=== PATIENT | female | born 1965 | race Caucasian/White ===

== ENCOUNTER → 2017-08-18 16:20 | Outpatient (CLI) | payer BC, SELFPAY ==
--- NOTE | 2017-08-18 16:25 | BI_ITS ---
MAMMOGRAPHY - BILATERAL SCREENING REASON FOR EXAM: Female, 51 years old. Routine annual screening examination. PERTINENT HISTORY: Non-contributory. TECHNIQUE: Digital bilateral breast jazz (3D mammographic acquisition) in the CC and MLO projections. 2-D mediolateral oblique (MLO) and craniocaudad (CC) views of both breasts were obtained. CAD: Full Field Digital Mammography with Computer Added Detection was performed. COMPARISON: Comparison is made with prior study dated genera 24/10/2013 and December 10, 2010. FINDINGS: Breast Composition: There are scattered areas of fibroglandular density. There are no dominant masses or suspicious calcifications. The previously seen nodular density in the upper outer aspect of the right breast is not seen at this time. No other significant abnormalities are identified. BI/SCREENING MAMM (CAD), BILAT IMPRESSION: Stable bilateral screening mammogram. Yearly follow-up mammogram recommended. (A) ASSESSMENT CATEGORY: BIRADS Category 2: Benign. A letter regarding these results will be sent to the patient by the facility within 30 days. Approximately 10% of breast cancers are not detected by mammography. A normal mammogram should not delay biopsy of a clinically suspicious abnormality. [id number] Electronically Signed: Derik Bello MD at 13:39 EDT Tel [phone], Service support ,
== END ==
PROVIDERS: Family Provider Preventive Medicine Occupational Medicine; PCP Preventive Medicine Occupational Medicine; Visit Provider Preventive Medicine Occupational Medicine
DX: Z12.31 Encounter for screening mammogram for malignant neoplasm of breast (principal)
CPT/HCPCS: 77063; 77067

== ENCOUNTER → 2018-08-24 | Outpatient (CLI) | payer BC, SELFPAY ==
[2018-08-24 10:14] LABS: Progesterone Level 0.09 ng/mL (See Comment)
[2018-08-24 10:15] LABS: Thyroid Stim Hormone (TSH) 1.23 uIU/mL (0.358-3.74)
[2018-08-28 11:12] LABS: Estrogen, Total, Serum 42 pg/mL (.)
== END | disposition home or self-care (01) ==
LOC: LABSPEC 09:38
PROVIDERS: Family Provider Preventive Medicine Occupational Medicine; PCP Preventive Medicine Occupational Medicine; Referring Provider Preventive Medicine Occupational Medicine; Visit Provider Preventive Medicine Occupational Medicine
DX: N95.1 Menopausal and female climacteric states (principal); R53.83 Other fatigue
CPT/HCPCS: 82672; 84144; 84443

== ENCOUNTER → 2018-12-13 | Outpatient (CLI) | payer BC, SELFPAY ==
--- NOTE | 2018-12-13 15:48 | BI_ITS ---
BILATERAL DIGITAL MAMMOGRAM WITH TOMOSYNTHESIS: Mediolateraloblique and craniocaudal views demonstrate no evidence of dominant parenchymal masses. No cluster of microcalcification or architectural distortion is seen. No evidence of skin thickening. No significant change since 08/18/2017. Breast Density: There are scattered areas of fibroglandular density. CAD was used to assist in final assessment. IMPRESSION: NORMAL MAMMOGRAM BILATERALLY. ASSESSMENT CATEGORY: BIRADS Category 1: Negative. A letter regarding these results will be sent to the patient by the facility within 30 days. FOLLOW UP RECOMMENDATION: Yearly follow up mammogram recommended. (A) Approximately 10% of breast cancers are not detected by mammography. A normal mammogram should not delay biopsy of a clinically suspicious abnormality. Electronically Signed: Declan Reynoso, at 16:56 EDT Tel , Service support , BI/SCREEN MAMM (CAD) W/DEMOND WISE
== END | disposition home or self-care (01) ==
LOC: OPBI 15:47
PROVIDERS: Family Provider Preventive Medicine Occupational Medicine; PCP Preventive Medicine Occupational Medicine; Referring Provider Preventive Medicine Occupational Medicine; Visit Provider Preventive Medicine Occupational Medicine
DX: Z12.31 Encounter for screening mammogram for malignant neoplasm of breast (principal)
CPT/HCPCS: 77063; 77067

== ENCOUNTER → 2020-02-13 15:48 | Outpatient (CLI) | payer BC, SELFPAY ==
--- NOTE | 2020-02-13 15:50 | BI_ITS ---
MAMMOGRAPHY - BILATERAL SCREENING REASON FOR EXAM: Female, 54 years old. Routine annual screening examination. PERTINENT HISTORY: Non-contributory. TECHNIQUE: Digital bilateral breast demond (3D mammographic acquisition) in the CC and MLO projections. 2-D mediolateral oblique (MLO) and craniocaudad (CC) views of both breasts were obtained. CAD: Full Field Digital Mammography with Computer Added Detection was performed. COMPARISON: Comparison is made with prior study dated 12/13/2018 and 08/18/2017. FINDINGS: Breast Composition: There are scattered areas of fibroglandular density. There are no dominant masses or suspicious calcifications. There is a 4.4 mm x 5.8 mm well-defined nodule in the slightly upper lateral portion of the right breast. This is unchanged. No other significant abnormalities are identified. There has been no significant change since the prior study. BI/SCREEN MAMM (CAD) W/DEMOND BILAT IMPRESSION: Stable bilateral screening mammogram. Yearly follow-up mammogram recommended. (A) ASSESSMENT CATEGORY: BIRADS Category 2: Benign. A letter regarding these results will be sent to the patient by the facility within 30 days. Approximately 10% of breast cancers are not detected by mammography. A normal mammogram should not delay biopsy of a clinically suspicious abnormality. [id number] Electronically Signed: Derik Bello, at 8:21 EST , Service support ,
== END ==
PROVIDERS: PCP Preventive Medicine Occupational Medicine; Referring Provider Preventive Medicine Occupational Medicine; Visit Provider Preventive Medicine Occupational Medicine
DX: Z12.31 Encounter for screening mammogram for malignant neoplasm of breast (principal)
CPT/HCPCS: 77063; 77067

== ENCOUNTER 2020-12-17 13:00 | Outpatient (RCR) | payer OTHER, SELFPAY ==
--- NOTE | 2020-10-06 13:25 | HP.PTEVAL_ITS ---
Patient's Visit Information EZRA PATEL is a 55 year old F referred to Physical Therapy by Dr. Nima Chong MD with a diagnosis of B knee pain. Date of Evaluation: 10/01/20 Physical Therapist: Damián Steele DPT - Visit Plan Frequency: 1x/Week Duration: 4 Weeks Plan: Start with B knee ROM and strengthening in aquatic setting progressing to tolerance with all functional mobility. Add in core stability to HEP as well. - Subjective Pt. is here today for her initial evaluation with diagnosis of B knee pain. Pt. reports having pain for years, but has been progressively getting worse. Pt. reports no N/T, but has been having B knee pain for a while. She reports having increased pain with walking, standing, sit to standing and all transitional movements. Decreased pain: sitting and resting. She saw her doctor who reports she is heading towards total knee replacements, but needs to increase her strength and ROM. Pt. reports stairs are painful, walking is pain and work related activities hurt. She is starting a wt. loss program in [facility] which had been suggested to her in the past. Pt. is hopeful to reduce symptoms, increase her strength and ROM in order to either prevent need for surgery or allow her to be stronger is case surgical intervention is needed. - Pain R knee Pain Intensity (Out of 10): 2 Pain Intensity Range: 0, 6 L knee Pain Intensity (Out of 10): 3 Pain Intensity Range: 1, 8 - Objective POSTURE: Pt. has normal wt. shifting in stance. Pt. does lack TKE on R side in stance. Normal iliac crest heights. PALPATION: Pt. has tenderness throughout B joint lines of knees. No quad pain, slight pain with palpation of medial popliteal fossa. NEURO: normal sensation in BLEs. Pt. has normal DTR of BLEs. ROM: R knee 0-5-108deg. L knee 0-6-110deg. Pt. has tight B HS as well. MMT: RLE: ankle 5/5 throughout; knee 4/5 both flex and ext; hip- flexion 4/5, abd 4/5, ext 4/5. LLE- ankle 5/5 throughout; knee 4/5 both flex and ext; hip- flexion 4/5, abd 4/5, ext 4/5. GAIT: pt. has wide WAQAS with gait with marked antalgic pattern during stance phase of BLEs. Pt. has marked valgus in B knees as well. STAIRS: difficult to complete with both ascending and descending requiring B HR to complete. - Goals Goal 1:: LTG: Pt. to be I with HEP. Goal Time Frame: 2-4 Weeks Goal 2:: STG: Pt. to walk short distances <300' with 0-2/10 pain in B Knees. Goal Time Frame: 2 Weeks Goal 3:: LTG: pt. to ambulate with normalized gait pattern with 0-2/10 pain for unlimited distances. Goal Time Frame: 2-4 Weeks Goal 4:: LTG: Pt. to have increased B knee ROM to 0-0-120deg actively allowing for increased tolerance with all functional mobility. Goal Time Frame: 4-6 Weeks Goal 5:: LTG: Pt. to have increased BLE and core strength increased to at least 5-/5 throughout. Goal Time Frame: 4-6 Weeks - Rehabilitation Potential Physical Therapy Diagnosis: Pt. has signs and symptoms consistent with B knee pain with subsequent hypomobility, weakness, and difficulty with walking. Pt. would benefit from PT to work on BLE strength, ROM to improve proper gait and functional mobility in order to reduce stress applied throughout BLEs. Rehabilitation Potential: Good - Anticipated Interventions Patient/Client Instruction: Educate patient on: Condition, Plan of Care, Risk Factors, Benefits of Fitness Program For the Purpose of:: To foster healthy habits, To improve decision making, To facilitate caregiver knowledge, To improve self management, To prevent re- injury, To improve ability to perform tasks related to life management Therapeutic Exercise to Include: Strength training, Power training, Body mechanics, Postural training, Flexibilty training, Gait and locomotor training, In an aquatic setting, Passive ROM, Active ROM For the Purpose of:: To decrease pain, To decrease swelling/inflammation, To increase ROM, To improve nutrient delivery to tissue, To improve gait and locomotor functions, To improve health of tissue, To decrease soft tissue restriction, To increase flexibility/ROM Thank you for the opportunity to evaluate your patient. For Medicare and Medicare HMO plans, please review the plan of care and approve it. It will need to be FAXED BACK to us at [phone] for Medicare purposes. For Medicare only, by signing this I certify the plan of care. Please let me know if there are questions or concerns regarding this plan of care. Physician Signature: Date:
--- NOTE | 2020-11-26 14:04 | HP.PTREVAL_ITS ---
Dr. Nima Chong MD, It has been my pleasure to treat EZRA PATEL over the last 8 visits for B knee pain. Please see the progress note below for an update on the physical therapy plan of care! Subjective: Pt. reports I do feel like I am getting better. Pt. reports still having some stiffness and is still having pain, but feels like she is progressin g. Objective/Function: Pt. was able to walk 330' with no change in R knee pain, stayed at 3/10 pain. Pt. still has limited knee extension Bilaterallt lacking 5 deg bilat. She does have improved knee flexion to 110deg bilat, but passively. Pt. has improved strength to 4+/5 throughout, except B hip flexion 4/5, abd 4/5 and hip ext 4/5. GAIT: pattern: Pt. continues to ambulate with lack of TKE during stance phases, but has appropriate swing phase. Increased lateral translation noted during stance phase. I would like her to work on continued ROM and hip/quad, HS/glute strengthening in aquatic setting. Plan Plan: Pt. is progressing and would like to continue with PT in aquatic setting. She is making gains in her ROM and strength. She is still limited in both and would benefit from continued PT in order to get her to a point where her tolerance to functional mobility is better or allow her to have surgical intervention. Balance/Gait/Functional tests - Balance/Special Test Scores Lower Extremity Functional Score: 42 Goals Goal 1:: LTG: Pt. to be I with HEP. Goal Time Frame: 2-4 Weeks Goal Progress: Progressing Goal 2:: STG: Pt. to walk short distances <300' with 0-2/10 pain in B Knees. Goal Time Frame: 2 Weeks Goal Progress: Progressing Goal 3:: LTG: pt. to ambulate with normalized gait pattern with 0-2/10 pain for unlimited distances. Goal Time Frame: 2-4 Weeks Goal Progress: Progressing Goal 4:: LTG: Pt. to have increased B knee ROM to 0-0-120deg actively allowing for increased tolerance with all functional mobility. Goal Time Frame: 4-6 Weeks Goal 5:: LTG: Pt. to have increased BLE and core strength increased to at least 5-/5 throughout. Goal Time Frame: 4-6 Weeks Anticipated Interventions Patient/Client Instruction: Educate patient on: Condition, Plan of Care, Risk Factors, Benefits of Fitness Program For the Purpose of:: To foster healthy habits, To improve decision making, To facilitate caregiver knowledge, To improve self management, To prevent re- injury, To improve ability to perform tasks related to life management Therapeutic Exercise to Include: Strength training, Power training, Body mechanics, Postural training, Flexibilty training, Gait and locomotor training, In an aquatic setting, Passive ROM, Active ROM For the Purpose of:: To decrease pain, To decrease swelling/inflammation, To increase ROM, To improve nutrient delivery to tissue, To improve gait and locomo tor functions, To improve health of tissue, To decrease soft tissue restriction, To increase flexibility/ROM Please do not hesitate to contact me at [phone] by phone or if you have questions or concerns regarding this new plan of care! Sincerely, LEO FordT
--- NOTE | 2020-12-17 17:58 | HP.PTDCSUM ---
It has been my pleasure to treat EZRA PATEL referred by Dr. Nima Chong MD, with the diagnosis of B knee pain for a total of 16 visit(s). Discharge Date: 12/17/20 Please see the following information for a summary of their discharge status. Subjective: Pt. is here today for her DC from PT. Pt. reports being 40% better overall. I really feel like my knee got straighter. She is to have a R TKA next week. She is still not back to work due to her knee pain. R knee Pain Intensity (Out of 10): 2 L knee Pain Intensity (Out of 10): 2 RLE Pain Intensity (Out of 10): 0 % Improvement: 40 Objective/Function: ROM: Extension: Pt. is missing 8deg of active ROM bilat, 5 deg of passive motion B. Pt. has normal flexion Bilat. Pt. was able to walk 1124feet without AD. She still has some increased lateral hip sway during stance phase, R worse than L. Pt. reports increased R knee pain during stance phase of pain. She is able to ascend and descend steps with 1 HR without LOB, but has pain with loading RLE during descending. Pt. has overall good strength. Goal 1:: LTG: Pt. to be I with HEP. Goal Progress: Goal Met Goal 2:: STG: Pt. to walk short distances <300' with 0-2/10 pain in B Knees. Goal Progress: Progressing Goal 3:: LTG: pt. to ambulate with normalized gait pattern with 0-2/10 pain for unlimited distances. Goal Progress: Progressing Goal 4:: LTG: Pt. to have increased B knee ROM to 0-0-120deg actively allowing for increased tolerance with all functional mobility. Goal Progress: Progressing Goal 5:: LTG: Pt. to have increased BLE and core strength increased to at least 5-/5 throughout. Goal Progress: Goal Met Plan: Pt. to be DC from PT at this point in time as she is to have TKR on R side next week. Discharge Comments: Pt. was seen in PT in aquatic setting for her B knee OA and pain. She progressed with ROM and strength, but was still having issues with functional mobility and pain. She is to have TKR on R side next week and will be DC from PT at this point in time. If there are questions or concerns regarding this patient's physical therapy, please feel free to call me at [phone]. Thank you for the referral of this patient. Sincerely, Damián Steele, LEOT Balance/Gait/Functional tests - Balance/Special Test Scores Lower Extremity Functional Score: 46
== END 2020-12-17 19:00 | disposition home or self-care (01) ==
LOC: PT 13:00
PROVIDERS: PCP Preventive Medicine Occupational Medicine; Referring Provider Specialist; Visit Provider Specialist
DX: M47.26 Other spondylosis with radiculopathy, lumbar region (principal); M51.36 Other intervertebral disc degeneration, lumbar region; M43.16 Spondylolisthesis, lumbar region
CPT/HCPCS: 97113; 97161; 97164

== ENCOUNTER → 2021-06-29 | Outpatient (CLI) | payer BC, SELFPAY ==
--- NOTE | 2021-06-29 08:43 | BI_ITS ---
MAMMOGRAPHY - BILATERAL SCREENING 3-D TOMOSYNTHESIS REASON FOR EXAM: Female, 55 years old. SCREENING PERTINENT HISTORY: No significant family history. TECHNIQUE: 2-D mammograms and 3-D Tomosynthesis of the breast (s) were performed. CAD was performed. COMPARISON: 02/13/2020 FINDINGS: The breast composition is composed of scattered fibroglandular density. Scattered benign calcifications are seen. No dense spiculated masses or suspicious microcalcifications are identified. No architectural distortion is identified. There is no skin thickening or retraction. There has been no significant change since the prior study. BI/SCRN MAMM (CAD)W/DEMOND BILAT IMPRESSION: No mammographic signs of malignancy. Routine yearly mammograms recommended. ASSESSMENT CATEGORY: BIRADS Category 1: Negative. A letter regarding these results will be sent to the patient by the facility within 30 days. FOLLOW UP RECOMMENDATION: Yearly follow up mammogram recommended. (A) Approximately 10% of breast cancers are not detected by mammography. A normal mammogram should not delay biopsy of a clinically suspicious abnormality. Electronically Signed: Robert Mcnamara MD at 10:24 EDT ,
== END | disposition home or self-care (01) ==
LOC: OPBI 08:41
PROVIDERS: PCP Preventive Medicine Occupational Medicine; Visit Provider Preventive Medicine Occupational Medicine
DX: Z12.31 Encounter for screening mammogram for malignant neoplasm of breast (principal)
CPT/HCPCS: 77063; 77067

== ENCOUNTER 2022-01-11 09:24 | Day surgery (SDC) | payer BC, SELFPAY ==
[2022-01-11 10:03] VITALS: BP 143/81; PULSE 79; RESP 16; TEMP 36.1; O2SAT 97; BMI 49.9
[2022-01-11] MEDS: Lactated Ringers 1,000 ML 15 ML IV (10:06)
--- NOTE | 2022-01-11 10:19 | RAD_ITS ---
PROCEDURE: Caudal block. DATE OF EXAMINATION: 01/11/2022. INDICATION: Female, 56 years old. Chronic low back pain. FLUOROSCOPY TIME (if supplied): (12 seconds) minutes/seconds. One image was submitted. RAD/Fluor Guidance for Spine Inj IMPRESSION: Intraoperative imaging provided for caudal block. Electronically Signed: Derik Bello MD at 14:49 EST ,
[2022-01-11] MEDS: 0.9% Normal Saline (Pres. free 10 ML Vial (10:24)
[2022-01-11] MEDS: MethylPREDNISolone Acetate 80 MG/ML Vial (10:24)
[2022-01-11] MEDS: Bupivacaine 0.25% 30 ML Vial (10:24)
[2022-01-11] MEDS: Lidocaine 1% (5 ml sdv) 5 ML Vial (10:24)
[2022-01-11 10:31] VITALS: BP 119/54; BP 143/81; PULSE 79; RESP 18; TEMP 36.7; O2SAT 98
[2022-01-11 10:35] VITALS: BP 118/68; BP 143/81; PULSE 74; RESP 18; O2SAT 96
[2022-01-11 10:40] VITALS: BP 127/79; BP 143/81; PULSE 72; RESP 18; O2SAT 96
[2022-01-11 10:52] VITALS: BP 136/78; BP 143/81; PULSE 87; RESP 18; TEMP 36.7; O2SAT 97
--- NOTE | 2022-01-11 10:53 | OP.PCM_ITS ---
Report of Operation Date of Procedure: 01/11/22 Pre-Operative Diagnosis: Lumbosacral radiculopathy, lumbosacral degenerative di sc disease, lumbosacral spinal stenosis Post-Operative Diagnosis: Lumbosacral radiculopathy, lumbosacral degenerative disc disease, lumbosacral spinal stenosis Surgery/Procedure Performed:: Caudal epidural steroid injection under fluoroscopic guidance Type of Anesthesia: MAC Estimated Blood Loss (mL): Minimal Description of Procedure: DESCRIPTION OF PROCEDURE: History and physical of today was reviewed. Risks and benefits of the procedure were explained. The patient understood and agreed to proceed. Informed consent was obtained. IV inserted per routine protocol. The patient was taken to the operating room and placed in the prone position with a pillow positioned underneath the abdomen. The lower back and tailbone area was prepped and draped in a sterile fashion using iodine x3. Under fluoroscopy guidance on a lateral view, the caudal space was identified. The skin and subcutaneous tissue was anesthetized with approximately 3 mL of 1% lidocaine using a 25-gauge regular needle. Under direct visualization with fluoroscopy, using a 22-gauge 3-1/2-inch spinal needle, the needle was advanced via the skin through the sacral hiatus. The tip of the needle was passed through the sacrococcygeal ligament and advanced to approximately S4 area. After negative aspiration of blood or CSF, a total of 3 mL of contrast was injected to confirm correct placement of the needle as well as cephalad spread. The spread was followed to approximately L5 area. After confirmation on AP as well as lateral view and repeated negative aspiration, a total of 15 mL of preservative-free 0.125% Marcaine with 80 mg of Depo-Medrol was injected easily. The needle was then removed intact. The patient experienced no sign or symptoms of intrathecal or intravascular injection. The patient experienced no paresthesia. The procedure was completed without any apparent difficulty or any complications. The patient appeared to tolerate it well. ASSESSMENT AND PLAN: This is a 56-year-old female with lumbosacral radiculopathy, lumbosacral degenerative disc disease, lumbosacral spinal stenosis status post caudal epidural steroid injection, patient will continue her current medications, patient will follow in approximately 2 weeks for reevaluation. Complications None
[2022-01-11 11:10] VITALS: BP 143/81
== END 2022-01-11 11:14 | disposition home or self-care (01) ==
LOC: SDC 09:25 → AC 09:27
PROVIDERS: PCP Preventive Medicine Occupational Medicine; Visit Provider Anesthesiology Pain Medicine
PROC: 3E0S3BZ Introduction of Anesthetic Agent into Epidural Space, Percutaneous Approach (ICD-10-PCS; CPT 62282; principal; 2022-01-11 11:25)
DX: M51.17 Intervertebral disc disorders with radiculopathy, lumbosacral region (principal); M48.07 Spinal stenosis, lumbosacral region; I10 Essential (primary) hypertension; K21.9 Gastro-esophageal reflux disease without esophagitis; Z79.1 Long term (current) use of non-steroidal anti-inflammatories (NSAID); Z79.899 Other long term (current) drug therapy
CPT/HCPCS: 62323; 01992; 64483; 77003; J7120; J3490

== ENCOUNTER 2022-05-24 09:52 | Day surgery (SDC) | payer BC, SELFPAY ==
[2022-05-24] VITALS (7 sets, daily range): BP systolic 125–145; BP diastolic 73–87; PULSE 65–84; RESP 16–20; TEMP 36.1–36.6; O2SAT 95–99; BMI 50.9
[2022-05-24] MEDS: Lactated Ringers 1,000 ML 15 ML IV (10:20)
--- NOTE | 2022-05-24 10:30 | RAD_ITS ---
PROCEDURE: Left L3-L5 transforaminal steroid injection. DATE OF EXAMINATION: May 24, 2022. INDICATION: Female, 56 years old. Chronic low back pain. FLUOROSCOPY TIME (if supplied): (18.3 seconds) minutes/seconds. 3 images were submitted. RADIATION DOSAGE (If Supplied By Facility): ( 11.1 ) mGycm RAD/Lumbar Spine 2 or 3 Views IMPRESSION: Intraoperative imaging provided for left L3-L5 transforaminal steroid injection. Electronically Signed: Derik Bello MD at 13:40 EDT ,
[2022-05-24] MEDS: MethylPREDNISolone Acetate 80 MG/ML Vial (11:08)
[2022-05-24] MEDS: Lidocaine 1% (5 ml sdv) 5 ML Vial (11:08)
[2022-05-24] MEDS: Bupivacaine 0.25% 30 ML Vial (11:08)
--- NOTE | 2022-05-24 11:13 | PCM.OPRPT ---
Report of Operation Date of Procedure: 05/24/22 Description of Surgical Findings:: PREOPERATIVE DIAGNOSES: 1. Lumbosacral radiculopathy. 2. Lumbosacral degenerative disk disease. 3. Lumbosacral spinal stenosis. POSTOPERATIVE DIAGNOSES: 1. Lumbosacral radiculopathy. 2. Lumbosacral degenerative disk disease. 3. Lumbosacral spinal stenosis. PROCEDURE PERFORMED: Left-sided lumbar transforaminal epidural steroid injection, L3-4 and L4-5. ANESTHESIA: MAC. BLOOD LOSS: Minimal. COMPLICATIONS: None. DESCRIPTION OF PROCEDURE: History and physical of today was reviewed. Risks and benefits of the procedure were explained. The patient understood and agreed to proceed. Informed consent was obtained. IV inserted per routine protocol. The patient was taken to the operating room and placed in the prone position with a pillow positioned underneath the abdomen. The left side of his lower back was prepped and draped in a sterile fashion using iodine x3. Under fluoroscopy guidance on oblique view, the L3 through L5 vertebral bodies were visualized. The skin and subcutaneous tissue was anesthetized with approximately 5 mL of 1% lidocaine using a 25-gauge regular needle. Under direct visualization with fluoroscopy at approximately 35-degree angle, starting on the left L3, ending on the left L5, using a 22-gauge 5-inch spinal needle, the needle was advanced via the skin. The tip of the needle was maneuvered and directed towards the inferior and medial gutter of the transverse process at the superiormost aspect of the neural foramen. Once the tip of the needle was at the vicinity of the foramen, after negative aspiration for blood or CSF, a total of 1 mL of contrast was injected in divided doses between both levels to confirm correct placement of the needle as well as medial spread. The confirmation was obtained on AP as well as lateral view. After repeated negative aspiration and confirmation on AP as well as lateral view, a total of 6 mL of preservative-free 0.25% Marcaine with 80 mg of Depo-Medrol was injected in divided doses between both levels. The needles were then removed intact. The patient experienced no sign or symptoms of intrathecal or intravascular injection. The patient experienced no paresthesia. The procedure was completed without any apparent difficulty or any complications. The patient appeared to tolerate it well. ASSESSMENT AND PLAN: This is a 56-year-old female with lumbosacral radiculopathy, lumbosacral degenerative disk disease, and lumbosacral spinal stenosis, status post left-sided lumbar transforaminal epidural steroid injection at L3-4 and L4-5. The patient will continue his current medications. The patient will follow up in approximately 2 weeks for possible repeat of procedure if indicated.
== END 2022-05-24 12:09 | disposition home or self-care (01) ==
LOC: SDC 09:52 → AC 09:54
PROVIDERS: PCP Preventive Medicine Occupational Medicine; Referring Provider Anesthesiology Pain Medicine; Visit Provider Anesthesiology Pain Medicine
PROC: 3E0S3BZ Introduction of Anesthetic Agent into Epidural Space, Percutaneous Approach (ICD-10-PCS; CPT 64483; principal; 2022-05-24 11:25)
DX: M51.17 Intervertebral disc disorders with radiculopathy, lumbosacral region (principal); M48.07 Spinal stenosis, lumbosacral region; F32.A Depression, unspecified; K21.9 Gastro-esophageal reflux disease without esophagitis; E78.00 Pure hypercholesterolemia, unspecified; I10 Essential (primary) hypertension; G47.30 Sleep apnea, unspecified; Z79.899 Other long term (current) drug therapy
CPT/HCPCS: 64483; 64484; 01992; 72100; J7120

== ENCOUNTER 2022-08-23 06:34 | Day surgery (SDC) | payer BC, SELFPAY ==
[2022-08-23] VITALS (7 sets, daily range): BP systolic 127–144; BP diastolic 70–83; PULSE 71–82; RESP 16; TEMP 36.4–37; O2SAT 95–100; BMI 51.3
[2022-08-23] MEDS: Lactated Ringers 1,000 ML 15 ML IV (07:12)
--- NOTE | 2022-08-23 08:40 | RAD_ITS ---
STUDY: INTRAOPERATIVE FLUOROSCOPY TECHNIQUE: The examination was performed with referring physician in attendance. Under fluoroscopic observation, fluoroscopic images were obtained. Radiologist was not present for the study. Radiologist did not perform the procedure. This dictation is for documentation of the radiation dosage only. There is no interpretation of the images. TOTAL NUMBER OF IMAGES: 1 COMPARISON: None RADIATION DOSE: 16.96 mGy FLUOROSCOPY TIME: 28.5 seconds REASON FOR EXAM: RIGHT LUMBAR RADIO FREQ ABLATION Female, 56 years old. FINDINGS: Images of the lumbar spine needle''s voiding at multiple lumbar levels. RAD/L/S Spine Min 4 Views IMPRESSION: Fluoroscopic assistance images were obtained. Dictation for documentation purposes only. Electronically Signed: Jarek Nava MD at 16:14 EDT ,
[2022-08-23] MEDS: Lidocaine 1% (30 ml sdv) 30 ML Vial (08:47)
[2022-08-23] MEDS: MethylPREDNISolone Acetate 40 MG/ML Vial IM (08:47)
--- NOTE | 2022-08-23 09:14 | PCM.OPRPT ---
Report of Operation Date of Procedure: 08/23/22 Pre-Operative Diagnosis: Lumbosacral spondylosis, lumbosacral degenerative disc disease, lumbar facet arthropathy Post-Operative Diagnosis: Lumbosacral spondylosis, lumbosacral degenerative disc disease, lumbar facet arthropathy Surgery/Procedure Performed:: Right-sided lumbar radiofrequency ablation of the medial branch L4, L5, S1 Type of Anesthesia: MAC Estimated Blood Loss (mL): Minimal Description of Procedure: History and physical today was reviewed. Risks and benefits of procedure explained. The patient understood, agreed to the procedure and informed consent was obtained. IV inserted per routine protocol. The patient was taken to the operating room, placed in the prone position with a pillow positioned underneath the abdomen. The right side of the lower back was prepped and draped in a sterile fashion using iodine x 3. Under fluoroscopy guidance, on an oblique view, the L3 through S1 vertebral bodies were visualized. The skin and subcutaneous tissue was anesthetized with approximately 10 mL of 1% lidocaine using a 25-gauge regular needle. Under direct visualization with fluoroscopy at approximately 25-degree angle, starting on the right L3, ending on the right S1 passing through the L4-L5 using a 20-gauge 15 cm with a 10 mm curved active tip radiofrequency ablation needle the needle passed through the skin. The tip of the needle was maneuvered and directed towards the superior and medial gutter of the transverse process at the vicinity of the medial branch. Once the tip of the needle was in contact with the bone, the needle pulled approximately 2 mm up the bone. The stylet of each needle was then removed. After negative aspiration of blood with CSF and confirmation of AP as well as oblique view, radiofrequency ablation probe was then inserted at each level. Impedance was then recorded at L3 to be 316, at L4 216, at L5 238, at S1 389 ohm. Motor-evoked potential was then initiated to 1.5 volt without any motor response at each corresponding level. The probe was then removed intact and a total of 6 mL preservative-free 1% lidocaine was injected in divided doses between those 4 levels after negative aspiration of blood with CSF. The radiofrequency ablation probe was then reinserted after confirmation of AP, oblique as well as lateral view. Radiofrequency ablation was then initiated to 80 degrees Celsius for 90 seconds at each level. Once concluded, the probe was then removed intact and a total of 6 mL of preservative-free 0.25% Marcaine with 40 mg Depo-Medrol was injected in divided doses between those 4 levels. The needles were then removed intact. The patient experienced no signs or symptoms of intrathecal, intravascular injection. The patient experienced no paraesthesia. The procedure was completed without any apparent difficulty, any complication. The patient appeared to tolerate well. Sensory as well as motor exam was unchanged from prior to procedure. ASSESSMENT AND PLAN: This is a 56-year-old female with lumbosacral spondylosis, lumbosacral degenerative disc disease, lumbar facet arthropathy, status post right-sided radiofrequency ablation of the medial branch L4 through S1. The patient will continue her current medications. The patient will follow up in approximately 2 weeks for reevaluation. Complications None
== END 2022-08-23 09:49 | disposition home or self-care (01) ==
LOC: SDC 06:35 → AC 06:36
PROVIDERS: PCP Preventive Medicine Occupational Medicine; Referring Provider Anesthesiology Pain Medicine; Visit Provider Anesthesiology Pain Medicine
PROC: (CPT 64635; principal; 2022-08-23 08:15)
DX: M47.816 Spondylosis without myelopathy or radiculopathy, lumbar region (principal); M51.37 Other intervertebral disc degeneration, lumbosacral region; M47.817 Spondylosis without myelopathy or radiculopathy, lumbosacral region; F32.A Depression, unspecified; K21.9 Gastro-esophageal reflux disease without esophagitis; E78.00 Pure hypercholesterolemia, unspecified; I10 Essential (primary) hypertension; G47.30 Sleep apnea, unspecified; Z79.899 Other long term (current) drug therapy
CPT/HCPCS: 64635; 64636; 01992; 72110; 76000; J7120

== ENCOUNTER 2022-11-22 10:24 | Day surgery (SDC) | payer BC, SELFPAY ==
[2022-11-22] VITALS (7 sets, daily range): BP systolic 121–150; BP diastolic 70–82; PULSE 59–68; RESP 12–16; TEMP 36.1–36.6; O2SAT 96–98; BMI 52.6
[2022-11-22] MEDS: Lactated Ringers 1,000 ML 15 ML IV (10:59)
--- NOTE | 2022-11-22 11:28 | RAD_ITS ---
PROCEDURE: Caudal block. DATE OF EXAMINATION: November 22, 2022. INDICATION: Female, 57 years old. Low back pain. FLUOROSCOPY TIME (if supplied): (10 seconds) minutes/seconds. 11.03 mGy. One image was obtained. RAD/Fluor Guidance for Spine Inj IMPRESSION: Intraoperative imaging provided for caudal block. Electronically Signed: Derik Bello MD at 9:11 EDT ,
[2022-11-22] MEDS: 0.9% Normal Saline (Pres. free 10 ML Vial (11:31)
[2022-11-22] MEDS: MethylPREDNISolone Acetate 80 MG/ML Vial (11:36)
[2022-11-22] MEDS: Lidocaine 1% (5 ml sdv) 5 ML Vial (11:36)
--- NOTE | 2022-11-22 12:24 | OP.PCM_ITS ---
Report of Operation Date of Procedure: 11/22/22 Pre-Operative Diagnosis: Lumbosacral radiculopathy, lumbosacral degenerative di sc disease, lumbosacral spinal stenosis Post-Operative Diagnosis: Lumbosacral radiculopathy, lumbosacral degenerative disc disease, lumbosacral spinal stenosis Surgery/Procedure Performed:: Diagnostic/therapeutic caudal epidural steroid injection under fluoroscopic guidance Type of Anesthesia: MAC Estimated Blood Loss (mL): Minimal Description of Procedure: DESCRIPTION OF PROCEDURE: History and physical of today was reviewed. Risks and benefits of the procedure were explained. The patient understood and agreed to proceed. Informed consent was obtained. IV inserted per routine protocol. The patient was taken to the operating room and placed in the prone position with a pillow positioned underneath the abdomen. The lower back and tailbone area was prepped and draped in a sterile fashion using iodine x3. Under fluoroscopy guidance on a lateral view, the caudal space was identified. The skin and subcutaneous tissue was anesthetized with approximately 3 mL of 1% lidocaine using a 25-gauge regular needle. Under direct visualization with fluoroscopy, using a 22-gauge 3-1/2-inch spinal needle, the needle was advanced via the skin through the sacral hiatus. The tip of the needle was passed through the sacrococcygeal ligament and advanced to approximately S4 area. After negative aspiration of blood or CSF, a total of 3 mL of contrast was injected to confirm correct placement of the needle as well as cephalad spread. The spread was followed to approximately L5 area. After confirmation on AP as well as lateral view and repeated negative aspiration, a total of 15 mL of preservative-free 0.125% Marcaine with 80 mg of Depo-Medrol was injected easily. The needle was then removed intact. The patient experienced no sign or symptoms of intrathecal or intravascular injection. The patient experienced no paresthesia. The procedure was completed without any apparent difficulty or any complications. The patient appeared to tolerate it well. ASSESSMENT AND PLAN: This is a 57-year-old female with lumbosacral radiculopathy, lumbosacral degenerative disc disease, lumbosacral spinal stenosis status post diagnostic/therapeutic caudal epidural steroid injection, patient will continue her current medications, patient will follow in approximately 2 weeks for reevaluation. Complications None
== END 2022-11-22 12:15 | disposition home or self-care (01) ==
LOC: SDC 10:24 → AC 10:25
PROVIDERS: PCP Preventive Medicine Occupational Medicine; Referring Provider Anesthesiology Pain Medicine; Visit Provider Anesthesiology Pain Medicine
PROC: 3E0S3BZ Introduction of Anesthetic Agent into Epidural Space, Percutaneous Approach (ICD-10-PCS; CPT 62282; principal; 2022-11-22 11:55)
DX: M51.17 Intervertebral disc disorders with radiculopathy, lumbosacral region (principal); M48.07 Spinal stenosis, lumbosacral region; F32.A Depression, unspecified; K21.9 Gastro-esophageal reflux disease without esophagitis; E78.00 Pure hypercholesterolemia, unspecified; I10 Essential (primary) hypertension; Z79.899 Other long term (current) drug therapy
CPT/HCPCS: 62323; 01992; 64483; 77003; J7120; J3490

== ENCOUNTER 2023-05-09 07:46 | Day surgery (SDC) | payer BC, SELFPAY ==
--- OUTSIDE RECORDS SUMMARY | 2023-05-09 08:02 | XMS RPT_ITS | CCD ---
Author Name Unknown Address [address] [place] [address] Organization [facility] Care Team Providers Care Log Stacker Operator Name Role Phone Sunil Brown PA-C Unavailable [phone] RIZWANA GONZALEZ Attending Unavailable RIZWANA GONZALEZ Primary Care Unavailable RIZWANA GONZALEZ Admitting Unavailable KRISTEN MAY DO Primary Care Physician [phone] KRISTEN MAY DO Primary Care Physician [phone] KRISTEN MAY DO Attending Unavailable KRISTEN MAY DO Primary Care Unavailable KRISTEN MAY DO Primary Care Unavailable ALONSO BROWNING MD Attending Unavailable KRISTEN MAY DO Primary Care Unavailable KRISTEN MAY DO Attending Unavailable HAYLEE UX CONSULTANT-ADMINISTRATIVE FELLOW, EMILEE Wallis Attending Un available KRISTEN MAY DO Primary Care Unavailable MICHAEL UX CONSULTANT-ADMINISTRATIVE FELLOWJOHANNE Admitting Kelsi RODRIGUEZ APRN-THONG, JOHANNE Villafana Attending RIZWANA Armendariz DO Referring Unavailable KRISTEN MAY DO Primary Care Unavailable KRISTEN MAY DO Primary Care Unavailable SARBJIT JASON DO Attending Unavailable KRISTEN MAY DO Attending Unavailable KRISTEN MAY DO Primary Care Unavailable KRISTEN MAY DO Primary Care Unavailable PROVIDER, UNKNOWN Attending Unavailable Allergies Allergy Classification Reported Allergen(s) Allergy Type Date of Onset Reaction(s) Facility (17 sources) penicillin; Translations: [penicillin] Drug Allergy 3 Rash [facility] Work Phone: (1 source) Seasonal allergy; Translations: [SEASONAL] allergy to substance 4 [facility] Work Phone: (9 sources) sulfacetamide; Translations: [sulfa drugs] Drug Allergy 3 Rash [facility] Work Phone: (16 sources) Fenofibrate; Translations: [fenofibrate] Drug Allergy Sore gums (finding) [facility] (16 sources) moxifloxacin; Translations: [moxifloxacin] Drug Allergy Rash [facility] (8 sources) Sulfonamides (Antibiotic); Translations: [sulfa drugs] Drug allergy Rash [facility] Medications Current Medications Medication Drug Class(es) Dates Sig (Normalized) Sig (Original) acetaminophen 500 mg oral tablet (1 source) Start: 02-12-2021 End: 02-26-2021 take 1 tablet by mouth once daily acetaminophen 500 mg oral tablet Dose : 1,000 mg = 2 tab(s), Oral, TID, PRN as needed for fever, not to exceed 3000 mg/day, # 100 tab(s), 0 Refill(s), 02/26/21 7:18:00 EST, Pharmacy: [facility]/pharmacy #[id number], 160, cm, 02/11/21 19:41:00 EST, Height, kg, 02/11/21 19:41:00 EST, Dosing Weight Start Date: 02/12/21 Stop Date: 02/26/21 Status: Ordered acetaminophen 325 mg / oxyCODONE hydrochloride 5 mg oral tablet (2 sources) Opioid Agonist Start: 02-10-2023 End: 02-15-2023 take 1 tablet by mouth every six hours as needed for pain Percocet 5 mg-325 mg oral tablet Dose = 1 tab(s), Oral, q6h, PRN for pain, X 5 day(s), # 12 tab(s), 0 Refill(s), Open fracture of phalanx of finger of left hand, 136.4 Start Date: 02/10/23 Stop Date: 02/15/23 Status: Ordered Aspirin (3 sources) Platelet Aggregation Inhibitor, Nonsteroidal Anti-inflammatory Drug Start: 02-12-2021 take 1 tablet by mouth twice daily aspirin 81 mg oral delayed release tablet Dose : 81 mg = 1 tab(s), Oral, BID, Take 81 mg aspirin twice daily with food for 4 weeks postoperatively for DVT prophylaxis, # 60 tab(s), 0 Refill(s), Pharmacy: [facility]/pharmacy #[id number], 160, cm, 02/11/21 19:41:00 EST, Height, kg, 02/11/21 19:41:00 EST, Do... Start Date: 02/12/21 Status: Ordered cephalexin 500 mg oral capsule (2 sources) Cephalosporin Antibacterial Start: 02-10-2023 End: 02-15-2023 cephalexin 500 mg oral capsule Dose : 500 mg = 1 cap(s), Oral, q12h, X 5 day(s), # 10 cap(s), 0 Refill(s), 02/15/23 10:06:00 PM EST, 136.4 Start Date: 02/10/23 Stop Date: 02/15/23 Status: Ordered doxycycline hyclate 100 mg oral capsule (3 sources) Tetracycline-class Drug Start: 07-14-2022 End: 07-29-2022 doxycycline hyclate 100 mg oral capsule Dose : 100 mg = 1 cap(s), Oral, BID, X 10 day(s), # 20 cap(s), 0 Refill(s), 07/29/22 10:44:00 EDT, Pharmacy: [id number], 160, cm, 07/16/22 18:33:00 EDT, Height, 129.5 Start Date: 07/19/22 Stop Date: 07/29/22 Status: Ordered Completed/Discontinued Medications Medication Drug Class(es) Dates Sig (Normalized) Sig (Original) MULTIPLE VITAMIN (1 source) Start: 05-24-2016 MULTIPLE VITAMINS TABS MULTIPLE VITAMIN [id number] Gabe Price PAC [id number] ETHYL ESTERS CAPS (1 source) Start: 01-02-2013 LOVAZA CAPS takes 4 capsules a day [id number] ETHYL ESTERS CAPS [id number] Norah Hay LPN oxyCODONE hydrochloride 5 mg oral tablet (4 sources) Opioid Agonist Start: 03-12-2021 oxyCODONE 5 mg oral tablet ( IMMEDIATE release ) Dose : 5 mg = 1 tab(s), Oral, q6h, PRN as needed for pain, 0 Refill(s), 114.5 Start Date: 03/12/21 Status: Ordered Problems Active Problems Problem Classification Problem Date Documented Date Episodic/Chronic Anxiety disorders (17 sources) Anxiety; Translations: [Anxiety disorder] Onset: 02-11-2021 11-29-2018 Chronic Deficiency and other anemia (16 sources) Iron deficiency anemia 07-30-2020 Episodic Diseases of white blood cells (1 source) Leukocytosis; Translations: [Elevated white blood cell count, unspecified] Onset: 02-12-2021 Chronic Disorders of lipid metabolism (17 sources) Mixed hyperlipidemia; Translations: [Mixed hyperlipidemia] Onset: 02-11-2021 11-29-2018 Chronic Esophageal disorders (17 sources) Gastroesophageal reflux disease; Translations: [Gastroesophageal reflux disease without esophagitis] Onset: 02-11-2021 11-29-2018 Chronic Essential hypertension (18 sources) Essential hypertension; Translations: [Essential (primary) hypertension] Onset: 02-11-2021 08-22-2019 Chronic Fracture of upper limb (1 source) Open fracture of phalanx of finger; Translations: [Fracture of unspecified phalanx of unspecified finger, initial encounter for open fracture] Onset: 02-10-2023 Episodic Menopausal disorders (16 sources) Menopausal syndrome 11-29-2018 Chronic Nutritional deficiencies (16 sources) Vitamin D deficiency 02-16-2019 Chronic Nutritional deficiencies (16 sources) Cobalamin deficiency 11-29-2018 Episodic Osteoarthritis (14 sources) Osteoarthritis of knee; Translations: [Osteoarthritis of right knee joint] Onset: 03-20-2015 03-20-2015 Chronic Other connective tissue disease (1 source) Artificial knee joint present; Translations: [Presence of right artificial knee joint] Onset: 02-11-2021 Chronic Other connective tissue disease (16 sources) Muscle pain 11-29-2018 Episodic Other female genital disorders (10 sources) Vaginal bleeding 06-17-2021 Chronic Other nutritional; endocrine; and metabolic disorders (2 sources) Body mass index 40+ - severely obese 02-09-2023 Chronic Residual codes; unclassified (16 sources) Obstructive sleep apnea syndrome 11-29-2018 Chronic Spondylosis; intervertebral disc disorders; other back problems (17 sources) Lumbar disc prolapse with radiculopathy; Translations: [Degeneration of lumbar intervertebral disc] Onset: 12-09-2014 12-09-2014 Chronic Unclassified (2 sources) Invalid ICD10 Description; Translations: [Invalid ICD10 Description] Onset: 03-27-2020 Unclassified (1 source) COVID-19; Translations: [COVID-19] Onset: 03-27-2020 Unclassified (20 sources) Patient encounter status 11-29-2018 Past or Other Problems Problem Classification Problem Date Documented Da te Episodic/Chronic Skin and subcutaneous tissue infections (5 sources) Cellulitis of lower limb; Translations: [Cellulitis] Onset: 07-14-2022 07-07-2022 Episodic Spondylosis; intervertebral disc disorders; other back problems (2 sources) Spinal stenosis; Translations: [Spinal stenosis of lumbar region] Onset: 12-09-2014 12-09-2014 Episodic Unclassified (1 source) Problem Results Test Name Value Interpretation Reference Range Facil ity Vital Signs Date Time Vital Sign Value Performing Clinician Facility 02-10-2023 19:35-0500 Blood Pressure Cuff Size 8Trip DO [facility] 02-10-2023 19:35-0500 Blood Pressure Location 8Trip DO [facility] 02-10-2023 19:35-0500 Blood Pressure Method 8Trip DO [facility] 02-10-2023 19:35-0500 Diastolic Blood Pressure Non-Invasive 88 mm[Hg] 8Trip DO [facility] 02-10-2023 19:35-0500 Systolic Blood Pressure Non-Invasive 157 mm[Hg] 8Trip DO [facility] 02-10-2023 18:32-0500 Body height 160 cm Speak With Me [facility] 02-10-2023 18:32-0500 Body temperature 98.96 [degF] SARBJIT REICHFIELD DO [facility] 02-10-2023 18:32-0500 Body weight 136.4 kg SARBJIT REICHFIELD DO [facility] 02-10-2023 18:32-0500 Diastolic Blood Pressure Non-Invasive 113 mm[Hg] SARBJIT REICHFIELD DO [facility] 02-10-2023 18:32-0500 Heart rate 79 /[facility] 02-10-2023 18:32-0500 Respiratory rate 20 /min [facility] 02-10-2023 18:32-0500 Systolic Blood Pressure Non-Invasive 207 mm[Hg] [facility] 07-19-2022 11:00-0400 Body temperature 97.7 [degF] JOHANNE RODRIGUEZ UX CONSULTANT-ADMINISTRATIVE FELLOW [facility] 07-19-2022 11:00-0400 Diastolic Blood Pressure Non-Invasive 66 1 JOHANNE RODRIGUEZ UX CONSULTANT-ADMINISTRATIVE FELLOW [facility] 07-19-2022 11:00-0400 Heart rate 70 /min JOHANNE RODRIGUEZ UX CONSULTANT-ADMINISTRATIVE FELLOW [facility] 07-19-2022 11:00-0400 Systolic Blood Pressure Non-Invasive 130 1 JOHANNE RODRIGUEZ UX CONSULTANT-ADMINISTRATIVE FELLOW [facility] 07-19-2022 07:48-0400 Body temperature 97.52 [degF] JOHANNE RODRIGUEZ UX CONSULTANT-ADMINISTRATIVE FELLOW [facility] 07-19-2022 07:48-0400 Diastolic Blood Pressure Non-Invasive 81 1 JOHANNE RODRIGUEZ UX CONSULTANT-ADMINISTRATIVE FELLOW [facility] 07-19-2022 07:48-0400 Heart rate 64 /min JOHANNE RODRIGUEZ UX CONSULTANT-ADMINISTRATIVE FELLOW [facility] 07-19-2022 07:48-0400 Reason For Taking VItal Signs JOHANNE RODRIGUEZ UX CONSULTANT-ADMINISTRATIVE FELLOW [facility] 07-19-2022 07:48-0400 Respiratory rate 20 /min JOHANNE RODRIGUEZ UX CONSULTANT-ADMINISTRATIVE FELLOW [facility] 07-19-2022 07:48-0400 Systolic Blood Pressure Non-Invasive 143 1 JOHANNE RODRIGUEZ UX CONSULTANT-ADMINISTRATIVE FELLOW [facility] 07-19-2022 03:13-0400 Body temperature 96.98 [degF] JOHANNE RODRIGUEZ UX CONSULTANT-ADMINISTRATIVE FELLOW [facility] 07-19-2022 03:13-0400 Diastolic Blood Pressure Non-Invasive 79 1 JOHANNE RODRIGUEZ UX CONSULTANT-ADMINISTRATIVE FELLOW [facility] 07-19-2022 03:13-0400 Heart rate 69 /min JOHANNE RODRIGUEZ UX CONSULTANT-ADMINISTRATIVE FELLOW [facility] 07-19-2022 03:13-0400 Systolic Blood Pressure Non-Invasive 136 1 JOHANNE RODRIGUEZ UX CONSULTANT-ADMINISTRATIVE FELLOW [facility] 07-18-2022 23:05-0400 Body temperature 97.16 [degF] JOHANNE RODRIGUEZ UX CONSULTANT-ADMINISTRATIVE FELLOW [facility] 07-18-2022 23:05-0400 Heart rate 65 /min JOHANNE RODRIGUEZ UX CONSULTANT-ADMINISTRATIVE FELLOW [facility] 07-18-2022 19:19-0400 Body temperature 97.52 [degF] JOHANNE GARCIAN UX CONSULTANT-ADMINISTRATIVE FELLOW [facility] 07-18-2022 16:26-0400 Heart rate 70 /min JOHANNEBREANNA GARCIAN UX CONSULTANT-ADMINISTRATIVE FELLOW [facility] 07-18-2022 11:28-0400 Heart rate 70 /min JOHANNEBREANNA GARCIAN UX CONSULTANT-ADMINISTRATIVE FELLOW [facility] 07-18-2022 05:28-0400 Heart rate 60 /min JOHANNEBREANNA GARCIAN UX CONSULTANT-ADMINISTRATIVE FELLOW [facility] 07-17-2022 23:50-0400 Heart rate 80 /min JOHANNEBREANNA RICENEN UX CONSULTANT-ADMINISTRATIVE FELLOW [facility] 07-17-2022 19:30-0400 Heart rate 69 /min JOHANNEBREANNA GARCIAN UX CONSULTANT-ADMINISTRATIVE FELLOW [facility] 07-16-2022 18:33-0400 Body height 160 cm JOHANNE GARCIAN UX CONSULTANT-ADMINISTRATIVE FELLOW [facility] 07-16-2022 18:33-0400 Body weight 129.5 kg JOHANNEBREANNA GARCIAN UX CONSULTANT-ADMINISTRATIVE FELLOW [facility] 07-16-2022 18:33-0400 Body weight 50.59 kg/m2 JOHANNEBREANNA GARCIAN UX CONSULTANT-ADMINISTRATIVE FELLOW [facility] 07-16-2022 18:27-0400 Blood Pressure Cuff Size JOHANNEBREANNA RICENEN UX CONSULTANT-ADMINISTRATIVE FELLOW [facility] 07-16-2022 18:27-0400 Blood Pressure Location JOHANNEBREANNA GARCIAN UX CONSULTANT-ADMINISTRATIVE FELLOW [facility] 07-16-2022 18:27-0400 Blood Pressure Method JOHANNE GARCIAMaya UX CONSULTANT-ADMINISTRATIVE FELLOW [facility] 07-16-2022 15:05-0400 Body height 160 cm JOHANNE RODRIGUEZ UX CONSULTANT-ADMINISTRATIVE FELLOW [facility] 07-16-2022 15:05-0400 Body weight 129.5 kg JOHANNE RODRIGUEZ UX CONSULTANT-ADMINISTRATIVE FELLOW [facility] 03-24-2021 13:00-0500 Diastolic Blood Pressure NBP [address] NIMA POTTER MD [facility] 03-24-2021 13:00-0500 Heart rate 95 /min DR NIMA POTTER MD [facility] 03-24-2021 13:00-0500 Systolic Blood Pressure NBP [address] NIMA POTTER MD [facility] 03-24-2021 11:36-0500 Diastolic Blood Pressure NBP [address] NIMA POTTER MD [facility] 03-24-2021 11:36-0500 Heart rate 87 /min DR NIMA POTTER MD [facility] 03-24-2021 11:36-0500 Respiratory rate 16 /min DR NIMA POTTER MD [facility] 03-24-2021 11:36-0500 Systolic Blood Pressure NBP [address] NIMA POTTER MD [facility] 03-24-2021 10:31-0500 Diastolic Blood Pressure NBP [address] NIMA POTTER MD [facility] 03-24-2021 10:31-0500 Heart rate 93 /min DR NIMA POTTER MD [facility] 03-24-2021 10:31-0500 Systolic Blood Pressure NBP [address] NIMA POTTER MD [facility] 03-24-2021 09:59-0500 Body temperature 96.62 [degF] DR NIMA POTTER MD [facility] 03-24-2021 07:00-0500 Body height [address] NIMA POTTER MD [facility] 03-24-2021 07:00-0500 Body temperature 98.24 [degF] DR NIMA POTTER MD [facility] 03-24-2021 07:00-0500 Body weight 114.[address] NIMA POTTER MD [facility] 03-24-2021 07:00-0500 Heart rate 99 /min DR NIMA POTTER MD [facility] 03-12-2021 08:12-0500 Body height [address] NIMA POTTER MD [facility] 03-12-2021 08:12-0500 Body weight 114.[address] NIMA POTTER MD [facility] 03-12-2021 08:12-0500 Body weight 44.77 kg/m2 DR NIMA POTTER MD [facility] 03-12-2021 08:12-0500 diastolic 84 mm[Hg] DR NIMA POTTER MD [facility] 03-12-2021 08:12-0500 Heart rate 74 /min DR NIMA POTTER MD [facility] 03-12-2021 08:12-0500 Respiratory rate 20 /min DR NIMA POTTER MD [facility] 03-12-2021 08:12-0500 systolic 128 mm[Hg] DR NIMA POTTER MD [facility] 02-12-2021 11:17-0500 Body temperature 97.34 [degF] DR NIMA POTTER MD [facility] 02-12-2021 11:17-0500 Diastolic blood pressure 64 mm[Hg] DR NIMA POTTER MD [facility] 02-12-2021 11:17-0500 Heart rate 79 /min DR NIMA POTTER MD [facility] 02-12-2021 11:17-0500 Mean blood pressure 84 mm[Hg] DR NIMA POTTER MD [facility] 02-12-2021 11:17-0500 Reason For Taking VItal Signs DR NIMA POTTER MD [facility] 02-12-2021 11:17-0500 Respiratory rate 18 /min DR NIMA POTTER MD [facility] 02-12-2021 11:17-0500 Systolic blood pressure 123 mm[Hg] DR NIMA POTTER MD [facility] 02-12-2021 06:57-0500 Body temperature 97.34 [degF] DR NIMA POTTER MD [facility] 02-12-2021 06:57-0500 Diastolic blood pressure 75 mm[Hg] DR NIMA POTTER MD [facility] 02-12-2021 06:57-0500 Heart rate 74 /min DR NIMA POTTER MD [facility] 02-12-2021 06:57-0500 Reason For Taking VItal Signs DR NIMA POTTER MD [facility] 02-12-2021 06:57-0500 Respiratory rate 20 /min DR NIMA POTTER MD [facility] 02-12-2021 06:57-0500 Systolic blood pressure 120 mm[Hg] DR NIMA POTTER MD [facility] 02-12-2021 03:56-0500 Body temperature 98.06 [degF] DR NIMA POTTER MD [facility] 02-12-2021 03:56-0500 Diastolic Blood Pressure NBP [address] NIMA POTTER MD [facility] 02-12-2021 03:56-0500 Heart rate 62 /min DR NIMA POTTER MD [facility] 02-12-2021 03:56-0500 Reason For Taking VItal Signs DR NIMA POTTER MD [facility] 02-12-2021 03:56-0500 Respiratory rate 20 /min DR NIMA POTTER MD [facility] 02-12-2021 03:56-0500 Systolic Blood Pressure NBP [address] NIMA POTTER MD [facility] 02-11-2021 19:41-0500 Body height [address] NIMA POTTER MD [facility] 02-11-2021 19:41-0500 Body temperature 98.42 [degF] DR NIMA POTTER MD [facility] 02-11-2021 19:41-0500 Body weight 114.[address] NIMA POTTER MD [facility] 02-11-2021 19:41-0500 Body weight 44.73 kg/m2 DR NIMA POTTER MD [facility] 02-11-2021 19:41-0500 Diastolic Blood Pressure NBP [address] NIMA POTTER MD [facility] 02-11-2021 19:41-0500 Heart rate 84 /min DR NIMA POTTER MD [facility] 02-11-2021 19:41-0500 Systolic Blood Pressure NBP [address] NIMA POTTER MD [facility] 02-11-2021 19:12-0500 Diastolic Blood Pressure NBP [address] NIMA POTTER MD [facility] 02-11-2021 19:12-0500 Systolic Blood Pressure NBP [address] NIMA POTTER MD [facility] 02-11-2021 18:15-0500 Body temperature 97.16 [degF] DR NIMA POTTER MD [facility] 02-11-2021 12:15-0500 Body height [address] NIMA POTTER MD [facility] 02-11-2021 12:15-0500 Body temperature 98.24 [degF] DR NIMA POTTER MD [facility] 02-11-2021 12:15-0500 Body weight 114.[address] NIMA POTTER MD [facility] 02-11-2021 12:15-0500 diastolic 70 mm[Hg] DR NIMA POTTER MD [facility] 02-11-2021 12:15-0500 Heart rate 111 /min DR NIMA POTTER MD [facility] 02-11-2021 12:15-0500 systolic 132 mm[Hg] DR NIMA POTTER MD [facility] 12-23-2020 16:00-0400 Diastolic Blood Pressure NBP [address] NIMA POTTER MD [facility] 12-23-2020 16:00-0400 Heart rate 82 /min DR NIMA POTTER MD [facility] 12-23-2020 16:00-0400 Systolic Blood Pressure NBP [address] NIMA POTTER MD [facility] 12-23-2020 15:30-0400 Diastolic Blood Pressure NBP [address] NIMA POTTER MD [facility] 12-23-2020 15:30-0400 Heart rate 79 /min DR NIMA POTTER MD [facility] 12-23-2020 15:30-0400 Systolic Blood Pressure NBP [address] NIMA POTTER MD [facility] 12-23-2020 15:02-0400 Diastolic Blood Pressure NBP [address] NIMA POTTER MD [facility] 12-23-2020 15:02-0400 Heart rate 81 /min DR NIMA POTTER MD [facility] 12-23-2020 15:02-0400 Systolic Blood Pressure NBP [address] INMA POTTER MD [facility] 12-23-2020 14:34-0400 Body temperature 97.16 [degF] DR NIMA POTTER MD [facility] 12-23-2020 14:34-0400 Respiratory rate 14 /min DR NIMA POTTER MD [facility] 12-23-2020 13:00-0400 Respiratory rate 16 /min DR NIMA POTTER MD [facility] 12-23-2020 12:15-0400 Respiratory rate 11 /min DR NIMA POTTER MD [facility] 12-23-2020 11:31-0400 Body temperature 96.08 [degF] DR NIMA POTTER MD [facility] 12-23-2020 09:40-0400 Diastolic blood pressure 82 mm[Hg] DR NIMA POTTER MD [facility] 12-23-2020 09:40-0400 Heart rate 80 /min DR NIMA POTTER MD [facility] 12-23-2020 09:40-0400 Systolic blood pressure 132 mm[Hg] DR NIMA POTTER MD [facility] 12-23-2020 09:09-0400 Body height [address] NIMA POTTER MD [facility] 12-23-2020 09:09-0400 Body temperature 96.98 [degF] DR NIMA POTTER MD [facility] 12-23-2020 09:09-0400 Body weight [address] NIMA POTTER MD [facility] 12-23-2020 09:09-0400 Diastolic blood pressure 98 mm[Hg] DR NIMA POTTER MD [facility] 12-23-2020 09:09-0400 Heart rate 96 /min DR NIMA POTTER MD [facility] 12-23-2020 09:09-0400 Systolic blood pressure 146 mm[Hg] DR NIMA POTTER MD [facility] NEGATED: Highlighted [id number] 15:17-0400 BMI (Body Mass Index) 46.51 kg/m2 Nima Stout LPN [facility] Work Phone: NEGATED: Highlighted [id number] 15:17-0400 BP Diastolic 84 mm[Hg] Nima Stout V BLOCK SAW OPERATOR [facility] Work Phone: NEGATED: Highlighted [id number] 15:17-0400 BP Diastolic 86 mm[Hg] Nima Stout LPN [facility] Work Phone: NEGATED: Highlighted [id number] 15:17-0400 BP Systolic 144 mm[Hg] Nima Stout LPN [facility] Work Phone: NEGATED: Highlighted [id number] 15:17-0400 Height 163 cm Nima Stout LPN [facility] Work Phone: NEGATED: Highlighted [id number] 15:17-0400 Height 162.56 cm Nima Stout LPN [facility] Work Phone: NEGATED: Highlighted [id number] 15:17-0400 Pulse (Heart Rate) 85 /min Nima Stout LPN [facility] Work Phone: NEGATED: Highlighted [id number] 15:17-0400 Weight 123 kg Nima Stout LPN [facility] Work Phone: NEGATED: Highlighted [id number] 15:17-0400 Weight 122.47 kg Nima Stout LPN [facility] Work Phone: Encounters Encounter Date Encounter Type Care Provider Facility Start: 02-14-2023 End: 02-15-2023 ambulatory KRISTEN MAY DO Facility:[facility] Start: 02-12-2023 End: 02-13-2023 ambulatory KRISTEN MAY DO Facility:[facility] Start: 02-12-2023 End: 02-12-2023 Patient encounter procedure KRISTEN MAY DO [facility] Start: 02-10-2023 End: 02-11-2023 Emergency department patient visit KRISTEN MAY DO Facility:[facility] Start: 02-10-2023 End: 02-10-2023 Emergency department patient visit SARBJIT JASON DO [facility] Start: 11-09-2022 End: 11-10-2022 ambulatory KRISTEN MAY DO Facility:[facility] Start: 11-09-2022 End: 11-09-2022 Patient encounter procedure VICTORIA RANDALL UX CONSULTANT-CNM [facility] Start: 08-21-2022 End: 08-22-2022 ambulatory KRISTEN MAY DO Facility:[facility] Start: 08-21-2022 End: 08-21-2022 Patient encounter procedure KRISTEN MAY DO [facility] Start: 07-16-2022 End: 07-19-2022 ambulatory JOHANNE RODRIGUEZ UX CONSULTANT-ADMINISTRATIVE FELLOW Facility:[facility] Start: 07-16-2022 End: 07-19-2022 Observation JOHANNE RODRIGUEZ UX CONSULTANT-ADMINISTRATIVE FELLOW [facility] Start: 07-14-2022 End: 07-19-2022 ambulatory EMILEE LEACH UX CONSULTANT-ADMINISTRATIVE FELLOW Facility:[facility] Start: 07-14-2022 End: 07-18-2022 Outreach Lab EMILEE LEACH UX CONSULTANT-ADMINISTRATIVE FELLOW [facility] Start: 03-20-2022 End: 03-21-2022 ambulatory KRISTEN MAY DO Facility:B Start: 03-20-2022 End: 03-20-2022 Patient encounter procedure KRISTEN MAY DO [facility] Start: 02-06-2022 End: 02-06-2022 Patient encounter procedure KRISTEN MAY DO [facility] Start: 07-17-2021 End: 07-17-2021 Patient encounter procedure KEVIN Ledy TRAVIS [employer] CONSULTANT-CNM [facility] Start: 06-22-2021 End: 06-22-2021 Patient encounter procedure KRISTEN MAY DO [facility] Start: 03-24-2021 End: 03-24-[address] NIMA POTTER MD [facility] Start: 03-20-2021 End: 03-20-[address] NIMA POTTER MD [facility] Start: 03-12-2021 End: 03-12-[address] NIMA POTTER MD [facility] Start: 02-11-2021 End: 02-12-[address] NIMA POTTER MD [facility] Start: 01-28-2021 End: 01-28-2021 Patient encounter procedure NAYELI BLACKMON PA-C [facility] Start: 12-23-2020 End: 12-23-[address] NIMA POTTER MD [facility] Start: 03-27-2020 End: 03-27-2020 Patient encounter procedure RIZWANA Ricardo CARLOS [facility] Start: 08-25-2017 End: 08-25-2017 Patient encounter procedure Sunil Brown PA-C Work Phone: [facility] Work Phone: Procedures Date Procedure Procedure Detail Performing Clinician Start: 03-24-[address] NIMA POTTER MD Plan of Treatment Date Care Activity Detail Author Start: 08-25-2017 End: 08-25-2017 Appointment Appointment [facility] Work Phone: Patient Education \[email or web address] PtEducation [email or web address] [facility] Work Phone: Immunizations Immunization Date Immunization Notes Care Provider Shirley avera [facility] 02-10-2023 tetanus toxoid, reduced diphtheria toxoid, and acellular pertussis vaccine, adsorbed SARBJIT JASON DO [facility] 11-01-2018 influenza virus vaccine, unspecified formulation DR NIMA POTTER MD [facility] 03-07-2014 influenza virus vaccine, unspecified formulation DR NIMA POTTER MD [facility] 11-05-2013 influenza virus vaccine, unspecified formulation DR NIMA POTTER MD [facility] No information available. Nima Stout LPN [facility] Work Phone: Payers Date Payer Category Payer Unknown [id number] 2021 Unknown [id number] 1965 Unknown [id number] 2.16.8 [id number] 1965 Unknown [id number] 2.16.8 [id number] 1963 Unknown [id number] 2.16.8 [id number] 1963 Unknown [id number] 2.16.8 [id number] 1963 Unknown [id number] 2.16.8 [id number] 1963 Unknown [id number] 2.16.8 [id number] 1963 Unknown [id number] 2.16.8 [id number] 1963 Unknown [id number] 2.16.8 [id number] 1965 Unknown [id number] 2.16.84 [id number] Unknown [id number] Social History Date Type Detail Facility Start: 08-25-2017 End: 08-25-2017 Assertion Unknown if ever smoked [facility] Work Phone: Start: 11-29-2018 Never smoked tobacco (finding) [facility] Sex Assigned At Female [facility] NEGATED: Highlighted rowStart: 08-25-2017 End: 08-25-2017 Alcohol use ETOH USE No [facility] Work Phone: Functional Status Date Assessment Result Facility 02-10-[address] 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 07-19-[address] [facility] 07-18-[address] [facility] 07-18-2022 Functional Status Bed Bath Setup [facility] 07-18-2022 Functional Status Demonstrates C orrect Call Light Use Yes [facility] 07-17-[address] [facility] 07-16-[address] [facility] 07-16-2022 Functional Status Sensory Deficits None A [facility] 07-16-2022 Functional Status Environmental Safety Implemented Adequate room lighting, Bed in low position, Call device within reach [facility] Mental Status Date Assessment Result Facility 02-10-2023 Mental Status Orientation Oriented x 4 [facility] 02-10-2023 Mental Status [facility] 07-19-2022 Mental Status Oriented x 4 [facility] 07-19-2022 Mental Status [facility] 07-18-2022 Mental Status [facility] Clinical Notes 12-23-2020 to 02-11-2023 Note Date & Type Note Facility 02-11-2023 Hospital Discharg e instructions Patient Education 02/10/2023 22:10:40 Fracture, Finger, Open Finger Fracture, Open You have a broken finger (fracture) with a nearby cut, puncture, or deep scrape. This causes local pain, swelling, and bruising. Because of the open injury, you are at risk for infection in the skin and bone. You will take antibiotics to lower the risk for infection. This injury usually takes about 4 weeks to heal. Finger injuries are often treated with a splint or cast, or by taping the injured finger to the next one (mari taping). This protects the injured finger and holds the bone in position while it heals. More serious fractures may need surgery. If the fingernail has been severely injured, it will probably fall off in 1 to 2 weeks. A new fingernail will usually start to grow back within a month. Home care Follow these guidelines when caring for yourself at home: Keep your hand elevated to reduce pain and swelling. When sitting or lying down keep your arm above the level of your heart. You can do this by placing your arm on a pillow that rests on your chest or on a pillow at your side. This is most important during the first 2 days (48 hours) after the injury. Put an ice pack on the injured area. Do this for 20 minutes every 1 to 2 hours the first day for pain relief. You can make an ice pack by wrapping a plastic bag of ice cubes in a thin towel. As the ice melts, be careful that the cast or splint doesn t get wet. Continue using the ice pack 3 to 4 times a day until the pain and swelling go away. Keep the cast or splint completely dry at all times. Bathe with your cast or splint out of the water. Protect it with a large plastic bag, rubber-banded at the top end. If a fiberglass cast or splint gets wet, you can dry it with a hair boiler operator. You may use acetaminophen or ibuprofen to control pain, unless another pain medicine was prescribed. If you have chronic liver or kidney disease, talk with your healthcare provider before using these medicines. Also talk with your provider if you ve had a stomach ulcer or gastrointestinal bleeding. If mari tape was applied and it becomes wet or dirty, change it. You may replace it with paper, plastic, or cloth tape. Cloth tape and paper tapes must be kept dry. Keep the mari tape in place for at least 4 weeks. Take all antibiotics until you have finished them. Don t put creams or objects under the cast if you have itching. Follow-up care Follow up with your healthcare provider, or as advised. This is to make sure the bone is healing the way it should. X-rays may be taken. You will be told of any new findings that may affect your care. When to seek medical advice Call your healthcare provider right away if any of these occur: The cast or splint cracks The plaster cast or splint becomes wet or soft The fiberglass cast or splint stays wet for more than 24 hours Pain or swelling gets worse Tightness or pressure under the cast or splint gets worse Finger becomes cold, blue, numb, or tingly You can t move your finger Redness, warmth, swelling, drainage from the wound, or foul odor from a cast or splint Fever of 100.4 F (38 C) or higher, or as directed by your healthcare provider 2011-0700 [employer]. [address] [place] [address]. All rights reserved. This information is not intended as a substitute for professional medical care. Always follow your healthcare professional's instructions. Follow Up Care 02/10/2023 18:12:10 With:LORY HENLEY Address: [address] [place] [phone] When:2-4 days With:PHILIP RAMSEY DO, Orthopedic Address: [address] [place] [address], [address] [place] [address]- [phone] When:1-2 days [facility] 02-10-2023 Note Discharge Instructions Thank you for allowing [place] to assist you with your healthcare needs. The following is important discharge information regarding your hospital visit. Diagnosis from Today's Visit Finger laceration Open fracture of phalanx of finger of left hand What to Do Next Instructions from Your Care Team Take Percocet as needed for pain. Not take Percocet before I had a machinery. May otherwise take Tylenol and or Motrin. Be careful taking Tylenol as Percocet does contain some Tylenol do not exceed recommended dose. . Take Keflex as prescribed. Call orthopedic surgery in the morning for follow-up appointment. Return emergency department immediately if you develop worsening pain, decreased blood flow to your fingers, numbness, or any other care concern. No qualifying data available. Post Acute Orders No qualifying data available. You Need to Schedule the Following Appointments Follow Up with LORY HENLEY When Within 2-4 days Where: [address] [place] [address]- Follow Up with PHILIP RAMSEY DO, Orthopedic When Within 1-2 days Where: [address] [facility], [address] [place] [phone] Allergies Avelox (Rash) fenofibrate (Gum pain) penicillin (Rash) sulfa (Rash) Immunizations This Visit Given Vaccine Datetetanus/diphth/pertuss (Tdap) adult/adol 02/10/2023 Medications Please ask your primary doctor or pharmacist before taking any other medication not listed, including over the counter drugs, herbal medications, vitamins and or supplements as they may interact with your home medications. What How Much When Why Instructions Last Dose New acetaminophen-oxyCODONE (Percocet 5 mg-325 mg oral tablet) 1 tab(s) by mouth Every 6 hours as needed for for pain Open fracture of phalanx of finger of left hand Duration: 5 Days Printed Prescription New cephalexin (cephalexin 500 mg oral capsule) 1 cap by mouth Every 12 hours Duration: 5 Days Printed Prescription Unchanged cholecalciferol (Vitamin D3 125 mcg (5000 intl units) oral tablet) 1 tab(s) by mouth Once a day Vitamin D deficiency Replaces previous prescription for the ergocalciferol 50,000 unit capsule. Unchanged cyanocobalamin (Vitamin B12 1000 mcg oral tablet) 1 tab(s) by mouth Every other day Unchanged escitalopram (escitalopram 20 mg oral tablet) See instructions TAKE 1 TABLET BY MOUTH EVERY DAY Unchanged gabapentin (gabapentin 100 mg oral capsule) 1 cap by mouth Three (3) times a day pain management Unchanged hydrochlorothiazide-lisinopril (hydrochlorothiazide-lisinopril 12.5 mg-10 mg oral tablet) 1 tab(s) by mouth Every day Essential hypertension Duration: 100 Days Unchanged meloxicam (meloxicam 15 mg oral tablet) 1 tab(s) by mouth Once a day as needed for Pain Take with food/ milk Unchanged omega-3 polyunsaturated fatty acids (Fish Oil 1000 mg oral capsule) 1 cap by mouth Once a day Unchanged omeprazole (omeprazole 40 mg oral delayed release capsule) See instructions TAKE 1 CAPSULE BY MOUTH EVERY DAY Unchanged progesterone (progesterone 200 mg oral capsule) 400 Milligram by mouth Daily at bedtime Unchanged rosuvastatin (rosuvastatin 5 mg oral tablet) See instructions TAKE 1 TABLET BY MOUTH EVERY DAY Unchanged topiramate (topiramate 25 mg oral capsule) 4 cap by mouth Once a day Morbid obesity with BMI of 50.0-59.9, adult Start with 1 p.o. daily and increase dose as tolerated. Please take this list to your next doctor s visit. Bring all medications you take, including over the counter medications, herbals and other supplements with you to your doctor s visit. Patients and families are reminded to discard old lists and to update any records with all medication providers or retail pharmacies. Medication Leaflets acetaminophen and oxycodone (a SEET a MIN oh fen and OX i KOE done) Endocet 10/325, Endocet 2.5/325, Endocet 5/325, Endocet 7.5/325, Nalocet, Percocet, Prolate What is the most important information I should know about acetaminophen and oxycodone? MISUSE OF OPIOID MEDICINE CAN CAUSE ADDICTION, OVERDOSE, OR . Keep the medication in a place where others cannot get to it. Taking opioid medicine during may cause life-threatening withdrawal symptoms in the . Fatal side effects can occur if you use opioid medicine with alcohol, or with other drugs that cause drowsiness or slow your breathing. Stop taking this medicine and call your doctor right away if you have skin redness or a rash that spreads and causes blistering and peeling. What is acetaminophen and oxycodone? Acetaminophen and oxycodone is a combination medicine used to relieve moderate to severe pain. Acetaminophen and oxycodone contains an opioide medicine and may be habit-forming. Acetaminophen and oxycodone may also be used for purposes not listed in this medication guide. What should I discuss with my healthcare provider before taking acetaminophen and oxycodone? You should not use this medicine if you are allergic to acetaminophen or oxycodone, or if you have: severe asthma or breathing problems; or a blockage in your stomach or intestines. Tell your doctor if you have ever had: breathing problems, sleep apnea; liver disease; a drug or alcohol addiction; kidney disease; a head injury or seizures; urination problems; or problems with your thyroid, pancreas, or gallbladder. If you use opioid medicine while you are , your baby could become dependent on the drug. This can cause life-threatening withdrawal symptoms in the baby after it is born. Babies born dependent on opioids may need medical treatment for several weeks. Ask a doctor before using opioid medicine if you are . Tell your doctor if you notice severe drowsiness or slow breathing in the nursing baby. How should I take acetaminophen and oxycodone? Follow all directions on your prescription label. Never take this medicine in larger amounts, or for longer than prescribed. An overdose can damage your liver or cause . Tell your doctor if you feel an increased urge to use more of this medicine. Never share opioid medicine with another person, especially someone with a history of drug abuse or addiction. MISUSE CAN CAUSE ADDICTION, OVERDOSE, OR . Keep the medicine in a place where others cannot get to it. Selling or giving away opioid medicine is against the law. Measure liquid medicine carefully. Use the dosing syringe provided, or use a medicine dose-measuring device (not a kitchen spoon). If you need surgery or medical tests, tell the doctor ahead of time that you are using this medicine. You should not stop using this medicine suddenly. Follow your doctor's instructions about tapering your dose. Store at room temperature away from moisture and heat. Keep track of your medicine. You should be aware if anyone is using it improperly or without a prescription. Do not keep leftover opioid medication. Just one dose can cause in someone using this medicine accidentally or improperly. Ask your pharmacist where to locate a drug take-back disposal program. If there is no take-back program, flush the unused medicine down the toilet. What happens if I miss a dose? Since this medicine is used for pain, you are not likely to miss a dose. Skip any missed dose if it is almost time for your next dose. Do not use two doses at one time. What happens if I overdose? Seek emergency medical attention or call the Poison Help line at . An overdose of this medicine can be fatal, especially in a child or other person using the medicine without a prescription. Overdose symptoms may include nausea, vomiting, sweating, severe drowsiness, pinpoint pupils, slow breathing, or no breathing. Your doctor may recommend you get naloxone (a medicine to reverse an opioid overdose) and keep it with you at all times. A person caring for you can give the naloxone if you stop breathing or don't wake up. Your caregiver must still get emergency medical help and may need to perform CPR (cardiopulmonary resuscitation) on you while waiting for help to arrive. Anyone can buy naloxone from a pharmacy or local health department. Make sure any person caring for you knows where you keep naloxone and how to use it. What should I avoid while taking acetaminophen and oxycodone? Avoid driving or operating machinery until you know how this medicine will affect you. Dizziness or drowsiness can cause falls, accidents, or severe injuries. Do not drink alcohol. Dangerous side effects or could occur. Ask a doctor or pharmacist before using any other medicine that may contain acetaminophen (sometimes abbreviated as APAP). Taking certain medications together can lead to a fatal overdose. What are the possible side effects of acetaminophen and oxycodone? Get emergency medical help if you have signs of an allergic reaction: hives; difficulty breathing; swelling of your face, lips, tongue, or throat. Opioid medicine can slow or stop your breathing, and may occur. A person caring for you should give naloxone and/or seek emergency medical attention if you have slow breathing with long pauses, blue colored lips, or if you are hard to wake up. In rare cases, acetaminophen may cause a severe skin reaction that can be fatal. This could occur even if you have taken acetaminophen in the past and had no reaction. Stop taking this medicine and call your doctor right away if you have skin redness or a rash that spreads and causes blistering and peeling. Call your doctor at once if you have: noisy breathing, sighing, shallow breathing, breathing that stops; a light-headed feeling, like you might pass out; weakness, tiredness, fever, unusual bruising or bleeding; confusion, unusual thoughts or behavior; problems with urination; liver problems--nausea, upper stomach pain, tiredness, loss of appetite, dark urine, sommer-colored stools, jaundice (yellowing of the skin or eyes); low cortisol levels-- nausea, vomiting, loss of appetite, dizziness, worsening tiredness or weakness; or high levels of serotonin in the body--agitation, hallucinations, fever, sweating, shivering, fast heart rate, muscle stiffness, twitching, loss of coordination, nausea, vomiting, diarrhea. Serious breathing problems may be more likely in older adults and in those who are debilitated or have wasting syndrome or chronic breathing disorders. Common side effects include: dizziness, drowsiness, feeling tired; feelings of extreme happiness or sadness; nausea, vomiting, stomach pain; constipation; or headache. This is not a complete list of side effects and others may occur. Call your doctor for medical advice about side effects. You may report side effects to FDA at 0-079-LDK-7003. What other drugs will affect acetaminophen and oxycodone? You may have breathing problems or withdrawal symptoms if you start or stop taking certain other medicines. Tell your doctor if you also use an antibiotic, antifungal medication, heart or blood pressure medication, seizure medication, or medicine to treat HIV or hepatitis C. Opioid medication can interact with many other drugs and cause dangerous side effects or . Be sure your doctor knows if you also use: cold or allergy medicines, bronchodilator asthma/COPD medication, or a diuretic ('water pill'); medicines for motion sickness, irritable bowel syndrome, or overactive bladder; other opioids--opioid pain medicine or prescription cough medicine; a sedative like Valium--diazepam, alprazolam, lorazepam, Xanax, Klonopin, Versed, and others; drugs that make you sleepy or slow your breathing--a sleeping pill, muscle relaxer, medicine to treat mood disorders or mental illness; drugs that affect serotonin levels in your body--a stimulant, or medicine for depression, Parkinson's disease, migraine headaches, serious infections, or nausea and vomiting. This list is not complete. Other drugs may affect acetaminophen and oxycodone, including prescription and [id number]-cna-phvtwwi medicines, vitamins, and herbal products. Not all possible interactions are listed here. Where can I get more information? Your doctor or pharmacist can provide more information about acetaminophen and oxycodone. Remember, keep this and all other medicines out of the reach of children, never share your medicines with others, and use this medication only for the indication prescribed. Every effort has been made to ensure that the information provided by [employer]') is accurate, up-to-date, and complete, but no guarantee is made to that effect. Drug information contained herein may be time sensitive. [employer] information has been compiled for use by healthcare practitioners and consumers in the [place] and therefore [employer] does not warrant that uses outside of the [place] are appropriate, unless specifically indicated otherwise. [employer] drug information does not endorse drugs, diagnose patients or recommend therapy. [employer] drug information is an informational resource designed to assist licensed healthcare practitioners in caring for their patients and/or to serve consumers viewing this service as a supplement to, and not a substitute for, the expertise, skill, knowledge and judgment of healthcare practitioners. The absence of a warning for a given drug or drug combination in no way should be construed to indicate that the drug or drug combination is safe, effective or appropriate for any given patient. [employer] does not assume any responsibility for any aspect of healthcare administered with the aid of information [employer] provides. The information contained herein is not intended to cover all possible uses, directions, precautions, warnings, drug interactions, allergic reactions, or adverse effects. If you have questions about the drugs you are taking, check with your doctor, nurse or pharmacist. Copyright 3711-6309 [facility] [employer]. Version: 22.. Revision Date: 10/07/2022. cephalexin (sef a KIMBERLEY in) What is the most important information I should know about cephalexin? You should not use this medicine if you are allergic to cephalexin or to similar antibiotics, such as Ceftin, Cefzil, Omnicef, and others. Tell your doctor if you are allergic to any drugs, especially penicillins or other antibiotics. What is cephalexin? Cephalexin is a cephalosporin (SEF a low spor in) antibiotic that is used to treat bacterial infections of the lungs, ear, skin, bones, bladder, and kidneys. Cephalexin is used to treat infections in adults and children who are at least 1 year old. Cephalexin may also be used for purposes not listed in this medication guide. What should I discuss with my healthcare provider before taking cephalexin? You should not use this medicine if you are allergic to cephalexin or any other cephalosporin antibiotic (cefdinir, cefadroxil, cefoxitin, cefprozil, ceftriaxone, cefuroxime, Omnicef, and others). Tell your doctor if you have ever had: an allergy to any drug (especially penicillin); liver or kidney disease; or intestinal problems, such as colitis. The liquid form of cephalexin may contain sugar. This may affect you if you have diabetes. Tell your doctor if you are or breast-feeding. How should I take cephalexin? Follow all directions on your prescription label and read all medication guides or instruction sheets. Use the medicine exactly as directed. Do not use cephalexin to treat any condition that has not been checked by your doctor. Measure liquid medicine carefully. Use the dosing syringe provided, or use a medicine dose-measuring device (not a kitchen spoon). Use this medicine for the full prescribed length of time, even if your symptoms quickly improve. Skipping doses can increase your risk of infection that is resistant to medication. Cephalexin will not treat a viral infection such as the flu or a common cold. Do not share cephalexin with another person, even if they have the same symptoms you have. This medicine can affect the results of certain medical tests. Tell any doctor who treats you that you are using cephalexin. Store the tablets and capsules at room temperature away from moisture, heat, and light. Store the liquid medicine in the refrigerator. Throw away any unused liquid after 14 days. What happens if I miss a dose? Take the medicine as soon as you can, but skip the missed dose if it is almost time for your next dose. Do not take two doses at one time. What happens if I overdose? Seek emergency medical attention or call the Poison Help line at . Overdose symptoms may include nausea, vomiting, stomach pain, diarrhea, and blood in your urine. What should I avoid while taking cephalexin? Antibiotic medicines can cause diarrhea, which may be a sign of a new infection. If you have diarrhea that is watery or bloody, call your doctor before using anti-diarrhea medicine. What are the possible side effects of cephalexin? Get emergency medical help if you have signs of an allergic reaction (hives, difficult breathing, swelling in your face or throat) or a severe skin reaction (fever, sore throat, burning eyes, skin pain, red or purple skin rash with blistering and peeling). Call your doctor at once if you have: severe stomach pain, diarrhea that is watery or bloody (even if it occurs months after your last dose); unusual tiredness, feeling light-headed or short of breath; easy bruising, unusual bleeding, purple or red spots under your skin; a seizure; pale skin, cold hands and feet; yellowed skin, dark colored urine; fever, weakness; or pain in your side or lower back, painful urination. Common side effects may include: diarrhea; nausea, vomiting; indigestion, stomach pain; or vaginal itching or discharge. This is not a complete list of side effects and others may occur. Call your doctor for medical advice about side effects. You may report side effects to FDA at 6-192-OSH-3283. What other drugs will affect cephalexin? Tell your doctor about all your other medicines, especially: metformin; or probenecid. This list is not complete. Other drugs may affect cephalexin, including prescription and soph-sdy-rgffyts medicines, vitamins, and herbal products. Not all possible drug interactions are listed here. Where can I get more information? Your pharmacist can provide more information about cephalexin. Remember, keep this and all other medicines out of the reach of children, never share your medicines with others, and use this medication only for the indication prescribed. Every effort has been made to ensure that the information provided by [employer]. ('[employer]') is accurate, up-to-date, and complete, but no guarantee is made to that effect. Drug information contained herein may be time sensitive. [employer] information has been compiled for use by healthcare practitioners and consumers in the [place] and therefore [employer] does not warrant that uses outside of the [place] are appropriate, unless specifically indicated otherwise. [employer] drug information does not endorse drugs, diagnose patients or recommend therapy. [employer] drug information is an informational resource designed to assist licensed healthcare practitioners in caring for their patients and/or to serve consumers viewing this service as a supplement to, and not a substitute for, the expertise, skill, knowledge and judgment of healthcare practitioners. The absence of a warning for a given drug or drug combination in no way should be construed to indicate that the drug or drug combination is safe, effective or appropriate for any given patient. [employer] does not assume any responsibility for any aspect of healthcare administered with the aid of information [employer] provides. The information contained herein is not intended to cover all possible uses, directions, precautions, warnings, drug interactions, allergic reactions, or adverse effects. If you have questions about the drugs you are taking, check with your doctor, nurse or pharmacist. Copyright 8843-7195 [employer]. Version: 12.. Revision Date: 10/06/2022. Education Materials Finger Fracture, Open You have a broken finger (fracture) with a nearby cut, puncture, or deep scrape. This causes local pain, swelling, and bruising. Because of the open injury, you are at risk for infection in the skin and bone. You will take antibiotics to lower the risk for infection. This injury usually takes about 4 weeks to heal. Finger injuries are often treated with a splint or cast, or by taping the injured finger to the next one (mari taping). This protects the injured finger and holds the bone in position while it heals. More serious fractures may need surgery. If the fingernail has been severely injured, it will probably fall off in 1 to 2 weeks. A new fingernail will usually start to grow back within a month. Home care Follow these guidelines when caring for yourself at home: Keep your hand elevated to reduce pain and swelling. When sitting or lying down keep your arm above the level of your heart. You can do this by placing your arm on a pillow that rests on your chest or on a pillow at your side. This is most important during the first 2 days (48 hours) after the injury. Put an ice pack on the injured area. Do this for 20 minutes every 1 to 2 hours the first day for pain relief. You can make an ice pack by wrapping a plastic bag of ice cubes in a thin towel. As the ice melts, be careful that the cast or splint doesn t get wet. Continue using the ice pack 3 to 4 times a day until the pain and swelling go away. Keep the cast or splint completely dry at all times. Bathe with your cast or splint out of the water. Protect it with a large plastic bag, rubber-banded at the top end. If a fiberglass cast or splint gets wet, you can dry it with a hair boiler operator. You may use acetaminophen or ibuprofen to control pain, unless another pain medicine was prescribed. If you have chronic liver or kidney disease, talk with your healthcare provider before using these medicines. Also talk with your provider if you ve had a stomach ulcer or gastrointestinal bleeding. If mari tape was applied and it becomes wet or dirty, change it. You may replace it with paper, plastic, or cloth tape. Cloth tape and paper tapes must be kept dry. Keep the mari tape in place for at least 4 weeks. Take all antibiotics until you have finished them. Don t put creams or objects under the cast if you have itching. Follow-up care Follow up with your healthcare provider, or as advised. This is to make sure the bone is healing the way it should. X-rays may be taken. You will be told of any new findings that may affect your care. When to seek medical advice Call your healthcare provider right away if any of these occur: The cast or splint cracks The plaster cast or splint becomes wet or soft The fiberglass cast or splint stays wet for more than 24 hours Pain or swelling gets worse Tightness or pressure under the cast or splint gets worse Finger becomes cold, blue, numb, or tingly You can t move your finger Redness, warmth, swelling, drainage from the wound, or foul odor from a cast or splint Fever of 100.4 F (38 C) or higher, or as directed by your healthcare provider [id number] The [employer]. [address] [place] [address]. All rights reserved. This information is not intended as a substitute for professional medical care. Always follow your healthcare professional's instructions. Additional Information VACCINATE! IT SAVES LIVES! Members of the community who have not yet received the COVID-19 vaccine and would like to receive it can visit one of [facility] vaccine clinics. There are many vaccine clinic locations within the [facility]. For locations and available times, please visit [email or web address] [email or web address] It is important to note that some COVID mobile vaccine clinics are held outdoors and may be canceled in rainy or stormy conditions. To learn more about pediatric vaccinations (ages 5-11), we invite you to visit the [facility] webpage. https://www.[facility].org/p ages/6200-Ajtmp-Viulxxoobme-Freq igyomm-Ahcyd-Bpjnflpfh.html To learn more about the COVID-19 vaccine, we invite you to visit the CDC website for a list of frequently asked questions. https://www.cdc.gov/coronavirus/ 2019-ncov/vaccines/faq.html [facility] Patient Portal Access Instructions: Stay connected with your healthcare team and access your personal medical information anytime with the [employer] Patient Portal. If you would like a full copy of your medical records please contact the [facility] Medical Records Department Tuesday through Tuesday between 8a.m. and 4:30p.m. Please follow the directions below to access the portal: 1.Access the email account you provided upon registration to the [facility].2.Look for an invitation email from [facility].3.Open the email and access the invitation link: Accept Invitation to [place] [facility].Fill in the required mcneal to create your account. Sign into [email or web address] with your username and password that you created in the above steps to stay up to date. You can then view a summary of results, a summary of your visits, and the ability to download your summaries to your computer or send the information securely to a physician. Remember that your healthcare information is confidential, so carefully consider who you will allow to register on the [employer] Patient Portal for access to your information. You can also access the [employer] Patient Portal on the [employer]. Simply click on Health Records under Health Data and then click on the [facility] logo. HOW TO SAFELY DISPOSE OF PRESCRIPTION MEDICATIONS Please use one of the following methods to safely dispose of your unused medications. 1.Use a drug disposal kit: the drug disposal pouch allows you to safely discard your old and unused drugs. Ask your nurse to give you one when you are discharged.2.Visit a local take-back location: Many local pharmacies and police departments have programs that collect old and unwanted prescription drugs. Call your local pharmacy or go to http://Sure Chill.Vopium/8M8Hd2z to find one close to you.3.Make use of household items: Use cat litter or old coffee grounds to dispose medications if other options are not available. Mix your drugs with these household products, seal them in an airtight container and throw it into the garbage. Call [facility]: [phone] to be sure your drugs can be disposed of in this way. Some medicines may require a different approach.4.Never flush your medications down the toilet. IF YOU HAVE BEEN PRESCRIBED AN OPIOIDS FOR PAIN If you have been prescribed an opioid (such as hydrocodone, oxycodone or morphine), it is critical to understand the possible side effects and risks of opioid pain medications. Even when taken as directed, opioids can have several side effects including: Tolerance, meaning you might need to take more of a medication for the same pain relief. Nausea, vomiting and/or constipation. Sleepiness, dizziness, dry mouth, confusion, depression or itching. Physical dependence, meaning you have withdrawal symptoms when a medication is stopped ? this can develop within a few days. KNOW YOUR RESPONSIBILITIES It is important to know exactly how much and how often to take the opioid pain medications you are prescribed. Never take opioids in higher amounts or more often than prescribed. Do not combine opioids with alcohol or other drugs that cause drowsiness, such as benzodiazepines, also known as benzos, including diazepam and alprazolam, muscle relaxants or sleep aids. Never sell or share prescription opioids. This is illegal. Store opioids in a secure place and out of reach of others (including children, family, friends and visitors). The last page(s) of this document has been signed and retained as a CHART COPY Signatures Patient Education Materials Fracture, Finger, Open Medication Leaflets acetaminophen and oxycodone, cephalexin My discharge plan and instructions have been reviewed and explained to me and IJORGE DORINDA L understand my current condition and have read and understand these discharge instructions. I have received a written copy of the plan/instructions. If I have questions, I am aware that I should contact my doctor. Patient/Automation Tender Signature: Date/Time: Relationship to Patient: Witness Name/Signature: Date/Time: [facility] 02-10-2023 Note ORIGINAL EXAMINATION: 3 XRAY VIEWS OF THE LEFT FINGER 02/10/2023 10:35 pm COMPARISON: Radiograph of the fingers performed the same day HISTORY: ORDERING SYSTEM PROVIDED HISTORY: Reason for Exam: Post reduction FINDINGS: Placement of splinting material. Otherwise no significant change from prior exam. IMPRESSION: Placement of splinting material. Otherwise no significant change from prior exam. Interpreted by: Fran Ramírez Preliminary Report By: Fran Ramírez Electronically signed By Fran Ramírez Dictated Date: 02/10/2023 10:40:30 PM Prelim Date: 02/10/2023 10:41:28 PM Sign Date: 02/10/2023 10:41:28 PM Ordering Provider: [facility] 02-10-2023 Note ORIGINAL EXAMINATION: 3 XRAY VIEWS OF THE LEFT FINGER 02/10/2023 7:11 pm COMPARISON: None. HISTORY: ORDERING SYSTEM PROVIDED HISTORY: Reason for Exam: pain, crushed in machine FINDINGS: Acute traumatic mildly displaced, dorsally angulated fracture of the little finger proximal phalanx mid shaft. Adjacent soft tissue swelling. No dislocation. Degenerative plantar joints. IMPRESSION: Acute traumatic fracture of the pinky finger proximal phalanx. Interpreted by: Fran Ramírez Preliminary Report By: Fran Ramírez Electronically signed By Fran Ramírez Dictated Date: 02/10/2023 7:18:38 PM Prelim Date: 02/10/2023 7:19:19 PM Sign Date: 02/10/2023 7:19:19 PM [facility]ing [facility] 11-09-2022 Note ORIGINAL EXAMINATION: TRANSVAGINAL PELVIC ULTRASOUND11/09/2022 2:13 pm TRANSVAGINAL PELVIC ULTRASOUND TECHNIQUE: Transvaginal pelvic ultrasound was performed. COMPARISON: Pelvic ultrasound 07/17/2021. HISTORY: ORDERING SYSTEM PROVIDED HISTORY: Reason for Exam: POST MENOPAUSAL BLEEDING FINDINGS: The uterus measures 5.8 x 4.0 x 2.8 centimetres. There is a 0.9 cm nabothian cysts. There are no uterine fibroids. There is uniform, mild to moderate increased echotexture within the endometrial cavity displacing the endometrial stripe which measures approximately 2-3 mm. This is seen best on image 43 of 65. On color Doppler flow there is no appreciable color flow within the endometrial cavity to suggest a mass or polyp. There is no gross free pelvic fluid. Neither the right nor left ovaries are visualized likely due to patient's gross obesity. IMPRESSION: 1. Limited exam due to gross obesity as neither ovary is visualized. 2. Hyperechoic material seen within the endometrial cavity likely representing hemorrhage. The summed thickness of the displaced anterior and posterior endometrial measures 2-3 mm. I do not appreciate findings of an endometrial mass. In addition, there are no uterine fibroids noted. Interpreted by: Dejuan Forbes Preliminary Report By: Dejuan Forbes Electronically signed By Dejuan Forbes Dictated Date: 11/09/2022 4:46:09 PM Prelim Date: 11/09/2022 4:50:37 PM Sign Date: 11/09/2022 4:50:37 PM Ordering Provider: VICTOR[facility] 07-19-2022 [facility] instructions Patient Education 07/19/2022 10:56:48 Cellulitis, Adult, Rnug-kg-Usia Cellulitis, Adult Cellulitis is a skin infection. The infected area is often warm, red, swollen, and sore. It occurs most often in the arms and lower legs. It is very important to get treated for this condition. What are the causes? This condition is caused by bacteria. The bacteria enter through a break in the skin, such as a cut, burn, insect bite, open sore, or crack. What increases the risk? This condition is more likely to occur in people who: Have a weak body defense system (immune system). Have open cuts, patterson, bites, or scrapes on the skin. Are older than 60 years of age. Have a blood sugar problem (diabetes). Have a long-lasting (chronic) liver disease (cirrhosis) or kidney disease. Are very overweight (obese). Have a skin problem, such as: ?Itchy rash (eczema). ?Slow movement of blood in the veins (venous stasis). ?Fluid buildup below the skin (edema). Have been treated with high-energy rays (radiation). Use IV drugs. What are the signs or symptoms? Symptoms of this condition include: Skin that is: ?Red. ?Streaking. ?Spotting. ?Swollen. ?Sore or painful when you touch it. ?Warm. A fever. Chills. Blisters. How is this diagnosed? This condition is diagnosed based on: Medical history. Physical exam. Blood tests. Imaging tests. How is this treated? Treatment for this condition may include: Medicines to treat infections or allergies. Home care, such as: ?Rest. ?Placing cold or warm cloths (compresses) on the skin. Hospital care, if the condition is very bad. Follow these instructions at home: Medicines Take meja-awa-diumnnx and prescription medicines only as told by your doctor. If you were prescribed an antibiotic medicine, take it as told by your doctor. Do not stop taking it even if you start to feel better. General instructions Drink enough fluid to keep your pee (urine) pale yellow. Do not touch or rub the infected area. Raise (elevate) the infected area above the level of your heart while you are sitting or lying down. Place cold or warm cloths on the area as told by your doctor. Keep all follow-up visits as told by your doctor. This is important. Contact a doctor if: You have a fever. You do not start to get better after 1 2 days of treatment. Your bone or joint under the infected area starts to hurt after the skin has healed. Your infection comes back. This can happen in the same area or another area. You have a swollen bump in the area. You have new symptoms. You feel ill and have muscle aches and pains. Get help right away if: Your symptoms get worse. You feel very sleepy. You throw up (vomit) or have watery poop (diarrhea) for a long time. You see red streaks coming from the area. Your red area gets larger. Your red area turns dark in color. These symptoms may represent a serious problem that is an emergency. Do not wait to see if the symptoms will go away. Get medical help right away. Call your local emergency services (911 in the [place] Do not drive yourself to the hospital. Summary Cellulitis is a skin infection. The area is often warm, red, swollen, and sore. This condition is treated with medicines, rest, and cold and warm cloths. Take all medicines only as told by your doctor. Tell your doctor if symptoms do not start to get better after 1 2 days of treatment. This information is not intended to replace advice given to you by your health care provider. Make sure you discuss any questions you have with your health care provider. Document Released: 08/09/2008 Document Revised: 07/13/2018 Document Reviewed: 07/13/2018 Elsevier Patient Education 2020 [employer] Follow Up Care 07/16/2022 14:50:22 With:EMILEE LEACH Address: [address] [place] [address]- [phone] When:07/21/2022 07:30:00 Comments:This appointment can serve as your post-hospital follow-up appointment. Follow-up as scheduled. [facility] 07-19-2022 Note Discharge Instructions Thank you for allowing [place] to assist you with your healthcare needs. The following is important discharge information regarding your hospital visit. Your Care Team [facility] Your Diagnosis Cellulitis HTN (hypertension) Cellulitis What to do next Instructions From Your Doctor You are admitted for cellulitis to your right lower leg and right foot. You received IV antibiotics with improvement in cellulitis. You will be discharged home with a prescription for doxycycline 100mg twice daily x10 days. Please keep both area's clean and dry. Apply a nonstick dressing once daily. No antibiotic ointment. Please be sure to keep your appointment with Emilee Leach on 10/21/22. If you develop any fevers, chills, or worsening of cellulitis, please return to the ER. Scheduled Follow-Up Appointments Appointment Type When With Where [facility] 07/21/2022 07:30 AM EDT EMILEE LEACH [address] [phone] [facility] 08/11/2022 03:30 PM EDT KRISTEN MAY DO [facility] Follow Up Appointments Follow Up with EMILEE LEACH When 07/21/2022 07:30 AM EDT Why: This appointment can serve as your post-hospital follow-up appointment. Follow-up as scheduled. Where: [address] [place] [address] [phone] The Following Activity and Diet Have Been Ordered for You Discharge Activity - Ordered -- Resume your pre-hospitalization activity, 07/19/22 10:38:00 EDT Discharge Diet - Ordered -- No changes were made to your diet during your hospital stay. Please resume your pre hospitalization diet on discharge., 07/19/22 10:38:00 EDT Allergies Avelox (Rash) fenofibrate (Gum pain) penicillin (Rash) sulfa (Rash) Medications Please ask your primary doctor or pharmacist before taking any other medication not listed, including over the counter drugs, herbal medications, vitamins and or supplements as they may interact with your home medications. What How Much When Why Instructions Last Dose Changed doxycycline (doxycycline hyclate 100 mg oral capsule) 1 cap by mouth Two (2) times a day Duration: 10 Days Pickup at [id number] 07/19/22 @804AM-IV DOSE Unchanged cyanocobalamin (Vitamin B12 1000 mcg oral tablet) 1 tab(s) by mouth Every other day NOT GIVEN Unchanged ergocalciferol (Vitamin D2 1.25 mg (50,000 intl units) oral capsule) 1 cap by mouth Every week Vitamin D deficiency NOT GIVEN Unchanged escitalopram (escitalopram 20 mg oral tablet) See instructions TAKE 1 TABLET BY MOUTH EVERY DAY 07/19/22 @804AM Unchanged gabapentin (gabapentin 100 mg oral capsule) 1 cap by mouth Three (3) times a day pain management 07/19/22 @804AM Unchanged hydrochlorothiazide-lisinopril (hydrochlorothiazide-lisinopril 12.5 mg-10 mg oral tablet) 1 tab(s) by mouth Every day Essential hypertension 07/19/22 @804AM Unchanged meloxicam (meloxicam 15 mg oral tablet) 1 tab(s) by mouth Once a day Take with food/ milk 07/19/22 @804AM Unchanged omega-3 polyunsaturated fatty acids (Fish Oil 1000 mg oral capsule) 1 cap by mouth Once a day 07/19/22 @804AM Unchanged omeprazole (omeprazole 40 mg oral delayed release capsule) See instructions TAKE 1 CAPSULE BY MOUTH EVERY DAY 07/19/22 @520AM Unchanged rosuvastatin (rosuvastatin 5 mg oral tablet) See instructions TAKE 1 TABLET BY MOUTH EVERY DAY 07/18/22 @927PM Pharmacy Information [facility]: [address] [place], [place] [id number] [phone] Please take this list to your next doctor s visit. Bring all medications you take, including over the counter medications, herbals and other supplements with you to your doctor s visit. Patients and families are reminded to discard old lists and to update any records with all medication providers or retail pharmacies. Education Materials Cellulitis, Adult Cellulitis is a skin infection. The infected area is often warm, red, swollen, and sore. It occurs most often in the arms and lower legs. It is very important to get treated for this condition. What are the causes? This condition is caused by bacteria. The bacteria enter through a break in the skin, such as a cut, burn, insect bite, open sore, or crack. What increases the risk? This condition is more likely to occur in people who: Have a weak body defense system (immune system). Have open cuts, patterson, bites, or scrapes on the skin. Are older than 60 years of age. Have a blood sugar problem (diabetes). Have a long-lasting (chronic) liver disease (cirrhosis) or kidney disease. Are very overweight (obese). Have a skin problem, such as: ? Itchy rash (eczema). ? Slow movement of blood in the veins (venous stasis). ? Fluid buildup below the skin (edema). Have been treated with high-energy rays (radiation). Use IV drugs. What are the signs or symptoms? Symptoms of this condition include: Skin that is: ? Red. ? Streaking. ? Spotting. ? Swollen. ? Sore or painful when you touch it. ? Warm. A fever. Chills. Blisters. How is this diagnosed? This condition is diagnosed based on: Medical history. Physical exam. Blood tests. Imaging tests. How is this treated? Treatment for this condition may include: Medicines to treat infections or allergies. Home care, such as: ? Rest. ? Placing cold or warm cloths (compresses) on the skin. Hospital care, if the condition is very bad. Follow these instructions at home: Medicines Take ycew-uek-fhcoxpt and prescription medicines only as told by your doctor. If you were prescribed an antibiotic medicine, take it as told by your doctor. Do not stop taking it even if you start to feel better. General instructions Drink enough fluid to keep your pee (urine) pale yellow. Do not touch or rub the infected area. Raise (elevate) the infected area above the level of your heart while you are sitting or lying down. Place cold or warm cloths on the area as told by your doctor. Keep all follow-up visits as told by your doctor. This is important. Contact a doctor if: You have a fever. You do not start to get better after 1 2 days of treatment. Your bone or joint under the infected area starts to hurt after the skin has healed. Your infection comes back. This can happen in the same area or another area. You have a swollen bump in the area. You have new symptoms. You feel ill and have muscle aches and pains. Get help right away if: Your symptoms get worse. You feel very sleepy. You throw up (vomit) or have watery poop (diarrhea) for a long time. You see red streaks coming from the area. Your red area gets larger. Your red area turns dark in color. These symptoms may represent a serious problem that is an emergency. Do not wait to see if the symptoms will go away. Get medical help right away. Call your local emergency services (911 in the [place] Do not drive yourself to the hospital. Summary Cellulitis is a skin infection. The area is often warm, red, swollen, and sore. This condition is treated with medicines, rest, and cold and warm cloths. Take all medicines only as told by your doctor. Tell your doctor if symptoms do not start to get better after 1 2 days of treatment. This information is not intended to replace advice given to you by your health care provider. Make sure you discuss any questions you have with your health care provider. Document Released: 08/09/2008 Document Revised: 07/13/2018 Document Reviewed: 07/13/2018 [employer] Patient Education 2020 [employer] Additional Information VACCINATE! IT SAVES LIVES! Members of the community who have not yet received the COVID-19 vaccine and would like to receive it can visit one of [facility] vaccine clinics. There are many vaccine clinic locations within the [facility]. For locations and available times, please visit https://gettheshot.coronavirus.o hio.gov/. It is important to note that some COVID mobile vaccine clinics are held outdoors and may be canceled in rainy or stormy conditions. To learn more about pediatric vaccinations (ages 5-11), we invite you to visit the [facility] webpage. [email or web address] To learn more about the COVID-19 vaccine, we invite you to visit the CDC website for a list of frequently asked questions.https://www.cdc.gov/co ronavirus/2019-ncov/vaccines/faq .html [employer] Patient Portal Access Instructions: Stay connected with your healthcare team and access your personal medical information anytime with the [employer] Patient Portal. Please follow the directions below to create your [employer] account: 1.Access the email account you provided upon registration to the hospital/physician office.2.Look for an invitation email from [facility].3.Open the email and access the invitation link: Accept Invitation to [employer].4.Fill in the required mcneal to create your account. To access your account, visit [email or web address]. Click the blue button labeled Access Patient Portal and then log in with the username and password that you created in the steps above. You will be able to view your test results, lab results, a summary of your visits, upcoming appointments and more. There is also a convenient messaging option where you can send secure messages to your provider. In addition, you will have the ability to download any documents or summaries to your computer and/or send the information securely to a physician. Remember that your healthcare information is confidential, so carefully consider who you will allow to register on the [employer] Patient Portal for access to your information. You can also access the [employer] Patient Portal on the [employer] Anywhere noble. Simply click on Patient Portal and then log into your account. If you would like to receive a full copy of your medical records, please contact the [facility] Medical Records Department by calling [phone], Tuesday through Tuesday between 8 a.m. and 4:30 p.m. HOW TO SAFELY DISPOSE OF PRESCRIPTION MEDICATIONS Please use one of the following methods to safely dispose of your unused medications. 1.Use a drug disposal kit: the drug disposal pouch allows you to safely discard your old and unused drugs. Ask your nurse to give you one when you are discharged.2.Visit a local take-back location: Many local pharmacies and police departments have programs that collect old and unwanted prescription drugs. Call your local pharmacy or go to http://Sure Chill.Vopium/2S2Iq1s to find one close to you.3.Make use of household items: Use cat litter or old coffee grounds to dispose medications if other options are not available. Mix your drugs with these household products, seal them in an airtight container and throw it into the garbage. Call [facility]: [phone] to be sure your drugs can be disposed of in this way. Some medicines may require a different approach.4.Never flush your medications down the toilet. IF YOU HAVE BEEN PRESCRIBED AN OPIOID FOR PAIN If you have been prescribed an opioid (such as hydrocodone, oxycodone or morphine), it is critical to understand the possible side effects and risks of opioid pain medications. Even when taken as directed, opioids can have several side effects including: Tolerance, meaning you might need to take more of a medication for the same pain relief. Nausea, vomiting and/or constipation. Sleepiness, dizziness, dry mouth, confusion, depression or itching. Physical dependence, meaning you have withdrawal symptoms when a medication is stopped, can develop within a few days. KNOW YOUR RESPONSIBILITIES It is important to know exactly how much and how often to take the opioid pain medications you are prescribed. Never take opioids in higher amounts or more often than prescribed. Do not combine opioids with alcohol or other drugs that cause drowsiness, such as benzodiazepines, also known as benzos, including diazepam and alprazolam, muscle relaxants or sleep aids. Never sell or share prescription opioids. This is illegal. Store opioids in a secure place and out of reach of others (including children, family, friends and visitors). The last page of this document has been signed and retained as a CHART COPY. Signatures Patient Education Materials Cellulitis, Adult, Sbzx-eg-Vcyy Medication Leaflets My discharge plan and instructions have been reviewed and explained to me and IJORGE DORINDA L understand my current condition and have read and understand these discharge instructions. I have received a written copy of the plan/instructions. If I have questions, I am aware that I should contact my doctor. Patient/Automation Tender Signature: Date/Time: Relationship to Patient: Witness Name/Signature: Date/Time: [facility] 07-18-2022 Note Date of Service 07/18/2022 Chief Complaint Cellulitis Subjective Overnight patient remained afebrile and hemodynamically stable with adequate oxygen saturations on room air. Labs reviewed, H&H stable. Renal function stable. On exam today, pt denies any fever or chills. No headache or dizziness. Denies chest pain, palpitations. No cough, dyspnea, sputum production. Denies N/V/D/C. No melena/hematochezia. No dysuria or hematuria. No new paresthesias. Right foot pruritus. Right anterior leg still causing some pain/discomfort. States this is manageable. Objective Vitals and Measurements T: 36.4 C (Oral) TMIN: 36.4 C (Oral) TMAX: 36.9 C (Oral) HR: 64(Monitored) RR: 18 BP: 139/81 SpO2: 98% WT: 131.7 kg Intake and Output 7AM Yesterday to 7AM Today Intake and Output (Last 24 hours) Intake Output Total Summary Total Intake 0.00 Total Output 0.00 Fluid Balance 0.00 Physical Exam GEN: Appears chronically ill CHEST: Normal S1 and S2. Rhythm is regular. Clear to auscultation, without rales, rhonchi, wheezing. ABD: Positive bowel sounds x 4 quads. Soft, obese, nondistended, nontender. EXT: No significant deformity or joint abnormality. RLE edema 1+. Peripheral pulses intact. NEURO: Sensation grossly intact SKIN: Right foot, dorsal aspect decreased erythema. No edema. No further drainage. Right anterior leg is still erythematous, warm, tender to touch with scant drainage. PSYCH: The mental examination revealed the patient was alert and oriented x 4 Weight Current Weight Dosing Weight: 129.5 kg (07/16/22) Current Weight: 131.7 kg (07/18/22) Dosing Weight: 129.5 kg (07/16/22) Current Weight: 129.2 kg (07/17/22) Medications Medications (16) Active Scheduled: (8) atorvastatin 10 mg tablet 10 mg 1 tab(s), Oral, qHS cefTRIAXone 2 gram(s), IV Piggyback, qDay escitalopram 10 mg tablet 20 mg 2 tab(s), Oral, qDay gabapentin 100 mg Capsule 100 mg 1 cap(s), Oral, TID lisinopril 5 mg tablet 10 mg 2 tab(s), Oral, qDay meloxicam 7.5 mg tablet 15 mg 2 tab(s), Oral, qDay zyvip-8-alki ethyl esters 1000 mg capsule 1,000 mg 1 cap(s), Oral, qDay pantoprazole 20 mg EC tablet 20 mg 1 tab(s), Oral, qDayAC Continuous: (0) PRN: (8) acetaminophen 325 mg Tablet 650 mg 2 tab(s), Oral, q4h acetaminophen 325 mg Tablet 650 mg 2 tab(s), Oral, q4h benzonatate 100 mg Capsule 100 mg 1 cap(s), Oral, TID calcium carbonate 500 mg Chewable 500 mg 1 tab(s), Chewed, TID dextrose 50% Solution Disp syringe 50 mL 25 gram(s) 50 mL, IV Push, AsDirected guaifenesin 100 mg/5 mL 120 mL liquid 200 mg 10 mL, Oral, q4h melatonin 3 mg tablet 6 mg 2 tab(s), Oral, qHS ondansetron 2 mg/ 1 mL 2 mL INJ 4 mg 2 mL, IV Push, q4h Lab Results 07/18 05:14 WBC: 7.0 Hgb: 11.3 L Hct: 34.0 L Platelet: 338 Neutrophil %: 56.4 Glucose Level: 98 Sodium Level: 143 Potassium Level: 4.5 BUN: 17 Creatinine Lvl (s): 0.74 07/17 06:23 WBC: 7.7 Hgb: 10.9 L Hct: 32.3 L Platelet: 319 Neutrophil %: 63.4 Glucose Level: 110 H Sodium Level: 145 Potassium Level: 4.0 BUN: 18 Creatinine Lvl (s): 0.77 Assessment/Plan 1. Cellulitis 2. HTN (hypertension) Cellulitis right lower extremity sensitivity reviewed. Growing MSSA. Vancomycin discontinued. Rocephin 2 g daily. Both areas of cellulitis on foot and lower leg are improved today. Foot wound is dry with no drainage and minimal erythema. Dorsal aspect of right lower leg is still warm and erythematous with scant drainage. Reevaluate tomorrow with possible discharge if continued improvement. HTN- SBP goal 140 or less. Continue home antihypertensives. DVT prophylaxis: SCDs Labs, diagnostics, and progress notes reviewed as noted in HPI Code Status: Full code Plan of care discussed with patient. All questions answered. Patient verbalizes understanding is agreeable to plan of care. This dictation was performed using voice recognition software and may include grammatical and/or spelling errors. Digitally Signed by JOHANNE RODRIGUEZ on 07/18/2022 11:20 AM [facility] 1. Cellulitis 2. HTN (hypertension) Cellulitis right lower extremity vancomycin and ceftriaxone. Pharmacy to dose vancomycin. Patient failed Keflex and doxycycline. Noted to have worsening cellulitis. She is afebrile and hemodynamically stable. No evidence of osteomyelitis. DVT prophylaxis: SCDs Labs, diagnostics, and progress notes reviewed as noted in HPI Code Status: Full code Plan of care discussed with patient. All questions answered. Patient verbalizes understanding is agreeable to plan of care. This dictation was performed using voice recognition software and may include grammatical and/or spelling errors. Future Appointments Appointment Date:07/21/2022 07:30:00 AM Scheduled Provider:EMILEE LEACH Location:[facility] Appointment Type:[facility] Follow-Up Appointment Date:08/11/2022 03:30:00 PM Scheduled Provider:KRISTEN MAY DO Location:[facility] Appointment Type:[facility] 05-13-2023 Note Date of Service 07/17/2022 Chief Complaint Patient has been seen by family physician and on antibiotics for cellulitis. Patient continues to have pain and swelling and came to ER (advice from her family doctor) History of Present Illness 56-year-old female with past medical history significant for HTN, TOMMIE, HLD, ANTWAN, depression with anxiety, GERD. Patient presented to [facility] emergency department with worsening cellulitis that has failed outpatient treatment. She originally was seen by her PCP on 07/07/2022 for RLE cellulitis. She was initiated on Keflex for 10 days. She followed up on 07/14/2022 and was noted to have purulent blister formation. Doxycycline was added to regimen and wound was cultured. Wound is growing Staph aureus. In the emergency department patient was afebrile and hemodynamically stable with adequate oxygen saturations on room air. No leukocytosis. BMP unremarkable. X-ray ankle shows diffuse soft tissue swelling and x-ray foot shows soft tissue swelling of the medial and dorsal aspect of the foot without subcutaneous emphysema or underlying osseous abnormality to suggest osteomyelitis. In the emergency department patient was given a 500 mL bolus of normal saline and vancomycin 2 g IV. She was subsequently admitted for further evaluation. Overnight patient remained afebrile and hemodynamically stable with adequate oxygen saturations on room air. No leukocytosis. Renal function stable. Noted to be hypomagnesemic at 1.7. On exam today, pt denies any fever or chills. No headache or dizziness. Denies chest pain, palpitations. No cough, dyspnea, sputum production. Denies N/V/D/C. No melena/hematochezia. No dysuria or hematuria. No new paresthesias. RLE discomfort. Review of Systems See HPI for specific ROS. All other systems reviewed and negative. Physical Exam Vitals and Measurements T: 36.9 C (Oral) TMIN: 36.5 C (Oral) TMAX: 37.0 C (Oral) HR: 68(Monitored) RR: 16 BP: 143/86 SpO2: 97% HT: 160 cm WT: 129.2 kg BMI: 50.59 Weight Current Weight Dosing Weight: 129.5 kg (07/16/22) Current Weight: 129.2 kg (07/17/22) Dosing Weight: 129.5 kg (07/16/22) GEN: Appears chronically ill EYES: No conjunctival erythema, drainage. EOMI EARS: Hearing grossly intact. NOSE: No nasal discharge. THROAT: Oral cavity and pharynx pink and moist. CHEST: Normal S1 and S2. Rhythm is regular. Clear to auscultation, without rales, rhonchi, wheezing. ABD: Positive bowel sounds x 4 quads. Soft, obese, nondistended, nontender. EXT: No significant deformity or joint abnormality. RLE edema 1+. Peripheral pulses intact. NEURO: Sensation grossly intact SKIN: Right foot, dorsal aspect with erythema, edema, and purulent drainage. Dorsal aspect of rightlower leg also with erythema, edema and purulent drainage. Improved compared to pictures that she took yesterday. PSYCH: The mental examination revealed the patient was alert and oriented x 4 Lab Results 07/17 06:23 WBC: 7.7 Hgb: 10.9 L Hct: 32.3 L Platelet: 319 Neutrophil %: 63.4 Glucose Level: 110 H Sodium Level: 145 Potassium Level: 4.0 BUN: 18 Creatinine Lvl (s): 0.77 07/16 16:24 WBC: 9.4 Hgb: 12.3 Hct: 37.4 Platelet: 360 Neutrophil %: 68.3 Glucose Level: 87 Sodium Level: 145 Potassium Level: 3.6 BUN: 18 Creatinine Lvl (s): 0.75 Imaging Results and Diagnostics XR Foot Minimum 3 Views Right Result Date: July 16, 2022 Verified By: FRAN RAMÍREZ MD CLINICAL STATEMENT: IMPRESSION: No acute fracture or dislocation. Soft tissue swelling of the medial and dorsal aspect of the foot withoutsubcutaneous emphysema or underlying osseous abnormality to suggestosteomyelitis.I have personally reviewed the images of this examination and agree with theresident's findings and interpretation. XR Ankle Minimum 3 Views Right Result Date: July 16, 2022 Verified By: KRISTEN SOARES MD CLINICAL STATEMENT: IMPRESSION: No acute fracture or dislocation. Diffuse soft tissue swelling. Degenerative changes. Assessment/Plan 1. Cellulitis 2. HTN (hypertension) Cellulitis right lower extremity vancomycin and ceftriaxone. Pharmacy to dose vancomycin. Patient failed Keflex and doxycycline. Noted to have worsening cellulitis. She is afebrile and hemodynamically stable. No evidence of osteomyelitis. DVT prophylaxis: SCDs Labs, diagnostics, and progress notes reviewed as noted in HPI Code Status: Full code Plan of care discussed with patient. All questions answered. Patient verbalizes understanding is agreeable to plan of care. This dictation was performed using voice recognition software and may include grammatical and/or spelling errors. Problem List/Past Medical History Ongoing Breast cancer screening Cellulitis of leg Chronic GERD DDD (degenerative disc disease), lumbar Depression with anxiety Essential hypertension Iron deficiency anemia Menopausal state Mixed hyperlipidemia Myalgia Obstructive sleep apnea Vaginal spotting Vitamin B12 deficiency Vitamin D deficiency Historical No qualifying data Procedure/Surgical History Knee arthroplasty: 03/24/21 Arthroplasty of the knee: 02/11/21 Colonoscopy Arthroscopy of knee Tubal ligation Medications Home Medications (11) Active cephalexin 500 mg oral capsule 500 mg = 1 cap(s), Oral, QID doxycycline hyclate 100 mg oral capsule 100 mg = 1 cap(s), Oral, BID escitalopram 20 mg oral tablet See Instructions Fish Oil 1000 mg oral capsule 1,000 mg = 1 cap(s), Oral, qDay gabapentin 100 mg oral capsule 100 mg = 1 cap(s), Oral, TID hydrochlorothiazide-lisinopril 12.5 mg-10 mg oral tablet 1 tab(s), Oral, Daily meloxicam 15 mg oral tablet 15 mg = 1 tab(s), Oral, qDay omeprazole 40 mg oral delayed release capsule See Instructions rosuvastatin 5 mg oral tablet See Instructions Vitamin B12 1000 mcg oral tablet 1,000 mcg = 1 tab(s), Oral, Every other day Vitamin D2 1.25 mg (50,000 intl units) oral capsule 50,000 International_Unit = 1 cap(s), Oral, qWeek Allergies Avelox (Rash) fenofibrate (Gum pain) penicillin (Rash) sulfa (Rash) Social History Alcohol Frequency: 1-2 times per year., 11/29/2018 Employment/School Status: Employed., 11/29/2018 Exercise Home/Environment Domestic Concerns: None. Living situation: Home/Independent. Primary Dishwasher: Self. Lives In: Single level home. Current Home Treatments CPAP. Professional Skilled Services or Special Community Resources None. Spouse Name: Bulmaro. Marital Status: ., 12/10/2020 Nutrition/Health Type of diet: Regular. Appetite Good. Eating Difficulties None. Skin Breakdown No. Caffeine intake amount: occasional., 12/10/2020 Substance Abuse Use: Never., 11/29/2018 Tobacco Tobacco Use: Never (less than 100 in lifetime)., 11/29/2018 Family History Depression: Mother. Diabetes: Father. Heart disease: Father. High blood pressure: Father. Immunizations No qualifying data available. Code Status Code Status - Ordered -- 07/16/22 16:23:00 EDT, Full Code, Constant Order Digitally Signed by JOHANNE RODRIGUEZ on 07/17/2022 12:16 PM [facility]05-13-2023 Note. MICRO - Microbiology PROCEDURE: Culture Wound Aerobic with Gram Stain [O1 *1] SOURCE: Drainage BODY SITE: Foot COLLECTED DATE/TIME: 07/14/2022 16:34 EDT RECEIVED DATE/TIME: 07/14/2022 19:12 EDT START DATE/TIME: 07/14/2022 19:12 EDT FREE TEXT SOURCE: FINAL REPORTS Final Report [] Verified Date/Time/Personnel: 07/17/2022 08:24 EDT 3 colonies Staphylococcus aureus PRELIMINARY REPORTS Preliminary Report [] Verified Date/Time/Personnel: 07/16/2022 08:38 EDT 3 colonies Staphylococcus aureus GERTRUDE to follow Preliminary Report [] Verified Date/Time/Personnel: 07/15/2022 09:20 EDT Culture results pending. STAINS GS [] Verified Date/Time/Personnel: 07/14/2022 19:23 EDT Rare Red Blood Cells Rare White Blood Cells No organisms seen. SUSCEPTIBILITY RESULTS Staphylococcus aureus Antibiotic GERTRUDE Dilut GERTRUDE Inter Ampicillin <=2 Beta Lactamase Positive Ampicillin/ <=8/4 Susceptible Sulbactam Azithromycin <=2 Susceptible Cefepime <=4 Susceptible Cefotaxime <=8 Susceptible Ceftaroline <=0.5 Susceptible Ceftriaxone <=4 Susceptible Ciprofloxacin <=1 Susceptible Clindamycin <=0.25 Susceptible Erythromycin <=0.25 Susceptible Imipenem <=4 Susceptible Levofloxacin <=1 Susceptible Meropenem <=2 Susceptible Oxacillin <=0.25 Susceptible Penicillin 1 Beta Lactamase Positive Piperacillin/ <=8 Susceptible Tazobactam Tetracycline <=4 Susceptible Trimethoprim/ <=0.5/9.5 Susceptible Sulfa Vancomycin 1 Susceptible Order Comments O1: Culture Wound Aerobic with Gram Stain culture and sensitivity. Performing Locations *1: This test was performed at: [facility], [address] [place] [address], [id number] , [facility] ([place])07-16-2022 Note ORIGINAL EXAMINATION: THREE XRAY VIEWS OF THE RIGHT FOOT 07/16/2022 3:54 pm COMPARISON: Same day ankle radiograph. HISTORY: ORDERING SYSTEM PROVIDED HISTORY: Reason for Exam: pain FINDINGS: No acute fracture or dislocation. No periosteal reaction. Joint spaces are maintained. Minimal degenerative changes of the midfoot. Calcaneal enthesopathy. Soft tissue swelling about the medial and dorsal aspect of the foot. No subcutaneous emphysema. Small sliver of calcium density projects along the soft tissues near the 4th digit metatarsophalangeal joint and proximal interphalangeal joint. IMPRESSION: No acute fracture or dislocation. Soft tissue swelling of the medial and dorsal aspect of the foot without subcutaneous emphysema or underlying osseous abnormality to suggest osteomyelitis. I have personally reviewed the images of this examination and agree with the resident's findings and interpretation. Interpreted by: Fran Ramírez Preliminary Report By: Jayme Vogt Electronically signed By Fran Ramírez Dictated Date: 07/16/2022 3:57:55 PM Prelim Date: 07/16/2022 4:01:33 PM Sign Date: 07/16/2022 4:30:40 PM Ordering Provider: [facility] [id number] Note ORIGINAL EXAMINATION: THREE XRAY VIEWS OF THE RIGHT ANKLE TECHNIQUE: Three views of the right ankle. COMPARISON: None available. HISTORY: ORDERING SYSTEM PROVIDED HISTORY: Reason for Exam: pain FINDINGS: No acute fracture or dislocation. The ankle mortise is intact. No evidence of talar dome flattening. Moderate degenerative enthesopathy changes of the plantar and posterior calcaneus. Degenerative enthesopathy changes of the dorsal tarsal bones. Diffuse anterior and lateral soft tissue swelling without radiopaque foreign body or soft tissue gas is present. A small calcification at the level of the anterior distal tibia is noted. IMPRESSION: No acute fracture or dislocation. Diffuse soft tissue swelling. Degenerative changes. Interpreted by: Kristen Soares MD Preliminary Report By: Kristen Soares MD Electronically signed By Kristen Soares MD Dictated Date: 07/16/2022 3:54:42 PM Prelim Date: 07/16/2022 3:58:24 PM Sign Date: 07/16/2022 3:58:24 PM Ordering Provider[facility] ORIGINAL EXAMINATION: THREE XRAY VIEWS OF THE RIGHT FOOT 07/16/2022 3:54 pm COMPARISON: Same day ankle radiograph. HISTORY: ORDERING SYSTEM PROVIDED HISTORY: Reason for Exam: pain FINDINGS: No acute fracture or dislocation. No periosteal reaction. Joint spaces are maintained. Minimal degenerative changes of the midfoot. Calcaneal enthesopathy. Soft tissue swelling about the medial and dorsal aspect of the foot. No subcutaneous emphysema. Small sliver of calcium density projects along the soft tissues near the 4th digit metatarsophalangeal joint and proximal interphalangeal joint. IMPRESSION: No acute fracture or dislocation. Soft tissue swelling of the medial and dorsal aspect of the foot without subcutaneous emphysema or underlying osseous abnormality to suggest osteomyelitis. I have personally reviewed the images of this examination and agree with the resident's findings and interpretation. Interpreted by: Fran Ramírez Preliminary Report By: Jayme Vogt Electronically signed By Fran Ramírez Dictated Date: 07/16/2022 3:57:55 PM Prelim Date: 07/16/2022 4:01:33 PM Sign Date: 07/16/2022 4:30:40 PM Ordering Provider: [facility]05-12-2023 Note ORIGINAL EXAMINATION: THREE XRAY VIEWS OF THE RIGHT ANKLE TECHNIQUE: Three views of the right ankle. COMPARISON: None available. HISTORY: ORDERING SYSTEM PROVIDED HISTORY: Reason for Exam: pain FINDINGS: No acute fracture or dislocation. The ankle mortise is intact. No evidence of talar dome flattening. Moderate degenerative enthesopathy changes of the plantar and posterior calcaneus. Degenerative enthesopathy changes of the dorsal tarsal bones. Diffuse anterior and lateral soft tissue swelling without radiopaque foreign body or soft tissue gas is present. A small calcification at the level of the anterior distal tibia is noted. IMPRESSION: No acute fracture or dislocation. Diffuse soft tissue swelling. Degenerative changes. Interpreted by: Kristen Soares MD Preliminary Report By: Kristen Soares MD Electronically signed By Kristen Soares MD Dictated Date: 07/16/2022 3:54:42 PM Prelim Date: 07/16/2022 3:58:24 PM Sign Date: 07/16/2022 3:58:24 PM Ordering Provider: [facility]01-18-2022 Hospital Discharge instructions Patient Education 03/24/2021 10:27:15 Nausea and Vomiting, Adult, Jygd-vl-Lzqu Nausea and Vomiting, Adult Nausea is feeling sick to your stomach or feeling that you are about to throw up (vomit). Vomiting is when food in your stomach is thrown up and out of the mouth. Throwing up can make you feel weak. It can also make you lose too much water in your body (get dehydrated). If you lose too much water in your body, you may: Feel tired. Feel thirsty. Have a dry mouth. Have cracked lips. Go pee (urinate) less often. Older adults and people with other diseases or a weak body defense system (immune system) are at higher risk for losing too much water in the body. If you feel sick to your stomach and you throw up, it is important to follow instructions from your doctor about how to take care of yourself. Follow these instructions at home: Watch your symptoms for any changes. Tell your doctor about them. Follow these instructions to carefor yourself at home. Eating and drinking Take an ORS (oral rehydration solution). This is a drink that is sold at pharmacies and stores. Drink clear fluids in small amounts as you are able, such as: ?Water. ?Ice chips. ?Fruit juice that has water added (diluted fruit juice). ?Low-calorie sports drinks. Eat bland, ulcl-ei-umogrb foods in small amounts as you are able, such as: ?Bananas. ?Applesauce. ?Rice. ?Low-fat (lean) meats. ?[place]. ?Crackers. Avoid drinking fluids that have a lot of sugar or caffeine in them. This includes energy drinks, sports drinks, and soda. Avoid alcohol. Avoid spicy or fatty foods. General instructions Take mdom-ywk-bsuafpz and prescription medicines only as told by your doctor. Drink enough fluid to keep your pee (urine) pale yellow. Wash your hands often with soap and water. If you cannot use soap and water, use hand livestock producer. Make sure that all people in your home wash their hands well and often. Rest at home while you get better. Watch your condition for any changes. Take slow and deep breaths when you feel sick to your stomach. Keep all follow-up visits as told by your doctor. This is important. Contact a doctor if: Your symptoms get worse. You have new symptoms. You have a fever. You cannot drink fluids without throwing up. You feel sick to your stomach for more than 2 days. You feel light-headed or dizzy. You have a headache. You have muscle cramps. You have a rash. You have pain while peeing. Get help right away if: You have pain in your chest, neck, arm, or jaw. You feel very weak or you pass out (faint). You throw up again and again. You have throw up that is bright red or looks like black coffee grounds. You have bloody or black poop (stools) or poop that looks like tar. You have a very bad headache, a stiff neck, or both. You have very bad pain, cramping, or bloating in your belly (abdomen). You have trouble breathing. You are breathing very quickly. Your heart is beating very quickly. Your skin feels cold and clammy. You feel confused. You have signs of losing too much water in your body, such as: ?Dark pee, very little pee, or no pee. ?Cracked lips. ?Dry mouth. ?Sunken eyes. ?Sleepiness. ?Weakness. These symptoms may be an emergency. Do not wait to see if the symptoms will go away. Get medical help right away. Call your local emergency services (911 in the [place] Do not drive yourself to the hospital. Summary Nausea is feeling sick to your stomach or feeling that you are about to throw up (vomit). Vomiting is when food in your stomach is thrown up and out of the mouth. Follow instructions from your doctor about eating and drinking to keep from losing too much water in your body. Take jwhz-wgr-hfjixms and prescription medicines only as told by your doctor. Contact your doctor if your symptoms get worse or you have new symptoms. Keep all follow-up visits as told by your doctor. This is important. This information is not intended to replace advice given to you by your health care provider. Make sure you discuss any questions you have with your health care provider. Document Released: 08/09/2008 Document Revised: 06/15/2019 Document Reviewed: 08/01/2018 Elsevier Patient Education 2020 [employer]. 03/24/2021 10:27:07 Monitored Anesthesia Care, Care After Monitored Anesthesia Care, Care After These instructions provide you with information about caring for yourself after your procedure. Your health care provider may also give you more specific instructions. Your treatment has been plannedaccording to current medical practices, but problems sometimes occur. Call your health care provider if you have any problems or questions after your procedure. What can I expect after the procedure? After your procedure, you may: Feel sleepy for several hours. Feel clumsy and have poor balance for several hours. Feel forgetful about what happened after the procedure. Have poor judgment for several hours. Feel nauseous or vomit. Have a sore throat if you had a breathing tube during the procedure. Follow these instructions at home: For at least 24 hours after the procedure: Have a responsible adult stay with you. It is important to have someone help care for you until youare awake and alert. Rest as needed. Do not: ?Participate in activities in which you could fall or become injured. ?Drive. ?Use heavy machinery. ?Drink alcohol. ?Take sleeping pills or medicines that cause drowsiness. ?Make important decisions or sign legal documents. ?Take care of children on your own. Eating and drinking Follow the diet that is recommended by your health care provider. If you vomit, drink water, juice, or soup when you can drink without vomiting. Make sure you have little or no nausea before eating solid foods. General instructions Take qhjr-smq-gofwzww and prescription medicines only as told by your health care provider. If you have sleep apnea, surgery and certain medicines can increase your risk for breathing problems. Follow instructions from your health care provider about wearing your sleep device: ?Anytime you are sleeping, including during daytime naps. ?While taking prescription pain medicines, sleeping medicines, or medicines that make you drowsy. If you smoke, do not smoke without supervision. Keep all follow-up visits as told by your health care provider. This is important. Contact a health care provider if: You keep feeling nauseous or you keep vomiting. You feel light-headed. You develop a rash. You have a fever. Get help right away if: You have trouble breathing. Summary For several hours after your procedure, you may feel sleepy and have poor judgment. Have a responsible adult stay with you for at least 24 hours or until you are awake and alert. This information is not intended to replace advice given to you by your health care provider. Make sure you discuss any questions you have with your health care provider. Document Released: 06/13/2016 Document Revised: 05/22/2018 Document Reviewed: 06/13/2016 [employer] Patient Education 2020 [employer]. 03/24/2021 10:26:58 Total Knee Replacement, Care After, Oqde-tf-Vong Total Knee Replacement, Care After This sheet gives you information about how to care for yourself after your procedure. Your doctor may also give you more specific instructions. If you have problems or questions, contact your doctor. What can I expect after the procedure? After the procedure, it is common to have: Pain. Swelling. A small amount of blood coming from your cut from surgery (incision). Clear fluid coming from your cut from surgery. Limited movement of your knee. Follow these instructions at home: Medicines Take emff-sck-ktpprpf and prescription medicines only as told by your doctor. If you were prescribed a blood thinner (anticoagulant), take it as told by your doctor. Ask your doctor if the medicine prescribed to you: ?Requires you to avoid driving or using heavy machinery. ?Can cause trouble pooping (constipation). You may need to take steps to prevent or treat trouble pooping: ?Drink enough fluid to keep your pee (urine) pale yellow. ?Take raaw-mur-miuijtc or prescription medicines. ?Eat foods that are high in fiber. These include beans, whole grains, and fresh fruits and vegetables. ?Limit foods that are high in fat and sugar. These include fried or sweet foods. Bathing Do not take baths, swim, or use a hot tub until your doctor approves. Ask your doctor if you may take showers. You may only be allowed to take sponge baths. Keep your bandage (dressing) dry until your doctor says it can be taken off. Incision care and drain care Follow instructions from your doctor about how to take care of your cut from surgery. Make sure you: ?Wash your hands with soap and water before and after you change your bandage. If you cannot use soap and water, use hand livestock producer. ?Change your bandage as told by your doctor. ?Leave stitches (sutures), skin glue, or skin tape (adhesive) strips in place. They may need to stay in place for 2 weeks or longer. If tape strips get loose and curl up, you may trim the loose edges. Do not remove tape strips completely unless your doctor says it is okay. Check your cut from surgery and your drain site every day for signs of infection. Check for: ?More redness, swelling, or pain. ?More fluid or blood. ?[place]. ?Pus or a bad smell. If you have a drain, follow instructions from your doctor about caring for it. Managing pain, stiffness, and swelling If told, put ice on your knee. ?Put ice in a plastic bag or use the icing device (cold flow pad or cryocuff) that you were given. Follow your doctor's directions about how to use the icing device. ?Place a towel between your skin and the bag or between your skin and the icing device. ?Leave the ice on for 20 minutes, 2 3 times per day. If told, put heat on your knee before you exercise. Use the heat source that your doctor recommends, such as a moist heat pack or a heating pad. ?Place a towel between your skin and the heat source. ?Leave the heat on for 20 30 minutes. ?Remove the heat if your skin turns bright red. This is very important if you are unable to feel pain, heat, or cold. You may have a greater risk of getting burned. Move your toes often. Raise (elevate) your knee above the level of your heart while you are sitting or lying down. ?Use several pillows to keep your leg straight. ?Do not put a pillow just under the knee. If the knee is bent for a long time, this may make the knee stiff. Wear elastic knee support as told by your doctor. Activity Rest as told by your doctor. Do not sit for a long time without moving. Get up to take short walks every 1 2 hours. This is important. Ask for help if you feel weak or unsteady. Ask your doctor what activities are safe for you. Avoid activities that put stress on your knees. These include running, jumping rope, and jumping jacks. Do not play contact sports until your doctor says it is okay. Do exercises as told by your physical therapist. If you have been sent home with a knee joint motion machine (continuous passive motion machine), use it as told by your doctor. Safety Do not use your leg to support your body weight until your doctor says that you can. Use crutches or a walker as told by your doctor. Do not drive until your doctor says it is okay. Ask your doctor when it is safe to drive. General instructions Do not use any products that contain nicotine or tobacco, such as cigarettes, e- cigarettes, and chewing tobacco. These can delay healing. If you need help quitting, ask your doctor. Wear special socks (compression stockings) as told by your doctor. Tell your doctor if you plan to have dental work. Also: ?Tell your dentist about your joint replacement. ?Ask your doctor if there are instructions you need to follow before dental care and routine cleanings. Keep all follow-up visits as told by your doctor. This is important. Contact a doctor if: You have more redness, swelling, or pain around your cut from surgery or your drain. You have more fluid or blood coming from your cut from surgery or your drain. You have pus or a bad smell coming from your cut from surgery or your drain. Your cut from surgery or your drain area feels warm to the touch. You have a fever. Your cut breaks open. You have knee pain that does not go away. The movement of your knee is getting worse. Your new joint feels loose. Get help right away if you have: Pain in your calf or thigh. Swelling in your calf or thigh. Shortness of breath. Trouble breathing. Chest pain. Summary After the procedure, it is common to have pain and swelling, blood or fluid coming from your cut from surgery, and trouble moving your knee. Follow instructions from your doctor about how to take care of your cut from surgery. Use crutches or a walker as told by your doctor. If you were prescribed a blood thinner, take it as told by your doctor. Keep all follow-up visits as told by your doctor. This is important. This information is not intended to replace advice given to you by your health care provider. Make sure you discuss any questions you have with your health care provider. Document Released: 05/15/2012 Document Revised: 07/02/2019 Document Reviewed: 10/05/2018 [employer] Patient Education 2020 [employer]. Follow Up Care 02/25/2021 12:55:01 With:NIMA POTTER MD Address: [phone] When: Unknown Comments:Follow-up as scheduled [facility] 12-09-2021 Hospital Discharge instructions Patient Education 02/12/2021 07:17:32 5 - [facility] Post-op Instruction 10/2016 (74061) [facility] Post-operative Instructions PLEASE FOLLOW [facility] POST-OP INSTRUCTIONS GIVEN WATCH FOR SIGNS OF INFECTION: call the office ([phone]) if experencing any of the following: (Usually appears 36-48 hours after surgery) Increased temperature (101 degrees Fahrenheit or higher) Redness or swelling Increased uncontrolled pain Foul odor or drainage Calf discomfort Significant swelling Or if having any chest pain, shortness of breath, or difficulty breathing or swallowing call the office or go the nearest Emergency Room. If you have any questions, please call your doctor at the number listed on your follow up instructions. Form: 338A ([id number]) R: 07/11 Follow Up Care 01/16/2021 11:56:52 With:[facility] Address: [address] [place] [phone] When:02/13/2021 10:30:00 Comments:This is your first physical therapy appointment. Follow-up as scheduled. With:NAYELI BLACKMON, Orthopedic Address: [facility] [address] [place] [phone] When:02/23/2021 13:45:00 Comments:This is your post-op appointment. Follow-up as scheduled. [facility] 10-19-2021 Hospital Discharge instructions Patient Education 12/23/2020 13:32:21 Spinal Anesthesia and Epidural Anesthesia, Care After, Azkl-rd-Sseq Spinal Anesthesia and Epidural Anesthesia, Care After This sheet gives you information about how to care for yourself after your procedure. Your doctor may also give you more specific instructions. If you have problems or questions, call your doctor. Follow these instructions at home: For at least 24 hours after the procedure: Have a responsible adult stay with you. It is important to have someone help care for you until youare awake and alert. Rest as needed. Do not do activities where you could fall or get hurt (injured). Do not drive. Do not use heavy machinery. Do not drink alcohol. Do not take sleeping pills or medicines that make you sleepy (drowsy). Do not make important decisions. Do not sign legal documents. Do not take care of children on your own. Eating and drinking If you throw up (vomit), drink water, juice, or soup when nausea and vomiting stop. Drink enough fluid to keep your pee (urine) pale yellow. Make sure you do not feel like throwing up (nauseous) before you eat solid foods. Follow the diet that your doctor recommends. General instructions Return to your normal activities as told by your doctor. Ask your doctor what activities are safe for you. Take tqzg-qve-mktgnyc and prescription medicines only as told by your doctor. If you have sleep apnea, surgery and certain medicines can raise your risk for breathing problems. Follow instructions from your doctor about when to wear your sleep device. Your doctor may tell you to wear your sleep device: ?Anytime you are sleeping, including during daytime naps. ?While taking prescription pain medicines, sleeping pills, or medicines that make you sleepy. Do not use any products that contain nicotine or tobacco. This includes cigarettes and e-cigarettes. ?If you need help quitting, ask your doctor. ?If you smoke, do not smoke by yourself. Make sure someone is nearby in case you need help. Keep all follow-up visits as told by your doctor. This is important. Contact a doctor if: It has been more than one day since your procedure and you feel like throwing up. It has been more than one day since your procedure and you throw up. You have a rash. Get help right away if: You have a fever. You have a headache that lasts a long time. You have a very bad headache. Your vision is blurry. You see two of a single object (double vision). You are dizzy or light-headed. You faint. Your arms or legs tingle, feel weak, or get numb. You have trouble breathing. You cannot pee (urinate). Summary After the procedure, have a responsible adult stay with you at home until you are fully awake and alert. Do not do activities that might get you injured. Do not drive, use heavy machinery, drink alcohol, or make important decisions for 24 hours after the procedure. Take medicines as told by your doctor. Do not use products that contain nicotine or tobacco. Get help right away if you have a fever, blurry vision, difficulty breathing or passing urine, or weakness or numbness in arms or legs. This information is not intended to replace advice given to you by your health care provider. Make sure you discuss any questions you have with your health care provider. Document Released: 06/14/2016 Document Revised: 02/03/2018 Document Reviewed: 06/14/2016 [employer] Patient Education 2020 [employer]. 12/23/2020 13:32:21 Regional Anesthesia Regional Anesthesia Regional anesthesia is a method used to temporarily block feeling in one area of the body. You may have regional anesthesia before a medical procedure or surgery. A health care provider who specializes in giving anesthesia (anesthesiologist) injects a type of medicine near a nerve or a group of nerves. This medicine makes that area of the body numb. Regional anesthesia allows you to be awake during the procedure or surgery but keeps you from feeling pain in the affected area. There are three types of regional anesthesia: Spinal anesthesia. This is a one-time injection of medicine into the fluid that surrounds your spinal cord. This numbs the area below and slightly above the injection site. Epidural anesthesia. This is another medicine that may be placed into your back, but just outside of the protective tissue that covers your spinal cord. Instead of a one-time injection, the medicine is often given gradually over time through a small tube (catheter)that remains in your back for as long as pain control is needed. Peripheral nerve block. This is an injection that is given in an area of the body other than the spine to block all feeling below the injection site. Peripheral nerve blocks may be given as a single injection before your procedure or may be given through a catheter for as long as you need pain control. Regional anesthesia can be used alone or in combination with other types of anesthesia. Compared tousing medicine that makes you fall asleep (general anesthetic), regional anesthesia has many benefits, such as: Improved pain control after your surgery. Less nausea, vomiting, or drowsiness after surgery. A faster recovery. Tell a health care provider about: Any allergies you have. All medicines you are taking, including vitamins, herbs, eye drops, creams, and cozi-ypz-cjgbuph medicines. Any use of drugs, alcohol, or tobacco. Any problems you or family members have had with anesthetic medicines. Any blood disorders you have. Any surgeries you have had. Any medical conditions you have or have had, especially heart failure, chronic obstructive pulmonary disease (COPD), or sleep apnea. Whether you are or may be . What are the risks? Generally, this is a safe procedure. However, problems may occur, including: Pain. Nausea. Vomiting. Itching. Low blood pressure. Headache. Nerve damage. Infection. Bleeding around the injection site. Trouble urinating. Allergic reactions to medicine. What happens before the procedure? Staying hydrated Follow instructions from your health care provider about hydration, which may include: Up to 2 hours before the procedure you may continue to drink clear liquids, such as water, clear fruit juice, black coffee, and plain tea. Eating and drinking restrictions Follow instructions from your health care provider about eating and drinking, which may include: 8 hours before the procedure stop eating heavy meals or foods, such as meat, fried foods, or fatty foods. 6 hours before the procedure stop eating light meals or foods, such as toast or cereal. 6 hours before the procedure stop drinking milk or drinks that contain milk. 2 hours before the procedure stop drinking clear liquids. Medicines Ask your health care provider about: Changing or stopping your regular medicines. This is especially important if you are taking diabetes medicines or blood thinners. Taking medicines such as aspirin and ibuprofen. These medicines can thin your blood. Do not take these medicines unless your health care provider tells you to take them. Taking zzom-guf-uwwxwdk medicines, vitamins, herbs, and supplements. General instructions Plan to have someone take you home from the hospital or clinic. If you will be going home right after the procedure, plan to have someone with you for 24 hours. You may need to have blood or imaging tests. Ask your health care provider what steps will be taken to help prevent infection. These may includewashing skin with a germ-killing soap. If you use a sleep apnea device, ask your health care provider whether you should bring it with youon the day of your surgery. What happens during the procedure? Depending on the medical procedure you are having done, an IV may be inserted into one of your veins. The anesthesiologist will do a physical exam to find the best location to give the regional anesthesia. To locate the nerve, he or she may also use: ?A device that activates the nerve and causes your muscles to twitch (nerve stimulator). ?An imaging tool that uses sound waves to create images of the area (ultrasound). You may be given a medicine to help you relax (sedative). A medicine called a local anesthetic may be injected to numb the area where the regional anestheticwill be injected. You will get regional anesthesia by injection or through a catheter. The anesthesiologist will check to make sure the medicine is working before the rest of your medical procedure begins. Depending on the type of regional anesthesia you received, you may have a small bandage (dressing) placed over the injection site. The procedure may vary among health care providers and hospitals. What can I expect after the procedure? After your procedure, it is common to have: Sleepiness. Nausea. Itching. Numbness. Shivering or feeling cold. Your blood pressure, heart rate, breathing rate, and blood oxygen level will be monitored until youleave the hospital or clinic. Follow these instructions at home: Do not drive for 24 hours if you were given a sedative during your procedure. Take gvwl-qla-sknulcj and prescription medicines only as told by your health care provider. Do not drive, exercise, or do any other activities that require coordination for 24 hours or as told by your health care provider. Ask your health care provider when you can return to your usual activities. Drink enough fluid to keep your urine pale yellow. If you had a dressing placed over the injection site, only remove it when told to do so by your health care provider. Keep all follow-up visits as told by your health care provider. This is important. Contact a health care provider if you: Continue to have nausea and vomiting for more than 1 day. Develop a rash. Have trouble urinating. Get help right away if you: Have bleeding from the injection site or bleeding under the skin at the injection site. Have redness, swelling, or pain around your injection site. Have a fever. Develop a headache. Develop new numbness or weakness. Summary Regional anesthesia is a method used to temporarily block feeling in one area of the body. It may be done to block pain during a medical procedure or surgery. Follow instructions from your health care provider about taking medicines and about eating and drinking before the procedure. Ask your health care provider when you can return to your usual activities after the procedure. This information is not intended to replace advice given to you by your health care provider. Make sure you discuss any questions you have with your health care provider. Document Released: 06/14/2016 Document Revised: 04/09/2019 Document Reviewed: 04/09/2019 [employer] Patient Education 2020 [employer]. 12/23/2020 13:32:21 Incision and Drainage, Care After Incision and Drainage, Care After This sheet gives you information about how to care for yourself after your procedure. Your health care provider may also give you more specific instructions. If you have problems or questions, contact your health care provider. What can I expect after the procedure? After the procedure, it is common to have: Pain or discomfort around the incision site. Blood, fluid, or pus (drainage) from the incision. Redness and firm skin around the incision site. Follow these instructions at home: Medicines Take qadw-msp-batfvil and prescription medicines only as told by your health care provider. If you were prescribed an antibiotic medicine, use or take it as told by your health care provider.Do not stop using the antibiotic even if you start to feel better. Wound care Follow instructions from your health care provider about how to take care of your wound. Make sure you: Wash your hands with soap and water before and after you change your bandage (dressing). If soap and water are not available, use hand livestock producer. Change your dressing and packing as told by your health care provider. ?If your dressing is dry or stuck when you try to remove it, moisten or wet the dressing with saline or water so that it can be removed without harming your skin or tissues. ?If your wound is packed, leave it in place until your health care provider tells you to remove it.To remove the packing, moisten or wet the packing with saline or water so that it can be removed without harming your skin or tissues. Leave stitches (sutures), skin glue, or adhesive strips in place. These skin closures may need to stay in place for 2 weeks or longer. If adhesive strip edges start to loosen and curl up, you may trim the loose edges. Do not remove adhesive strips completely unless your health care provider tells you to do that. Check your wound every day for signs of infection. Check for: More redness, swelling, or pain. More fluid or blood. Warmth. Pus or a bad smell. If you were sent home with a drain tube in place, follow instructions from your health care provider about: How to empty it. How to care for it at home. General instructions Rest the affected area. Do not take baths, swim, or use a hot tub until your health care provider approves. Ask your healthcare provider if you may take showers. You may only be allowed to take sponge baths. Return to your normal activities as told by your health care provider. Ask your health care provider what activities are safe for you. Your health care provider may put you on activity or lifting restrictions. The incision will continue to drain. It is normal to have some clear or slightly bloody drainage. The amount of drainage should lessen each day. Do not apply any creams, ointments, or liquids unless you have been told to by your health care provider. Keep all follow-up visits as told by your health care provider. This is important. Contact a health care provider if: Your cyst or abscess returns. You have a fever or chills. You have more redness, swelling, or pain around your incision. You have more fluid or blood coming from your incision. Your incision feels warm to the touch. You have pus or a bad smell coming from your incision. You have red streaks above or below the incision site. Get help right away if: You have severe pain or bleeding. You cannot eat or drink without vomiting. You have decreased urine output. You become short of breath. You have chest pain. You cough up blood. The affected area becomes numb or starts to tingle. These symptoms may represent a serious problem that is an emergency. Do not wait to see if the symptoms will go away. Get medical help right away. Call your local emergency services (911 in the [place] Do not drive yourself to the hospital. Summary After this procedure, it is common to have fluid, blood, or pus coming from the surgery site. Follow all home care instructions. You will be told how to take care of your incision, how to checkfor infection, and how to take medicines. If you were prescribed an antibiotic medicine, take it as told by your health care provider. Do notstop taking the antibiotic even if you start to feel better. Contact a health care provider if you have increased redness, swelling, or pain around your incision. Get help right away if you have chest pain, you vomit, you cough up blood, or you have shortness of breath. Keep all follow-up visits as told by your health care provider. This is important. This information is not intended to replace advice given to you by your health care provider. Make sure you discuss any questions you have with your health care provider. Document Released: 05/15/2012 Document Revised: 01/22/2019 Document Reviewed: 01/22/2019 [employer] Patient Education 2020 [employer] Follow Up Care 12/03/2020 07:32:26 With:NIMA POTTER MD Address: [phone] When: Unknown Comments:FOLLOW UP WITH rAY ON 01/05/21 AT 8:45 IN [facility] [employer] + Plan note Future Appointments Appointment Date:06/17/2021 03:45:00 PM Scheduled Provider:KRISTEN MAY DO Location:[facility] Appointment Type:PC OV Diagnostic Tests Pending * Crystal Examination Body Fluid 12/23/20 * .CRYBF Path Review 12/23/20 [facility] [employer] + Plan note Future Appointments Appointment Date:06/17/2021 03:45:00 PM Scheduled Provider:KRISTEN MAY DO Location:[facility] Appointment Type:PC OV [facility] [employer] + Plan note Future Appointments Appointment Date:06/17/2021 03:45:00 PM Scheduled Provider:KRISTEN MAY DO Location:[facility] Appointment Type:PC OV Future Scheduled Tests Radiology* CT Knee w/o Contrast Left 03/12/21 [facility] [employer] + Plan note Future Appointments Appointment Date:12/30/2021 04:15:00 PM Scheduled Provider:KRISTEN MAY DO Location:[facility] Appointment Type:PC OV Follow Up Future Scheduled Tests Radiology* MA Mammo Screening Bilateral w/ Elan 06/17/21 [facility] [employer] + Plan note Future Appointments Appointment Date:12/30/2021 04:15:00 PM Scheduled Provider:KRISTEN MAY DO Location:[facility] Appointment Type:PC OV Follow Up [facility] Evaluation + Plan note Future Appointments Appointment Date:08/11/2022 03:00:00 PM Scheduled Provider:KRISTEN MAY DO Location:[facility] Appointment Type:PC OV [facility] Evaluation + Plan note Future Appointments Appointment Date:07/21/2022 07:30:00 AM Scheduled Provider:EMILEE LEACH Location:[email or web address] Appointment Type:PC OV Appointment Date:08/11/2022 03:30:00 PM Scheduled Provider:KRISTEN MAY DO Location:[facility] Appointment Type:PC OV [facility] Evaluation + Plan note Future Appointments Appointment Date:02/09/2023 04:00:00 PM Scheduled Provider:KRISTEN MAY DO Location:[facility] Appointment Type:PC OV [facility] Evaluation + Plan note Future Appointments Appointment Date:03/16/2023 11:30:00 AM Scheduled Provider:KRISTEN MAY DO Location:[email or web address] Appointment Type:PC OV Future Scheduled Tests Laboratory* Ferritin 02/09/23 * Iron Level 02/09/23 * Thyroid Stimulating Hormone 02/09/23 * Vitamin B12 Level 02/09/23 * Complete Blood Count 02/09/23 * Lipid Profile 02/09/23 * Vitamin D Level 02/09/23 * Complete Metabolic Panel 02/09/23 [facility] Evaluation + Plan note Future Appointments Appointment Date:03/16/2023 11:30:00 AM Scheduled Provider:KRISTEN MAY DO Location:[facility] Appointment Type:PC OV [facility] Hospital course Narrative No data available for this section [facility] Hospital Discharge instructions No data available for this section [facility] Progress note No data available for this section [facility] Instructions Instruction Description Start Date Please follow-up with Primar y Care Physician or Carbon Furnace Operator Helper for treatment or adjustment of medication regarding elevated blood pressure.Patient advised to follow-up with Primary Care Physician for BMI management. Advance Directives There may be information available, but it has not been provided by the sender. No Advanced Directives Records FoundNo Advanced Directives Records Found Assessments There may be information available, but it has not been provided by the sender. Review of System There may be information available, but it has not been provided by the sender. Family History There may be information available, but it has not been provided by the sender.No Family History Records Found No data available for this section No data available for this section No data available for this section No Family History Records Found Summary Purpose Additional Source Comments INFORMATION SOURCE (unrecogn ized section and content) DATE CREATED AUTHOR AUTHOR'S ORGANIZ ATION 02/22/2023 [facility] Care Team (unrecognized sect ion and content) Personnel Name: KRISTEN MAY DO Address: [address] [place] [address] Personnel Name: KRISTEN MAY DO Address: [address] [place] [address] Care Team Personnel Name: KRISTEN MAY DO Position: P4 Physician - Primary Care Member Role: Primary Care Physician Address: Address: [address] [place] [address] Care Team Related Persons Name: BULMARO PATEL Care Team Personnel Name: KRISTEN MAY DO Position: P4 Physician - Primary Care Member Role: Primary Care Physician Address: Address: [address] [place] [address] Name: Lola Rodríguez Coder Position: HIM: Coders Member Role: HIM: Coders Name: JUAN CARLOS TRINH MD Position: ED Physician Address: Address: [facility] [address] [place] [address]- Name: Cassandra Leach RN Position: AO RN Member Role: ED RN Care Team Related Persons Name: BULMARO PATEL Care Team Personnel Name: KRISTEN MAY DO Position: P4 Physician - Primary Care Member Role: Primary Care Physician Address: Address: [address] [place] [address] Care Team Related Persons Name: BULMARO PATEL Care Team Personnel Name: KRISTEN MAY DO Position: P4 Physician - Primary Care Member Role: Primary Care Physician Address: Address: [address] [place] [address] Care Team Related Persons Name: BULMARO PATEL Care Team Personnel Name: KRISTEN MAY DO Position: P4 Physician - Primary Care Member Role: Primary Care Physician Address: Address: [address] [place] [address] Name: NIMA HERNANDEZ DO Position: Resident Member Role: Resident Address: Address: [address] [facility] [place] [address]- Name: Charity Seo RN Position: AO RN Member Role: ED RN Name: MARISA Campo Position: AO RN Member Role: ED RN Name: SARBJIT JASON DO Position: ED Physician Member Role: Attending Physician Address: Address: [address] [facility] [place] [address]- Care Team Related Persons Name: BULMARO PATEL Care Team Personnel Name: KRISTEN MAY DO Position: P4 Physician - Primary Care Member Role: Primary Care Physician Address: Address: [address] [place] [address] Care Team Related Persons Name: BULMARO PATEL Care Team (unrecognized sect ion and content) Care Team Personnel Name: KRISTEN MAY DO Position: P4 Physician - Primary Care Member Role: Primary Care Physician Address: Address: [address] [place] [address] Care Team Related Persons Name: BULMARO PATEL Care Team Personnel Name: KRISTEN MAY Position: P4 Physician - Primary Care Member Role: Primary Care Physician Address: Address: [address] [place] [address] Care Team Related Persons Name: BULMARO PATEL FOR RECORDS PERTAINING TO PATIENTS WHO ARE OR HAVE BEEN ENROLLED IN A CHEMICAL DEPENDENCY/SUBSTANCEABUSE PROGRAM, SOME INFORMATION MAY BE OMITTED. This clinical summary was aggregated from multiple sources. Caution should be exercised in using it in the provision of clinical care. This summary normalizes information from multiple sources, and as a consequence, information in this document may materially change the coding, format and clinical context of patient data. In addition, data may be omitted in some cases. CLINICAL DECISIONS SHOULD BE BASED ON THE PRIMARY CLINICAL RECORDS. [facility] [employer] provides no warranty or guarantee of the accuracy or completeness of information in this document.
--- NOTE | 2023-05-09 08:10 | RAD_ITS ---
INDICATION: TRANSFORAMINAL EPIDURAL INJECTION L3,L4,L5, RIGHT EXAMINATION/TECHNIQUE: X-RAY - XR Spine Lumbar 2 or 3 Views COMPARISON: No relevant prior comparison study available FINDINGS: 2 views of the lumbar spine were obtained for epidural injection. Images were obtained for documentation and not for diagnostic purposes. The fluoroscopy time was 20 seconds. Radiation dose was 13.16 mGy. RAD/Lumbar Spine 2 or 3 Views IMPRESSION: Intraprocedural exam as described above. Electronically Signed: Noble Cline MD at 15:12 EST ,
[2023-05-09] MEDS: Lactated Ringers 1,000 ML 15 ML IV (08:11)
[2023-05-09 08:15] VITALS: BP 119/74; PULSE 66; RESP 18; TEMP 36.3; O2SAT 96; BMI 56.6
[2023-05-09] MEDS: MethylPREDNISolone Acetate 80 MG/ML Vial (09:02)
[2023-05-09] MEDS: Lidocaine 1% (5 ml sdv) 5 ML Vial (09:02)
--- NOTE | 2023-05-09 09:06 | PCM.OPRPT ---
Report of Operation Date of Procedure: 05/09/23 Description of Surgical Findings:: PREOPERATIVE DIAGNOSES: 1. Lumbosacral radiculopathy. 2. Lumbosacral degenerative disk disease. 3. Lumbosacral spinal stenosis. POSTOPERATIVE DIAGNOSES: 1. Lumbosacral radiculopathy. 2. Lumbosacral degenerative disk disease. 3. Lumbosacral spinal stenosis. PROCEDURE PERFORMED: Right-sided lumbar transforaminal epidural steroid injection, L3-4 and L4-5. ANESTHESIA: MAC. BLOOD LOSS: Minimal. COMPLICATIONS: None. DESCRIPTION OF PROCEDURE: History and physical of today was reviewed. Risks and benefits of the procedure were explained. The patient understood and agreed to proceed. Informed consent was obtained. IV inserted per routine protocol. The patient was taken to the operating room and placed in the prone position with a pillow positioned underneath the abdomen. The right side of the lower back was prepped and draped in a sterile fashion using iodine x3. Under fluoroscopy guidance on oblique view, the L3 through L5 vertebral bodies were visualized. The skin and subcutaneous tissue was anesthetized with approximately 5 mL of 1% lidocaine using a 25-gauge regular needle. Under direct visualization with fluoroscopy at approximately 35-degree angle, starting on the right L3, ending on the right L4, using a 22-gauge 5-inch spinal needle, the needle was advanced via the skin. The tip of the needle was maneuvered and directed towards the inferior and medial gutter of the transverse process at the superiormost aspect of the neural foramen. Once the tip of the needle was at the vicinity of the foramen, after negative aspiration for blood or CSF, a total of 1 mL of contrast was injected in divided doses between both levels to confirm correct placement of the needle as well as medial spread. The confirmation was obtained on AP as well as lateral view. After repeated negative aspiration and confirmation on AP as well as lateral view, a total of 6 mL of preservative-free 0.25% Marcaine with 80 mg of Depo-Medrol was injected in divided doses between both levels. The needles were then removed intact. The patient experienced no sign or symptoms of intrathecal or intravascular injection. The patient experienced no paresthesia. The procedure was completed without any apparent difficulty or any complications. The patient appeared to tolerate it well. ASSESSMENT AND PLAN: This is a 57-year-old female with lumbosacral radiculopathy, lumbosacral degenerative disk disease, and lumbosacral spinal stenosis, status post right-sided lumbar transforaminal epidural steroid injection at L3-4 and L4-5. The patient will continue her current medications. The patient will follow up in approximately 2 weeks for reevaluation.
[2023-05-09 09:10] VITALS: BP 114/55; BP 119/74; PULSE 72; RESP 16; TEMP 36.4; O2SAT 97
[2023-05-09 09:15] VITALS: BP 119/74; BP 130/63; PULSE 68; RESP 16; O2SAT 96
[2023-05-09 09:20] VITALS: BP 119/74; BP 124/67; PULSE 69; RESP 16; O2SAT 98
[2023-05-09 09:25] VITALS: BP 119/74; BP 135/68; PULSE 69; RESP 16; TEMP 36.1; O2SAT 97
[2023-05-09 09:33] VITALS: BP 119/74
== END 2023-05-09 09:46 | disposition home or self-care (01) ==
LOC: SDC 07:50 → AC 07:51
PROVIDERS: PCP Preventive Medicine Occupational Medicine; Referring Provider Anesthesiology Pain Medicine; Visit Provider Anesthesiology Pain Medicine
PROC: 3E0S3BZ Introduction of Anesthetic Agent into Epidural Space, Percutaneous Approach (ICD-10-PCS; CPT 64484; principal; 2023-05-09 09:05)
DX: M51.17 Intervertebral disc disorders with radiculopathy, lumbosacral region (principal); M48.07 Spinal stenosis, lumbosacral region; M51.26 Other intervertebral disc displacement, lumbar region; M47.817 Spondylosis without myelopathy or radiculopathy, lumbosacral region; M43.16 Spondylolisthesis, lumbar region; F32.A Depression, unspecified; K21.9 Gastro-esophageal reflux disease without esophagitis; E78.00 Pure hypercholesterolemia, unspecified; I10 Essential (primary) hypertension; Z79.899 Other long term (current) drug therapy
CPT/HCPCS: 64484; 01992; 64483; 72100; J7120

== ENCOUNTER 2023-07-11 06:53 | Day surgery (SDC) | payer BC, SELFPAY ==
[2023-07-11 07:05] VITALS: BP 160/81; PULSE 88; RESP 16; TEMP 36.1; O2SAT 98; BMI 56.0
[2023-07-11] MEDS: Lactated Ringers 1,000 ML 15 ML IV (07:16)
--- NOTE | 2023-07-11 08:32 | RAD_ITS ---
STUDY: X-RAY - LUMBAR SPINE REASON FOR EXAM: Female, 57 years old. RT RADIO FREQ ABLATION L4-S1 TECHNIQUE: 8 intraoperative view(s) of the lumbar spine were obtained. COMPARISON: None FINDINGS: 8 Limited intraoperative C-arm films were obtained as the patient has undergone L4-S1 radiofrequency ablation. No intraoperative complications RAD/Lumbar Spine 2 or 3 Views IMPRESSION: No intraoperative complications noted during radiofrequency ablation Electronically Signed: Abhijit Gonzalez MD at 12:44 EDT ,
[2023-07-11] MEDS: Lidocaine 1% (30 ml sdv) 30 ML Vial (08:39)
[2023-07-11] MEDS: MethylPREDNISolone Acetate 40 MG/ML Vial (08:41)
--- NOTE | 2023-07-11 08:56 | PCM.OPRPT ---
Report of Operation Date of Procedure: 07/11/23 Pre-Operative Diagnosis: Lumbosacral spondylosis, lumbosacral degenerative disc disease, lumbar facet arthropathy Post-Operative Diagnosis: Lumbosacral spondylosis, lumbosacral degenerative disc disease, lumbar facet arthropathy Surgery/Procedure Performed:: Right-sided lumbar radiofrequency ablation of the medial branch L4, L5, S1 Type of Anesthesia: MAC Estimated Blood Loss (mL): Minimal Description of Procedure: History and physical today was reviewed. Risks and benefits of procedure explained. The patient understood, agreed to the procedure and informed consent was obtained. IV inserted per routine protocol. The patient was taken to the operating room, placed in the prone position with a pillow positioned underneath the abdomen. The right side of the lower back was prepped and draped in a sterile fashion using iodine x 3. Under fluoroscopy guidance, on an oblique view, the L3 through S1 vertebral bodies were visualized. The skin and subcutaneous tissue was anesthetized with approximately 10 mL of 1% lidocaine using a 25-gauge regular needle. Under direct visualization with fluoroscopy at approximately 25-degree angle, starting on the right L3, ending on the right S1 passing through the L4-L5 using a 20-gauge 15 cm with a 10 mm curved active tip radiofrequency ablation needle the needle passed through the skin. The tip of the needle was maneuvered and directed towards the superior and medial gutter of the transverse process at the vicinity of the medial branch. Once the tip of the needle was in contact with the bone, the needle pulled approximately 2 mm up the bone. The stylet of each needle was then removed. After negative aspiration of blood with CSF and confirmation of AP as well as oblique view, radiofrequency ablation probe was then inserted at each level. Impedance was then recorded at L3 to be 326, at L4 236, at L5 226, at S1 427 ohm. Motor-evoked potential was then initiated to 1.5 volt without any motor response at each corresponding level. The probe was then removed intact and a total of 6 mL preservative-free 1% lidocaine was injected in divided doses between those 4 levels after negative aspiration of blood with CSF. The radiofrequency ablation probe was then reinserted after confirmation of AP, oblique as well as lateral view. Radiofrequency ablation was then initiated to 80 degrees Celsius for 90 seconds at each level. Once concluded, the probe was then removed intact and a total of 6 mL of preservative-free 0.25% Marcaine with 40 mg Depo-Medrol was injected in divided doses between those 4 levels. The needles were then removed intact. The patient experienced no signs or symptoms of intrathecal, intravascular injection. The patient experienced no paraesthesia. The procedure was completed without any apparent difficulty, any complication. The patient appeared to tolerate well. Sensory as well as motor exam was unchanged from prior to procedure. ASSESSMENT AND PLAN: This is a 57-year-old female with lumbosacral spondylosis, lumbosacral degenerative disc disease, lumbar facet arthropathy, status post right-sided radiofrequency ablation of the medial branch L4 through S1. The patient will continue her current medications. The patient will follow up in approximately 2 weeks for reevaluation. Complications None
[2023-07-11 08:57] VITALS: BP 141/85; BP 160/81; PULSE 79; RESP 16; TEMP 36.2; O2SAT 100
[2023-07-11 09:00] VITALS: BP 160/81; BP 164/93; PULSE 78; RESP 16; O2SAT 100
[2023-07-11 09:05] VITALS: BP 152/90; BP 160/81; PULSE 76; RESP 18; O2SAT 100
[2023-07-11 09:11] VITALS: BP 160/81; BP 166/85; PULSE 75; RESP 16; TEMP 36.1; O2SAT 100
[2023-07-11 09:18] VITALS: BP 160/81
== END 2023-07-11 09:35 | disposition home or self-care (01) ==
LOC: SDC 06:54 → AC 06:56
PROVIDERS: PCP Preventive Medicine Occupational Medicine; Referring Provider Anesthesiology Pain Medicine; Visit Provider Anesthesiology Pain Medicine
PROC: (CPT 64635; principal; 2023-07-11 08:25)
DX: M47.817 Spondylosis without myelopathy or radiculopathy, lumbosacral region (principal); M51.37 Other intervertebral disc degeneration, lumbosacral region; M46.97 Unspecified inflammatory spondylopathy, lumbosacral region; F32.A Depression, unspecified; E78.00 Pure hypercholesterolemia, unspecified; I10 Essential (primary) hypertension; Z79.899 Other long term (current) drug therapy
CPT/HCPCS: 64635; 64636; 01992; 72100; 76000; J7120

== ENCOUNTER → 2023-07-13 | Outpatient (CLI) | payer BC, SELFPAY ==
--- NOTE | 2023-07-13 09:13 | NM_ITS ---
INDICATION: S92.325A PAIN LEFT FOOT SINCE MID JUNE -- NO KNOWN INJURY EXAMINATION: NUCLEAR MEDICINE TRIPLE PHASE BONE SCAN - NM Bone Three Phase Study TECHNIQUE: 27.4 mCi tc99m MDP were intravenously administered. Bone images were obtained. Triple phase protocol was utilized. COMPARISON/CORRELATED STUDIES: No relevant prior comparison study available FINDINGS: Flow images demonstrate normal blood flow to both lower extremities. Blood pool images demonstrate minimal increased with differential uptake in the mid tarsal bones. Delayed images demonstrate increased radiopharmaceutical activity in the region of the tarsal navicular bone. A fracture should be ruled out. Correlation with radiographs of the foot recommended. NM/Bone Scan Three Phase IMPRESSION: Increased uptake is seen in the tarsonavicular bone. Correlation with radiographs of the foot recommended to rule out fracture. Electronically Signed: Derik Bello MD at 8:52 EDT ,
== END | disposition home or self-care (01) ==
LOC: NM 09:12
PROVIDERS: PCP Preventive Medicine Occupational Medicine; Referring Provider Podiatrist; Visit Provider Podiatrist
DX: S92.325A Nondisplaced fracture of second metatarsal bone, left foot, initial encounter for closed fracture (principal); X58.XXXA Exposure to other specified factors, initial encounter
CPT/HCPCS: 78315; A9503

== ENCOUNTER → 2023-08-29 | Outpatient (CLI) | payer BC, SELFPAY ==
--- NOTE | 2023-08-29 13:15 | MRI_ITS ---
STUDY: MRI LEFT ANKLE WITHOUT CONTRAST REASON FOR EXAM: Female, 58 years old. STRESS FRACTURE TECHNIQUE: Standardized fat and water weighted pulse sequences were obtained in all 3 orthogonal planes. COMPARISON: None. FINDINGS: Normal posterior tibialis tendon. Normal flexor digitorum longus tendon. Normal flexor hallucis longus tendon. Normal peroneus longus and brevis tendons. Normal tibialis anterior tendon. Normal extensor hallucis longus tendon. Normal extensor digitorum longus tendons. Normal Achilles tendon and teno-osseous insertion. Normal plantar fascia. There are small plantar and posterior calcaneal spurs. Normal intrinsic muscles of the rearfoot. Normal distal tibiofibular syndesmotic ligamentous complex. Normal lateral ligamentous complex. Normal subtalar ligaments and sinus tarsi. Normal deltoid ligamentous complex. Normal plantar calcaneonavicular (spring) ligament. There is a sagittally oriented stress fracture through the mid navicular (axial T2 series 5 images 19-21). There is mild degenerative arthrosis at the talonavicular joint as well as navicular-cuneiform joints. Normal tibiotalar articulation. Normal talar dome. Normal subtalar articulations. Normal calcaneocuboid articulation. There is subcutaneous soft tissue edema around the ankle and extending along the dorsum of the foot. MRI/Lower Ext Joint Only (Routine) IMPRESSION: Sagittally oriented stress fracture through the mid navicular. 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 Subcutaneous soft tissue edema around the ankle and extending along the dorsum of the foot. Small plantar and posterior calcaneal spurs. Electronically Signed: Reynold Dasilva MD at 15:31 EDT ,
== END | disposition home or self-care (01) ==
LOC: MRI 12:45
PROVIDERS: PCP Preventive Medicine Occupational Medicine; Referring Provider Podiatrist; Visit Provider Podiatrist
DX: M84.375A Stress fracture, left foot, initial encounter for fracture (principal)
CPT/HCPCS: 73721

== ENCOUNTER 2023-12-15 10:00 | Outpatient (RCR) | payer BC, SELFPAY ==
--- NOTE | 2023-09-29 16:05 | HP.PTEVAL_ITS ---
Patient's Visit Information Visit Information Visit Information: EZRA PATEL is a 58 year old F referred to Physical Therapy by Dr. Matty Vee DPM with a diagnosis of L foot stress Fx. Date of Evaluation: 09/29/23 Physical Therapist: Jarek Alcaraz, PT, ATC Visit Plan Frequency: 2-3x /Week Duration: 4-6 Weeks Plan: L ankle DF ROM stretching, strengthening, balance and proprio, bike, and H EP. CP for pain Subjective Subjective: DOI: June of 2023. Pt reports she gradually began to notice pain in her L foot. Pt reports after receiving a bone scan, it revealed she had a stress fracture in her L foot. Pt reports she was in a cam boot for approximately 10 weeks, and has weaned out of it since. Pt reports she is walking a lot better at this time, but notes she is still limited mostly from weakness, although she does still have some pain. Pt denies any tingling or numbness in L LE. Pt denies sleep difficulty at this time secondary to pain. Pt denies PMHx of L foot pain prior to this episode. Pt only has a few steps to enter her house, and none inside. She has to negotiate them one step at a time. 1/10 pain while sitting here at rest, 6/10 pain at worst (when she has been standing or walking on her feet for a longer period of time). Pt reports she is off work right now. 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 Pain L foot: Pain Intensity (Out of 10): 1 Pain Intensity Range: 6 Objective Objective: Neuro: B LE sensation is WNL to light touch throughout. B patellar reflex= 2/3 Palpation: Pain mostly on the middle cuniform. No obvious deformity at this time. Minor swelling noted ROM: L foot DF= 0, PF= 35; R foot DF= 4, PF= 55 degrees MMT: L foot DF= 12, PF= 24 #F; R foot DF= 25, PF= 41 #F Tu.62 Balance/Special Test Scores Lower Extremity Functional Score: 26 Goals Goal 1:: Decrease L foot pain x 50% to aid with ambulation Goal Time Frame: 4-6 Weeks Goal 2:: Pt will perform the TUG test in under 8 seconds to aid with functional mobility Goal Time Frame: 4-6 Weeks Goal 3:: Increase L ankle strength x 5-10 #F to aid with return to work without limitation Goal Time Frame: 4-6 Weeks Goal 4:: Increase L ankle DF ROM x 5 degrees to aid with restoring a more normalized gait pattern Goal Time Frame: 4-6 Weeks Rehabilitation Potential Physical Therapy Diagnosis: L foot pain, weakness, and limited ROM secondary to a L foot stress Fx Rehabilitation Potential: Good Anticipated Interventions Patient/Client Instruction: Educate patient on: Condition and Plan of Care For the Purpose of:: To improve self management Therapeutic Exercise to Include: Strength training, Endurance training, Balance training, Flexibilty training and Active ROM For the Purpose of:: To decrease pain, To increase ROM and To improve muscle performance and motor function Text: Thank you for the opportunity to evaluate your patient. For Medicare and Medicare HMO plans, please review the plan of care and approve it. It will need to be FAXED BACK to us at [phone] for Medicare purposes. For Medicare only, by signing this I certify the plan of care. Please let me know if there are questions or concerns regarding this plan of care. Physician Signature: Date:___
--- NOTE | 2023-10-27 16:01 | HP.PTREVAL ---
Re-Evaluation Intro: Dr. Matty Vee, DPM, It has been my pleasure to treat EZRA PATEL over the last 9 visits for Left foot stress Fx. Please see the progress note below for an update on the physical therapy plan of care! Subjective Subjective: I know I am better now than I was, but I still am very limited Objective Objective/Function: L foot pain is 3/10, Increases to 7/10 L ankle MMT: DF= 32, PF= 26 #F L ankle DF ROM: 0 degrees TU sec Pt is showing excellent progress with strength and function at this time Plan Plan Plan: 10/27/23- Cont with L ankle DF ROM stretching, strengthening, balance and proprio, bike, and HEP. CP for pain Balance/Gait/Functional tests Balance/Special Test Scores Lower Extremity Functional Score: 35 Goals Goals Goal 1:: Decrease L foot pain x 50% to aid with ambulation Goal Time Frame: 4-6 Weeks Goal Progress: Progressing Goal 2:: Pt will perform the TUG test in under 8 seconds to aid with functional mobility Goal Time Frame: 4-6 Weeks Goal 3:: Increase L ankle strength x 5-10 #F to aid with return to work without limitation Goal Time Frame: 4-6 Weeks Goal 4:: Increase L ankle DF ROM x 5 degrees to aid with restoring a more normalized gait pattern Goal Time Frame: 4-6 Weeks Anticipated Interventions Anticipated Interventions Patient/Client Instruction: Educate patient on: Condition and Plan of Care For the Purpose of:: To improve self management Therapeutic Exercise to Include: Strength training, Endurance training, Balance training, Flexibilty training and Active ROM For the Purpose of:: To decrease pain, To increase ROM and To improve muscle performance and motor function Re-Evaluation Ending Re-evaluation ending: Please do not hesitate to contact me at [phone] by phone or if you have questions or concerns regarding this new plan of care! Sincerely, Jarek Alcaraz, PT, ATC
--- NOTE | 2023-11-24 11:31 | HP.PTREVAL ---
Re-Evaluation Intro: Dr. Matty Vee, DPM, It has been my pleasure to treat EZRA PATEL over the last 16 visits for Left foot stress Fx. Please see the progress note below for an update on the physical therapy plan of care! Subjective Subjective: I am feeling much improvement at this time. I still have a ways to go Objective Objective/Function: L foot pain ranges from 1-7/10 MMT: L ankle DF= 37, PF= 47 #F ROM: L ankle DF= 3 degrees TUG 12 sec Pt is showing excellent progress at this time Plan Plan Plan: 11/24/23- Cont with L ankle DF ROM stretching, strengthening, balance and proprio, bike, and HEP. CP for pain Balance/Gait/Functional tests Balance/Special Test Scores Lower Extremity Functional Score: 33 Goals Goals Goal 1:: Decrease L foot pain x 50% to aid with ambulation Goal Time Frame: 4-6 Weeks Goal Progress: Progressing Goal 2:: Pt will perform the TUG test in under 8 seconds to aid with functional mobility Goal Time Frame: 4-6 Weeks Goal Progress: Progressing Goal 3:: Increase L ankle strength x 5-10 #F to aid with return to work without limitation Goal Time Frame: 4-6 Weeks Goal Progress: Goal Met Goal 4:: Increase L ankle DF ROM x 5 degrees to aid with restoring a more normalized gait pattern Goal Time Frame: 4-6 Weeks Goal Progress: Progressing Anticipated Interventions Anticipated Interventions Patient/Client Instruction: Educate patient on: Condition and Plan of Care For the Purpose of:: To improve self management Therapeutic Exercise to Include: Strength training, Endurance training, Balance training, Flexibilty training and Active ROM For the Purpose of:: To decrease pain, To increase ROM and To improve muscle performance and motor function Re-Evaluation Ending Re-evaluation ending: Please do not hesitate to contact me at [phone] by phone or if you have questions or concerns regarding this new plan of care! Sincerely, Jarek Alcaraz, PT, ATC
--- NOTE | 2023-12-15 10:30 | HP.PTDCSUM_ITS ---
Discharge Summary D/C summary: It has been my pleasure to treat EZRA PATEL referred by Dr. Matty Vee DPM, with the diagnosis of Left foot stress Fx for a total of 22 visit(s). Discharge Date: Please see the following information for a summary of their discharge status. Subjective Subjective: Pt reports she is ready to be done. She has returned to work and its hard to make it in here. Pain L foot: Pain Intensity (Out of 10): 2 Overall Improvement % Improvement: 90 Objective Objective/Function: L ankle DF ROM= 12 degrees MMT: L ankle DF= 50, PF= 44 #F TU sec Pt is I with [facility] Goals Goal 1:: Decrease L foot pain x 50% to aid with ambulation Goal Progress: Goal Met Goal 2:: Pt will perform the TUG test in under 8 seconds to aid with functional mobility Goal Progress: Goal Met Goal 3:: Increase L ankle strength x 5-10 #F to aid with return to work without limitation Goal Progress: Goal Met Goal 4:: Increase L ankle DF ROM x 5 degrees to aid with restoring a more normalized gait pattern Goal Progress: Goal Met Plan Plan: Discharge to [facility] D/C Information d/c sentence: If there are questions or concerns regarding this patient's physical therapy, please feel free to call me at [phone]. Thank you for the referral of this patient. Sincerely, Jarek Alcaraz, PT, ATC Balance/Gait/Functional tests Balance/Special Test Scores Lower Extremity Functional Score: 48 Improvement % Improvement: 90
== END 2023-12-15 19:00 | disposition home or self-care (01) ==
LOC: PT 10:00
PROVIDERS: PCP Preventive Medicine Occupational Medicine; Referring Provider Podiatrist; Visit Provider Podiatrist
DX: M84.37 Stress fracture, ankle, foot and toes (principal)
CPT/HCPCS: 97110; 97161; 97530

== ENCOUNTER 2024-01-23 07:15 | Day surgery (SDC) | payer BC, SELFPAY ==
[2024-01-23] VITALS (8 sets, daily range): BP systolic 140–180; BP diastolic 68–88; PULSE 66–73; RESP 16–18; TEMP 36.6–36.8; O2SAT 96–98; BMI 52.7
--- NOTE | 2024-01-23 07:49 | PRE.ANES_ITS ---
ASA Classification* ASA Classification ASA Classification: 3 Assessment & Plan Anesthesia* Anesthesia Assessment Anesthesia Assessment: Discussed sedation and/or anesthesia options, risks, benefits, and alternatives with patient/parents/legal guardian/POA. Questions invited. The patient/parents/legal guardian/POA seems to understand and agrees to proceed with anesthesia plan. Reviewed the physical assessment, medical history, allergy history and patient home medications list prior to surgery/procedure/anesthetic and documented any changes. Performed airway and anesthesia risk assessments. Anesthesia Type Anesthesia Type: MAC Anesthesia Focused Assessment* Temperature: 97.9 F Pulse Rate: 73 Blood Pressure: 180/80 Respiratory Rate: 16 Pulse Ox: 96 Airway Assessment Mouth opens: >3 cm Mallampati Score: II Focused Labs Anesthesia Preop lab: CBC WBC 5.3 K/mm3 (4.4-11.0) 06/10/16 07:05 RBC 4.34 M/mm3 (4.2-5.4) 06/10/16 07:05 Hgb 13.2 g/dl (12.0-15.0) 06/10/16 07:05 Hct 41.1 % (37-47) 06/10/16 07:05 Plt Count 183 K/mm3 (150-450) 06/10/16 07:05 CHEMISTRY Potassium 3.9 mmol/L (3.5-5.1) 05/08/12 09:15 Sodium 144 mmol/L (136-145) 05/08/12 09:15 BUN 17 mg/dL (7-18) 05/08/12 09:15 Creatinine 0.8 mg/dL (0.6-1.0) 05/08/12 09:15 Glucose 87 mg/dL (70-110) 05/08/12 09:15 TSH 1.23 uIU/mL (0.358-3.74) 08/24/18 07:05 COAG Pre-Assessment Diagnosis/Proposed Procedure Planned Operative Procedure(s): right transforaminal block Anesthesia History 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 When Was Last Pacemaker Check QUESTION #4 FULL TEXT: You/Your Family Experience fever (hyperthermia) with Anesthesia Last Oral Intake Last Oral intake: Last Oral Intake NPO since 23:00 01/23/24 07:33 Meds taken in AM with sips of No 01/23/24 07:33 water? Meds patient instructed to take am of surgery PONV PONV - wheel press clerk: PONV - wheel press clerk Female HX of Motion Sickness HX of N/V After Surgery Non-Smoker Duration of Surgery greater than 60 minutes Number of Risk Factors PONV Score Height & Weight Height & Weight: Anesthesia: Height & Weight Height 5 ft 3 in 01/23/24 07:33 Weight: 135 kg 01/23/24 07:33 Body Mass Index (BMI) 52.7 01/23/24 07:33 Respiratory Assessment Respiratory Assessment - wheel press clerk: Respiratory Tract Infection Hx - wheel press clerk Hx Respiratory Tract Infection No 07/04/23 09:30 STOP Sleep Apnea STOP Sleep Apnea - wheel press clerk: STOP Sleep Apnea - wheel press clerk Hx Hypertension Yes: CONTROLLED ON MEDS 09/29/23 15:11 Hx Sleep Apnea Yes 07/11/23 09:11 CPAP Yes 07/04/23 09:30 BIPAP No 07/04/23 09:30 Do you snore loudly (louder than talking or can be heard Do you often feel tired/ fatigued/ sleepy during daytime? Has anyone observed you stop breathing during sleep? STOP Results QUESTION #5 FULL TEXT : Do you snore loudly (louder than talking or can be heard through closed doors)? 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 Specify any problems Hx of Preganancy in last 3 Months Nurse Filling Out Transfusion & Questions: Date: Time: Patient unable to answer at this time (ie. confused, unrespo /Reproduction History /Reproductive History - wheel press clerk: /Reproductive Hx- wheel press clerk Hx Now Gestational Age (in weeks): EDC: Hx Hx Para Hx Section SAB No 01/08/22 12:32 PFSH Medical History Wears glasses Depression Arthritis Anemia High cholesterol Back pain Gastric reflux Non-smoker CPAP (continuous positive airway pressure) dependence Shortness of breath on exertion History of edema Hypertension Home Medications ?Medication ?Instructions ?Recorded ?Last Taken ?Type cyanocobalamin-liver extract tablet 1 tab PO DAILY 01/08/22 07/10/23 History escitalopram oxalate 20 mg tablet 20 mg PO QHS 01/08/22 07/10/23 History (Lexapro) gabapentin 100 mg tablet 100 mg PO TID 01/08/22 07/10/23 History lisinopril 10 1 tab PO DAILY 01/08/22 07/10/23 History mg-hydrochlorothiazide 12.5 mg tablet meloxicam 15 mg tablet 15 mg PO DAILY 01/08/22 07/10/23 History omega-3 fatty acids-vitamin E 1,000 cap PO DAILY 01/08/22 07/10/23 History 1,000 mg capsule omeprazole 40 mg capsule,delayed 40 mg PO QHS 01/08/22 07/10/23 History release rosuvastatin 5 mg tablet (Crestor) 5 mg PO QHS 01/08/22 07/10/23 History Allergy/AdvReac Type Severity Reaction Status Date / Time Penicillins Allergy Rash Verified 01/23/24 07:33 Sulfa (Sulfonamide Allergy Swelling Verified 01/23/24 07:33 Antibiotics) Surgical History History of lumbar laminectomy Hx of arthroscopic knee surgery Hx of tubal ligation Hx of total knee arthroplasty Social History Smoking Status: Never smoker Review of Systems (Anesthesia) ROS Narrative System reviewed and no additional complaints, except as documented.
--- NOTE | 2024-01-23 08:46 | RAD_ITS ---
EXAM: FL FLUOROSCOPY < 1 HOUR CLINICAL INDICATION: BLOCK, TRANSFORAMINAL RIGHT TECHNIQUE: Fluoroscopic images performed in multiple projections. Fluoroscopic guidance was provided the operating physician. COMPARISON: No relevant prior studies available. FINDINGS: 2 fluoroscopic spot views of the lumbosacral junction obtained for placement of needle for transforaminal block. See operative note for additional information. 9 seconds of fluoroscopy time utilized. Total radiation dose of 8.6 mGy. RAD/Lumbar Spine 2 or 3 Views IMPRESSION: As above. Electronically Signed: Jerrell Jones MD at 13:32 EST ,
[2024-01-23] MEDS: MethylPREDNISolone Acetate 80 MG/ML Vial (08:55)
[2024-01-23] MEDS: Bupivacaine 0.25% 30 ML Vial (08:56)
[2024-01-23] MEDS: Lidocaine 1% (5 ml sdv) 5 ML Vial (08:56)
--- NOTE | 2024-01-23 09:01 | PCM.OPRPT ---
Operative Report (Standard) Operative Information Surgery/Procedure Performed: Right lumbar transforaminal epidural steroid injection L3-4, L4-5 Surgeon: Freddy Hardy Date of Procedure: 01/23/24 Procedure Start Time: : Procedure Stop Time: :02 Pre-Operative Diagnosis: Lumbosacral radiculopathy, lumbosacral degenerative disc disease, lumbosacral spinal stenosis Post-Operative Diagnosis: Lumbosacral radiculopathy, lumbosacral degenerative disc disease, lumbosacral spinal stenosis Select all DRAINS/GRAFTS/IMPLANTS that apply: None Type of Anesthesia: Local MAC and MAC Estimated Blood Loss: <1 Specimen collected: No Description of surgery: PREOPERATIVE DIAGNOSES: 1. Lumbosacral radiculopathy. 2. Lumbosacral degenerative disk disease. 3. Lumbosacral spinal stenosis. POSTOPERATIVE DIAGNOSES: 1. Lumbosacral radiculopathy. 2. Lumbosacral degenerative disk disease. 3. Lumbosacral spinal stenosis. PROCEDURE PERFORMED: Right-sided lumbar transforaminal epidural steroid injection, L3-4 and L4-5. ANESTHESIA: MAC. BLOOD LOSS: Minimal. COMPLICATIONS: None. DESCRIPTION OF PROCEDURE: History and physical of today was reviewed. Risks and benefits of the procedure were explained. The patient understood and agreed to proceed. Informed consent was obtained. IV inserted per routine protocol. The patient was taken to the operating room and placed in the prone position with a pillow positioned underneath the abdomen. The right side of his lower back was prepped and draped in a sterile fashion using iodine x3. Under fluoroscopy guidance on oblique view, the L3 through L5 vertebral bodies were visualized. The skin and subcutaneous tissue was anesthetized with approximately 5 mL of 1% lidocaine using a 25-gauge regular needle. Under direct visualization with fluoroscopy at approximately 35-degree angle, starting on the right L3, ending on the right L5, using a 22-gauge 5-inch spinal needle, the needle was advanced via the skin. The tip of the needle was maneuvered and directed towards the inferior and medial gutter of the transverse process at the superiormost aspect of the neural foramen. Once the tip of the needle was at the vicinity of the foramen, after negative aspiration for blood or CSF, a total of 1 mL of contrast was injected in divided doses between both levels to confirm correct placement of the needle as well as medial spread. The confirmation was obtained on AP as well as lateral view. After repeated negative aspiration and confirmation on AP as well as lateral view, a total of 6 mL of preservative-free 0.25% Marcaine with 80 mg of Depo-Medrol was injected in divided doses between both levels. The needles were then removed intact. The patient experienced no sign or symptoms of intrathecal or intravascular injection. The patient experienced no paresthesia. The procedure was completed without any apparent difficulty or any complications. The patient appeared to tolerate it well. ASSESSMENT AND PLAN: This is a 58-year-old female with lumbosacral radiculopathy, lumbosacral degenerative disk disease, and lumbosacral spinal stenosis, status post right-sided lumbar transforaminal epidural steroid injection at L3-4 and L4-5. The patient will continue her current medications. The patient will follow up in approximately 2 weeks for possible repeat of procedure if indicated. 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
--- NOTE | 2024-01-23 09:04 | PCM.POST.ANE ---
Anesthesia: Postop Eval I Current Vital Signs Temperature: 98.3 F Pulse Rate: 68 Blood Pressure: 158/68 Respiratory Rate: 18 Pulse Ox: 98 Assessment Airway patent: Yes Spontaneous unlabored respirations: Yes nausea: No Vomiting: No Anesthesia Complication: No Fluid Hydration Crystalloid volume administer (ml): 0 Total IV fluid infused: 0 Progress Note Anesthesia document: Postop Eval 1 completed: Yes
--- NOTE | 2024-01-23 10:12 | POSTOPAN2_ITS ---
Anesthesia Postop Eval I Sum Postop Eval Completion status Anesthesia document: Postop Eval 1 completed: Yes Anesthesia Postop Eval I Summary Anesthesia Postop Eval I Summary: Anesthesia Postop Eval I: Assessment Summary Airway patent Yes 01/23/24 09:04 [email or web address] Spontaneous unlabored Yes 01/23/24 09:04 REMNANTS [email or web address].CSIR respirations Mental status nausea No 01/23/24 09:04 REMNANTS [email or web address].CSIR Vomiting No 01/23/24 09:04 REMNANTS [email or web address].CSIR Anesthesia Postop Eval I: Fluid Summary Crystalloid volume administer 0 01/23/24 09:04 REMNANTS CUTTER.CSIR (ml) Colloids volume administered ( ml) Blood Product volume administered (ml) Total IV fluid infused 0 01/23/24 09:04 REMNANTS CUTTER.CSIR Anesthesia Postop Eval I: Summary Notes Anesthesia Complication No 01/23/24 09:04 REMNANTS CUTTER.CSIR Anesthesia Complication Comment: Post-operative progress note Anesthesia: Postop Eval II Evaluation Mental status: Awake Pain Level: 1 nausea: No Vomiting: No
--- NOTE | 2024-01-23 10:12 | PCM.POSTANE2 ---
Anesthesia Postop Eval I Sum Postop Eval Completion status Anesthesia document: Postop Eval 1 completed: Yes Anesthesia Postop Eval I Summary Anesthesia Postop Eval I Summary: Anesthesia Postop Eval I: Assessment Summary Airway patent Yes 01/23/24 09:04 PATHOLOGY MANAGER.CSIR Spontaneous unlabored Yes 01/23/24 09:04 PATHOLOGY MANAGER.CSIR respirations Mental status nausea No 01/23/24 09:04 PATHOLOGY MANAGER.CSIR Vomiting No 01/23/24 09:04 PATHOLOGY MANAGER.CSIR Anesthesia Postop Eval I: Fluid Summary Crystalloid volume administer 0 01/23/24 09:04 PATHOLOGY MANAGER.CSIR (ml) Colloids volume administered ( ml) Blood Product volume administered (ml) Total IV fluid infused 0 01/23/24 09:04 PATHOLOGY MANAGER.CSIR Anesthesia Postop Eval I: Summary Notes Anesthesia Complication No 01/23/24 09:04 PATHOLOGY MANAGER.CSIR Anesthesia Complication Comment: Post-operative progress note Anesthesia: Postop Eval II Evaluation Mental status: Awake Pain Level: 1 nausea: No Vomiting: No
== END 2024-01-23 09:51 | disposition home or self-care (01) ==
LOC: SDC 07:16 → AC 07:19
PROVIDERS: PCP Preventive Medicine Occupational Medicine; Referring Provider Anesthesiology Pain Medicine; Visit Provider Anesthesiology Pain Medicine
PROC: 3E0S3BZ Introduction of Anesthetic Agent into Epidural Space, Percutaneous Approach (ICD-10-PCS; CPT 64484; principal; 2024-01-23 08:45)
DX: M51.17 Intervertebral disc disorders with radiculopathy, lumbosacral region (principal); M48.07 Spinal stenosis, lumbosacral region; I10 Essential (primary) hypertension; K21.9 Gastro-esophageal reflux disease without esophagitis; F32.A Depression, unspecified; E78.00 Pure hypercholesterolemia, unspecified; M19.90 Unspecified osteoarthritis, unspecified site; G47.30 Sleep apnea, unspecified; Z88.2 Allergy status to sulfonamides; Z88.0 Allergy status to penicillin; Z79.899 Other long term (current) drug therapy
CPT/HCPCS: 64484; 64483; 72100; A4216; J2405

== ENCOUNTER 2024-07-23 09:51 | Day surgery (SDC) | payer BC, SELFPAY ==
[2024-07-23] VITALS (7 sets, daily range): BP systolic 126–149; BP diastolic 67–81; PULSE 66–73; RESP 16–18; TEMP 36.3–36.4; O2SAT 97–99; BMI 50.8
--- NOTE | 2024-07-23 10:06 | PCM.PRE.AN2 ---
ASA Classification* ASA Classification ASA Classification: 3 Assessment & Plan Anesthesia* Anesthesia Assessment Anesthesia Assessment: Discussed sedation and/or anesthesia options, risks, benefits, and alternatives with patient/parents/legal guardian/POA. Questions invited. The patient/parents/legal guardian/POA seems to understand and agrees to proceed with anesthesia plan. Reviewed the physical assessment, medical history, allergy history and patient home medications list prior to surgery/procedure/anesthetic and documented any changes. Performed airway and anesthesia risk assessments. Anesthesia Type Anesthesia Type: MAC Anesthesia Focused Assessment* Airway Assessment Mouth opens: >3 cm Mallampati Score: II Focused Labs Anesthesia Preop lab: CBC WBC 5.3 K/mm3 (4.4-11.0) 06/10/16 07:05 06/10/16 RBC 4.34 M/mm3 (4.2-5.4) 06/10/16 07:05 06/10/16 Hgb 13.2 g/dl (12.0-15.0) 06/10/16 07:05 06/10/16 Hct 41.1 % (37-47) 06/10/16 07:05 06/10/16 Plt Count 183 K/mm3 (150-450) 06/10/16 07:05 06/10/16 CHEMISTRY Potassium 3.9 mmol/L (3.5-5.1) 05/08/12 09:15 05/08/12 Sodium 144 mmol/L (136-145) 05/08/12 09:15 05/08/12 BUN 17 mg/dL (7-18) 05/08/12 09:15 05/08/12 Creatinine 0.8 mg/dL (0.6-1.0) 05/08/12 09:15 05/08/12 Glucose 87 mg/dL (70-110) 05/08/12 09:15 05/08/12 TSH 1.23 uIU/mL (0.358-3.74) 08/24/18 07:05 08/24/18 COAG Pre-Assessment Diagnosis/Proposed Procedure Planned Operative Procedure(s): CAUDAL EPIDURAL STEROID INJECTION UNDER FLUOROSCOPY Anesthesia History 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 When Was Last Pacemaker Check QUESTION #4 FULL TEXT: You/Your Family Experience fever (hyperthermia) with Anesthesia Last Oral Intake Last Oral intake: Last Oral Intake NPO since Meds taken in AM with sips of water? Meds patient instructed to take am of surgery PONV PONV - trailer sections assembler: PONV - trailer sections assembler Female Yes 07/20/24 12:42 HX of Motion Sickness No 07/20/24 12:42 HX of N/V After Surgery No 07/20/24 12:42 Non-Smoker Yes 07/20/24 12:42 Duration of Surgery greater No 07/20/24 12:42 than 60 minutes Number of Risk Factors 2 07/20/24 12:42 PONV Score Moderate Risk 07/20/24 12:42 Height & Weight Height & Weight: Anesthesia: Height & Weight Height 5 ft 3 in 01/23/24 07:33 Respiratory Assessment Respiratory Assessment - trailer sections assembler: Respiratory Tract Infection Hx - trailer sections assembler Hx Respiratory Tract Infection No 07/20/24 12:42 STOP Sleep Apnea STOP Sleep Apnea - trailer sections assembler: STOP Sleep Apnea - trailer sections assembler Hx Hypertension Yes: CONTROLLED WITH MED 07/20/24 12:42 Hx Sleep Apnea Yes 07/20/24 12:42 CPAP Yes 07/20/24 12:42 BIPAP No 07/20/24 12:42 Do you snore loudly (louder than talking or can be heard Do you often feel tired/ fatigued/ sleepy during daytime? Has anyone observed you stop breathing during sleep? STOP Results Positive 07/20/24 12:42 QUESTION #5 FULL TEXT : Do you snore loudly (louder than talking or can be heard through closed doors)? 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 Specify any problems Hx of Preganancy in last 3 No 07/20/24 12:42 Months Nurse Filling Out Transfusion DSCHRIBER 07/20/24 12:42 & Questions: Date: 07/20/24 07/20/24 12:42 Time: 12:43 07/20/24 12:42 Patient unable to answer at this time (ie. confused, unrespo /Reproduction History /Reproductive History - trailer sections assembler: /Reproductive Hx- trailer sections assembler Hx Now No 07/20/24 12:42 Gestational Age (in weeks): EDC: Hx Hx Para Hx Section SAB No 07/20/24 12:42 Active Medications Active Medications: Current Medications Generic Name Dose Route Start Last Admin Trade Name Freq PRN Reason Stop Dose Admin Lactated Ringer's 1,000 mls @ 15 mls/hr 07/23/24 10:00 IV .Q48H TRINIDAD PFSH Medical History Pain Wears glasses Depression Arthritis Anemia High cholesterol Back pain Gastric reflux Non-smoker CPAP (continuous positive airway pressure) dependence Shortness of breath on exertion History of edema Hypertension Home Medications ?Medication ?Instructions ?Recorded ?Last Taken ?Type cyanocobalamin-liver extract tablet 1 tab PO DAILY 01/08/22 07/10/23 History escitalopram oxalate 20 mg tablet 20 mg PO QHS 01/08/22 07/10/23 History (Lexapro) gabapentin 100 mg tablet 100 mg PO TID 01/08/22 07/10/23 History meloxicam 15 mg tablet 15 mg PO DAILY 01/08/22 07/10/23 History omega-3 fatty acids-vitamin E 1,000 cap PO DAILY 01/08/22 07/10/23 History 1,000 mg capsule omeprazole 40 mg capsule,delayed 40 mg PO QHS 01/08/22 07/10/23 History release rosuvastatin 5 mg tablet (Crestor) 5 mg PO QHS 01/08/22 07/10/23 History lisinopril 10 mg tablet 10 mg PO DAILY 07/20/24 Unknown History Allergy/AdvReac Type Severity Reaction Status Date / Time Penicillins Allergy Rash Verified 07/20/24 12:40 Sulfa (Sulfonamide Allergy Swelling Verified 07/20/24 12:40 Antibiotics) Surgical History History of lumbar laminectomy Hx of arthroscopic knee surgery Hx of tubal ligation Hx of total knee arthroplasty Social History Smoking Status: Never smoker Review of Systems (Anesthesia) ROS Narrative System reviewed and no additional complaints, except as documented.
--- NOTE | 2024-07-23 10:15 | RAD_ITS ---
PROCEDURE: FLUOR GUIDANCE FOR SPINE INJ 07/23/2024 REASON FOR EXAM: BLOCK, CAUDAL TECHNIQUE: Intraoperative imaging provided for caudal block. 12.9 seconds of fluoroscopy. 4.35 mGy. 2 images were submitted. COMPARISON: Prior study dated November 22, 2022. FINDINGS: Intraoperative imaging provided for caudal block RAD/Fluor Guidance for Spine Inj IMPRESSION: Intraoperative imaging provided for caudal block. Reading Location: [facility]
[2024-07-23] MEDS: Lactated Ringers 1,000 ML 15 ML IV (10:25)
[2024-07-23] MEDS: Lidocaine 1% (5 ml sdv) 5 ML Vial (10:50)
[2024-07-23] MEDS: Bupivacaine 0.25% 30 ML Vial (10:50)
[2024-07-23] MEDS: MethylPREDNISolone Acetate 80 MG/ML Vial (10:51)
[2024-07-23] MEDS: 0.9% Normal Saline (Pres. free 10 ML Vial (10:58)
--- NOTE | 2024-07-23 10:58 | PCM.POST.ANE ---
Anesthesia: Postop Eval I Current Vital Signs Temperature: 97.4 F Pulse Rate: 70 Blood Pressure: 126/73 Respiratory Rate: 18 Pulse Ox: 97 Assessment Airway patent: Yes Spontaneous unlabored respirations: No nausea: No Vomiting: No Anesthesia Complication: No Fluid Hydration Crystalloid volume administer (ml): 100 Total IV fluid infused: 100 Progress Note Anesthesia document: Postop Eval 1 completed: Yes
--- NOTE | 2024-07-23 11:02 | PCM.OPRPT ---
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 Risks and benefits of the procedure were explained. The patient understood and agreed to proceed. Informed consent was obtained. IV inserted per routine protocol. The patient was taken to the operating room and placed in the prone position with a pillow positioned underneath the abdomen. The lower back and tailbone area was prepped and draped in a sterile fashion using iodine x3. Under fluoroscopy guidance on a lateral view, the caudal space was identified. The skin and subcutaneous tissue was anesthetized with approximately 3 mL of 1% lidocaine using a 25-gauge regular needle. Under direct visualization with fluoroscopy, using a 22-gauge 3-1/2-inch spinal needle, the needle was advanced via the skin through the sacral hiatus. The tip of the needle was passed through the sacrococcygeal ligament and advanced to approximately S4 area. After negative aspiration of blood or CSF, a total of 3 mL of contrast was injected to confirm correct placement of the needle as well as cephalad spread. The spread was followed to approximately L5 area. After confirmation on AP as well as lateral view and repeated negative aspiration, a total of 15 mL of preservative-free 0.125% Marcaine with 80 mg of Depo-Medrol was injected easily. The needle was then removed intact. The patient experienced no sign or symptoms of intrathecal or intravascular injection. The patient experienced no paresthesia. The procedure was completed without any apparent difficulty or any complications. The patient appeared to tolerate it well. ASSESSMENT AND PLAN: This is a 58-year-old female with lumbosacral radiculopathy, lumbosacral degenerative disc disease, lumbosacral spinal stenosis status post diagnostic/therapeutic caudal epidural steroid injection, patient will continue her current medications, patient will follow up in approximately 2 weeks for reevaluation. Surgical Findings: 0 Complications Complications: No Admit VTE Documentation VTE Present on Admission: No VTE Mechan Device Prophylaxis: None VTE Pharm Prophylaxis ordered?: No
--- NOTE | 2024-07-23 11:49 | POSTOPAN2_ITS ---
Anesthesia Postop Eval I Sum Postop Eval Completion status Anesthesia document: Postop Eval 1 completed: Yes Anesthesia Postop Eval I Summary Anesthesia Postop Eval I Summary: Anesthesia Postop Eval I: Assessment Summary Airway patent Yes 07/23/24 11:03 [email or web address] Spontaneous unlabored No 07/23/24 11:03 STRINGS TEACHER.CSIR respirations Mental status nausea No 07/23/24 11:03 STRINGS [email or web address].CSIR Vomiting No 07/23/24 11:03 STRINGS [email or web address].[email or web address] Anesthesia Postop Eval I: Fluid Summary Crystalloid volume administer 100 07/23/24 11:03 STRINGS [email or web address].CSIR (ml) Colloids volume administered ( ml) Blood Product volume administered (ml) Total IV fluid infused 100 07/23/24 11:03 STRINGS [email or web address].[email or web address] Anesthesia Postop Eval I: Summary Notes Anesthesia Complication No 07/23/24 11:03 STRINGS [email or web address].CSIR Anesthesia Complication Comment: Post-operative progress note Anesthesia: Postop Eval II Evaluation Mental status: Awake Pain Level: 2 nausea: No Vomiting: No
--- NOTE | 2024-07-23 11:49 | PCM.POSTANE2 ---
Anesthesia Postop Eval I Sum Postop Eval Completion status Anesthesia document: Postop Eval 1 completed: Yes Anesthesia Postop Eval I Summary Anesthesia Postop Eval I Summary: Anesthesia Postop Eval I: Assessment Summary Airway patent Yes 07/23/24 11:03 LEAD MASSAGE [email or web address] Spontaneous unlabored No 07/23/24 11:03 LEAD MASSAGE [email or web address].CSIR respirations Mental status nausea No 07/23/24 11:03 LEAD MASSAGE [email or web address].CSIR Vomiting No 07/23/24 11:03 LEAD MASSAGE [email or web address].[email or web address] Anesthesia Postop Eval I: Fluid Summary Crystalloid volume administer 100 07/23/24 11:03 LEAD MASSAGE THERAPIST.CSIR (ml) Colloids volume administered ( ml) Blood Product volume administered (ml) Total IV fluid infused 100 07/23/24 11:03 LEAD MASSAGE THERAPIST.CSIR Anesthesia Postop Eval I: Summary Notes Anesthesia Complication No 07/23/24 11:03 LEAD MASSAGE [email or web address].CSIR Anesthesia Complication Comment: Post-operative progress note Anesthesia: Postop Eval II Evaluation Mental status: Awake Pain Level: 2 nausea: No Vomiting: No
== END 2024-07-23 11:31 | disposition home or self-care (01) ==
LOC: SDC 09:52 → AC 09:55
PROVIDERS: PCP Preventive Medicine Occupational Medicine; Referring Provider Anesthesiology Pain Medicine; Visit Provider Anesthesiology Pain Medicine
PROC: 3E0S3BZ Introduction of Anesthetic Agent into Epidural Space, Percutaneous Approach (ICD-10-PCS; CPT 62282; principal; 2024-07-23 11:10)
DX: M51.17 Intervertebral disc disorders with radiculopathy, lumbosacral region (principal); M48.07 Spinal stenosis, lumbosacral region; I10 Essential (primary) hypertension; F32.A Depression, unspecified; E78.00 Pure hypercholesterolemia, unspecified; K21.9 Gastro-esophageal reflux disease without esophagitis; M19.90 Unspecified osteoarthritis, unspecified site; Z79.899 Other long term (current) drug therapy
CPT/HCPCS: 62323; 01992; 64490; 77003

== ENCOUNTER 2024-10-08 07:43 | Day surgery (SDC) | payer BC, SELFPAY ==
[2024-10-08] VITALS (7 sets, daily range): BP systolic 133–151; BP diastolic 75–96; PULSE 65–70; RESP 16–18; TEMP 36.1–36.4; O2SAT 95–97; BMI 52.3
--- OUTSIDE RECORDS SUMMARY | 2024-10-08 07:47 | XMS RPT_ITS | CCD ---
Author Organization [facility] Care Team Providers Care White Spooler Name Role Phone Sunil Brown PA-C Unavailable [phone] RIZWANA GONZALEZ Attending Unavailable RIZWANA GONAZLEZ Primary Care Unavailable RIZWANA GONZALEZ Admitting Unavailable KRISTEN MAY DO Primary Care Physician KRISTEN MAY DO Primary Care Physician KRISTEN MAY DO Primary Care Unavailable RHIANNA CALL CENTER SUPPORT CONSULTANT-THONG, June Admitting Unavail able SUMAN EVANS MD Consulting Unavailable SUMAN EVANS MD Attending Unavailable SUMAN EVANS MD Referring Unavailable KRISTEN MAY DO Primary Care Unavailable SARBJIT JASON DO Attending Unavailable KRISTEN MAY DO Attending Unavailable KRISTEN MAY DO Primary Care Unavailable TONIA GUDINO-ZAKI, VICTORIA Villafana Attending Katie celiable KRISTEN MAY DO Primary Care Unavailable KRISTEN MAY DO Attending Unavailable KRISTEN MAY DO Primary Care Unavailable ALONSO BROWNING MD Attending Unavailable KRISTEN MAY DO Primary Care Unavailable JOHANNE RIZO Attending KRISTEN Hdz DO Primary Care Unavailable NAVNEET PAYAN Attending Unavailable KRISTEN MAY DO Primary Care Unavailable SARBJIT RAE Attending KRISTEN Hdz DO Primary Care Unavailable KRISTEN MAY DO Attending Unavailable KRISTEN MAY DO Primary Care Unavailable Dr. Kristen May DO Primary Care Provider [phone] Dr. Freddy Hardy MD Attending Provider Dr. Freddy Hardy MD Referring Provider [phone] KRISTEN MAY DO Primary Care Unavailable STELLA GUDINO-KILN LOADER, SARBJIT Attending KRISTEN Hdz DO Primary Care Unavailable KRISTEN MAY DO Attending Unavailable Kristen May Primary Care Unavailable Freddy Hardy Referring Unavailable Freddy Hardy Attending Unavailable Kristen May Primary Care Unavailable Matty Vee Referring Unavailable Matty Vee Attending Unavailable Kristen May Primary Care Unavailable Freddy Hardy Attending Unavailable Kristen May Primary Care Unavailable Freddy Hardy Referring Unavailable Freddy Hardy Attending Unavailable Allergies Allergy Classification Reported Allergen(s) Allergy Type Date of Onset Reaction(s) Facility Fenofibrate (1 source) Fenofibrate; Translations: [fenofibrate] Drug Allergy Sore gums (finding) [facility] [place] Penicillins (antibiotic) (1 source) Penicillin; Translations: [penicillin] Drug Allergy Rash [facility] [place] Quinolones (antibiotic) (1 source) moxifloxacin; Translations: [moxifloxacin] Drug Allergy Rash [facility] [place] Sulfonamides (antibiotic) (1 source) Sulfonamide; Translations: [sulfa drugs] Drug Allergy Rash [facility] [place] (20 sources) penicillin; Translations: [penicillin] Drug Allergy 3 Rash [facility] Work Phone: (1 source) Seasonal allergy; Translations: [SEASONAL] allergy to substance 4 [facility] Work Phone: (9 sources) sulfacetamide; Translations: [sulfa drugs] Drug Allergy 3 Rash [facility] Work Phone: (20 sources) Fenofibrate; Translations: [fenofibrate] Drug Allergy Sore gums (finding) [facility] (20 sources) moxifloxacin; Translations: [moxifloxacin] Drug Allergy Rash [facility] (8 sources) Sulfonamides (Antibiotic); Translations: [sulfa drugs] Drug allergy Rash [facility] (7 sources) Penicillins Allergy to substance 3 Rash [facility] (7 sources) Sulfonamides (Antibiotic) Allergy to substance 3 Swelling [facility] (5 sources) Sulfonamide; Translations: [sulfa drugs] Drug allergy Rash [facility] [place] (1 source) Penicillins Drug allergy (disorder) 5 [facility] (1 source) Sulfonamides (Antibiotic) Drug allergy (disorder) 5 [facility] Rep[facility] Medications Current Medications Medication Drug Class(es) Dates Sig (Normalized) Sig (Original) acetaminophen 500 mg oral tablet (1 source) Start: 02-12-2021 End: 02-26-2021 take 1 tablet by mouth once daily acetaminophen 500 mg oral tablet Dose : 1,000 mg = 2 tab(s), Oral, TID, PRN as needed for fever, not to exceed 3000 mg/day, # 100 tab(s), 0 Refill(s), 02/26/21 7:18:00 EST, Pharmacy: [facility]/pharmacy #[id number], 160, cm, 02/11/21 19:41:00 EST, [...] Date: 02/10/23 Stop Date: 02/15/23 Status: Ordered apixaban 5 mg oral tablet (4 sources) Factor Xa Inhibitor Start: 08-05-2023 End: 11-03-2023 apixaban 5 mg oral tablet Dose : 5 mg = 1 tab(s), Oral, BID, # 180 tab(s), 0 Refill(s), Pharmacy: [place] [id number], 170.2, cm, 08/05/23 10:48:00 EDT, Height, 141.1, kg, 08/05/23 10:34:00 EDT, Dosing Weight Start Date: 08/05/23 Stop Date: 11/03/23 Status: Ordered Start: 07-29-2023 End: 2023 Eliquis Starter Pack for Roger atment of DVT and PE 5 mg oral tablet [10mg BID x 7days-then 5mg BID], Oral, BID, # 74 tab(s), 0 Refill(s), DVT Treatment Dosing, Pharmacy: [place] [address], 160, cm, 07/28/23 22:54:00 EDT, Height, 142.2, kg, 07/28/23 22:54:00 EDT, Dosing Weight Start Date: 07/29/23 Stop Date: 08/28/23 Status: Ordered Aspirin (3 sources) Platelet Aggregation Inhibitor, Nonsteroidal Anti-inflammatory Drug Start: 02-12-2021 take 1 tablet by mouth twice daily aspirin 81 mg oral delayed release tablet Dose : 81 mg = 1 tab(s), Oral, BID, Take 81 mg aspirin twice daily with food for 4 weeks postoperatively for DVT prophylaxis, # 60 tab(s), 0 Refill(s), Pharmacy: [facility]/pharmacy #[id number], 160, cm, 02/11/21 19:41:00 EST, Height, kg, 02/11/21 19:41:00 EST, Do... Start Date: 02/12/21 Status: Ordered 24 hr buPROPion hydrochloride 150 mg extended release oral tablet (4 sources) Aminoketone Start: 05-01-2024 take 1 tablet by mouth every hour, then take 1 tablet by mouth every twenty-four hours buPROPion 150 mg/24 hours (XL) oral tablet, extended release Dose : 150 mg = 1 tab(s), Oral, q24h, # 90 tab(s), 3 Refill(s), Pharmacy: [place] [address], Depression with anxiety, 162, cm, 05/01/24 11:08:00 EST, Height, kg, 05/01/24 11:08:00 EST, Dosing Weight Start Date: 05/01/24 Status: Ordered Quantity: 90.0 Unit: tab(s) Repeat number: 4 Indications: Other specified anxiety disorders; Start: 09-12-2023 End: 03-30-2024 take 1 tablet by mouth every hour, then take 1 tablet by mouth every twenty-four hours buPROPion 150 mg/24 hours (XL) oral tablet, extended release Dose : 150 mg = 1 tab(s), Oral, q24h, # 100 tab(s), 1 Refill(s), Pharmacy: [facility], Depression with anxiety, 161, cm, 09/12/23 13:03:00 EDT, Height, kg, 09/12/23 13:03:00 EDT, Dosing Weight Start Date: 09/12/23 Stop Date: 03/30/24 Status: Ordered cephalexin 500 mg oral capsule (2 sources) Cephalosporin Antibacterial Start: 02-10-2023 End: 02-15-2023 cephalexin 500 mg oral capsule Dose : 500 mg = 1 cap(s), Oral, q12h, X 5 day(s), # 10 cap(s), 0 Refill(s), 02/15/23 10:06:00 PM EST, 136.4 Start Date: 02/10/23 Stop Date: 02/15/23 Status: Ordered Cyanocobalamin-Liver Extract (Vitamin G77-Yvfvu) Tablet (7 sources) Start: 01-08-2022 Cyanocobalamin -Liver Extract (Vitamin Q82-Iqdqj) Tablet Active 1 {tbl} PO DAILY January 08, 2022 12:00am Start: 01-08-2022 take 1 tablet by dorian th once daily Cyanocobalamin-Liver Extract (Vitamin U62-Nruwk) Tablet Active 1 TABLET PO DAILY January 07, 2022 11:00pm Start: 01-08-2022 take 1 tablet by dorian th once daily Cyanocobalamin-Liver Extract (Vitamin C51-Olxzu) Tablet Active 1 TABLET PO DAILY January 08, 2022 12:00am doxycycline hyclate 100 mg oral capsule (3 sources) Tetracycline-class Drug Start: 07-14-2022 End: 07-29-2022 doxycycline hyclate 100 mg oral capsule Dose : 100 mg = 1 cap(s), Oral, BID, X 10 day(s), # 20 cap(s), 0 Refill(s), 07/29/22 10:44:00 EDT, Pharmacy: [facility], 160, cm, 07/16/22 18:33:00 EDT, Height, 129.5 Start Date: 07/19/22 Stop Date: 07/29/22 Status: Ordered Start: 02-12-2021 End: 02-19-2021 doxycycline monohydrate 100 mg oral capsule Dose : 100 mg = 1 cap(s), Oral, q12h, Take for 1 week postoperatively with fluids may take with food to minimize abdominal discomfort, # 14 cap(s), 0 Refill(s), 02/19/21 7:19:00 EST, Pharmacy: [facility]/pharmacy #[id number], 160, cm, 02/11/21 19:41:00 EST, Heig... Start Date: 02/12/21 Stop Date: 02/19/21 Status: Ordered escitalopram 20 mg oral tablet (20 sources) Serotonin Reuptake Inhibitor Start: 06-17-2021 End: 10-16-2024 escitalopram 20 mg oral tablet Dose : 20 mg = 1 tab(s), Oral, qDay, X 100 day(s), # 100 tab(s), 3 Refill(s), 10/16/24 2:33:00 PM EDT, Pharmacy: [facility], 161, cm, 09/12/23 13:03:00 EDT, Height, kg, 09/12/23 13:03:00 EDT, Dosing Weight Start Date: 09/12/23 Stop Date: 10/16/24 Status: Ordered Quantity: 100.0 Unit: tab(s) Repeat number: 4 Start: 07-30-2020 take 1 tablet by dorian th once daily escitalopram 20 mg oral tablet See Instructions, TAKE 1 TABLET BY MOUTH EVERY DAY, # 90 tab(s), 3 Refill(s), Pharmacy: [facility]/pharmacy #[id number], 160, cm, 07/30/20 15:10:00 EDT, Height, kg, 07/30/20 15:10:00 EDT, Dosing Weight Start Date: 07/30/20 Status: Ordered Start: 08-11-2012 LEXAPRO 20 MG TABS take one tab once daily ESCITALOPRAM OXALATE [id number] Bonnie Lugo PAC Fish Oils (20 sources) Start: 12-23-2020 Fish Oil 1000 mg oral capsule Dose : 1,000 mg = 1 cap(s), Oral, qDay, 0 Refill(s) Start Date: 12/23/20 Status: Ordered Repeat number: 1 Start: 12-23-2020 Fish Oil 1000 mg oral capsule Dose : 1,000 mg = 1 cap(s), Oral, qDay, 0 Refill(s) Start Date: 12/23/20 Status: Ordered gabapentin 100 mg oral capsule (20 sources) Anti-epileptic Agent Start: 01-08-2022 gabapenti n 100 mg oral capsule Dose : 100 mg = 1 cap(s), Oral, TID, pain management 1 cap twice daily 2 caps at HS, # 180 cap(s), 0 Refill(s), 113.9 Start Date: 02/04/22 Status: Ordered Quantity: 180.0 Unit: cap(s) Repeat number: 1 Start: 01-08-2022 take 2 tablets by mo [facility] once daily at bedtime Gabapentin 100 mg Tablet Active 100 mg PO THREE TIMES A DAY January 08, 2022 12:00am 100 MG BID 200 MG QHS Start: 01-08-2022 take 200 mg by mouth once daily at bedtime Gabapentin Active 100 MG PO THREE TIMES A DAY January 08, 2022 12:00am 100 MG BID 200 MG QHS hydroCHLOROthiazide 12.5 mg / lisinopril 10 mg oral tablet (20 sources) Thiazide Diuretic, Angiotensin Converting Enzyme Inhibitor Start: 02-09-2023 End: 03-15-2024 take 1 tablet by mouth once daily hydrochlorothiazide-lisinopril 12.5 mg-10 mg oral tablet Dose = 1 tab(s), Oral, Daily, # 100 tab(s), 3 Refill(s), Pharmacy: [facility], Essential hypertension, 160.5, cm, 02/09/23 16:06:00 EST, Height, kg, 02/09/23 16:06:00 EST, Dosing Weight Start Date: 02/09/23 Stop Date: 03/15/24 Status: Ordered Start: 08-11-2022 take 1 tablet by dorian th once daily hydrochlorothiazide-lisinopril 12.5 mg-1 0 mg oral tablet Dose = 1 tab(s), Oral, Daily, # 90 tab(s), 1 Refill(s), Pharmacy: [facility], Essential hypertension, 160, cm, 08/11/22 15:23:00 EDT, Height, kg, 08/11/22 15:23:00 EDT, Dosing Weight Start Date: 08/11/22 Status: Ordered Start: 01-08-2022 End: 07-20-2024 take 1 tablet by mouth once daily hydrochlorothiazide-lisinopril 12.5 mg-1 0 mg oral tablet Dose = 1 tab(s), Oral, Daily, # 90 tab(s), 1 Refill(s), Pharmacy: [facility], Essential hypertension, 163, cm, 02/04/22 10:33:00 EST, Height, kg, 02/04/22 10:33:00 EST, Dosing Weight Start Date: 02/04/22 Status: Ordered Start: 01-08-2022 take 1 tablet by dorian th once daily Lisinopril-Hydrochlorothiazide Active 1 TABLET PO DAILY January 08, 2022 12:00am Start: 03-16-2021 take 1 tablet by dorian th once daily hydrochlorothiazide-lisinopril 12.5 mg-1 0 mg oral tablet Dose = 1 tab(s), Oral, Daily, # 90 tab(s), 3 Refill(s), Pharmacy: [facility], Essential hypertension, 160, cm, 03/12/21 8:12:00 EST, Height, kg, 03/12/21 8:12:00 EST, Dosing Weight Start Date: 03/16/21 Status: Ordered Start: 07-30-2020 take 1 tablet by dorian th once daily hydrochlorothiazide-lisinopril 12.5 mg-1 0 mg oral tablet Dose = 1 tab(s), Oral, Daily, # 90 tab(s), 3 Refill(s), Pharmacy: [facility]/pharmacy #[id number], Essential hypertension, 160, cm, 07/30/20 15:10:00 EDT, Height, kg, 07/30/20 15:10:00 EDT, Dosing Weight Start Date: 07/30/20 Status: Ordered hydrOXYzine hydrochloride 50 mg oral tablet (6 sources) Antihistamine Start: 07-20-2023 hydrOXYzine hydrochloride 50 mg oral tablet Dose : 50 mg = 1 tab(s), Oral, QID, PRN as needed for anxiety, # 40 tab(s), 0 Refill(s), Pharmacy: [facility], Depression with anxiety, 160, cm, 07/20/23 10:05:00 EDT, Height, kg, 07/20/23 10:05:00 EDT, Dosing Weight Start Date: 07/20/23 Status: Ordered Quantity: 40.0 Unit: tab(s) Repeat number: 1 Indications: Other specified anxiety disorders; lisinopril 10 mg oral tablet (7 sources) Angiotensin Converting Enzyme Inhibitor Start: 07-29-2023 End: 10-26-2024 lisinopril 10 mg oral tablet Dose : 10 mg = 1 tab(s), Oral, Daily, # 90 tab(s), 3 Refill(s), Pharmacy: [facility], Essential hypertension, 161, cm, 11/01/23 11:02:00 EDT, Height, kg, 11/01/23 11:02:00 EDT, Dosing Weight Start Date: 11/01/23 Stop Date: 10/26/24 Status: Ordered Quantity: 90.0 Unit: tab(s) Repeat number: 4 Indications: Essential (primary) hypertension; meloxicam 15 mg oral tablet (20 sources) Nonsteroidal Anti-inflammatory Drug Start: 05-01-2024 meloxicam 15 mg oral tablet Dose : 15 mg = 1 tab(s), Oral, qDay, PRN Pain, # 90 tab(s), 1 Refill(s), Pharmacy: [facility], Generalized osteoarthritis of multiple sites, 162, cm, 05/01/24 11:08:00 EST, Height, kg, 05/01/24 11:08:00 EST, Dosing Weight Start Date: 05/01/24 Status: Ordered Quantity: 90.0 Unit: tab(s) Repeat number: 2 Indications: Polyosteoarthritis, unspecified; Start: 01-08-2022 End: 01-30-2024 meloxicam 15 mg oral tablet Dose : 15 mg = 1 tab(s), Oral, qDay, PRN Pain, # 90 tab(s), 1 Refill(s), Pharmacy: [facility], Generalized osteoarthritis of multiple sites, 161, cm, 11/01/23 11:02:00 EDT, Height, kg, 11/01/23 11:02:00 EDT, Dosing Weight Start Date: 11/01/23 Stop Date: 01/30/24 Status: Ordered Start: 03-12-2021 meloxicam 15 m g oral tablet Dose : 15 mg = 1 tab(s), Oral, qDay, Take with food/milk, # 30 tab(s), 0 Refill(s) Start Date: 03/12/21 Status: Ordered Start: 02-12-2021 Mobic 7.5 mg o ral tablet Dose : 7.5 mg = 1 tab(s), Oral, BIDM, Do not take any other nonsteroidal anti-inflammatories while on meloxicam/Mobic, 0 Refill(s) Start Date: 02/12/21 Status: Ordered Start: 12-10-2020 meloxicam 15 m g oral tablet Dose : 15 mg = 1 tab(s), Oral, qDay, Take with food/milk, # 30 tab(s), 0 Refill(s) Start Date: 12/10/20 Status: Ordered Miralax Powder Packet (3 sources) Start: 03-12-2021 take 17 doses by mouth once daily Miralax Powder Packet Dose : 17 gram(s) =, Oral, qDay, dissolve in water before taking, # 14 EA, 0 Refill(s) Start Date: 03/12/21 Status: Ordered [place]-3 Fatty Acids-Vitamin E (Fish Oil) 1,000 mg Capsule (7 sources) Start: 01-08-2022 [place]-3 Fatty Acids-Vitamin E (Fish Oil) 1,000 mg Capsule Active 1000 NMA PO DAILY January 08, 2022 12:00am Start: 01-08-2022 take 1 capsule by mo uth once daily [place]-3 Fatty Acids-Vitamin E (Fish Oil) 1,000 mg Capsule Active 1000 CAP PO DAILY January 07, 2022 11:00pm Start: 01-08-2022 take 1 capsule by mo uth once daily [place]-3 Fatty Acids-Vitamin E (Fish Oil) 1,000 mg Capsule Active 1000 CAP PO DAILY January 08, 2022 12:00am omeprazole 40 mg delayed release oral capsule (20 sources) Proton Pump Inhibitor Start: 06-17-2021 End: 10-16-2024 omeprazole 40 mg oral delayed release capsule Dose : 40 mg = 1 cap(s), Oral, qDay, X 100 day(s), # 100 cap(s), 3 Refill(s), 10/16/24 2:33:00 PM EDT, Pharmacy: [facility], 161, cm, 09/12/23 13:03:00 EDT, Height, kg, 09/12/23 13:03:00 EDT, Dosing Weight Start Date: 09/12/23 Stop Date: 10/16/24 Status: Ordered Quantity: 100.0 Unit: cap(s) Repeat number: 4 Start: 07-30-2020 take 1 capsule by mo [facility] once daily omeprazole 40 mg oral delayed release capsule See Instructions, TAKE 1 CAPSULE BY MOUTH EVERY DAY, # 90 cap(s), 3 Refill(s), Pharmacy: [facility]/pharmacy #[id number], 160, cm, 07/30/20 15:10:00 EDT, Height, kg, 07/30/20 15:10:00 EDT, Dosing Weight Start Date: 07/30/20 Status: Ordered Start: 09-20-2012 OMEPRAZOLE 40 MG CPDR takes 1 capsule once daily OMEPRAZOLE [id number] Norah Hay LPN polyethylene glycol 3350 [id number] mg powder for oral solution (4 sources) Osmotic Laxative Start: 03-12-2021 take 17 doses by mouth once daily Miralax Powder Packet Dose : 17 gram(s) =, Oral, qDay, dissolve in water before taking, # 14 EA, 0 Refill(s) Start Date: 03/12/21 Status: Ordered progesterone 200 mg oral capsule (2 sources) Progesterone Start: 02-09-2023 take 1 capsule by mouth once daily at bedtime progesterone 200 mg oral capsule Dose : 400 mg =, Oral, qHS, 0 Refill(s) Start Date: 02/09/23 Status: Ordered rosuvastatin calcium 5 mg oral tablet (20 sources) HMG-CoA Reductase Inhibitor Start: 06-17-2021 End: 10-16-2024 rosuvastatin 5 mg oral tablet Dose : 5 mg = 1 tab(s), Oral, qDay, # 100 tab(s), 3 Refill(s), Pharmacy: [facility], 161, cm, 09/12/23 13:03:00 EDT, Height, kg, 09/12/23 13:03:00 EDT, Dosing Weight Start Date: 09/12/23 Stop Date: 10/16/24 Status: Ordered Quantity: 100.0 Unit: tab(s) Repeat number: 4 Start: 07-30-2020 take 1 tablet by dorian th once daily rosuvastatin 5 mg oral tablet See Instructions, TAKE 1 TABLET BY MOUTH EVERY DAY, # 90 tab(s), 3 Refill(s), Pharmacy: [facility]/pharmacy #[id number], 160, cm, 07/30/20 15:10:00 EDT, Height, kg, 07/30/20 15:10:00 EDT, Dosing Weight Start Date: 07/30/20 Status: Ordered Start: 08-11-2012 CRESTOR 5 MG T ABS takes 1 tablet once daily ROSUVASTATIN CALCIUM [id number] Norah Hay LPN sennosides, CUSTODIAL (1 source) Start: 02-12-2021 Senokot S Dose = 2 tab(s), Oral, BID, Take until first bowel movement, then as needed, 0 Refill(s) Start Date: 02/12/21 Status: Ordered topiramate 25 mg oral capsule (2 sources) Start: 02-09-2023 topiramate 25 mg oral capsule Dose : 100 mg = 4 cap(s), Oral, qDay, Start with 1 p.o. daily and increase dose as tolerated., # 60 cap(s), 1 Refill(s), Pharmacy: [facility], Morbid obesity with BMI of 50.0-59.9, adult, 160.5, cm, 02/09/23 16:06:00 EST, Height, kg, 02/09/23 16:06:00 EST, Dosing Weight Start Date: 02/09/23 Status: Ordered vitamin b12 1 mg oral tablet (6 sources) Vitamin B12 Start: 11-29-2018 Vitamin B12 10 00 mcg oral tablet Dose : 1,000 mcg = 1 tab(s), Oral, Every other day, # 30 tab(s), 0 Refill(s) Start Date: 11/29/18 Status: Ordered Vitamin B12 1000 mcg oral tablet (15 sources) Start: 11-29-2018 Vitamin B12 10 00 mcg oral tablet Dose : 1,000 mcg = 1 tab(s), Oral, Every other day, # 30 tab(s), 0 Refill(s) Start Date: 11/29/18 Status: Ordered Vitamin D2 1.25 mg (50,000 intl units) oral capsule (5 sources) Start: 02-08-2022 Vitamin D2 1.2 5 mg (50,000 intl units) oral capsule Dose : 50,000 International_Unit = 1 cap(s), Oral, qWeek, # 13 cap(s), 3 Refill(s), Pharmacy: [facility], Vitamin D deficiency, 163, cm, 02/04/22 10:33:00 EST, Height Start Date: 02/08/22 Status: Ordered Vitamin D3 1000 intl units (25 mcg) oral capsule (9 sources) Start: 08-22-2019 Vitamin D3 100 0 intl units (25 mcg) oral capsule Dose : 1,000 unit(s) = 1 cap(s), Oral, Daily, 0 Refill(s) Start Date: 08/22/19 Status: Ordered Vitamin D3 125 mcg (5000 intl units) oral tablet (8 sources) Start: 02-09-2023 Vitamin D3 125 mcg (5000 intl units) oral tablet Dose : 125 mcg = 1 tab(s), Oral, qDay, Replaces previous prescription for the ergocalciferol 50,000 unit capsule., # 100 tab(s), 3 Refill(s), Pharmacy: [facility], Vitamin D deficiency, 160.5, cm, 02/09/23 16:06:00 EST, Height, kg, 02/09/23 16:06:00 EST, Dosing Weight Start Date: 02/09/23 Status: Ordered Quantity: 100.0 Unit: tab(s) Repeat number: 4 Indications: Vitamin D deficiency, unspecified; Start: 02-09-2023 Vitamin D3 125 mcg (5000 intl units) oral tablet Dose : 125 mcg = 1 tab(s), Oral, qDay, Replaces previous prescription for the ergocalciferol 50,000 unit capsule., # 100 tab(s), 3 Refill(s), Pharmacy: [facility], Vitamin D deficiency, 160.5, cm, 02/09/23 16:06:00 EST, Height, kg, 02/09/23 16:06:00 EST, Dosing Weight Start Date: 02/09/23 Status: Ordered Completed/Discontinued Medications Medication Drug Class(es) Dates Sig (Normalized) Sig (Original) MULTIPLE VITAMIN (1 source) Start: 05-24-2016 MULTIPLE VITAMINS TABS MULTIPLE VITAMIN [id number] [facility] [id number] ETHYL ESTERS CAPS (1 source) Start: 01-02-2013 LOVAZA CAPS takes 4 capsules a day [id number] ETHYL ESTERS CAPS [id number] Norah [employer] oxyCODONE hydrochloride 5 mg oral tablet (4 sources) Opioid Agonist Start: 03-12-2021 oxyCODONE 5 mg oral tablet ( IMMEDIATE release ) Dose : 5 mg = 1 tab(s), Oral, q6h, PRN as needed for pain, 0 Refill(s), 114.5 Start Date: 03/12/21 Status: Ordered Start: 02-12-2021 End: 02-19-2021 take 1-2 tablets by mouth every four hours as needed for pain oxyCODONE 5 mg oral tablet ( IMMEDIATE release ) See Instructions, PRN as needed for pain, 1-2 tab(s) Oral q4h, # 60 tab(s), 0 Refill(s), 02/19/21 7:20:00 EST, Status post total right knee replacement, 114.5 Start Date: 02/12/21 Stop Date: 02/19/21 Status: Ordered senokot-s (1 source) Start: 05-24-2016 [facility] STOOL SOFT ENER 100 MG CAPS DOCUSATE SODIUM [id number] [facility] Problems Active Problems Problem Classification Problem Date Documented Da te Episodic/Chronic Acute and unspecified renal failure (1 source) Acute renal failure syndrome; Translations: [Acute kidney failure, unspecified] Onset: 4 Episodic Anxiety disorders (20 sources) Anxiety; Translations: [Anxiety disorder] Onset: 1 11-29-2018 Chronic Deficiency and other anemia (20 sources) Iron deficiency anemia 07-30-2020 Episodic Diseases of white blood cells (1 source) Leukocytosis; Translations: [Elevated white blood cell count, unspecified] Onset: 1 Chronic Disorders of lipid metabolism (20 sources) Mixed hyperlipidemia; Translations: [Mixed hyperlipidemia] Onset: 1 11-29-2018 Chronic Esophageal disorders (20 sources) Gastroesophageal reflux disease; Translations: [Gastroesophageal reflux disease without esophagitis] Onset: 1 11-29-2018 Chronic Essential hypertension (20 sources) Essential hypertension; Translations: [Essential (primary) hypertension] Onset: 1 08-22-2019 Chronic Fracture of upper limb (1 source) Open fracture of phalanx of finger; Translations: [Fracture of unspecified phalanx of unspecified finger, initial encounter for open fracture] Onset: 3 Episodic Menopausal disorders (20 sources) Menopausal syndrome 11-29-2018 Chronic Nutritional deficiencies (20 sources) Vitamin D deficiency 02-16-2019 Chronic Nutritional deficiencies (20 sources) Cobalamin deficiency 11-29-2018 Episodic Osteoarthritis (16 sources) Osteoarthritis of knee; Translations: [Osteoarthritis of right knee joint] Onset: 6 03-20-2015 Chronic Other connective tissue disease (1 source) Artificial knee joint present; Translations: [Presence of right artificial knee joint] Onset: 1 Chronic Other connective tissue disease (20 sources) Muscle pain 11-29-2018 Episodic Other female genital disorders (16 sources) Vaginal bleeding 06-17-2021 Chronic Other lower respiratory disease (4 sources) Nodule of lung 08-05-2023 Episodic Other lower respiratory disease (1 source) Other nonspecific abnormal finding of lung field; Translations: [Other nonspecific abnormal finding of lung field] Onset: 5 Episodic Other nutritional; endocrine; and metabolic disorders (11 sources) Body mass index 40+ - severely obese 02-09-2023 Chronic Other screening for suspected conditions (not mental disorders or infectious disease) (3 sources) Encounter for screening for malignant neoplasm of respiratory organs; Translations: [Encounter for screening for malignant neoplasm of respiratory organs] Onset: 5 Episodic Other skin disorders (1 source) Nodule on finger 05-01-2024 Episodic Phlebitis; thrombophlebitis and thromboembolism (2 sources) H/O: Deep vein thrombosis 11-01-2023 Episodic Pulmonary heart disease (3 sources) Other pulmonary embolism without acute cor pulmonale; Translations: [H/O: pulmonary embolus] Onset: 4 Episodic Residual codes; unclassified (20 sources) Obstructive sleep apnea syndrome 11-29-2018 Chronic Skin and subcutaneous tissue infections (9 sources) Cellulitis of lower limb; Translations: [Cellulitis] Onset: 3 07-07-2022 Episodic Spondylosis; intervertebral disc disorders; other back problems (20 sources) Lumbar disc prolapse with radiculopathy; Translations: [Degeneration of lumbar intervertebral disc] Onset: 5 12-09-2014 Chronic Unclassified (2 sources) Invalid ICD10 Description; Translations: [Invalid ICD10 Description] Onset: 1 Unclassified (1 source) COVID-19; Translations: [COVID-19] Onset: 1 Unclassified (20 sources) Patient encounter status 11-29-2018 Unclassified (1 source) Low back pain, unspecified; Translations: [Low back pain, unspecified] Onset: 5 Past or Other Problems Problem Classification Problem Date Documented Da te Episodic/Chronic Spondylosis; intervertebral disc disorders; other back problems (2 sources) Spinal stenosis; Translations: [Spinal stenosis of lumbar region] Onset: 12-09-2014 12-09-2014 Episodic Unclassified (1 source) Problem Results Test Name Value Interpretation Reference Range Facility CT THORAX SCREENING W/O CONT [facility] 09-02-2024 CT THORAX SCREENING W/O CONTRAST ORIGINAL EXAMINATION: LOW DOSE SCREENING CT OF THE CHEST WITHOUT CONTRAST08/31/2024 8:48 am TECHNIQUE: Low dose lung cancer screening CT of the chest was performed without the administration of intravenous contrast. Multiplanar reformatted images are provided for review. Automated exposure control, iterative reconstruction, and/or weight based adjustment of the mA/kV was utilized to reduce the radiation dose to as low as reasonably achievable. COMPARISON: 10/25/2023, 07/28/2023 HISTORY: ORDERING SYSTEM PROVIDED HISTORY: Reason for Exam: monitoring pulmonary nodules Patient reports no smoking history FINDINGS: The heart is normal in size. An aberrant origin of the right subclavian artery noted. No significant coronary artery calcifications visible. The great vessels appear normal in caliber. No lymphadenopathy is visible on this unenhanced exam. No suspicious findings seen in the visualized portion of the abdomen. The abdomen is not evaluated in detail. A right lower lobe nodule on image 47 measures 4 mm and is unchanged. A 2 mm subpleural right middle lobe nodule on image 64 is unchanged. Additional scattered lung nodules measure less than 4 mm and are unchanged. No pneumothorax or pleural effusion. No aggressive osseous lesions visible. Degenerative changes seen in the spine. IMPRESSION: Small lung nodules are unchanged. For patients with appropriate lung cancer risk, annual CT screening is recommended. Information below is for Lung nodule tracking purposes: Nodule: S3 Other Findings: None Change: No Change Recall : 1yr scr Recall Type: LDCT LungRads: 2 Interpreted by: Brad Mora MD Preliminary Report By: Brad Mora MD Electronically signed By Brad Mora MD Dictated Date: 09/02/2024 9:49:33 AM Prelim Date: 09/02/2024 9:55:10 AM Sign Date: 09/02/2024 9:55:10 AM Ordering Provider: SARBJIT DOUGLAS Interpreted by: Brad Mora MD Preliminary Report By: Brad Mora MD Electronically signed By Brad Mora MD Dictated Date: 09/02/2024 9:49:33 AM Prelim Date: 09/02/2024 9:55:10 AM Sign Date: 09/02/2024 9:55:10 AM Ordering Provider: SARBJIT DOUGLAS [facility] Fluor Guidance for Spine Inj on 07-23-2024 Fluor Guidance for Spine Inj [facility] Services [address] [place] [address] [id number] Fluor Guidance for Spine Inj MR#: [id number] Acct: [id number] Name: EZRA PATEL DORA Rep #: [id number] : 1965 F 58 From: Derik keita MD PCP: Dr. Kristen May, DO Status: [facility] Study: Fluor Guidance for Spine Inj Date of Exam: Exam# [id number] Ordering Dr: Freddy Hardy MD PROCEDURE: FLUOR GUIDANCE FOR SPINE INJ 07/23/2024 REASON FOR EXAM: BLOCK, CAUDAL TECHNIQUE: Intraoperative imaging provided for caudal block. 12.9 seconds of fluoroscopy. 4.35 mGy. 2 images were submitted. COMPARISON: Prior study dated November 22, 2022. FINDINGS: Intraoperative imaging provided for caudal block RAD/Fluor Guidance for Spine Inj IMPRESSION: Intraoperative imaging provided for caudal block. Reading Location: [place] [address] CC: Dr. Freddy Hardy MD; Dr. Kristen May DO Sales Correspondent: Signed [facility] MR/POSTOP.ANE 07-23-2024 MR/POSTOP.[facility] Medical Records Department [address] [place] [address] Anesthesia Postop Eval I 07/23/24 1058 MR#: [id number] Acct: [id number] Name: EZRA PATEL Rep #: [id number] : 1965 58 From: Suma Crooks PCP: Dr. Kristen May, DO Status:[facility] Y Race: C Location: [place] [address] Anesthesia: Postop Eval I Current Vital Signs Temperature: 97.4 F Pulse Rate: 70 Blood Pressure: 126/73 Respiratory Rate: 18 Pulse Ox: 97 Assessment Airway patent: Yes Spontaneous unlabored respirations: No nausea: No Vomiting: No Anesthesia Complication: No Fluid Hydration Crystalloid volume administer (ml): 100 Total IV fluid infused: 100 Progress Note Anesthesia document: Postop Eval 1 completed: Yes 07/23/24 1104 Date Suma Cuevas Signature: Date CC: Signed [facility] MR/[id number] 07-23-2024 MR/POSTOPAN2 [facility] Medical Records Department [address] [place] [address] Anesthesia Postop Eval II 07/23/24 1149 MR#: [id number] Acct: [id number] Name: GIANNA PATELKadi JOHN Rep #: [id number] : 1965 58 From: Lencho Gutierrez MD PCP: Dr. Kristen May, DO Status:[facility] Y Race: C Location: [facility] Anesthesia Postop Eval I Sum Postop Eval Completion status Anesthesia document: Postop Eval 1 completed: Yes Anesthesia Postop Eval I Summary Anesthesia Postop Eval I Summary: Anesthesia Postop Eval I: Assessment Summary Airway patent Yes 07/23/24 11:03 [employer] Spontaneous unlabored No 07/23/24 11:03 [employer] respirations Mental status nausea No 07/23/24 11:03 [employer] Vomiting No 07/23/24 11:03 [employer] Anesthesia Postop Eval I: Fluid Summary Crystalloid volume administer 100 07/23/24 11:03 [employer] (ml) Colloids volume administered ( ml) Blood Product volume administered (ml) Total IV fluid infused 100 07/23/24 11:03 [employer] Anesthesia Postop Eval I: Summary Notes Anesthesia Complication No 07/23/24 11:03 [employer] Anesthesia Complication Comment: Post-operative progress note Anesthesia: Postop Eval II Evaluation Mental status: Awake Pain Level: 2 nausea: No Vomiting: No 07/23/24 1149 Date Lencho Gutierrez MD Cosigner Signature: Date CC: Signed Normal [facility] Operative Reporton 5 Operative Report [facility] Medical Records Department [address] [place] [address] Operative Report 07/23/24 1102 MR#: [id number] Acct: [id number] Name: EZRA PATEL Rep #: [id number] : 1965 58 From: Freddy Hardy MD PCP: Dr. Kristen May, DO Status:[facility] Location: [address] Operative Report (Standard) Operative Information Date of Procedure: 07/23/24 Pre-Operative Diagnosis: Lumbosacral radiculopathy, lumbosacral degenerative disc disease, lumbosacral spinal stenosis Post-Operative Diagnosis: Lumbosacral radiculopathy, lumbosacral degenerative disc disease, lumbosacral spinal stenosis Surgery/Procedure Performed: Diagnostic/therapeu tic caudal epidural steroid injection documentation consultant: No Type of Anesthesia: Local MAC RN Documented Start/Stop Times: Operation Date: 07/23/24 11:15 Case Time Into Pre-Op 07/23/24 09:58 Out of Pre-Op 07/23/24 10:36 Anesthesia Start 07/23/24 10:43 Into Room 07/23/24 10:43 Procedure Start 07/23/24 10:49 Procedure End 07/23/24 10:53 Anesthesia End 07/23/24 10:55 Out of Room 07/23/24 10:55 Into Recovery 07/23/24 10:58 Procedure Start Time: 11:02 Procedure Stop Time: 11:02 Select all DRAINS/GRAFTS/IMPLA NTS that apply: None Estimated Blood Loss: 0 Specimen collected: No Description of surgery: History and physical of today was reviewed. Risks and benefits of the procedure were explained. The patient understood and agreed to proceed. Informed consent was obtained. IV inserted per routine protocol. The patient was taken to the operating room and placed in the prone position with a pillow positioned underneath the abdomen. The lower back and tailbone area was prepped and draped in a sterile fashion using iodine x3. Under fluoroscopy guidance on a lateral view, the caudal space was identified. The skin and subcutaneous tissue was anesthetized with approximately 3 mL of 1% lidocaine using a 25-gauge regular needle. Under direct visualization with fluoroscopy, using a 22-gauge 3-1/2-inch spinal needle, the needle was advanced via the skin through the sacral hiatus. The tip of the needle was passed through the sacrococcygeal ligament and advanced to approximately S4 area. After negative aspiration of blood or CSF, a total of 3 mL of contrast was injected to confirm correct placement of the needle as well as cephalad spread. The spread was followed to approximately L5 area. After confirmation on AP as well as lateral view and repeated negative aspiration, a total of 15 mL of preservative-free 0.125% Marcaine with 80 mg of Depo-Medrol was injected easily. The needle was then removed intact. The patient experienced no sign or symptoms of intrathecal or intravascular injection. The patient experienced no paresthesia. The procedure was completed without any apparent difficulty or any complications. The patient appeared to tolerate it well. ASSESSMENT AND PLAN: This is a 58-year-old female with lumbosacral radiculopathy, lumbosacral degenerative disc disease, lumbosacral spinal stenosis status post diagnostic/therapeu tic caudal epidural steroid injection, patient will continue her current medications, patient will follow up in approximately 2 weeks for reevaluation. Surgical Findings: 0 Complications Complications: No Admit VTE Documentation VTE Present on Admission: No VTE Mechan Device Prophylaxis: None VTE Pharm Prophylaxis ordered?: No 07/23/24 5385 Cosigner Signature (if applicable): CC: Dr. Freddy Hardy MD; Dr. Kristen May DO Signed Normal [facility] .GFRon 02-10-2024 GFR 83 ml/min/1.73sqm [facility] Comment on above: Result Comment: GFR Population mean for , Non- Americans Ages 20-29 = 116 mL/min/1.73 sq.m. Ages 30-39 = 107 mL/min/1.73 sq.m. Ages 40-49 = 99 mL/min/1.73 sq.m. Ages 50-59 = 93 mL/min/1.73 sq.m. Ages 60-69 = 85 mL/min/1.73 sq.m. Ages 70+ = 75 mL/min/1.73 sq.m. Chronic Kidney Disease: Less than 60 mL/min/1.73 square meters End Stage Renal Disease: Less than 15 mL/min/1.73 square meters Performed By: #### B MP, GFR #### [place] [address] [place], [place] [address] GFR Non- 68 ml/min/1.73sqm [facility] Comment on above: Result Comment: GFR Population mean for , Non- Americans Ages 20-29 = 116 mL/min/1.73 sq.m. Ages 30-39 = 107 mL/min/1.73 sq.m. Ages 40-49 = 99 mL/min/1.73 sq.m. Ages 50-59 = 93 mL/min/1.73 sq.m. Ages 60-69 = 85 mL/min/1.73 sq.m. Ages 70+ = 75 mL/min/1.73 sq.m. Chronic Kidney Disease: Less than 60 mL/min/1.73 square meters End Stage Renal Disease: Less than 15 mL/min/1.73 square meters Performed By: #### B MP, GFR #### [address] [address] BMPon 02-10-2024 BUN/Creatinine Ratio 26 ratio Normal 7-27 [facility] Comment on above: Performed By: #### B MP, GFR #### [address] [address] Calcium [Mass/Vol] 9.5 mg/dL Normal 8.4-10.2 [facility] Comment on above: Performed By: #### B MP, GFR #### [address] [address] Chloride [Moles/Vol] 104 mmol/L Normal 98-107 [facility] Comment on above: Performed By: #### B MP, GFR #### [address] [address] CO2 [Moles/Vol] 30 mmol/L Normal 23-31 [facility] Comment on above: Performed By: #### B MP, GFR #### [address] [address] Creatinine [Mass/Vol] 0.85 mg/dL Normal 0.55-1.02 [facility] Comment on above: Result Comment: Test ing performed on Siemens Dimension EXL analyzer using a modified kinetic Neris technique. Performed By: #### B MP, GFR #### [address] [address] Electrolyte Balance 8.0 mEq/L Normal 4.0-15.0 [facility] Comment on above: Performed By: #### B MP, GFR #### [address] [address] Glucose [Mass/Vol] 87 mg/dL Normal 80-115 [facility] Comment on above: Performed By: #### B MP, GFR #### [place] [address] [place], [place] [address] Potassium [Moles/Vol] 4.8 mmol/L Normal 3.5-5.1 [facility] Comment on above: Performed By: #### B MP, GFR #### [address] [address] Sodium [Moles/Vol] 142 mmol/L Normal 136-145 [facility] Comment on above: Performed By: #### B MP, GFR #### [address] [address] Urea nitrogen [Mass/Vol] 22 mg/dL High 7-18 [facility] Comment on above: Performed By: #### B MP, GFR #### [address] [address] LABORATORYOrdered By: SYSTEM SYSTEM on 02-10-2024 Calcium [Mass/Vol] 9.5 mg/dL Normal 8.4 - 10. 2 mg/dL AO ADM SS Chloride [Moles/Vol] 104 mmol/L Normal 98 - 10 7 mmol/L AO ADM SS CO2 [Moles/Vol] 30 mmol/L Normal 23 - 31 mmol/L AO ADM SS Creatinine [Mass/Vol] 0.85 mg/dL Normal 0.55 - 1.02 mg/dL AO ADM SS Comment on above: Interpretive Data: T esting performed on Siemens Dimension EXL analyzer using a modified kinetic Neris technique. Electrolyte Balance 8.0 mEq/L Normal 4.0 - 15 .0 mEq/L AO ADM SS GFR/1.73 sq M.predicted among blacks MDRD (S/P/Bld) [Vol rate/Area] 83 ml/min/1.73sqm Invalid Interpretation Code AO Chemistry S Comment on above: Interpretive Data: GFR Population mean for , Non- Americans Ages 20-29 = 116 mL/min/1.73 sq.m. Ages 30-39 = 107 mL/min/1.73 sq.m. Ages 40-49 = 99 mL/min/1.73 sq.m. Ages 50-59 = 93 mL/min/1.73 sq.m. Ages 60-69 = 85 mL/min/1.73 sq.m. Ages 70+ = 75 mL/min/1.73 sq.m. Chronic Kidney Disease: Less than 60 mL/min/1.73 square meters End Stage Renal Disease: Less than 15 mL/min/1.73 square meters GFR/1.73 sq M.predicted among non-blacks MDRD (S/P/Bld) [Vol rate/Area] 68 ml/min/1.73sqm Invalid Interpretation Code AO Chemistry S Comment on above: Interpretive Data: GFR Population mean for , Non- Americans Ages 20-29 = 116 mL/min/1.73 sq.m. Ages 30-39 = 107 mL/min/1.73 sq.m. Ages 40-49 = 99 mL/min/1.73 sq.m. Ages 50-59 = 93 mL/min/1.73 sq.m. Ages 60-69 = 85 mL/min/1.73 sq.m. Ages 70+ = 75 mL/min/1.73 sq.m. Chronic Kidney Disease: Less than 60 mL/min/1.73 square meters End Stage Renal Disease: Less than 15 mL/min/1.73 square meters Glucose [Mass/Vol] 87 mg/dL Normal 80 - 115 mg/dL AO ADM SS Potassium [Moles/Vol] 4.8 mmol/L Normal 3.5 - 5.1 mmol/L AO ADM SS Sodium [Moles/Vol] 142 mmol/L Normal 136 - 145 mmol/L AO ADM SS Urea nitrogen [Mass/Vol] 22 mg/dL High 7 - 18 mg/dL AO ADM SS Urea nitrogen/Creatinine [Mass ratio] 26 ratio Normal 7 - 27 ratio AO ADM SS Lumbar Spine 2 or 3 [facility]son 01-23-2024 Lumbar Spine 2 or 3 Views [facility] Services [address] [place], [place] [address], [place] [id number] Lumbar Spine 2 or 3 Views MR#: [id number] Acct: [id number] Name: EZRA PATEL Rep #: [id number] : 1965 F 58 From: Jerrell Jones MD PCP: Dr. Kristen May, DO Status: [facility] Study: Lumbar Spine 2 or 3 Views Date of Exam: Exam# [id number] Ordering Dr: Freddy Hardy MD -[id number] EXAM: FL FLUOROSCOPY < 1 HOUR CLINICAL INDICATION: BLOCK, TRANSFORAMINAL RIGHT TECHNIQUE: Fluoroscopic images performed in multiple projections. Fluoroscopic guidance was provided the operating physician. COMPARISON: No relevant prior studies available. FINDINGS: 2 fluoroscopic spot views of the lumbosacral junction obtained for placement of needle for transforaminal block. See operative note for additional information. 9 seconds of fluoroscopy time utilized. Total radiation dose of 8.6 mGy. RAD/Lumbar Spine 2 or 3 Views IMPRESSION: As above. Electronically Signed: Jerrell Jones MD at 13:32 EST , CC: Dr. Freddy Hardy MD; Dr. Kristen May DO Sales Correspondent: Signed [facility] MR/POSTOP.[facility] 01-23-2024 MR/POSTOP.[facility] Medical Records Department [address] [place] [address] Anesthesia Postop Eval I 01/23/24 0904 MR#: [id number] Acct: [id number] Name: EZRA PATEL Rep #: [id number] : 1965 58 From: Suma Crooks PCP: Dr. Kristen May, DO Status:[facility] Y Race: C Location: [facility] Anesthesia: Postop Eval I Current Vital Signs Temperature: 98.3 F Pulse Rate: 68 Blood Pressure: 158/68 Respiratory Rate: 18 Pulse Ox: 98 Assessment Airway patent: Yes Spontaneous unlabored respirations: Yes nausea: No Vomiting: No Anesthesia Complication: No Fluid Hydration Crystalloid volume administer (ml): 0 Total IV fluid infused: 0 Progress Note Anesthesia document: Postop Eval 1 completed: Yes 01/23/24904 Date Suma Cuevas Signature: Date CC: Signed Normal [facility] MR/[id number] 01-23-2024 [facility] Medical Records Department [address] [place] [address] Anesthesia Postop Eval II 01/23/24 1012 MR#: [id number] Acct: [id number] Name: EZRA PATEL DORA Rep #: [id number] : 1965 58 From: Lencho Gutierrez MD PCP: Dr. Kristen May, DO Status:[facility] Y Race: C Location: [facility] Anesthesia Postop Eval I Sum Postop Eval Completion status Anesthesia document: Postop Eval 1 completed: Yes Anesthesia Postop Eval I Summary Anesthesia Postop Eval I Summary: Anesthesia Postop Eval I: Assessment Summary Airway patent Yes 01/23/24 09:04 [employer] Spontaneous unlabored Yes 01/23/24 09:04 [employer] respirations Mental status nausea No 01/23/24 09:04 [employer] Vomiting No 01/23/24 09:04 [employer] Anesthesia Postop Eval I: Fluid Summary Crystalloid volume administer 0 01/23/24 09:04 [employer]CS[employer] (ml) Colloids volume administered ( ml) Blood Product volume administered (ml) Total IV fluid infused 0 01/23/24 09:04 [employer]CS[employer] Anesthesia Postop Eval I: Summary Notes Anesthesia Complication No 01/23/24 09:04 [employer] Anesthesia Complication Comment: Post-operative progress note Anesthesia: Postop Eval II Evaluation Mental status: Awake Pain Level: 1 nausea: No Vomiting: No 01/23/24 1012 Date Lencho Cuevas Signature: Date CC: Signed Normal [facility] Operative Reporton 4 Operative Report [facility] Medical Records Department [address] [place] [address] Operative Report 01/23/24 0901 MR#: [id number] Acct: [id number] Name: EZRA PATEL Rep #: [id number] : 1965 58 From: Freddy Hardy MD PCP: Dr. Kristen May, Status:[facility] Location: [place] [address] Operative Report (Standard) Operative Information Surgery/Procedure Performed: Right lumbar transforaminal epidural steroid injection L3-4, L4-5 Surgeon: Freddy Hardy Date of Procedure: 01/23/24 Procedure Start Time: 09:02 Procedure Stop Time: 09:02 Pre-Operative Diagnosis: Lumbosacral radiculopathy, lumbosacral degenerative disc disease, lumbosacral spinal stenosis Post-Operative Diagnosis: Lumbosacral radiculopathy, lumbosacral degenerative disc disease, lumbosacral spinal stenosis Select all DRAINS/GRAFTS/IMPLA NTS that apply: None Type of Anesthesia: Local MAC and MAC Estimated Blood Loss: <1 Specimen collected: No Description of surgery: PREOPERATIVE DIAGNOSES: 1. Lumbosacral radiculopathy. 2. Lumbosacral degenerative disk disease. 3. Lumbosacral spinal stenosis. POSTOPERATIVE DIAGNOSES: 1. Lumbosacral radiculopathy. 2. Lumbosacral degenerative disk disease. 3. Lumbosacral spinal stenosis. PROCEDURE PERFORMED: Right-sided lumbar transforaminal epidural steroid injection, L3-4 and L4-5. ANESTHESIA: MAC. BLOOD LOSS: Minimal. COMPLICATIONS: None. DESCRIPTION OF PROCEDURE: History and physical of today was reviewed. Risks and benefits of the procedure were explained. The patient understood and agreed to proceed. Informed consent was obt ained. IV inserted per routine protocol. The patient was taken to the operating room and placed in the prone position with a pillow positioned underneath the abdomen. The right side of his lower back was prepped and draped in a sterile fashion using iodine x3. Under fluoroscopy guidance on oblique view, the L3 through L5 vertebral bodies were visualized. The skin and subcutaneous tissue was anesthetized with approximately 5 mL of 1% lidocaine using a 25-gauge regular needle. Under direct visualization with fluoroscopy at approximately 35-degree angle, starting on the right L3, ending on the right L5, using a 22-gauge 5-inch spinal needle, the needle was advanced via the skin. The tip of the needle was maneuvered and directed towards the inferior and medial gutter of the transverse process at the superiormost aspect of the neural foramen. Once the tip of the needle was at the vicinity of the foramen, after negative aspiration for blood or CSF, a total of 1 mL of contrast was injected in divided doses between both levels to confirm correct placement of the needle as well as medial spread. The confirmation was obtained on AP as well as lateral view. After repeated negative aspiration and confirmation on AP as well as lateral view, a total of 6 mL of preservative-free 0.25% Marcaine with 80 mg of Depo-Medrol was injected in divided doses between both levels. The needles were then removed intact. The patient experienced no sign or symptoms of intrathecal or intravascular injection. The patient experienced no paresthesia. The procedure was completed without any apparent difficulty or any complications. The patient appeared to tolerate it well. ASSESSMENT AND PLAN: This is a 58-year-old female with lumbosacral radiculopathy, lumbosacral degenerative disk disease, and lumbosacral spinal stenosis, status post right-sided lumbar transforaminal epidural steroid injection at L3-4 and L4-5. The patient will continue her current medications. The patient will follow up in approximately 2 weeks for possible repeat of procedure if indicated. Surgical Findings: see Office Professional documentation consultant: No Complications Complications: No Admit VTE Documentation VTE Present on Admission: No VTE Pharm Prophylaxis ordered?: No 01/23/24 0904 Cosigner Signature (if applicable): CC: Dr. Freddy Hardy MD; Dr. Kristen May, DO Signed Normal [facility] PT D/C Summary (1)on 024 PT D/C Summary (1) [facility] Physical Therapy [facility] [address] [place] [address] / REHABILITATION SERVICES DISCHARGE SUMMARY MR#: [id number] Acct: [id number] Name: EZRA PATEL Rep #: [id number] : 1965 58 From: Jarek Alcaraz PT, ATC Referring Dr.: JEISON Vee Status: REG RCR Insurance: [employer] INSURANCE Discharge Summary D/C summary: It has been my pleasure to treat EZRA PATEL referred by Dr. Matty Vee, JEISON, with the diagnosis of Left foot stress Fx for a total of 22 visit(s). Discharge Date: Please see the following information for a summary of their discharge status. Subjective Subjective: Pt reports she is ready to be done. She has returned to work and its hard to make it in here. Pain L foot: Pain Intensity (Out of 10): 2 Overall Improvement % Improvement: 90 Objective Objective/Function: L ankle DF ROM= 12 degrees MMT: L ankle DF= 50, PF= 44 #F TU sec Pt is I with HEP Goals Goal 1:: Decrease L foot pain x 50% to aid with ambulation Goal Progress: Goal Met Goal 2:: Pt will perform the TUG test in under 8 seconds to aid with functional mobility Goal Progress: Goal Met Goal 3:: Increase L ankle strength x 5-10 #F to aid with return to work without limitation Goal Progress: Goal Met Goal 4:: Increase L ankle DF ROM x 5 degrees to aid with restoring a more normalized gait pattern Goal Progress: Goal Met Plan Plan: Discharge to HEP D/C Information d/c sentence: If there are questions or concerns regarding this patient's physical therapy, please feel free to call me at [phone]. Thank you for the referral of this patient. Sincerely, Jarek Alcaraz, PT, ATC Balance/Gait/Functi onal tests Balance/Special Test Scores Lower Extremity Functional Score: 48 Improvement % Improvement: 90 12/15/23 1030 CC: JEISON Vee; Dr. Kristen May DO [facility] Signed Normal [facility] Re-Evaluation - PT (1)on Re-Evaluation - PT (1) [facility] Physical [facility] [address] [place] [address] / REEVALUATION / MEDICARE RECERTIFICATION PHYSICAL THERAPY MR#: [id number] Acct: [id number] Name: EZRA PATEL Rep #: [id number] : 1965 58 From: Jarek Alcaraz PT, ATC Referring Dr.: JEISON Vee Status:REG RCR Insurance: [employer] PA[employer] INSURANCE Re-Evaluation Intro: Dr. Matty Vee, JEISON, It has been my pleasure to treat EZRA PATEL over the last 16 visits for Left foot stress Fx. Please see the progress note below for an update on the physical therapy plan of care! Subjective Subjective: I am feeling much improvement at this time. I still have a ways to go Objective Objective/Function: L foot pain ranges from 1-7/10 MMT: L ankle DF= 37, PF= 47 #F ROM: L ankle DF= 3 degrees TUG 12 sec Pt is showing excellent progress at this time Plan Plan Plan: 11/24/23- Cont with L ankle DF ROM stretching, strengthening, balance and proprio, bike, and HEP. CP for pain Balance/Gait/Functi onal tests Balance/Special Test Scores Lower Extremity Functional Score: 33 Goals Goals Goal 1:: Decrease L foot pain x 50% to aid with ambulation Goal Time Frame: 4-6 Weeks Goal Progress: Progressing Goal 2:: Pt will perform the TUG test in under 8 seconds to aid with functional mobility Goal Time Frame: 4-6 Weeks Goal Progress: Progressing Goal 3:: Increase L ankle strength x 5-10 #F to aid with return to work without limitation Goal Time Frame: 4-6 Weeks Goal Progress: Goal Met Goal 4:: Increase L ankle DF ROM x 5 degrees to aid with restoring a more normalized gait pattern Goal Time Frame: 4-6 Weeks Goal Progress: Progressing Anticipated Interventions Anticipated Interventions Patient/Client Instruction: Educate patient on: Condition and Plan of Care For the Purpose of:: To improve self management Therapeutic Exercise to Include: Strength training, Endurance training, Balance training, Flexibilty training and Active ROM For the Purpose of:: To decrease pain, To increase ROM and To improve muscle performance and motor function Re-Evaluation Ending Re-evaluation ending: Please do not hesitate to contact me at [phone] by phone or if you have questions or concerns regarding this new plan of care! Sincerely, Jarek Alcaraz, PT, ATC 11/24/23 1131 CC: JEISON Vee; Dr. Kristen May, [facility] Signed For Medicare only, by signing this I certify the plan of care. _ Physicians Signature Date Normal [facility] Re-Evaluation - PT (1)on Re-Evaluation - PT (1) [facility] [address] [place] [address] [address] [place] [address] / REEVALUATION / MEDICARE RECERTIFICATION PHYSICAL THERAPY MR#: [id number] Acct: [id number] Name: EZRA PATEL Rep #: [id number] : 1965 58 From: Jarek Alcaraz PT, ATC Referring Dr.: JEISON Vee Status:REG RCR Insurance: [employer] INSURANCE Re-Evaluation Intro: Dr. Matty Vee, JEISON, It has been my pleasure to treat EZRA PATEL over the last 9 visits for Left foot stress Fx. Please see the progress note below for an update on the physical therapy plan of care! Subjective Subjective: I know I am better now than I was, but I still am very limited Objective Objective/Function: L foot pain is 3/10, Increases to 7/10 L ankle MMT: DF= 32, PF= 26 #F L ankle DF ROM: 0 degrees TU sec Pt is showing excellent progress with strength and function at this time Plan Plan Plan: 10/27/23- Cont with L ankle DF ROM stretching, strengthening, balance and proprio, bike, and HEP. CP for pain Balance/Gait/Functi onal tests Balance/Special Test Scores Lower Extremity Functional Score: 35 Goals Goals Goal 1:: Decrease L foot pain x 50% to aid with ambulation Goal Time Frame: 4-6 Weeks Goal Progress: Progressing Goal 2:: Pt will perform the TUG test in under 8 seconds to aid with functional mobility Goal Time Frame: 4-6 Weeks Goal 3:: Increase L ankle strength x 5-10 #F to aid with return to work without limitation Goal Time Frame: 4-6 Weeks Goal 4:: Increase L ankle DF ROM x 5 degrees to aid with restoring a more normalized gait pattern Goal Time Frame: 4-6 Weeks Anticipated Interventions Anticipated Interventions Patient/Client Instruction: Educate patient on: Condition and Plan of Care For the Purpose of:: To improve self management Therapeutic Exercise to Include: Strength training, Endurance training, Balance training, Flexibilty training and Active ROM For the Purpose of:: To decrease pain, To increase ROM and To improve muscle performance and motor function Re-Evaluation Ending Re-evaluation ending: Please do not hesitate to contact me at [phone] by phone or if you have questions or concerns regarding this new plan of care! Sincerely, Jarek Alcaraz, PT, ATC 10/27/23 1601 CC: JEISON Vee; Dr. Kristen May, [facility] Signed For Medicare only, by signing this I certify the plan of care. _ Physicians Signature Date Normal [facility] CT ANGIOGRAPHY CHEST W/CONTR Kalina 10-26-2023 CT ANGIOGRAPHY CHEST W/CONTRAST ORIGINAL HISTORY: Pulmonary embolism COMPARISON: 28 Jul 2023 TECHNIQUE: CT angiogram of the chest following uncomplicated administration of intravenous contrast with 3D post-acquisition processing and with results displayed in source images, sagittal and coronal reconstructions, and volume rendered images. This exam was performed according to our departmental dose optimization program, and includes the following measures where applicable: automated exposure control, adjustment of the mAs and/or kVp according to patient size and/or exam, and an iterative reconstruction algorithm. FINDINGS: The study is of fair technical quality. No filling defects are seen within the main pulmonary artery or its major branches. An aberrant right subclavian artery is incidentally noted. There are a few small scattered pulmonary nodules, most prominently a 5 mm subpleural nodule in the right lower lobe image 35. IMPRESSION: No pulmonary embolism. Otherwise, no significant interval change. Interpreted by: John Negrete MD Preliminary Report By: John Negrete MD Electronically signed By John Negrete MD Dictated Date: 10/26/2023 8:35:54 AM Prelim Date: 10/26/2023 8:38:14 AM Sign Date: 10/26/2023 8:38:14 AM Ordering Provider: KRISTEN MAY [facility] ([place]) .GFRon 09-06-2023 GFR 72 ml/min/1.73sqm [facility] ([place]) Comment on above: Result Comment: GFR Population mean for , Non- Americans Ages 20-29 = 116 mL/min/1.73 sq.m. Ages 30-39 = 107 mL/min/1.73 sq.m. Ages 40-49 = 99 mL/min/1.73 sq.m. Ages 50-59 = 93 mL/min/1.73 sq.m. Ages 60-69 = 85 mL/min/1.73 sq.m. Ages 70+ = 75 mL/min/1.73 sq.m. Chronic Kidney Disease: Less than 60 mL/min/1.73 square meters End Stage Renal Disease: Less than 15 mL/min/1.73 square meters Performed By: #### V IDH, CMP, GFR, LIPID #### [address] [address] #### B12 #### [address] [address] GFR Non- 59 ml/min/1.73sqm [facility] ([place]) Comment on above: Result Comment: GFR Population mean for , Non- Americans Ages 20-29 = 116 mL/min/1.73 sq.m. Ages 30-39 = 107 mL/min/1.73 sq.m. Ages 40-49 = 99 mL/min/1.73 sq.m. Ages 50-59 = 93 mL/min/1.73 sq.m. Ages 60-69 = 85 mL/min/1.73 sq.m. Ages 70+ = 75 mL/min/1.73 sq.m. Chronic Kidney Disease: Less than 60 mL/min/1.73 square meters End Stage Renal Disease: Less than 15 mL/min/1.73 square meters Performed By: #### V IDH, CMP, GFR, LIPID #### [place] [address] #### B12 #### [address] [address] B12on 09-06-2023 Cobalamin (Vitamin B12) [Mass/Vol] 920 pg/mL High 211-911 [facility] ([place]) Comment on above: Performed By: #### V IDH, CMP, GFR, LIPID #### [place] [address] #### B12 #### [address] [address] CMPon 09-06-2023 Albumin Level 3.5 G/dL Normal 3.4-4.8 [facility] ([place]) Comment on above: Performed By: #### V IDH, CMP, GFR, LIPID #### [place] [id number] #### B12 #### [address] [address] Albumin/Globulin [Mass ratio] 1.4 {ratio} Normal 1.1-2.5 [facility]) Comment on above: Performed By: #### V IDH, CMP, GFR, LIPID #### [place] [address] #### B12 #### [address] [address] ALP [Catalytic activity/Vol] 68 U/L Normal 40-135 [facility] ([place]) Comment on above: Performed By: #### V IDH, CMP, GFR, LIPID #### [place] [address] #### B12 #### [address] [address] ALT [Catalytic activity/Vol] 29 U/L Normal 14-59 [facility] ([place]) Comment on above: Performed By: #### V IDH, CMP, GFR, LIPID #### [place] [address] #### B12 #### [address] [address] AST [Catalytic activity/Vol] 15 U/L Normal 10-40 [facility] ([place]) Comment on above: Performed By: #### V IDH, CMP, GFR, LIPID #### [place] [address] #### B12 #### [address] [address] Bili Total 0.6 mg/dL Normal 0.2-1.0 [facility] ([place]) Comment on above: Result Comment: Use of this assay is not recommended for patients undergoing treatment with eltrombopag due to the potential for falsely elevated results. Performed By: #### V IDH, CMP, GFR, LIPID #### [place] [address] #### B12 #### [place] [address] BUN/Creatinine Ratio 16 ratio Normal 7-27 [facility] ([place]) Comment on above: Performed By: #### V IDH, CMP, GFR, LIPID #### [place] [address] #### B12 #### [address] [address] Calcium [Mass/Vol] 9.3 mg/dL Normal 8.4-10.2 [facility] ([place]) Comment on above: Performed By: #### V IDH, CMP, GFR, LIPID #### [address] [address] #### B12 #### [address] [address] Chloride [Moles/Vol] 106 mmol/L Normal 98-107 [facility] ([place]) Comment on above: Performed By: #### V IDH, CMP, GFR, LIPID #### [address] [address] #### B12 #### [address] [address] CO2 [Moles/Vol] 25 mmol/L Normal 23-31 [facility] ([place]) Comment on above: Performed By: #### V IDH, CMP, GFR, LIPID #### [address] [address] #### B12 #### [address] [address] Creatinine [Mass/Vol] 0.96 mg/dL Normal 0.55-1.02 [facility] ([place]) Comment on above: Performed By: #### V IDH, CMP, GFR, LIPID #### [address] [address] #### B12 #### [address] [address] Electrolyte Balance 11.0 mEq/L Normal 4.0-15.0 [facility] ([place]) Comment on above: Performed By: #### V IDH, CMP, GFR, LIPID #### [address] [address] #### B12 #### [address] [address] Globulin 2.5 G/dL Normal [facility] ([place]) Comment on above: Performed By: #### V IDH, CMP, GFR, LIPID #### [address] [address] #### B12 #### [address] [address] Glucose [Mass/Vol] 114 mg/dL Normal 80-115 [facility] ([place]) Comment on above: Performed By: #### V IDH, CMP, GFR, LIPID #### [place] [address] #### B12 #### [address] [address] Potassium [Moles/Vol] 4.1 mmol/L Normal 3.5-5.1 [facility] ([place]) Comment on above: Performed By: #### V IDH, CMP, GFR, LIPID #### [place] [address] #### B12 #### [address] [address] Sodium [Moles/Vol] 142 mmol/L Normal 136-145 [facility] ([place]) Comment on above: Performed By: #### V IDH, CMP, GFR, LIPID #### [place] [address] #### B12 #### [address] [address] Total Protein 6.0 G/dL Low 6.4-8.2 [facility] ([place]) Comment on above: Performed By: #### V IDH, CMP, GFR, LIPID #### [place] [address] #### B12 #### [address] [address] Urea nitrogen [Mass/Vol] 15 mg/dL Normal 7-18 [facility] ([place]) Comment on above: Performed By: #### V IDH, CMP, GFR, LIPID #### [place] [address] #### B12 #### [address] [address] LIPIDon 09-06-2023 Cholesterol [Mass/Vol] 146 mg/dL Normal 0-200 [facility] ([place]) Comment on above: Result Comment: Chol esterol Reference Interval: Less than 200 Desirable 200-239 Borderline high risk 240 and above High risk Performed By: #### V IDH, CMP, GFR, LIPID #### [address] [address] #### B12 #### [address] [address] Cholesterol in HDL [Mass/Vol] 47 mg/dL Normal 40-60 [facility] ([place]) Comment on above: Performed By: #### V IDH, CMP, GFR, LIPID #### [place] [address] #### B12 #### [address] [address] Cholesterol in LDL [Mass/Vol] 61 mg/dL Normal 0-130 [facility] ([place]) Comment on above: Performed By: #### V IDH, CMP, GFR, LIPID #### [place] [address] #### B12 #### [address] [address] Triglyceride [Mass/Vol] 189 mg/dL High 0-150 [facility] ([place]) Comment on above: Result Comment: Trig lyceride Reference Interval: Less than 150 Normal 150-199 Borderline high risk 200-499 High risk 500 or higher Very high risk Performed By: #### V IDH, CMP, GFR, LIPID #### [place] [address] #### B12 #### [address] [address] MALBRon 09-06-2023 U Creatinine >400.0 High 28.0-117.0 [facility] ([place]) Comment on above: Performed By: #### V IDH, CMP, GFR, LIPID #### [place] [address] #### B12 #### [address] [address] U Microalb 4718 mcg/dL Normal [facility] ([place]) Comment on above: Performed By: #### V IDH, CMP, GFR, LIPID #### [place] [address] #### B12 #### [address] [address] U Ratio Alb/Cre <12 Normal 0-30 [facility] ([place]) Comment on above: Performed By: #### V IDH, CMP, GFR, LIPID #### [address] [address] #### B12 #### [address] [address] VIDHon 09-06-2023 Vit. D 25-Hydroxy 26.5 ng/mL Normal [facility] ([place]) Comment on above: Result Comment: Inte rpretive Values Based on Total 25(OH) Vitamin D: Deficient <20 ng/mL Insufficient 20 - <30 ng/mL Sufficient 30-100 ng/mL Performed By: #### V IDH, CMP, GFR, LIPID #### [address] [address] #### B12 #### [address] [address] XR HIP 2-3 VIEWS RIGHTon XR HIP 2-3 VIEWS RIGHT ORIGINAL EXAMINATION: XR right hip two views 08/25/2023 11:32 am COMPARISON: None HISTORY: ORDERING SYSTEM PROVIDED HISTORY: Reason for Exam: right hip pain, FINDINGS: No acute fracture, dislocation, lytic process or periosteal reaction is seen in the visualized bones and joints. No erosive type of arthritis. No periarticular soft tissue calcification. There is mild hip osteoarthritis without joint space narrowing. Mild trochanteric enthesopathy. IMPRESSION: No acute skeletal abnormality is seen. . Mild osteoarthritis and trochanteric enthesopathy. Interpreted by: Shaquille Bautista MD Preliminary Report By: Shaquille Bautista MD Electronically signed By Shaquille Bautista MD Dictated Date: 08/25/2023 11:58:26 PM Prelim Date: 08/25/2023 11:58:57 PM Sign Date: 08/25/2023 11:58:57 PM Ordering Provider: NAVNEET PAYAN [facility] ([place]) .GFRon 08-02-2023 GFR 58 ml/min/1.73sqm Normal [facility] ([place]) Comment on above: Result Comment: GFR Population mean for , Non- Americans Ages 20-29 = 116 mL/min/1.73 sq.m. Ages 30-39 = 107 mL/min/1.73 sq.m. Ages 40-49 = 99 mL/min/1.73 sq.m. Ages 50-59 = 93 mL/min/1.73 sq.m. Ages 60-69 = 85 mL/min/1.73 sq.m. Ages 70+ = 75 mL/min/1.73 sq.m. Chronic Kidney Disease: Less than 60 mL/min/1.73 square meters End Stage Renal Disease: Less than 15 mL/min/1.73 square meters Performed By: #### V IDH, CMP, GFR, LIPID #### [address] [address] #### B12 #### [address] [address] GFR Non- 48 ml/min/1.73sqm Normal [facility] ([place]) Comment on above: Result Comment: GFR Population mean for , Non- Americans Ages 20-29 = 116 mL/min/1.73 sq.m. Ages 30-39 = 107 mL/min/1.73 sq.m. Ages 40-49 = 99 mL/min/1.73 sq.m. Ages 50-59 = 93 mL/min/1.73 sq.m. Ages 60-69 = 85 mL/min/1.73 sq.m. Ages 70+ = 75 mL/min/1.73 sq.m. Chronic Kidney Disease: Less than 60 mL/min/1.73 square meters End Stage Renal Disease: Less than 15 mL/min/1.73 square meters Performed By: #### V IDH, CMP, GFR, LIPID #### [address] [address] #### B12 #### [address] [address] BMPon 08-02-2023 BUN/Creatinine Ratio 14 ratio Normal 09-30 [facility] ([place]) Comment on above: Performed By: #### V IDH, CMP, GFR, LIPID #### [address] [address] #### B12 #### [address] [address] Calcium [Mass/Vol] 8.7 mg/dL Normal 8.4-10.2 [facility] ([place]) Comment on above: Performed By: #### V IDH, CMP, GFR, LIPID #### [place] [address] #### B12 #### [address] [address] Chloride [Moles/Vol] 108 mmol/L High 98-107 [facility] ([place]) Comment on above: Performed By: #### V IDH, CMP, GFR, LIPID #### [place] [address] #### B12 #### [address] [address] CO2 [Moles/Vol] 19 mmol/L Low 22-29 [facility] ([place]) Comment on above: Performed By: #### V IDH, CMP, GFR, LIPID #### [place] [address] #### B12 #### [address] [address] Creatinine [Mass/Vol] 1.16 mg/dL High 0.55-1.02 [facility] ([place]) Comment on above: Performed By: #### V IDH, CMP, GFR, LIPID #### [place] [address] #### B12 #### [address] [address] Electrolyte Balance 15.0 mEq/L Normal 4.0-15.0 [facility] ([place]) Comment on above: Performed By: #### V IDH, CMP, GFR, LIPID #### [place] [address] #### B12 #### [address] [address] Glucose [Mass/Vol] 108 mg/dL High 70-105 [facility] ([place]) Comment on above: Performed By: #### V IDH, CMP, GFR, LIPID #### [address] [address] #### B12 #### [address] [address] Potassium [Moles/Vol] 4.1 mmol/L Normal 3.5-5.1 [facility] ([place]) Comment on above: Performed By: #### V IDH, CMP, GFR, LIPID #### [address] [address] #### B12 #### [address] [address] Sodium [Moles/Vol] 142 mmol/L Normal 136-145 [facility] ([place]) Comment on above: Performed By: #### V IDH, CMP, GFR, LIPID #### [place] [address] #### B12 #### [address] [address] Urea nitrogen [Mass/Vol] 16 mg/dL Normal 7-18 [facility] ([place]) Comment on above: Performed By: #### V IDH, CMP, GFR, LIPID #### [address] [address] #### B12 #### [address] [address] LABORATORYOrdered By: SYSTEM SYSTEM on 08-02-2023 Calcium [Mass/Vol] 8.7 mg/dL Normal 8.4 - 10. 2 mg/dL AO ADM SS Chloride [Moles/Vol] 108 mmol/L High 98 - 10 7 mmol/L AO ADM SS CO2 [Moles/Vol] 19 mmol/L Low 22 - 29 mmol/L AO ADM SS Creatinine [Mass/Vol] 1.16 mg/dL High 0.55 - 1.02 mg/dL AO ADM SS Electrolyte Balance 15.0 mEq/L Normal 4.0 - 15 .0 mEq/L AO ADM SS GFR/1.73 sq M.predicted among blacks MDRD (S/P/Bld) [Vol rate/Area] 58 ml/min/1.73sqm Invalid Interpretation Code AO Chemistry S Comment on above: Interpretive Data: GFR Population mean for , Non- Americans Ages 20-29 = 116 mL/min/1.73 sq.m. Ages 30-39 = 107 mL/min/1.73 sq.m. Ages 40-49 = 99 mL/min/1.73 sq.m. Ages 50-59 = 93 mL/min/1.73 sq.m. Ages 60-69 = 85 mL/min/1.73 sq.m. Ages 70+ = 75 mL/min/1.73 sq.m. Chronic Kidney Disease: Less than 60 mL/min/1.73 square meters End Stage Renal Disease: Less than 15 mL/min/1.73 square meters GFR/1.73 sq M.predicted among non-blacks MDRD (S/P/Bld) [Vol rate/Area] 48 ml/min/1.73sqm Invalid Interpretation Code AO Chemistry S Comment on above: Interpretive Data: GFR Population mean for , Non- Americans Ages 20-29 = 116 mL/min/1.73 sq.m. Ages 30-39 = 107 mL/min/1.73 sq.m. Ages 40-49 = 99 mL/min/1.73 sq.m. Ages 50-59 = 93 mL/min/1.73 sq.m. Ages 60-69 = 85 mL/min/1.73 sq.m. Ages 70+ = 75 mL/min/1.73 sq.m. Chronic Kidney Disease: Less than 60 mL/min/1.73 square meters End Stage Renal Disease: Less than 15 mL/min/1.73 square meters Glucose [Mass/Vol] 108 mg/dL High 70 - 105 mg/dL AO ADM SS Potassium [Moles/Vol] 4.1 mmol/L Normal 3.5 - 5.1 mmol/L AO ADM SS Sodium [Moles/Vol] 142 mmol/L Normal 136 - 145 mmol/L AO ADM SS Urea nitrogen [Mass/Vol] 16 mg/dL Normal 7 - 18 mg/dL AO ADM SS Urea nitrogen/Creatinine [Mass ratio] 14 ratio Normal 7 - 27 ratio AO ADM SS .Auto Diffon 07-29-2023 Basophil, Absolute 0.1 10 3/mcL Normal 0.0-0.2 [facility] ([place]) Comment on above: Performed By: #### V IDH, CMP, GFR, LIPID #### [address] [address] #### B12 #### [address] [address] Basophils/100 WBC (Bld) 1.5 % Normal 0.0-2.5 [facility] ([place]) Comment on above: Performed By: #### V IDH, CMP, GFR, LIPID #### [address] [address] #### B12 #### [address] [address] Eosinophil, Absolute 0.1 10 3/mcL Normal 0.0-0.4 [facility] ([place]) Comment on above: Performed By: #### V IDH, CMP, GFR, LIPID #### [place] [address] #### B12 #### [address] [address] Eosinophils/100 WBC (Bld) 1.7 % Normal 0.0-7.0 [facility] ([place]) Comment on above: Performed By: #### V IDH, CMP, GFR, LIPID #### [address] [address] #### B12 #### [address] [address] Lymphocyte, Absolute 3.2 10 3/mcL Normal 0.8-3.9 [facility] ([place]) Comment on above: Performed By: #### V IDH, CMP, GFR, LIPID #### [place] [address] #### B12 #### [address] [address] Lymphocytes/100 WBC (Bld) 38.8 % Normal 10.0-50.0 [facility] ([place]) Comment on above: Performed By: #### V IDH, CMP, GFR, LIPID #### [address] [address] #### B12 #### [address] [address] Monocyte, Absolute 0.6 10 3/mcL Normal 0.2-1.0 [facility] ([place]) Comment on above: Performed By: #### V IDH, CMP, GFR, LIPID #### [address] [address] #### B12 #### [address] [address] Monocytes/100 WBC (Bld) 7.0 % Normal 1.7-13.0 [facility] ([place]) Comment on above: Performed By: #### V IDH, CMP, GFR, LIPID #### [address] [address] #### B12 #### [address] [address] Neutrophils/100 WBC (Bld) 51.0 % Normal 37.0-80.0 [facility] ([place]) Comment on above: Performed By: #### V IDH, CMP, GFR, LIPID #### [address] [address] #### B12 #### [address] [address] .GFRon 07-29-2023 GFR 48 ml/min/1.73sqm Normal [facility] ([place]) Comment on above: Result Comment: GFR Population mean for , Non- Americans Ages 20-29 = 116 mL/min/1.73 sq.m. Ages 30-39 = 107 mL/min/1.73 sq.m. Ages 40-49 = 99 mL/min/1.73 sq.m. Ages 50-59 = 93 mL/min/1.73 sq.m. Ages 60-69 = 85 mL/min/1.73 sq.m. Ages 70+ = 75 mL/min/1.73 sq.m. Chronic Kidney Disease: Less than 60 mL/min/1.73 square meters End Stage Renal Disease: Less than 15 mL/min/1.73 square meters Performed By: #### V IDH, CMP, GFR, LIPID #### [address] [address] #### B12 #### [address] [address] GFR Non- 40 ml/min/1.73sqm Normal [facility] ([place]) Comment on above: Result Comment: GFR Population mean for , Non- Americans Ages 20-29 = 116 mL/min/1.73 sq.m. Ages 30-39 = 107 mL/min/1.73 sq.m. Ages 40-49 = 99 mL/min/1.73 sq.m. Ages 50-59 = 93 mL/min/1.73 sq.m. Ages 60-69 = 85 mL/min/1.73 sq.m. Ages 70+ = 75 mL/min/1.73 sq.m. Chronic Kidney Disease: Less than 60 mL/min/1.73 square meters End Stage Renal Disease: Less than 15 mL/min/1.73 square meters Performed By: #### V IDH, CMP, GFR, LIPID #### [address] [address] #### B12 #### [place] [address] .NEUABSon 07-29-2023 Neutrophil, Absolute 4.2 10 3/mcL Normal 2.9-6.2 [facility] ([place]) Comment on above: Performed By: #### V IDH, CMP, GFR, LIPID #### [address] [address] #### B12 #### [place] [address] APTTon 07-29-2023 aPTT Coag (Bld) [Time] s Critically abnormal 25.0-35.0 [facility] ([place]) Comment on above: Result Comment: For Heparin anticoagulation therapy, the recommended therapeutic range is: 45.4-75.9 seconds. Patients on heparin therapy may have an extreme result. Heparin dose (APTT) Unknown Normal [facility] ([place]) BMPon 07-29-2023 BUN/Creatinine Ratio 24 ratio Normal 7-27 [facility] ([place]) Comment on above: Performed By: #### V IDH, CMP, GFR, LIPID #### [address] [address] #### B12 #### [address] [address] Calcium [Mass/Vol] 8.7 mg/dL Normal 8.4-10.2 [facility] ([place]) Comment on above: Performed By: #### V IDH, CMP, GFR, LIPID #### [address] [address] #### B12 #### [address] [address] Chloride [Moles/Vol] 104 mmol/L Normal 98-107 [facility] ([place]) Comment on above: Performed By: #### V IDH, CMP, GFR, LIPID #### [place] [address] #### B12 #### [address] [address] CO2 [Moles/Vol] 19 mmol/L Low 22-29 [facility] ([place]) Comment on above: Performed By: #### V IDH, CMP, GFR, LIPID #### [address] [address] #### B12 #### [address] [address] Creatinine [Mass/Vol] 1.36 mg/dL High 0.55-1.02 [facility] ([place]) Comment on above: Performed By: #### V IDH, CMP, GFR, LIPID #### [address] [address] #### B12 #### [address] [address] Electrolyte Balance 11.0 mEq/L Normal 4.0-15.0 [facility] ([place]) Comment on above: Performed By: #### V IDH, CMP, GFR, LIPID #### [place] [address] #### B12 #### [address] [address] Glucose [Mass/Vol] 99 mg/dL Normal 70-105 [facility] ([place]) Comment on above: Performed By: #### V IDH, CMP, GFR, LIPID #### [address] [address] #### B12 #### [address] [address] Potassium [Moles/Vol] 4.2 mmol/L Normal 3.5-5.1 [facility] ([place]) Comment on above: Performed By: #### V IDH, CMP, GFR, LIPID #### [place] [address] #### B12 #### [address] [address] Sodium [Moles/Vol] 134 mmol/L Low 136-145 [facility] ([place]) Comment on above: Performed By: #### V IDH, CMP, GFR, LIPID #### [place] [address] #### B12 #### [address] [address] Urea nitrogen [Mass/Vol] 33 mg/dL High 7-18 [facility] ([place]) Comment on above: Performed By: #### V IDH, CMP, GFR, LIPID #### [place] [address] #### B12 #### [address] [address] CBCon 07-29-2023 Erythrocyte distribution width (RBC) [Ratio] 13.9 % Normal 11.5-14.5 [facility] ([place]) Comment on above: Performed By: #### V IDH, CMP, GFR, LIPID #### [address] [address] #### B12 #### [address] [address] Hematocrit (Bld) [Volume fraction] 34.5 % Low 37.0-47.0 [facility] ([place]) Comment on above: Performed By: #### V IDH, CMP, GFR, LIPID #### [place] [address] #### B12 #### [place] [address] Hgb 12.1 G/dL Normal 12.0-16.0 [facility] ([place]) Comment on above: Performed By: #### V IDH, CMP, GFR, LIPID #### [place] [address] #### B12 #### [place] [address] MCH (RBC) [Entitic mass] 33.2 pg High 27.0-31.2 [facility] ([place]) Comment on above: Performed By: #### V IDH, CMP, GFR, LIPID #### [place] [address] #### B12 #### [place] [address] MCHC 35.2 G/dL Normal 33.0-37.0 [facility] ([place]) Comment on above: Performed By: #### V IDH, CMP, GFR, LIPID #### [place] [address] #### B12 #### [place] [address] MCV (RBC) [Entitic vol] 94.3 fL High 80.0-94.0 [facility] ([place]) Comment on above: Performed By: #### V IDH, CMP, GFR, LIPID #### [place] [address] #### B12 #### [place] [address] Platelet 225 10 3/mcL Normal 130-400 [facility] ([place]) Comment on above: Performed By: #### V IDH, CMP, GFR, LIPID #### [place] [address] #### B12 #### [address] [address] Platelet mean volume (Bld) [Entitic vol] 7.6 fL Normal 7.4-10.4 [facility] ([place]) Comment on above: Performed By: #### V IDH, CMP, GFR, LIPID #### [address] [address] #### B12 #### [place] [address] RBC 3.66 10 6/mcL Low 4.20-5.40 [facility] ([place]) Comment on above: Performed By: #### V IDH, CMP, GFR, LIPID #### [address] [address] #### B12 #### [place] [address] WBC 8.3 10 3/mcL Normal 4.6-10.8 [facility] ([place]) Comment on above: Performed By: #### V IDH, CMP, GFR, LIPID #### [address] [address] #### B12 #### [place] [address] LABORATORYOrdered By: Tsering Mccoy on 07-29-2023 aPTT Coag (Bld) [Time] s Invalid Interpretation Code 25.0 - 35.0 seconds AO Coagulation S Comment on above: Interpretive Data: F or Heparin anticoagulation therapy, the recommended therapeutic range is: 45.4-75.9 seconds. Patients on heparin therapy may have an extreme result. Heparin dose (APTT) Unknown (07/29/23 5:17 AM) Normal AO Coagulation S LABORATORYOrdered By: SYSTEM SYSTEM on 07-29-2023 Basophil, Absolute 0.1 103/mcL Normal 0.0 - 0.2 10^3/mcL AO Workflow SS Basophils/100 WBC (Bld) 1.5 % Normal 0.0 - 2.5 % AO Workflow SS Calcium [Mass/Vol] 8.7 mg/dL Normal 8.4 - 10. 2 mg/dL AO ADM SS Chloride [Moles/Vol] 104 mmol/L Normal 98 - 10 7 mmol/L AO ADM SS CO2 [Moles/Vol] 19 mmol/L Low 22 - 29 mmol/L AO ADM SS Creatinine [Mass/Vol] 1.36 mg/dL High 0.55 - 1.02 mg/dL AO ADM SS Electrolyte Balance 11.0 mEq/L Normal 4.0 - 15 .0 mEq/L AO ADM SS Eosinophil, Absolute 0.1 103/mcL Normal 0.0 - 0 .4 10^3/mcL AO Workflow SS Eosinophils/100 WBC (Bld) 1.7 % Normal 0.0 - 7.0 % AO Workflow SS Erythrocyte distribution width (RBC) [Ratio] 13.9 % Normal 11.5 - 14.5 % AO Workflow SS GFR/1.73 sq M.predicted among blacks MDRD (S/P/Bld) [Vol rate/Area] 48 ml/min/1.73sqm Invalid Interpretation Code AO Chemistry S Comment on above: Interpretive Data: GFR Population mean for , Non- Americans Ages 20-29 = 116 mL/min/1.73 sq.m. Ages 30-39 = 107 mL/min/1.73 sq.m. Ages 40-49 = 99 mL/min/1.73 sq.m. Ages 50-59 = 93 mL/min/1.73 sq.m. Ages 60-69 = 85 mL/min/1.73 sq.m. Ages 70+ = 75 mL/min/1.73 sq.m. Chronic Kidney Disease: Less than 60 mL/min/1.73 square meters End Stage Renal Disease: Less than 15 mL/min/1.73 square meters GFR/1.73 sq M.predicted among non-blacks MDRD (S/P/Bld) [Vol rate/Area] 40 ml/min/1.73sqm Invalid Interpretation Code AO Chemistry S Comment on above: Interpretive Data: GFR Population mean for , Non- Americans Ages 20-29 = 116 mL/min/1.73 sq.m. Ages 30-39 = 107 mL/min/1.73 sq.m. Ages 40-49 = 99 mL/min/1.73 sq.m. Ages 50-59 = 93 mL/min/1.73 sq.m. Ages 60-69 = 85 mL/min/1.73 sq.m. Ages 70+ = 75 mL/min/1.73 sq.m. Chronic Kidney Disease: Less than 60 mL/min/1.73 square meters End Stage Renal Disease: Less than 15 mL/min/1.73 square meters Glucose [Mass/Vol] 99 mg/dL Normal 70 - 105 mg/dL AO ADM SS Hematocrit (Bld) [Volume fraction] 34.5 % Low 37.0 - 47.0 % AO Workflow SS Hemoglobin (Bld) [Mass/Vol] 12.1 G/dL Normal 12.0 - 16.0 G/dL AO Workflow SS Lymphocyte, Absolute 3.2 103/mcL Normal 0.8 - 3 .9 10^3/mcL AO Workflow SS Lymphocytes/100 WBC (Bld) 38.8 % Normal 10.0 - 50.0 % AO Workflow SS Magnesium [Mass/Vol] 1.8 mg/dL Normal 1.8 - 2 .4 mg/dL AO ADM SS MCH (RBC) [Entitic mass] 33.2 pg High 27.0 - 31.2 pg AO Workflow SS MCHC 35.2 G/dL Normal 33.0 - 37.0 G/dL AO Workflow SS MCV (RBC) [Entitic vol] 94.3 fL High 80.0 - 94.0 fL AO Workflow SS Monocyte, Absolute 0.6 103/mcL Normal 0.2 - 1.0 10^3/mcL AO Workflow SS Monocytes/100 WBC (Bld) 7.0 % Normal 1.7 - 13.0 % AO Workflow SS Neutrophil, Absolute 4.2 103/mcL Normal 2.9 - 6 .2 10^3/mcL AO Workflow SS Neutrophils/100 WBC (Bld) 51.0 % Normal 37.0 - 80.0 % AO Workflow SS Platelet mean volume (Bld) [Entitic vol] 7.6 fL Normal 7.4 - 10.4 fL AO Workflow SS Platelets (Bld) [#/Vol] 225 103/mcL Normal 130 - 400 10^3/mcL AO Workflow SS Potassium [Moles/Vol] 4.2 mmol/L Normal 3.5 - 5.1 mmol/L AO ADM SS RBC (Bld) [#/Vol] 3.66 106/mcL Low 4.20 - 5.4 0 10^6/mcL AO Workflow SS Sodium [Moles/Vol] 134 mmol/L Low 136 - 145 mmol/L AO ADM SS Urea nitrogen [Mass/Vol] 33 mg/dL High 7 - 18 mg/dL AO ADM SS Urea nitrogen/Creatinine [Mass ratio] 24 ratio Normal 7 - 27 ratio AO ADM SS WBC (Bld) [#/Vol] 8.3 103/mcL Normal 4.6 - 10.8 10^3/mcL AO Workflow SS MGon 07-29-2023 Magnesium [Mass/Vol] 1.8 mg/dL Normal 1.8-2.4 [facility] ([place]) Comment on above: Performed By: #### V IDH, CMP, GFR, LIPID #### [address] [address] #### B12 #### [address] [address] .Auto Diffon 07-28-2023 Basophil, Absolute 0.1 10 3/mcL Normal 0.0-0.2 [facility] ([place]) Comment on above: Performed By: #### G FR, PBNP, LIP, MDW, CMP, ADIFF, CBC, ANEU, TROPHS #### [address] [address] Basophils/100 WBC (Bld) 1.0 % Normal 0.0-2.5 [facility] ([place]) Comment on above: Performed By: #### G FR, PBNP, LIP, MDW, CMP, ADIFF, CBC, ANEU, TROPHS #### [address] [address] Eosinophil, Absolute 0.1 10 3/mcL Normal 0.0-0.4 [facility] ([place]) Comment on above: Performed By: #### G FR, PBNP, LIP, MDW, CMP, ADIFF, CBC, ANEU, TROPHS #### [address] [address] Eosinophils/100 WBC (Bld) 1.1 % Normal 0.0-7.0 [facility] ([place]) Comment on above: Performed By: #### G FR, PBNP, LIP, MDW, CMP, ADIFF, CBC, ANEU, TROPHS #### [address] [address] Lymphocyte, Absolute 3.4 10 3/mcL Normal 0.8-3.9 [facility] ([place]) Comment on above: Performed By: #### G FR, PBNP, LIP, MDW, CMP, ADIFF, CBC, ANEU, TROPHS #### [address] [address] Lymphocytes/100 WBC (Bld) 33.7 % Normal 10.0-50.0 [facility] ([place]) Comment on above: Performed By: #### G FR, PBNP, LIP, MDW, CMP, ADIFF, CBC, ANEU, TROPHS #### [address] [address] Monocyte, Absolute 0.9 10 3/mcL Normal 0.2-1.0 [facility] ([place]) Comment on above: Performed By: #### G FR, PBNP, LIP, MDW, CMP, ADIFF, CBC, ANEU, TROPHS #### [address] [address] Monocytes/100 WBC (Bld) 8.9 % Normal 1.7-13.0 [facility] ([place]) Comment on above: Performed By: #### G FR, PBNP, LIP, MDW, CMP, ADIFF, CBC, ANEU, TROPHS #### [address] [address] Neutrophils/100 WBC (Bld) 55.3 % Normal 37.0-80.0 [facility] ([place]) Comment on above: Performed By: #### G FR, PBNP, LIP, MDW, CMP, ADIFF, CBC, ANEU, TROPHS #### [address] [address] .GFRon 07-28-2023 GFR 38 ml/min/1.73sqm Normal [facility] ([place]) Comment on above: Result Comment: GFR Population mean for , Non- Americans Ages 20-29 = 116 mL/min/1.73 sq.m. Ages 30-39 = 107 mL/min/1.73 sq.m. Ages 40-49 = 99 mL/min/1.73 sq.m. Ages 50-59 = 93 mL/min/1.73 sq.m. Ages 60-69 = 85 mL/min/1.73 sq.m. Ages 70+ = 75 mL/min/1.73 sq.m. Chronic Kidney Disease: Less than 60 mL/min/1.73 square meters End Stage Renal Disease: Less than 15 mL/min/1.73 square meters Performed By: #### V IDH, CMP, GFR, LIPID #### [address] [address] #### B12 #### [address] [address] GFR Non- 31 ml/min/1.73sqm Normal [facility] ([place]) Comment on above: Result Comment: GFR Population mean for , Non- Americans Ages 20-29 = 116 mL/min/1.73 sq.m. Ages 30-39 = 107 mL/min/1.73 sq.m. Ages 40-49 = 99 mL/min/1.73 sq.m. Ages 50-59 = 93 mL/min/1.73 sq.m. Ages 60-69 = 85 mL/min/1.73 sq.m. Ages 70+ = 75 mL/min/1.73 sq.m. Chronic Kidney Disease: Less than 60 mL/min/1.73 square meters End Stage Renal Disease: Less than 15 mL/min/1.73 square meters Performed By: #### V IDH, CMP, GFR, LIPID #### [address] [address] #### B12 #### [address] [address] .MDWon 07-28-2023 Monocyte Distribution Width 19.52 Normal 0.00-20.00 [facility] ([place]) Comment on above: Result Comment: For ED adult patients suspected of sepsis, MDW<=20.0 does not rule out sepsis or risk of sepsis Performed By: #### G FR, PBNP, LIP, MDW, CMP, ADIFF, CBC, ANEU, TROPHS #### [address] [address] .NEUABSon 07-28-2023 Neutrophil, Absolute 5.6 10 3/mcL Normal 2.9-6.2 [facility] ([place]) Comment on above: Performed By: #### G FR, PBNP, LIP, MDW, CMP, ADIFF, CBC, ANEU, TROPHS #### [place] [address] APTTon 07-28-2023 aPTT Coag (Bld) [Time] 29.6 s Normal 25.0-35.0 [facility] ([place]) Comment on above: Result Comment: For Heparin anticoagulation therapy, the recommended therapeutic range is: 45.4-75.9 seconds. Patients on heparin therapy may have an extreme result. Heparin dose (APTT) None Normal [facility] ([place]) CBCon 07-28-2023 Erythrocyte distribution width (RBC) [Ratio] 13.8 % Normal 11.5-14.5 [facility] ([place]) Comment on above: Performed By: #### G FR, PBNP, LIP, MDW, CMP, ADIFF, CBC, ANEU, TROPHS #### [place] [address] Hematocrit (Bld) [Volume fraction] 38.3 % Normal 37.0-47.0 [facility] ([place]) Comment on above: Performed By: #### G FR, PBNP, LIP, MDW, CMP, ADIFF, CBC, ANEU, TROPHS #### [address] [address] Hgb 13.4 G/dL Normal 12.0-16.0 [facility] ([place]) Comment on above: Performed By: #### G FR, PBNP, LIP, MDW, CMP, ADIFF, CBC, ANEU, TROPHS #### [place] [address] MCH (RBC) [Entitic mass] 33.2 pg High 27.0-31.2 [facility] ([place]) Comment on above: Performed By: #### G FR, PBNP, LIP, MDW, CMP, ADIFF, CBC, ANEU, TROPHS #### [address] [address] MCHC 34.9 G/dL Normal 33.0-37.0 [facility] ([place]) Comment on above: Performed By: #### G FR, PBNP, LIP, MDW, CMP, ADIFF, CBC, ANEU, TROPHS #### [address] [address] MCV (RBC) [Entitic vol] 95.1 fL High 80.0-94.0 [facility] ([place]) Comment on above: Performed By: #### G FR, PBNP, LIP, MDW, CMP, ADIFF, CBC, ANEU, TROPHS #### [place] [address] Platelet 274 10 3/mcL Normal 130-400 [facility] ([place]) Comment on above: Performed By: #### G FR, PBNP, LIP, MDW, CMP, ADIFF, CBC, ANEU, TROPHS #### [address] [address] Platelet mean volume (Bld) [Entitic vol] 7.8 fL Normal 7.4-10.4 [facility] ([place]) Comment on above: Performed By: #### G FR, PBNP, LIP, MDW, CMP, ADIFF, CBC, ANEU, TROPHS #### [place] [address] RBC 4.03 10 6/mcL Low 4.20-5.40 [facility] ([place]) Comment on above: Performed By: #### G FR, PBNP, LIP, MDW, CMP, ADIFF, CBC, ANEU, TROPHS #### [place] [address] WBC 10.2 10 3/mcL Normal 4.6-10.8 [facility] ([place]) Comment on above: Performed By: #### G FR, PBNP, LIP, MDW, CMP, ADIFF, CBC, ANEU, TROPHS #### [address] [address] CMPon 07-28-2023 Albumin Level 4.0 G/dL Normal 3.5-5.0 [facility] ([place]) Comment on above: Performed By: #### V IDH, CMP, GFR, LIPID #### [address] [address] #### B12 #### [address] [address] Albumin/Globulin [Mass ratio] 1.4 {ratio} Normal 1.1-2.5 [facility] ([place]) Comment on above: Performed By: #### V IDH, CMP, GFR, LIPID #### [address] [address] #### B12 #### [address] [address] ALP [Catalytic activity/Vol] 77 U/L Normal 40-135 [facility] ([place]) Comment on above: Performed By: #### V IDH, CMP, GFR, LIPID #### [address] [address] #### B12 #### [address] [address] ALT [Catalytic activity/Vol] 42 U/L Normal 14-59 [facility] ([place]) Comment on above: Performed By: #### V IDH, CMP, GFR, LIPID #### [address] [address] #### B12 #### [address] [address] AST [Catalytic activity/Vol] 25 U/L Normal 10-40 [facility] ([place]) Comment on above: Performed By: #### V IDH, CMP, GFR, LIPID #### [address] [address] #### B12 #### [address] [address] Bili Total 0.6 mg/dL Normal 0.2-1.0 [facility] ([place]) Comment on above: Result Comment: Use of this assay is not recommended for patients undergoing treatment with eltrombopag due to the potential for falsely elevated results. Performed By: #### V IDH, CMP, GFR, LIPID #### [place] [address] #### B12 #### [address] [address] BUN/Creatinine Ratio 25 ratio Normal 7-27 [facility] ([place]) Comment on above: Performed By: #### V IDH, CMP, GFR, LIPID #### [place] [address] #### B12 #### [address] [address] Calcium [Mass/Vol] 9.3 mg/dL Normal 8.4-10.2 [facility] ([place]) Comment on above: Performed By: #### V IDH, CMP, GFR, LIPID #### [place] [address] #### B12 #### [place] [address] Chloride [Moles/Vol] 103 mmol/L Normal 98-107 [facility] ([place]) Comment on above: Performed By: #### V IDH, CMP, GFR, LIPID #### [place] [address] #### B12 #### [address] [address] CO2 [Moles/Vol] 18 mmol/L Low 22-29 [facility] ([place]) Comment on above: Performed By: #### V IDH, CMP, GFR, LIPID #### [place] [address] #### B12 #### [address] [address] Creatinine [Mass/Vol] 1.68 mg/dL High 0.55-1.02 [facility] ([place]) Comment on above: Performed By: #### V IDH, CMP, GFR, LIPID #### [place] [id number] #### B12 #### [address] [address] Electrolyte Balance 15.0 mEq/L Normal 4.0-15.0 [facility] ([place]) Comment on above: Performed By: #### V IDH, CMP, GFR, LIPID #### [address] [address] #### B12 #### [address] [address] Globulin 2.9 G/dL Normal [facility] ([place]) Comment on above: Performed By: #### V IDH, CMP, GFR, LIPID #### [place] [address] #### B12 #### [address] [address] Glucose [Mass/Vol] 111 mg/dL High 70-105 [facility] ([place]) Comment on above: Performed By: #### V IDH, CMP, GFR, LIPID #### [place] [address] #### B12 #### [address] [address] Potassium [Moles/Vol] 5.3 mmol/L High 3.5-5.1 [facility] ([place]) Comment on above: Performed By: #### V IDH, CMP, GFR, LIPID #### [place] [address] #### B12 #### [address] [address] Sodium [Moles/Vol] 136 mmol/L Normal 136-145 [facility] ([place]) Comment on above: Performed By: #### V IDH, CMP, GFR, LIPID #### [place] [address] #### B12 #### [address] [address] Total Protein 6.9 G/dL Normal 6.4-8.2 [facility] ([place]) Comment on above: Performed By: #### V IDH, CMP, GFR, LIPID #### [place] [address] [place], [place] [address] #### B12 #### [address] [address] Urea nitrogen [Mass/Vol] 42 mg/dL High 7-18 [facility] ([place]) Comment on above: Performed By: #### V IDH, CMP, GFR, LIPID #### [place] [address] [place], [place] [address] #### B12 #### [address] [address] [address] ANGIOGRAPHY CHEST W/CONTR Kalina 07-28-2023 CT ANGIOGRAPHY CHEST W/CONTRAST ORIGINAL EXAMINATION: CTA OF THE CHEST 07/28/2023 9:42 pm TECHNIQUE: CTA of the chest was performed after the administration of intravenous contrast. Multiplanar reformatted images are provided for review. MIP images are provided for review. Automated exposure control, iterative reconstruction, and/or weight based adjustment of the mA/kV was utilized to reduce the radiation dose to as low as reasonably achievable. COMPARISON: None. HISTORY: ORDERING SYSTEM PROVIDED HISTORY: Reason for Exam: C/o chest pressure, SOB - worse on exertion. States has been ongoing for 2-3 weeks, worse today. Elevated D-dimer chest pain; suspect PE FINDINGS: Pulmonary Arteries: Pulmonary arteries are suboptimally opacified for evaluation. However, in that context there are likely filling defects within bilateral lower lobe segmental arteries (series 3, image 92 and image 122).. Main pulmonary artery is normal in caliber. No evidence of right heart strain. Mediastinum: No evidence of mediastinal lymphadenopathy. The heart and pericardium demonstrate no acute abnormality. There is no acute abnormality of the thoracic aorta. Aberrant right subclavian artery. Lungs/pleura: The lungs are without acute process. No focal consolidation or pulmonary edema. No evidence of pleural effusion or pneumothorax. There is a 0.5 cm nodule within the right lower lobe (series 4, image 27). Additional 3 mm nodule in the right middle lobe (series 4, image 27). Upper Abdomen: Tiny sliding hiatal hernia. Otherwise, limited images of the upper abdomen are unremarkable. Soft Tissues/Bones: No acute bone or soft tissue abnormality. IMPRESSION: Suboptimal bolus timing for evaluation of the pulmonary arteries. In that context, there is suspected low burden pulmonary embolism within bilateral lower lobe segmental arteries. No evidence of right heart strain. Few scattered sub 0.6 cm nodules. Depending on patient risk factors an optional CT chest in 12 months can be obtained per Fleischner criteria if clinically appropriate. Critical results were called by Dr. Adebayo Jenkins to BARBIE GORDON on 07/28/2023 at 22:00. I have personally reviewed the images of this examination and agree with the resident's findings and interpretation. Interpreted by: Fran Ramírez Preliminary Report By: Adebayo Jenkins Electronically signed By Fran Ramírez Dictated Date: 07/28/2023 9:55:48 PM Prelim Date: 07/28/2023 10:04:34 PM Sign Date: 07/28/2023 10:13:42 PM Ordering Provider: BARBIE GORDON [facility] ([place]) DIMERon 07-28-2023 D-Dimer 1472 ng/mL D-DU High 0-230 [facility] ([place]) Comment on above: Result Comment: Spec imen hemolyzed. Results may be affected. Results reported in D-DU ng/mL. Positive for D-dimer. A positive D-Dimer may occur in the following: DVT, PE, DIC, Trauma, Cancer, Sepsis, , Rheumatoid arthritis, Myocardial infarction and Cirrhosis. The presence of Rheumatoid Factor and HAMA (human mouse antibody) produces an overestimation of test results. The result of the D-Dimer test should be evaluated in the context of all the clinical and laboratory data available. In those instances where the laboratory result does not agree with the clinical evaluation, additional tests should be performed accordingly. If the D-Dimer result is used to exclude DVT or PE, the recommended cutoff value is less than 230 ng/mL. The D-Dimer result should not be used alone to rule in DVT/PE, but should be used in conjunction with a clinical pretest probability (PTP)assessment model to exclude venous thromboembolism (VTE) in outpatients suspected of deep venous thrombosis (DVT) and pulmonary embolism (PE). Performed By: #### V IDH, CMP, GFR, LIPID #### [facility] [address] [place], [place] [address] #### B12 #### [address] [place] [address] LABORATORYOrdered By: SYSTEM SYSTEM on 07-28-2023 Albumin BCP dye [Mass/Vol] 4.0 G/dL Normal 3.5 - 5.0 G/dL AO ADM SS Albumin/Globulin [Mass ratio] 1.4 {ratio} Normal 1.1 - 2.5 ratio AO ADM SS ALP [Catalytic activity/Vol] 77 U/L Normal 40 - 135 U/L AO ADM SS ALT With P-5'-P [Catalytic activity/Vol] 42 U/L Normal 14 - 59 U/L AO ADM SS AST With P-5'-P [Catalytic activity/Vol] 25 U/L Normal 10 - 40 U/L AO ADM SS Basophil, Absolute 0.1 103/mcL Normal 0.0 - 0.2 10^3/mcL AO Workflow SS Basophils/100 WBC (Bld) 1.0 % Normal 0.0 - 2.5 % AO Workflow SS Bilirubin [Mass/Vol] 0.6 mg/dL Normal 0.2 - 1 .0 mg/dL AO ADM SS Comment on above: Interpretive Data: U se of this assay is not recommended for patients undergoing treatment with eltrombopag due to the potential for falsely elevated results. Calcium [Mass/Vol] 9.3 mg/dL Normal 8.4 - 10. 2 mg/dL AO ADM SS Chloride [Moles/Vol] 103 mmol/L Normal 98 - 10 7 mmol/L AO ADM SS CO2 [Moles/Vol] 18 mmol/L Low 22 - 29 mmol/L AO ADM SS Creatinine [Mass/Vol] 1.68 mg/dL High 0.55 - 1.02 mg/dL AO ADM SS Electrolyte Balance 15.0 mEq/L Normal 4.0 - 15 .0 mEq/L AO ADM SS Eosinophil, Absolute 0.1 103/mcL Normal 0.0 - 0 .4 10^3/mcL AO Workflow SS Eosinophils/100 WBC (Bld) 1.1 % Normal 0.0 - 7.0 % AO Workflow SS Erythrocyte distribution width (RBC) [Ratio] 13.8 % Normal 11.5 - 14.5 % AO Workflow SS GFR/1.73 sq M.predicted among blacks MDRD (S/P/Bld) [Vol rate/Area] 38 ml/min/1.73sqm Invalid Interpretation Code AO Chemistry S Comment on above: Interpretive Data: GFR Population mean for , Non- Americans Ages 20-29 = 116 mL/min/1.73 sq.m. Ages 30-39 = 107 mL/min/1.73 sq.m. Ages 40-49 = 99 mL/min/1.73 sq.m. Ages 50-59 = 93 mL/min/1.73 sq.m. Ages 60-69 = 85 mL/min/1.73 sq.m. Ages 70+ = 75 mL/min/1.73 sq.m. Chronic Kidney Disease: Less than 60 mL/min/1.73 square meters End Stage Renal Disease: Less than 15 mL/min/1.73 square meters GFR/1.73 sq M.predicted among non-blacks MDRD (S/P/Bld) [Vol rate/Area] 31 ml/min/1.73sqm Invalid Interpretation Code AO Chemistry S Comment on above: Interpretive Data: GFR Population mean for , Non- Americans Ages 20-29 = 116 mL/min/1.73 sq.m. Ages 30-39 = 107 mL/min/1.73 sq.m. Ages 40-49 = 99 mL/min/1.73 sq.m. Ages 50-59 = 93 mL/min/1.73 sq.m. Ages 60-69 = 85 mL/min/1.73 sq.m. Ages 70+ = 75 mL/min/1.73 sq.m. Chronic Kidney Disease: Less than 60 mL/min/1.73 square meters End Stage Renal Disease: Less than 15 mL/min/1.73 square meters Globulin 2.9 G/dL Invalid Interpretation Code AO ADM SS Glucose [Mass/Vol] 111 mg/dL High 70 - 105 mg/dL AO ADM SS Hematocrit (Bld) [Volume fraction] 38.3 % Normal 37.0 - 47.0 % AO Workflow SS Hemoglobin (Bld) [Mass/Vol] 13.4 G/dL Normal 12.0 - 16.0 G/dL AO Workflow SS Lipase [Catalytic activity/Vol] 39 U/L Normal 16 - 77 U/L AO ADM SS Lymphocyte, Absolute 3.4 103/mcL Normal 0.8 - 3 .9 10^3/mcL AO Workflow SS Lymphocytes/100 WBC (Bld) 33.7 % Normal 10.0 - 50.0 % AO Workflow SS MCH (RBC) [Entitic mass] 33.2 pg High 27.0 - 31.2 pg AO Workflow SS MCHC 34.9 G/dL Normal 33.0 - 37.0 G/dL AO Workflow SS MCV (RBC) [Entitic vol] 95.1 fL High 80.0 - 94.0 fL AO Workflow SS Monocyte distribution width Auto (Bld) [Entitic vol] 19.52 1 Normal 0.00 - 20.00 AO Workflow SS Comment on above: Result Comment: For ED adult patients suspected of sepsis, MDW<=20.0 does not rule out sepsis or risk of sepsis Monocyte, Absolute 0.9 103/mcL Normal 0.2 - 1.0 10^3/mcL AO Workflow SS Monocytes/100 WBC (Bld) 8.9 % Normal 1.7 - 13.0 % AO Workflow SS Natriuretic peptide.B prohormone N-Terminal [Mass/Vol] 17 pg/mL Normal 0 - 125 pg/mL AO ADM SS Comment on above: Interpretive Data: N T-proBNP results of less than 300 pg/mL effectively rules out acute congestive heart failure with 99% negative predictive value. Neutrophil, Absolute 5.6 103/mcL Normal 2.9 - 6 .2 10^3/mcL AO Workflow SS Neutrophils/100 WBC (Bld) 55.3 % Normal 37.0 - 80.0 % AO Workflow SS Platelet mean volume (Bld) [Entitic vol] 7.8 fL Normal 7.4 - 10.4 fL AO Workflow SS Platelets (Bld) [#/Vol] 274 103/mcL Normal 130 - 400 10^3/mcL AO Workflow SS Potassium [Moles/Vol] 5.3 mmol/L High 3.5 - 5.1 mmol/L AO ADM SS Protein [Mass/Vol] 6.9 G/dL Normal 6.4 - 8.2 G/dL AO ADM SS RBC (Bld) [#/Vol] 4.03 106/mcL Low 4.20 - 5.4 0 10^6/mcL AO Workflow SS Sodium [Moles/Vol] 136 mmol/L Normal 136 - 145 mmol/L AO ADM SS Urea nitrogen [Mass/Vol] 42 mg/dL High 7 - 18 mg/dL AO ADM SS Urea nitrogen/Creatinine [Mass ratio] 25 ratio Normal 7 - 27 ratio AO ADM SS WBC (Bld) [#/Vol] 10.2 103/mcL Normal 4.6 - 10.8 10^3/mcL AO Workflow SS LABORATORYOrdered By: Ronan Campbell on 07-28-2023 aPTT Coag (PPP) [Time] 29.6 s Normal 25.0 - 35.0 seconds AO [facility] SS Comment on above: Interpretive Data: F or Heparin anticoagulation therapy, the recommended therapeutic range is: 45.4-75.9 seconds. Patients on heparin therapy may have an extreme result. Fibrin D-dimer DDU (PPP) [Mass/Vol] 1472 ng/mL D-DU High 0 - 230 ng/mL D-DU AO [facility] SS Comment on above: Result Comment: Spec imen hemolyzed. Results may be affected. Results reported in D-DU ng/mL. Positive for D-dimer. A positive D-Dimer may occur in the following: DVT, PE, DIC, Trauma, Cancer, Sepsis, , Rheumatoid arthritis, Myocardial infarction and Cirrhosis. The presence of Rheumatoid Factor and HAMA (human mouse antibody) produces an overestimation of test results. Interpretive Data: Johnathon finley result of the D-Dimer test should be evaluated in the context of all the clinical and laboratory data available. In those instances where the laboratory result does not agree with the clinical evaluation, additional tests should be performed accordingly. If the D-Dimer result is used to exclude DVT or PE, the recommended cutoff value is less than 230 ng/mL. The D-Dimer result should not be used alone to rule in DVT/PE, but should be used in conjunction with a clinical pretest probability (PTP)assessment model to exclude venous thromboembolism (VTE) in outpatients suspected of deep venous thrombosis (DVT) and pulmonary embolism (PE). Heparin dose (APTT) None Normal AO Co agulation S INR Coag (PPP) [Relative time] 1.0 {INR} Invalid Interpretation Code AO [facility] SS Comment on above: Interpretive Data: Johnathon finley [employer] (CHEST, 1992, 102:[id number]) recommended therapeutic range for oral anticoagulant therapy is: LOW RISK: Prophylaxis of venous thrombosis INR: 2.0-3.0 Treatment of pulmonary embolism 2.0-3.0 Prevention of systemic embolism 2.0-3.0 HIGH RISK: Mechanical prosthetic valves 2.5-3.5 PT Coag (PPP) [Time] 11.1 s Normal 9.0 - 1 4.4 seconds AO [facility] SS LIPon 07-28-2023 Lipase Level 39 U/L Normal 16-77 [facility] ([place]) Comment on above: Performed By: #### G FR, PBNP, LIP, MDW, CMP, ADIFF, CBC, ANEU, TROPHS #### [address] [address] Laboratory - Chemistry and C hemistry - challengeOrdered By: SYSTEM SYSTEM on 07-28-2023 Troponin I.cardiac DL <= 0.01 ng/mL [Mass/Vol] ng/L Normal 0 - 51 ng/L AO ADM SS Comment on above: Interpretive Data: H igh Sensitive Troponin I Reference Ranges: Female: 0-51 ng/L Male: 0-76 ng/L Testing performed on Rayspan using a homogeneous sandwich chemiluminescent immunoassay based on [employer] technology. PBNPon 07-28-2023 Natriuretic peptide B (Bld) [Mass/Vol] 17 pg/mL Normal 0-125 [facility] ([place]) Comment on above: Result Comment: NT-p roBNP results of less than 300 pg/mL effectively rules out acute congestive heart failure with 99% negative predictive value. Performed By: #### V IDH, CMP, GFR, LIPID #### [address] [address] #### B12 #### [address] [address] PROon 07-28-2023 PT Coag (PPP) [Time] 11.1 s Normal 9.0-14.4 [facility] ([place]) Comment on above: Performed By: #### V IDH, CMP, GFR, LIPID #### [address] [address] #### B12 #### [address] [address] PT International Ratio 1.0 Normal [facility] ([place]) Comment on above: Result Comment: [employer] (CHEST, 1991, 102:[id number]) recommended therapeutic range for oral anticoagulant therapy is: LOW RISK: Prophylaxis of venous thrombosis INR: 2.0-3.0 Treatment of pulmonary embolism 2.0-3.0 Prevention of systemic embolism 2.0-3.0 HIGH RISK: Mechanical prosthetic valves 2.5-3.5 Performed By: #### V IDH, CMP, GFR, LIPID #### [address] [address] #### B12 #### [address] [address] [facility] 07-28-2023 High Sensitivity Troponin I <4 Normal 0-51 [facility] ([place]) Comment on above: Result Comment: High Sensitive Troponin I Reference Ranges: Female: 0-51 ng/L Male: 0-76 ng/L Testing performed on Rayspan using a homogeneous sandwich chemiluminescent immunoassay based on [employer] technology. Performed By: #### V IDH, CMP, GFR, LIPID #### [address] [address] #### B12 #### [place] [address] High Sensitivity Troponin I <4 Normal 0-51 [facility] ([place]) Comment on above: Result Comment: High Sensitive Troponin I Reference Ranges: Female: 0-51 ng/L Male: 0-76 ng/L Testing performed on Rayspan using a homogeneous sandwich chemiluminescent immunoassay based on [employer] technology. Performed By: #### V IDH, CMP, GFR, LIPID #### [address] [address] #### B12 #### [address] [address] XR CHEST 1 VIEWon 07-28-2023 XR CHEST 1 VIEW ORIGINAL EXAMINATION: ONE XRAY VIEW OF THE CHEST 07/28/2023 8:44 pm COMPARISON: Radiograph of the chest December 10, 2020 HISTORY: ORDERING SYSTEM PROVIDED HISTORY: Reason for Exam: C/o chest pressure, SOB - worse on exertion. States has been ongoing for 2-3 weeks, worse today. chest pain FINDINGS: Cardiomediastinal silhouette is normal in size. Costophrenic angles are sharp. No radiographic pneumothorax. No focal consolidation. Degenerative changes of the spine. IMPRESSION: No acute radiographic findings. Interpreted by: Fran Ramírez Preliminary Report By: Fran Ramírez Electronically signed By Fran Ramírez Dictated Date: 07/28/2023 8:49:42 PM Prelim Date: 07/28/2023 8:50:15 PM Sign Date: 07/28/2023 8:50:15 PM Ordering Provider: BARBIE Trevino [facility] ([place]) .Auto Diffon 02-12-2023 Basophil, Absolute 0.1 10 3/mcL Normal 0.0-0.2 [facility] ([place]) Comment on above: Performed By: #### V IDH, CMP, GFR, LIPID #### [place] [address] #### B12 #### [address] [address] Basophils/100 WBC (Bld) 0.8 % Normal 0.0-2.5 [facility] ([place]) Comment on above: Performed By: #### V IDH, CMP, GFR, LIPID #### [place] [address] #### B12 #### [address] [address] Eosinophil, Absolute 0.1 10 3/mcL Normal 0.0-0.4 [facility] ([place]) Comment on above: Performed By: #### V IDH, CMP, GFR, LIPID #### [place] [address] #### B12 #### [address] [address] Eosinophils/100 WBC (Bld) 1.3 % Normal 0.0-7.0 [facility] ([place]) Comment on above: Performed By: #### V IDH, CMP, GFR, LIPID #### [place] [address] #### B12 #### [address] [address] Lymphocyte, Absolute 3.2 10 3/mcL Normal 0.8-3.9 [facility] ([place]) Comment on above: Performed By: #### V IDH, CMP, GFR, LIPID #### [address] [address] #### B12 #### [address] [address] Lymphocytes/100 WBC (Bld) 40.8 % Normal 10.0-50.0 [facility] ([place]) Comment on above: Performed By: #### V IDH, CMP, GFR, LIPID #### [place] [address] #### B12 #### [address] [address] Monocyte, Absolute 0.5 10 3/mcL Normal 0.2-1.0 [facility] ([place]) Comment on above: Performed By: #### V IDH, CMP, GFR, LIPID #### [address] [address] #### B12 #### [address] [address] Monocytes/100 WBC (Bld) 6.5 % Normal 1.7-13.0 [facility] ([place]) Comment on above: Performed By: #### V IDH, CMP, GFR, LIPID #### [place] [address] #### B12 #### [address] [address] Neutrophils/100 WBC (Bld) 50.6 % Normal 37.0-80.0 [facility] ([place]) Comment on above: Performed By: #### V IDH, CMP, GFR, LIPID #### [place] [address] #### B12 #### [address] [address] .GFRon 02-12-2023 GFR 81 ml/min/1.73sqm Normal [facility] ([place]) Comment on above: Result Comment: GFR Population mean for , Non- Americans Ages 20-29 = 116 mL/min/1.73 sq.m. Ages 30-39 = 107 mL/min/1.73 sq.m. Ages 40-49 = 99 mL/min/1.73 sq.m. Ages 50-59 = 93 mL/min/1.73 sq.m. Ages 60-69 = 85 mL/min/1.73 sq.m. Ages 70+ = 75 mL/min/1.73 sq.m. Chronic Kidney Disease: Less than 60 mL/min/1.73 square meters End Stage Renal Disease: Less than 15 mL/min/1.73 square meters Performed By: #### V IDH, CMP, GFR, LIPID #### [address] [address] #### B12 #### [address] [address] GFR Non- 67 ml/min/1.73sqm Normal [facility] ([place]) Comment on above: Result Comment: GFR Population mean for , Non- Americans Ages 20-29 = 116 mL/min/1.73 sq.m. Ages 30-39 = 107 mL/min/1.73 sq.m. Ages 40-49 = 99 mL/min/1.73 sq.m. Ages 50-59 = 93 mL/min/1.73 sq.m. Ages 60-69 = 85 mL/min/1.73 sq.m. Ages 70+ = 75 mL/min/1.73 sq.m. Chronic Kidney Disease: Less than 60 mL/min/1.73 square meters End Stage Renal Disease: Less than 15 mL/min/1.73 square meters Performed By: #### V IDH, CMP, GFR, LIPID #### [address] [address] #### B12 #### [address] [address] .NEUABSon 02-12-2023 Neutrophil, Absolute 4.0 10 3/mcL Normal 2.9-6.2 [facility] ([place]) Comment on above: Performed By: #### V IDH, CMP, GFR, LIPID #### [address] [address] #### B12 #### [address] [address] B12on 02-12-2023 Cobalamin (Vitamin B12) [Mass/Vol] 508 pg/mL Normal 211-911 [facility] ([place]) Comment on above: Performed By: #### V IDH, CMP, GFR, LIPID #### [place] [address] #### B12 #### [address] [address] CBCon 02-12-2023 Erythrocyte distribution width (RBC) [Ratio] 15.5 % High 11.5-14.5 [facility] ([place]) Comment on above: Performed By: #### V IDH, CMP, GFR, LIPID #### [place] [address] #### B12 #### [place] [address] Hematocrit (Bld) [Volume fraction] 40.1 % Normal 37.0-47.0 [facility] ([place]) Comment on above: Performed By: #### V IDH, CMP, GFR, LIPID #### [place] [address] #### B12 #### [place] [address] Hgb 13.1 G/dL Normal 12.0-16.0 [facility] ([place]) Comment on above: Performed By: #### V IDH, CMP, GFR, LIPID #### [place] [address] #### B12 #### [place] [address] MCH (RBC) [Entitic mass] 31.8 pg High 27.0-31.2 [facility] ([place]) Comment on above: Performed By: #### V IDH, CMP, GFR, LIPID #### [place] [address] #### B12 #### [place] [address] MCHC 32.6 G/dL Low 33.0-37.0 [facility] ([place]) Comment on above: Performed By: #### V IDH, CMP, GFR, LIPID #### [place] [address] #### B12 #### [address] [address] MCV (RBC) [Entitic vol] 97.8 fL High 80.0-94.0 [facility] ([place]) Comment on above: Performed By: #### V IDH, CMP, GFR, LIPID #### [place] [address] #### B12 #### [place] [address] Platelet 236 10 3/mcL Normal 130-400 [facility] ([place]) Comment on above: Performed By: #### V IDH, CMP, GFR, LIPID #### [place] [address] #### B12 #### [place] [address] Platelet mean volume (Bld) [Entitic vol] 7.8 fL Normal 7.4-10.4 [facility] ([place]) Comment on above: Performed By: #### V IDH, CMP, GFR, LIPID #### [place] [address] #### B12 #### [place] [address] RBC 4.10 10 6/mcL Low 4.20-5.40 [facility] ([place]) Comment on above: Performed By: #### V IDH, CMP, GFR, LIPID #### [place] [address] #### B12 #### [place] [address] WBC 7.8 10 3/mcL Normal 4.6-10.8 [facility] ([place]) Comment on above: Performed By: #### V IDH, CMP, GFR, LIPID #### [place] [address] #### B12 #### [place] [id number] CMPon 02-12-2023 Albumin Level 3.7 G/dL Normal 3.5-5.0 [facility] ([place]) Comment on above: Performed By: #### V IDH, CMP, GFR, LIPID #### [address] [address] #### B12 #### [address] [address] Albumin/Globulin [Mass ratio] 1.3 {ratio} Normal 1.1-2.5 [facility] ([place]) Comment on above: Performed By: #### V IDH, CMP, GFR, LIPID #### [place] [address] #### B12 #### [address] [address] ALP [Catalytic activity/Vol] 85 U/L Normal 40-135 [facility] ([place]) Comment on above: Performed By: #### V IDH, CMP, GFR, LIPID #### [address] [address] #### B12 #### [address] [address] ALT [Catalytic activity/Vol] 32 U/L Normal 14-59 [facility] ([place]) Comment on above: Performed By: #### V IDH, CMP, GFR, LIPID #### [address] [address] #### B12 #### [address] [address] AST [Catalytic activity/Vol] 12 U/L Normal 10-40 [facility] ([place]) Comment on above: Performed By: #### V IDH, CMP, GFR, LIPID #### [address] [address] #### B12 #### [address] [address] Bili Total 0.6 mg/dL Normal 0.2-1.0 [facility] ([place]) Comment on above: Result Comment: Use of this assay is not recommended for patients undergoing treatment with eltrombopag due to the potential for falsely elevated results. Performed By: #### V IDH, CMP, GFR, LIPID #### [place] [address] #### B12 #### [address] [address] BUN/Creatinine Ratio 28 ratio High 7-27 [facility] ([place]) Comment on above: Performed By: #### V IDH, CMP, GFR, LIPID #### [place] [address] #### B12 #### [address] [address] Calcium [Mass/Vol] 9.4 mg/dL Normal 8.4-10.2 [facility] ([place]) Comment on above: Performed By: #### V IDH, CMP, GFR, LIPID #### [place] [address] #### B12 #### [place] [address] Chloride [Moles/Vol] 105 mmol/L Normal 98-107 [facility] ([place]) Comment on above: Performed By: #### V IDH, CMP, GFR, LIPID #### [place] [address] #### B12 #### [address] [address] CO2 [Moles/Vol] 26 mmol/L Normal 22-29 [facility] ([place]) Comment on above: Performed By: #### V IDH, CMP, GFR, LIPID #### [place] [address] #### B12 #### [address] [address] Creatinine [Mass/Vol] 0.87 mg/dL Normal 0.55-1.02 [facility] ([place]) Comment on above: Performed By: #### V IDH, CMP, GFR, LIPID #### [place] [address] #### B12 #### [address] [address] Electrolyte Balance 9.0 mEq/L Normal 4.0-15.0 [facility] ([place]) Comment on above: Performed By: #### V IDH, CMP, GFR, LIPID #### [address] [address] #### B12 #### [address] [address] Globulin 2.8 G/dL Normal [facility] ([place]) Comment on above: Performed By: #### V IDH, CMP, GFR, LIPID #### [place] [address] #### B12 #### [address] [address] Glucose [Mass/Vol] 85 mg/dL Normal 70-105 [facility] ([place]) Comment on above: Performed By: #### V IDH, CMP, GFR, LIPID #### [place] [address] #### B12 #### [address] [address] Potassium [Moles/Vol] 4.8 mmol/L Normal 3.5-5.1 [facility] ([place]) Comment on above: Performed By: #### V IDH, CMP, GFR, LIPID #### [place] [address] #### B12 #### [address] [address] Sodium [Moles/Vol] 140 mmol/L Normal 136-145 [facility] ([place]) Comment on above: Performed By: #### V IDH, CMP, GFR, LIPID #### [place] [address] #### B12 #### [address] [address] Total Protein 6.5 G/dL Normal 6.4-8.2 [facility] ([place]) Comment on above: Performed By: #### V IDH, CMP, GFR, LIPID #### [place] [address] #### B12 #### [place] [address] Urea nitrogen [Mass/Vol] 24 mg/dL High 7-18 [facility] ([place]) Comment on above: Performed By: #### V IDH, CMP, GFR, LIPID #### [place] [address] #### B12 #### [place] [address] FEon 02-12-2023 Iron [Mass/Vol] 85 ug/dL Normal 50-170 [facility] ([place]) Comment on above: Performed By: #### V IDH, CMP, GFR, LIPID #### [place] [address] #### B12 #### [place] [address] Gil 02-12-2023 Ferritin [Mass/Vol] 55.0 ng/mL Normal 8.0-252.0 [facility] ([place]) Comment on above: Performed By: #### V IDH, CMP, GFR, LIPID #### [place] [address] #### B12 #### [place] [address] LABORATORYOrdered By: SYSTEM SYSTEM on 02-12-2023 25-hydroxyvitamin D3 [Mass/Vol] 27.9 ng/mL Invalid Interpretation Code AO ADM SS Comment on above: Interpretive Data: I nterpretive Values Based on Total 25(OH) Vitamin D: Deficient <20 ng/mL Insufficient 20 - <30 ng/mL Sufficient 30-100 ng/mL Albumin BCP dye [Mass/Vol] 3.7 G/dL Normal 3.5 - 5.0 G/dL AO ADM SS Albumin/Globulin [Mass ratio] 1.3 {ratio} Normal 1.1 - 2.5 ratio AO ADM SS ALP [Catalytic activity/Vol] 85 U/L Normal 40 - 135 U/L AO ADM SS ALT With P-5'-P [Catalytic activity/Vol] 32 U/L Normal 14 - 59 U/L AO ADM SS AST With P-5'-P [Catalytic activity/Vol] 12 U/L Normal 10 - 40 U/L AO ADM SS Basophil, Absolute 0.1 103/mcL Normal 0.0 - 0.2 10^3/mcL AO Workflow SS Basophils/100 WBC (Bld) 0.8 % Normal 0.0 - 2.5 % AO Workflow SS Bilirubin [Mass/Vol] 0.6 mg/dL Normal 0.2 - 1 .0 mg/dL AO ADM SS Comment on above: Interpretive Data: U se of this assay is not recommended for patients undergoing treatment with eltrombopag due to the potential for falsely elevated results. Calcium [Mass/Vol] 9.4 mg/dL Normal 8.4 - 10. 2 mg/dL AO ADM SS Chloride [Moles/Vol] 105 mmol/L Normal 98 - 10 7 mmol/L AO ADM SS CO2 [Moles/Vol] 26 mmol/L Normal 22 - 29 mmol/L AO ADM SS Cobalamin (Vitamin B12) [Mass/Vol] 508 pg/mL Normal 211 - 911 pg/mL AH ADM SS Creatinine [Mass/Vol] 0.87 mg/dL Normal 0.55 - 1.02 mg/dL AO ADM SS Electrolyte Balance 9.0 mEq/L Normal 4.0 - 15 .0 mEq/L AO ADM SS Eosinophil, Absolute 0.1 103/mcL Normal 0.0 - 0 .4 10^3/mcL AO Workflow SS Eosinophils/100 WBC (Bld) 1.3 % Normal 0.0 - 7.0 % AO Workflow SS Erythrocyte distribution width (RBC) [Ratio] 15.5 % High 11.5 - 14.5 % AO Workflow SS Ferritin [Mass/Vol] 55.0 ng/mL Normal 8.0 - 25 2.0 ng/mL AO ADM SS GFR/1.73 sq M.predicted among blacks MDRD (S/P/Bld) [Vol rate/Area] 81 ml/min/1.73sqm Invalid Interpretation Code AO Chemistry S Comment on above: Interpretive Data: GFR Population mean for , Non- Americans Ages 20-29 = 116 mL/min/1.73 sq.m. Ages 30-39 = 107 mL/min/1.73 sq.m. Ages 40-49 = 99 mL/min/1.73 sq.m. Ages 50-59 = 93 mL/min/1.73 sq.m. Ages 60-69 = 85 mL/min/1.73 sq.m. Ages 70+ = 75 mL/min/1.73 sq.m. Chronic Kidney Disease: Less than 60 mL/min/1.73 square meters End Stage Renal Disease: Less than 15 mL/min/1.73 square meters GFR/1.73 sq M.predicted among non-blacks MDRD (S/P/Bld) [Vol rate/Area] 67 ml/min/1.73sqm Invalid Interpretation Code AO Chemistry S Comment on above: Interpretive Data: GFR Population mean for , Non- Americans Ages 20-29 = 116 mL/min/1.73 sq.m. Ages 30-39 = 107 mL/min/1.73 sq.m. Ages 40-49 = 99 mL/min/1.73 sq.m. Ages 50-59 = 93 mL/min/1.73 sq.m. Ages 60-69 = 85 mL/min/1.73 sq.m. Ages 70+ = 75 mL/min/1.73 sq.m. Chronic Kidney Disease: Less than 60 mL/min/1.73 square meters End Stage Renal Disease: Less than 15 mL/min/1.73 square meters Globulin 2.8 G/dL Invalid Interpretation Code AO ADM SS Glucose [Mass/Vol] 85 mg/dL Normal 70 - 105 mg/dL AO ADM SS Hematocrit (Bld) [Volume fraction] 40.1 % Normal 37.0 - 47.0 % AO Workflow SS Hemoglobin (Bld) [Mass/Vol] 13.1 G/dL Normal 12.0 - 16.0 G/dL AO Workflow SS Iron [Mass/Vol] 85 ug/dL Normal 50 - 170 mcg/dL AO ADM SS Lymphocyte, Absolute 3.2 103/mcL Normal 0.8 - 3 .9 10^3/mcL AO Workflow SS Lymphocytes/100 WBC (Bld) 40.8 % Normal 10.0 - 50.0 % AO Workflow SS MCH (RBC) [Entitic mass] 31.8 pg High 27.0 - 31.2 pg AO Workflow SS MCHC 32.6 G/dL Low 33.0 - 37.0 G/dL AO Workflow SS MCV (RBC) [Entitic vol] 97.8 fL High 80.0 - 94.0 fL AO Workflow SS Monocyte, Absolute 0.5 103/mcL Normal 0.2 - 1.0 10^3/mcL AO Workflow SS Monocytes/100 WBC (Bld) 6.5 % Normal 1.7 - 13.0 % AO Workflow SS Neutrophil, Absolute 4.0 103/mcL Normal 2.9 - 6 .2 10^3/mcL AO Workflow SS Neutrophils/100 WBC (Bld) 50.6 % Normal 37.0 - 80.0 % AO Workflow SS Platelet mean volume (Bld) [Entitic vol] 7.8 fL Normal 7.4 - 10.4 fL AO Workflow SS Platelets (Bld) [#/Vol] 236 103/mcL Normal 130 - 400 10^3/mcL AO Workflow SS Potassium [Moles/Vol] 4.8 mmol/L Normal 3.5 - 5.1 mmol/L AO ADM SS Protein [Mass/Vol] 6.5 G/dL Normal 6.4 - 8.2 G/dL AO ADM SS RBC (Bld) [#/Vol] 4.10 106/mcL Low 4.20 - 5.4 0 10^6/mcL AO Workflow SS Sodium [Moles/Vol] 140 mmol/L Normal 136 - 145 mmol/L AO ADM SS TSH Qn 2.56 m[IU]/L Normal 0.36 - 3.74 mcIU/mL AO ADM SS Urea nitrogen [Mass/Vol] 24 mg/dL High 7 - 18 mg/dL AO ADM SS Urea nitrogen/Creatinine [Mass ratio] 28 ratio High 7 - 27 ratio AO ADM SS WBC (Bld) [#/Vol] 7.8 103/mcL Normal 4.6 - 10.8 10^3/mcL AO Workflow SS LABORATORYOrdered By: Olivia Huggins on 02-12-2023 Cholesterol [Mass/Vol] 229 mg/dL High 0 - 200 mg/dL AO ADM SS Comment on above: Interpretive Data: C holesterol Reference Interval: Less than 200 Desirable 200-239 Borderline high risk 240 and above High risk Cholesterol in HDL [Mass/Vol] 66 mg/dL High 40 - 60 mg/dL AO ADM SS Cholesterol in LDL [Mass/Vol] 110 mg/dL Normal 0 - 130 mg/dL AO ADM SS Triglyceride [Mass/Vol] 265 mg/dL High 0 - 150 mg/dL AO ADM SS Comment on above: Interpretive Data: T riglyceride Reference Interval: Less than 150 Normal 150-199 Borderline high risk 200-499 High risk 500 or higher Very high risk LIPIDon 02-12-2023 Cholesterol [Mass/Vol] 229 mg/dL High 0-200 [facility] ([place]) Comment on above: Result Comment: Chol esterol Reference Interval: Less than 200 Desirable 200-239 Borderline high risk 240 and above High risk Performed By: #### V IDH, CMP, GFR, LIPID #### [address] [id number] #### B12 #### [address] [address] Cholesterol in HDL [Mass/Vol] 66 mg/dL High 40-60 [facility] ([place]) Comment on above: Performed By: #### V IDH, CMP, GFR, LIPID #### [address] [id number] #### B12 #### [address] [address] Cholesterol in LDL [Mass/Vol] 110 mg/dL Normal 0-130 [facility] ([place]) Comment on above: Performed By: #### V IDH, CMP, GFR, LIPID #### [address] [id number] #### B12 #### [address] [address] Triglyceride [Mass/Vol] 265 mg/dL High 0-150 [facility] ([place]) Comment on above: Result Comment: Trig lyceride Reference Interval: Less than 150 Normal 150-199 Borderline high risk 200-499 High risk 500 or higher Very high risk Performed By: #### V IDH, CMP, GFR, LIPID #### [address] [address] #### B12 #### [address] [address] TSHon 02-12-2023 TSH Qn 2.56 m[IU]/L Normal 0.36-3.74 [facility] ([place]) Comment on above: Performed By: #### V IDH, CMP, GFR, LIPID #### [address] [address] #### B12 #### [address] [address] VIDHon 02-12-2023 Vit. D 25-Hydroxy 27.9 ng/mL [facility] ([place]) Comment on above: Result Comment: Inte rpretive Values Based on Total 25(OH) Vitamin D: Deficient <20 ng/mL Insufficient 20 - <30 ng/mL Sufficient 30-100 ng/mL Performed By: #### V IDH, CMP, GFR, LIPID #### [address] [address] #### B12 #### [address] [address] XR FINGER 5TH DIGIT 3 VIEWS LEFTon 02-10-2023 XR FINGER 5TH DIGIT 3 VIEWS LEFT ORIGINAL EXAMINATION: 3 XRAY VIEWS OF THE [...] Sign Date: 02/10/2023 10:41:28 PM Ordering Provider: KEVON HERNANDEZ [facility] ([place]) XR FINGER 5TH DIGIT 3 VIEWS LEFT ORIGINAL EXAMINATION: 3 XRAY VIEWS OF THE [...] Sign Date: 02/10/2023 7:19:19 PM Ordering Provider: KEVON HERNANDEZ [facility] ([place]) US PELVIS NON-OB W/TRANSVAGI NALon 11-09-2022 US PELVIS NON-OB W/TRANSVAGINAL ORIGINAL EXAMINATION: TRANSVAGINAL PELVIC ULTRASOUND11/09/2022 2:13 pm [...] Date: 11/09/2022 4:50:37 PM Ordering Provider: VICTORIA RANDALL [facility] ([place]) LABORATORYOrdered By: doo on 08-21-2022 25-hydroxyvitamin D3 [Mass/Vol] 26.4 ng/mL Invalid Interpretation Code AO ADM SS Albumin BCP dye [Mass/Vol] 3.8 G/dL Invalid Interpretation Code 3.5 - 5.0 G/dL AO ADM SS Albumin/Globulin [Mass ratio] 1.6 {ratio} Invalid Interpretation Code 1.1 - 2.5 ratio AO ADM SS ALP [Catalytic activity/Vol] 103 U/L Invalid Interpretation Code 40 - 135 U/L AO ADM SS ALT With P-5'-P [Catalytic activity/Vol] 30 U/L Invalid Interpretation Code 14 - 59 U/L AO ADM SS AST With P-5'-P [Catalytic activity/Vol] 18 U/L Invalid Interpretation Code 10 - 40 U/L AO ADM SS Bilirubin [Mass/Vol] 0.4 mg/dL Invalid Interpretation Code 0.2 - 1.0 mg/dL AO ADM SS Calcium [Mass/Vol] 8.8 mg/dL Invalid Interpretation Code 8.4 - 10.2 mg/dL AO ADM SS Chloride [Moles/Vol] 106 mmol/L Invalid Interpretation Code 98 - 107 mmol/L AO ADM SS CO2 [Moles/Vol] 29 mmol/L Invalid Interpretation Code 22 - 29 mmol/L AO ADM SS Cobalamin (Vitamin B12) [Mass/Vol] 411 pg/mL Invalid Interpretation Code 211 - 911 pg/mL AH ADM SS Creatinine [Mass/Vol] 0.88 mg/dL Invalid Interpretation Code 0.55 - 1.02 mg/dL AO ADM SS Electrolyte Balance 6.0 mEq/L Invalid Interpretation Code 4.0 - 15.0 mEq/L AO ADM SS Ferritin [Mass/Vol] 43.0 ng/mL Invalid Interpretation Code 8.0 - 252.0 ng/mL AO ADM SS GFR/1.73 sq M.predicted among blacks MDRD (S/P/Bld) [Vol rate/Area] 80 ml/min/1.73sqm Invalid Interpretation Code AO Chemistry S GFR/1.73 sq M.predicted among non-blacks MDRD (S/P/Bld) [Vol rate/Area] 66 ml/min/1.73sqm Invalid Interpretation Code AO Chemistry S Globulin 2.4 G/dL Invalid Interpretation Code AO ADM SS Glucose [Mass/Vol] 104 mg/dL Invalid Interpretation Code 70 - 105 mg/dL AO ADM SS Iron [Mass/Vol] 67 ug/dL Invalid Interpretation Code 50 - 170 mcg/dL AO ADM SS Potassium [Moles/Vol] 4.2 mmol/L Invalid Interpretation Code 3.5 - 5.1 mmol/L AO ADM SS Protein [Mass/Vol] 6.2 G/dL Invalid Interpretation Code 6.4 - 8.2 G/dL AO ADM SS Sodium [Moles/Vol] 141 mmol/L Invalid Interpretation Code 136 - 145 mmol/L AO ADM SS Urea nitrogen [Mass/Vol] 22 mg/dL Invalid Interpretation Code 7 - 18 mg/dL AO ADM SS Urea nitrogen/Creatinine [Mass ratio] 25 ratio Invalid Interpretation Code 7 - 27 ratio AO ADM SS LABORATORYOrdered By: Tsering Mccoy on 08-21-2022 Albumin DL <= 20 mg/L (U) [Mass/Vol] 300 mcg/dL Invalid Interpretation Code AO ADM SS Albumin/Creatinine DL <= 20 mg/L (U) [Mass ratio] 4 mcg/mg Invalid Interpretation Code 0 - 30 mcg/mg AO ADM SS Basophil, Absolute 0.1 103/mcL Invalid Interpretation Code 0.0 - 0.2 10^3/mcL AO Workflow SS Basophils/100 WBC (Bld) 1.3 % Invalid Interpretation Code 0.0 - 2.5 % AO Workflow SS Cholesterol [Mass/Vol] 169 mg/dL Invalid Interpretation Code 0 - 200 mg/dL AO ADM SS Cholesterol in HDL [Mass/Vol] 59 mg/dL Invalid Interpretation Code 40 - 60 mg/dL AO ADM SS Cholesterol in LDL [Mass/Vol] 75 mg/dL Invalid Interpretation Code 0 - 130 mg/dL AO ADM SS Creatinine (U) [Mass/Vol] 71.4 mg/dL Invalid Interpretation Code 28.0 - 117.0 mg/dL AO ADM SS Eosinophil, Absolute 0.2 103/mcL Invalid Interpretation Code 0.0 - 0.4 10^3/mcL AO Workflow SS Eosinophils/100 WBC (Bld) 3.4 % Invalid Interpretation Code 0.0 - 7.0 % AO Workflow SS Erythrocyte distribution width (RBC) [Ratio] 14.8 % Invalid Interpretation Code 11.5 - 14.5 % AO Workflow SS Hematocrit (Bld) [Volume fraction] 37.0 % Invalid Interpretation Code 37.0 - 47.0 % AO Workflow SS Hemoglobin (Bld) [Mass/Vol] 12.5 G/dL Invalid Interpretation Code 12.0 - 16.0 G/dL AO Workflow SS Lymphocyte, Absolute 1.4 103/mcL Invalid Interpretation Code 0.8 - 3.9 10^3/mcL AO Workflow SS Lymphocytes/100 WBC (Bld) 26.9 % Invalid Interpretation Code 10.0 - 50.0 % AO Workflow SS MCH (RBC) [Entitic mass] 31.5 pg Invalid Interpretation Code 27.0 - 31.2 pg AO Workflow SS MCHC 33.7 G/dL Invalid Interpretation Code 33.0 - 37.0 G/dL AO Workflow SS MCV (RBC) [Entitic vol] 93.3 fL Invalid Interpretation Code 80.0 - 94.0 fL AO Workflow SS Monocyte, Absolute 0.5 103/mcL Invalid Interpretation Code 0.2 - 1.0 10^3/mcL AO Workflow SS Monocytes/100 WBC (Bld) 9.2 % Invalid Interpretation Code 1.7 - 13.0 % AO Workflow SS Neutrophil, Absolute 3.1 103/mcL Invalid Interpretation Code 2.9 - 6.2 10^3/mcL AO Workflow SS Neutrophils/100 WBC (Bld) 59.2 % Invalid Interpretation Code 37.0 - 80.0 % AO Workflow SS Platelet mean volume (Bld) [Entitic vol] 7.6 fL Invalid Interpretation Code 7.4 - 10.4 fL AO Workflow SS Platelets (Bld) [#/Vol] 234 103/mcL Invalid Interpretation Code 130 - 400 10^3/mcL AO Workflow SS RBC (Bld) [#/Vol] 3.97 106/mcL Invalid Interpretation Code 4.20 - 5.40 10^6/mcL AO Workflow SS Triglyceride [Mass/Vol] 174 mg/dL Invalid Interpretation Code 0 - 150 mg/dL AO ADM SS WBC (Bld) [#/Vol] 5.2 103/mcL Invalid Interpretation Code 4.6 - 10.8 10^3/mcL AO Workflow SS LABORATORYOrdered By: Ruth Rocha on 07-19-2022 Basophil, Absolute 0.1 103/mcL Invalid Interpretation Code 0.0 - 0.2 10^3/mcL AO Workflow SS Basophils/100 WBC (Bld) 1.2 % Invalid Interpretation Code 0.0 - 2.5 % AO Workflow SS Eosinophil, Absolute 0.3 103/mcL Invalid Interpretation Code 0.0 - 0.4 10^3/mcL AO Workflow SS Eosinophils/100 WBC (Bld) 3.7 % Invalid Interpretation Code 0.0 - 7.0 % AO Workflow SS Erythrocyte distribution width (RBC) [Ratio] 14.4 % Invalid Interpretation Code 11.5 - 14.5 % AO Workflow SS Hematocrit (Bld) [Volume fraction] 34.9 % Invalid Interpretation Code 37.0 - 47.0 % AO Workflow SS Hemoglobin (Bld) [Mass/Vol] 11.7 G/dL Invalid Interpretation Code 12.0 - 16.0 G/dL AO Workflow SS Lymphocyte, Absolute 2.0 103/mcL Invalid Interpretation Code 0.8 - 3.9 10^3/mcL AO Workflow SS Lymphocytes/100 WBC (Bld) 29.8 % Invalid Interpretation Code 10.0 - 50.0 % AO Workflow SS MCH (RBC) [Entitic mass] 31.2 pg Invalid Interpretation Code 27.0 - 31.2 pg AO Workflow SS MCHC 33.5 G/dL Invalid Interpretation Code 33.0 - 37.0 G/dL AO Workflow SS MCV (RBC) [Entitic vol] 92.9 fL Invalid Interpretation Code 80.0 - 94.0 fL AO Workflow SS Monocyte, Absolute 0.5 103/mcL Invalid Interpretation Code 0.2 - 1.0 10^3/mcL AO Workflow SS Monocytes/100 WBC (Bld) 7.5 % Invalid Interpretation Code 1.7 - 13.0 % AO Workflow SS Neutrophil, Absolute 3.9 103/mcL Invalid Interpretation Code 2.9 - 6.2 10^3/mcL AO Workflow SS Neutrophils/100 WBC (Bld) 57.8 % Invalid Interpretation Code 37.0 - 80.0 % AO Workflow SS Platelet mean volume (Bld) [Entitic vol] 7.5 fL Invalid Interpretation Code 7.4 - 10.4 fL AO Workflow SS Platelets (Bld) [#/Vol] 330 103/mcL Invalid Interpretation Code 130 - 400 10^3/mcL AO Workflow SS RBC (Bld) [#/Vol] 3.76 106/mcL Invalid Interpretation Code 4.20 - 5.40 10^6/mcL AO Workflow SS WBC (Bld) [#/Vol] 6.7 103/mcL Invalid Interpretation Code 4.6 - 10.8 10^3/mcL AO Workflow SS LABORATORYOrdered By: SYSTEM SYSTEM on 07-19-2022 Calcium [Mass/Vol] 9.0 mg/dL Invalid Interpretation Code 8.4 - 10.2 mg/dL AO ADM SS Chloride [Moles/Vol] 108 mmol/L Invalid Interpretation Code 98 - 107 mmol/L AO ADM SS CO2 [Moles/Vol] 29 mmol/L Invalid Interpretation Code 22 - 29 mmol/L AO ADM SS Creatinine [Mass/Vol] 0.74 mg/dL Invalid Interpretation Code 0.55 - 1.02 mg/dL AO ADM SS Electrolyte Balance 7.0 mEq/L Invalid Interpretation Code 4.0 - 15.0 mEq/L AO ADM SS GFR/1.73 sq M.predicted among blacks MDRD (S/P/Bld) [Vol rate/Area] 98 ml/min/1.73sqm Invalid Interpretation Code AO Chemistry S GFR/1.73 sq M.predicted among non-blacks MDRD (S/P/Bld) [Vol rate/Area] 81 ml/min/1.73sqm Invalid Interpretation Code AO Chemistry S Glucose [Mass/Vol] 98 mg/dL Invalid Interpretation Code 70 - 105 mg/dL AO ADM SS Magnesium [Mass/Vol] 1.8 mg/dL Invalid Interpretation Code 1.8 - 2.4 mg/dL AO ADM SS Potassium [Moles/Vol] 4.6 mmol/L Invalid Interpretation Code 3.5 - 5.1 mmol/L AO ADM SS Sodium [Moles/Vol] 144 mmol/L Invalid Interpretation Code 136 - 145 mmol/L AO ADM SS Urea nitrogen [Mass/Vol] 17 mg/dL Invalid Interpretation Code 7 - 18 mg/dL AO ADM SS Urea nitrogen/Creatinine [Mass ratio] 23 ratio Invalid Interpretation Code 7 - 27 ratio AO ADM SS LABORATORYOrdered By: Ruth Rocha on 07-18-2022 Basophil, Absolute 0.1 103/mcL Invalid Interpretation Code 0.0 - 0.2 10^3/mcL AO Workflow SS Basophils/100 WBC (Bld) 1.0 % Invalid Interpretation Code 0.0 - 2.5 % AO Workflow SS Eosinophil, Absolute 0.3 103/mcL Invalid Interpretation Code 0.0 - 0.4 10^3/mcL AO Workflow SS Eosinophils/100 WBC (Bld) 4.1 % Invalid Interpretation Code 0.0 - 7.0 % AO Workflow SS Erythrocyte distribution width (RBC) [Ratio] 14.4 % Invalid Interpretation Code 11.5 - 14.5 % AO Workflow SS Hematocrit (Bld) [Volume fraction] 34.0 % Invalid Interpretation Code 37.0 - 47.0 % AO Workflow SS Hemoglobin (Bld) [Mass/Vol] 11.3 G/dL Invalid Interpretation Code 12.0 - 16.0 G/dL AO Workflow SS Lymphocyte, Absolute 2.2 103/mcL Invalid Interpretation Code 0.8 - 3.9 10^3/mcL AO Workflow SS Lymphocytes/100 WBC (Bld) 30.9 % Invalid Interpretation Code 10.0 - 50.0 % AO Workflow SS MCH (RBC) [Entitic mass] 30.6 pg Invalid Interpretation Code 27.0 - 31.2 pg AO Workflow SS MCHC 33.1 G/dL Invalid Interpretation Code 33.0 - 37.0 G/dL AO Workflow SS MCV (RBC) [Entitic vol] 92.3 fL Invalid Interpretation Code 80.0 - 94.0 fL AO Workflow SS Monocyte, Absolute 0.5 103/mcL Invalid Interpretation Code 0.2 - 1.0 10^3/mcL AO Workflow SS Monocytes/100 WBC (Bld) 7.6 % Invalid Interpretation Code 1.7 - 13.0 % AO Workflow SS Neutrophil, Absolute 3.9 103/mcL Invalid Interpretation Code 2.9 - 6.2 10^3/mcL AO Workflow SS Neutrophils/100 WBC (Bld) 56.4 % Invalid Interpretation Code 37.0 - 80.0 % AO Workflow SS Platelet mean volume (Bld) [Entitic vol] 7.5 fL Invalid Interpretation Code 7.4 - 10.4 fL AO Workflow SS Platelets (Bld) [#/Vol] 338 103/mcL Invalid Interpretation Code 130 - 400 10^3/mcL AO Workflow SS RBC (Bld) [#/Vol] 3.68 106/mcL Invalid Interpretation Code 4.20 - 5.40 10^6/mcL AO Workflow SS WBC (Bld) [#/Vol] 7.0 103/mcL Invalid Interpretation Code 4.6 - 10.8 10^3/mcL AO Workflow SS LABORATORYOrdered By: SYSTEM SYSTEM on 07-18-2022 Calcium [Mass/Vol] 8.8 mg/dL Invalid Interpretation Code 8.4 - 10.2 mg/dL AO ADM SS Chloride [Moles/Vol] 107 mmol/L Invalid Interpretation Code 98 - 107 mmol/L AO ADM SS CO2 [Moles/Vol] 30 mmol/L Invalid Interpretation Code 22 - 29 mmol/L AO ADM SS Creatinine [Mass/Vol] 0.74 mg/dL Invalid Interpretation Code 0.55 - 1.02 mg/dL AO ADM SS Electrolyte Balance 6.0 mEq/L Invalid Interpretation Code 4.0 - 15.0 mEq/L AO ADM SS GFR/1.73 sq M.predicted among blacks MDRD (S/P/Bld) [Vol rate/Area] 98 ml/min/1.73sqm Invalid Interpretation Code AO Chemistry S GFR/1.73 sq M.predicted among non-blacks MDRD (S/P/Bld) [Vol rate/Area] 81 ml/min/1.73sqm Invalid Interpretation Code AO Chemistry S Glucose [Mass/Vol] 98 mg/dL Invalid Interpretation Code 70 - 105 mg/dL AO ADM SS Magnesium [Mass/Vol] 1.9 mg/dL Invalid Interpretation Code 1.8 - 2.4 mg/dL AO ADM SS Potassium [Moles/Vol] 4.5 mmol/L Invalid Interpretation Code 3.5 - 5.1 mmol/L AO ADM SS Sodium [Moles/Vol] 143 mmol/L Invalid Interpretation Code 136 - 145 mmol/L AO ADM SS Urea nitrogen [Mass/Vol] 17 mg/dL Invalid Interpretation Code 7 - 18 mg/dL AO ADM SS Urea nitrogen/Creatinine [Mass ratio] 23 ratio Invalid Interpretation Code 7 - 27 ratio AO ADM SS LABORATORYOrdered By: Kenya Poole on 07-17-2022 Basophil, Absolute 0.1 103/mcL Invalid Interpretation Code 0.0 - 0.2 10^3/mcL AO Workflow SS Basophils/100 WBC (Bld) 1.1 % Invalid Interpretation Code 0.0 - 2.5 % AO Workflow SS Eosinophil, Absolute 0.2 103/mcL Invalid Interpretation Code 0.0 - 0.4 10^3/mcL AO Workflow SS Eosinophils/100 WBC (Bld) 2.9 % Invalid Interpretation Code 0.0 - 7.0 % AO Workflow SS Erythrocyte distribution width (RBC) [Ratio] 14.4 % Invalid Interpretation Code 11.5 - 14.5 % AO Workflow SS Hematocrit (Bld) [Volume fraction] 32.3 % Invalid Interpretation Code 37.0 - 47.0 % AO Workflow SS Hemoglobin (Bld) [Mass/Vol] 10.9 G/dL Invalid Interpretation Code 12.0 - 16.0 G/dL AO Workflow SS Lymphocyte, Absolute 2.0 103/mcL Invalid Interpretation Code 0.8 - 3.9 10^3/mcL AO Workflow SS Lymphocytes/100 WBC (Bld) 25.8 % Invalid Interpretation Code 10.0 - 50.0 % AO Workflow SS MCH (RBC) [Entitic mass] 31.3 pg Invalid Interpretation Code 27.0 - 31.2 pg AO Workflow SS MCHC 33.9 G/dL Invalid Interpretation Code 33.0 - 37.0 G/dL AO Workflow SS MCV (RBC) [Entitic vol] 92.4 fL Invalid Interpretation Code 80.0 - 94.0 fL AO Workflow SS Monocyte, Absolute 0.5 103/mcL Invalid Interpretation Code 0.2 - 1.0 10^3/mcL AO Workflow SS Monocytes/100 WBC (Bld) 6.8 % Invalid Interpretation Code 1.7 - 13.0 % AO Workflow SS Neutrophil, Absolute 4.9 103/mcL Invalid Interpretation Code 2.9 - 6.2 10^3/mcL AO Workflow SS Neutrophils/100 WBC (Bld) 63.4 % Invalid Interpretation Code 37.0 - 80.0 % AO Workflow SS Platelet mean volume (Bld) [Entitic vol] 7.2 fL Invalid Interpretation Code 7.4 - 10.4 fL AO Workflow SS Platelets (Bld) [#/Vol] 319 103/mcL Invalid Interpretation Code 130 - 400 10^3/mcL AO Workflow SS RBC (Bld) [#/Vol] 3.50 106/mcL Invalid Interpretation Code 4.20 - 5.40 10^6/mcL AO Workflow SS WBC (Bld) [#/Vol] 7.7 103/mcL Invalid Interpretation Code 4.6 - 10.8 10^3/mcL AO Workflow SS LABORATORYOrdered By: SYSTEM SYSTEM on 07-17-2022 Calcium [Mass/Vol] 8.5 mg/dL Invalid Interpretation Code 8.4 - 10.2 mg/dL AO ADM SS Chloride [Moles/Vol] 109 mmol/L Invalid Interpretation Code 98 - 107 mmol/L AO ADM SS CO2 [Moles/Vol] 28 mmol/L Invalid Interpretation Code 22 - 29 mmol/L AO ADM SS Creatinine [Mass/Vol] 0.77 mg/dL Invalid Interpretation Code 0.55 - 1.02 mg/dL AO ADM SS Electrolyte Balance 8.0 mEq/L Invalid Interpretation Code 4.0 - 15.0 mEq/L AO ADM SS GFR/1.73 sq M.predicted among blacks MDRD (S/P/Bld) [Vol rate/Area] 93 ml/min/1.73sqm Invalid Interpretation Code AO Chemistry S GFR/1.73 sq M.predicted among non-blacks MDRD (S/P/Bld) [Vol rate/Area] 77 ml/min/1.73sqm Invalid Interpretation Code AO Chemistry S Glucose [Mass/Vol] 110 mg/dL Invalid Interpretation Code 70 - 105 mg/dL AO ADM SS Magnesium [Mass/Vol] 1.7 mg/dL Invalid Interpretation Code 1.8 - 2.4 mg/dL AO ADM SS Potassium [Moles/Vol] 4.0 mmol/L Invalid Interpretation Code 3.5 - 5.1 mmol/L AO ADM SS Sodium [Moles/Vol] 145 mmol/L Invalid Interpretation Code 136 - 145 mmol/L AO ADM SS Urea nitrogen [Mass/Vol] 18 mg/dL Invalid Interpretation Code 7 - 18 mg/dL AO ADM SS Urea nitrogen/Creatinine [Mass ratio] 23 ratio Invalid Interpretation Code 7 - 27 ratio AO ADM SS LABORATORYOrdered By: Damon Dey on 07-16-2022 Monocyte distribution width Auto (Bld) [Entitic vol] 18.19 Invalid Interpretation Code 0.00 - 20.00 AO Workflow SS Comment on above: Result Comment: For ED adult patients suspected of sepsis, MDW<=20.0 does not rule out sepsis or risk of sepsis PIPERACILLIN+TAZOBACTAM:SUSC :PT:ISOLATE:ORDQN:MICon 07-14-2022 Piperacillin+Tazobact am GERTRUDE [Susc] 3 colonies Staphylococcus aureus [facility] Piperacillin+Tazobactam GERTRUDE [Susc]on 07-14-2022 GS Rare Red Blood Cells Rare White Blood Cells No organisms seen. [facility] Staphylococcus aureus Staphylococcus aureus [facility] LABORATORYOrdered By: SYSTEM SYSTEM on 03-20-2022 Vit. D 25-Hydroxy 36.4 ng/mL Invalid Interpretation Code AO ADM SS LABORATORYOrdered By: Damon Dey on 02-06-2022 Albumin BCP dye [Mass/Vol] 3.9 G/dL Invalid Interpretation Code 3.5 - 5.0 G/dL AO ADM SS Albumin/Globulin [Mass ratio] 1.5 {ratio} Invalid Interpretation Code 1.1 - 2.5 ratio AO ADM SS ALP [Catalytic activity/Vol] 93 U/L Invalid Interpretation Code 40 - 135 U/L AO ADM SS ALT With P-5'-P [Catalytic activity/Vol] 30 U/L Invalid Interpretation Code 14 - 59 U/L AO ADM SS AST With P-5'-P [Catalytic activity/Vol] 15 U/L Invalid Interpretation Code 10 - 40 U/L AO ADM SS Basophil, Absolute 0.1 103/mcL Invalid Interpretation Code 0.0 - 0.2 10^3/mcL AO Workflow SS Basophils/100 WBC (Bld) 1.2 % Invalid Interpretation Code 0.0 - 2.5 % AO Workflow SS Bilirubin [Mass/Vol] 0.4 mg/dL Invalid Interpretation Code 0.2 - 1.0 mg/dL AO ADM SS Calcium [Mass/Vol] 9.3 mg/dL Invalid Interpretation Code 8.4 - 10.2 mg/dL AO ADM SS Chloride [Moles/Vol] 106 mmol/L Invalid Interpretation Code 98 - 107 mmol/L AO ADM SS Cholesterol [Mass/Vol] 191 mg/dL Invalid Interpretation Code 0 - 200 mg/dL AO ADM SS Cholesterol in HDL [Mass/Vol] 59 mg/dL Invalid Interpretation Code 40 - 60 mg/dL AO ADM SS Cholesterol in LDL [Mass/Vol] 79 mg/dL Invalid Interpretation Code 0 - 130 mg/dL AO ADM SS CO2 [Moles/Vol] 30 mmol/L Invalid Interpretation Code 22 - 29 mmol/L AO ADM SS Creatinine [Mass/Vol] 0.77 mg/dL Invalid Interpretation Code 0.55 - 1.02 mg/dL AO ADM SS Electrolyte Balance 7.0 mEq/L Invalid Interpretation Code 4.0 - 15.0 mEq/L AO ADM SS Eosinophil, Absolute 0.2 103/mcL Invalid Interpretation Code 0.0 - 0.4 10^3/mcL AO Workflow SS Eosinophils/100 WBC (Bld) 4.5 % Invalid Interpretation Code 0.0 - 7.0 % AO Workflow SS Erythrocyte distribution width (RBC) [Ratio] 14.3 % Invalid Interpretation Code 11.5 - 14.5 % AO Workflow SS Globulin 2.6 G/dL Invalid Interpretation Code AO ADM SS Glucose [Mass/Vol] 85 mg/dL Invalid Interpretation Code 70 - 105 mg/dL AO ADM SS Hematocrit (Bld) [Volume fraction] 38.5 % Invalid Interpretation Code 37.0 - 47.0 % AO Workflow SS Hemoglobin (Bld) [Mass/Vol] 12.9 G/dL Invalid Interpretation Code 12.0 - 16.0 G/dL AO Workflow SS Iron [Mass/Vol] 80 ug/dL Invalid Interpretation Code 50 - 170 mcg/dL AO ADM SS Lymphocyte, Absolute 2.3 103/mcL Invalid Interpretation Code 0.8 - 3.9 10^3/mcL AO Workflow SS Lymphocytes/100 WBC (Bld) 43.4 % Invalid Interpretation Code 10.0 - 50.0 % AO Workflow SS MCH (RBC) [Entitic mass] 31.6 pg Invalid Interpretation Code 27.0 - 31.2 pg AO Workflow SS MCHC 33.6 G/dL Invalid Interpretation Code 33.0 - 37.0 G/dL AO Workflow SS MCV (RBC) [Entitic vol] 94.1 fL Invalid Interpretation Code 80.0 - 94.0 fL AO Workflow SS Monocyte, Absolute 0.4 103/mcL Invalid Interpretation Code 0.2 - 1.0 10^3/mcL AO Workflow SS Monocytes/100 WBC (Bld) 7.2 % Invalid Interpretation Code 1.7 - 13.0 % AO Workflow SS Neutrophil, Absolute 2.3 103/mcL Invalid Interpretation Code 2.9 - 6.2 10^3/mcL AO Workflow SS Neutrophils/100 WBC (Bld) 43.7 % Invalid Interpretation Code 37.0 - 80.0 % AO Workflow SS Platelet mean volume (Bld) [Entitic vol] 7.9 fL Invalid Interpretation Code 7.4 - 10.4 fL AO Workflow SS Platelets (Bld) [#/Vol] 203 103/mcL Invalid Interpretation Code 130 - 400 10^3/mcL AO Workflow SS Potassium [Moles/Vol] 4.4 mmol/L Invalid Interpretation Code 3.5 - 5.1 mmol/L AO ADM SS Protein [Mass/Vol] 6.5 G/dL Invalid Interpretation Code 6.4 - 8.2 G/dL AO ADM SS RBC (Bld) [#/Vol] 4.08 106/mcL Invalid Interpretation Code 4.20 - 5.40 10^6/mcL AO Workflow SS Sodium [Moles/Vol] 143 mmol/L Invalid Interpretation Code 136 - 145 mmol/L AO ADM SS Triglyceride [Mass/Vol] 264 mg/dL Invalid Interpretation Code 0 - 150 mg/dL AO ADM SS Urea nitrogen [Mass/Vol] 24 mg/dL Invalid Interpretation Code 7 - 18 mg/dL AO ADM SS Urea nitrogen/Creatinine [Mass ratio] 31 ratio Invalid Interpretation Code 7 - 27 ratio AO ADM SS Vit. D 25-Hydroxy 27.7 ng/mL Invalid Interpretation Code AO ADM SS WBC (Bld) [#/Vol] 5.2 103/mcL Invalid Interpretation Code 4.6 - 10.8 10^3/mcL AO Workflow SS LABORATORYOrdered By: SYSTEM SYSTEM on 02-06-2022 Cobalamin (Vitamin B12) [Mass/Vol] 489 pg/mL Invalid Interpretation Code 211 - 911 pg/mL AH ADM SS GFR 93 ml/min/1.73sqm Invalid Interpretation Code AO Chemistry S GFR Non- 77 ml/min/1.73sqm Invalid Interpretation Code AO Chemistry S LABORATORYOrdered By: Corey Gill on 06-22-2021 Albumin DL <= 20 mg/L (U) [Mass/Vol] 644 mcg/dL Invalid Interpretation Code AO ADM SS Albumin/Creatinine DL <= 20 mg/L (U) [Mass ratio] 8 mcg/mg Invalid Interpretation Code 0 - 30 mcg/mg AO ADM SS Creatinine (U) [Mass/Vol] 75.9 mg/dL Invalid Interpretation Code 28.0 - 117.0 mg/dL AO ADM SS Albumin BCP dye [Mass/Vol] 4.0 G/dL Invalid Interpretation Code 3.5 - 5.0 G/dL AO ADM SS Albumin/Globulin [Mass ratio] 1.5 {ratio} Invalid Interpretation Code 1.1 - 2.5 ratio AO ADM SS ALP [Catalytic activity/Vol] 98 U/L Invalid Interpretation Code 40 - 135 U/L AO ADM SS ALT With P-5'-P [Catalytic activity/Vol] 30 U/L Invalid Interpretation Code 14 - 59 U/L AO ADM SS AST With P-5'-P [Catalytic activity/Vol] 13 U/L Invalid Interpretation Code 10 - 40 U/L AO ADM SS Bilirubin [Mass/Vol] 0.3 mg/dL Invalid Interpretation Code 0.2 - 1.0 mg/dL AO ADM SS Calcium [Mass/Vol] 9.4 mg/dL Invalid Interpretation Code 8.4 - 10.2 mg/dL AO ADM SS Chloride [Moles/Vol] 104 mmol/L Invalid Interpretation Code 98 - 107 mmol/L AO ADM SS CO2 [Moles/Vol] 28 mmol/L Invalid Interpretation Code 22 - 29 mmol/L AO ADM SS Creatinine [Mass/Vol] 0.71 mg/dL Invalid Interpretation Code 0.55 - 1.02 mg/dL AO ADM SS Electrolyte Balance 8.0 mEq/L Invalid Interpretation Code 4.0 - 15.0 mEq/L AO ADM SS Globulin 2.6 G/dL Invalid Interpretation Code AO ADM SS Glucose [Mass/Vol] 91 mg/dL Invalid Interpretation Code 70 - 105 mg/dL AO ADM SS Iron [Mass/Vol] 70 ug/dL Invalid Interpretation Code 50 - 170 mcg/dL AO ADM SS Potassium [Moles/Vol] 4.2 mmol/L Invalid Interpretation Code 3.5 - 5.1 mmol/L AO ADM SS Protein [Mass/Vol] 6.6 G/dL Invalid Interpretation Code 6.4 - 8.2 G/dL AO ADM SS Sodium [Moles/Vol] 140 mmol/L Invalid Interpretation Code 136 - 145 mmol/L AO ADM SS TSH Qn 1.12 m[IU]/L Invalid Interpretation Code 0.36 - 3.74 mcIU/mL AO ADM SS Urea nitrogen [Mass/Vol] 23 mg/dL Invalid Interpretation Code 7 - 18 mg/dL AO ADM SS Urea nitrogen/Creatinine [Mass ratio] 32 ratio Invalid Interpretation Code 7 - 27 ratio AO ADM SS Vit. D 25-Hydroxy 29.9 ng/mL Invalid Interpretation Code AO ADM SS LABORATORYOrdered By: Olivia Huggins on 06-22-2021 Basophil, Absolute 0.10 103/mcL Invalid Interpretation Code 0.00 - 0.19 10^3/mcL AO Auto Heme SS Basophils/100 WBC (Bld) 1.2 % Invalid Interpretation Code 0.0 - 2.5 % AO Auto Heme SS Eosinophil, Absolute 0.10 103/mcL Invalid Interpretation Code 0.00 - 0.40 10^3/mcL AO Auto Heme SS Eosinophils/100 WBC (Bld) 2.6 % Invalid Interpretation Code 0.0 - 7.0 % AO Auto Heme SS Erythrocyte distribution width (RBC) [Ratio] 15.4 % Invalid Interpretation Code 11.5 - 14.5 % AO Auto Heme SS Hematocrit (Bld) [Volume fraction] 40.1 % Invalid Interpretation Code 37.0 - 47.0 % AO Auto Heme SS Hemoglobin (Bld) [Mass/Vol] 13.3 G/dL Invalid Interpretation Code 12.0 - 16.0 G/dL AO Auto Heme SS Lymphocyte, Absolute 1.40 103/mcL Invalid Interpretation Code 0.77 - 3.85 10^3/mcL AO Auto Heme SS Lymphocytes/100 WBC (Bld) 32.8 % Invalid Interpretation Code 10.0 - 50.0 % AO Auto Heme SS MCH (RBC) [Entitic mass] 29.6 pg Invalid Interpretation Code 27.0 - 31.2 pg AO Auto Heme SS MCHC (RBC) [Mass/Vol] 33.1 G/dL Invalid Interpretation Code 33.0 - 37.0 G/dL AO Auto Heme SS MCV (RBC) [Entitic vol] 89.4 fL Invalid Interpretation Code 80.0 - 94.0 fL AO Auto Heme SS Monocyte, Absolute 0.30 103/mcL Invalid Interpretation Code 0.15 - 1.00 10^3/mcL AO Auto Heme SS Monocytes/100 WBC (Bld) 6.1 % Invalid Interpretation Code 1.7 - 13.0 % AO Auto Heme SS Neutrophil, Absolute 2.50 103/mcL Invalid Interpretation Code 2.85 - 6.16 10^3/mcL AO Auto Heme SS Neutrophils/100 WBC (Bld) 57.3 % Invalid Interpretation Code 37.0 - 80.0 % AO Auto Heme SS Platelet mean volume (Bld) [Entitic vol] 7.8 fL Invalid Interpretation Code 7.4 - 10.4 fL AO Auto Heme SS Platelets (Bld) [#/Vol] 227 103/mcL Invalid Interpretation Code 130 - 400 10^3/mcL AO Auto Heme SS RBC (Bld) [#/Vol] 4.48 106/mcL Invalid Interpretation Code 4.20 - 5.40 10^6/mcL AO Auto Heme SS WBC (Bld) [#/Vol] 4.30 103/mcL Invalid Interpretation Code 4.60 - 10.80 10^3/mcL AO Auto Heme SS LABORATORYOrdered By: SYSTEM SYSTEM on 06-22-2021 Cobalamin (Vitamin B12) [Mass/Vol] 676 pg/mL Invalid Interpretation Code 211 - 911 pg/mL AH ADM SS Ferritin [Mass/Vol] 46.1 ng/mL Invalid Interpretation Code 8.0 - 252.0 ng/mL AH ADM SS GFR 103 ml/min/1.73sqm Invalid Interpretation Code AO Chemistry S GFR Non- 85 ml/min/1.73sqm Invalid Interpretation Code AO Chemistry S LABORATORYOrdered By: Olivia Huggins on 03-24-2021 ABO/Rh Interp Positive Invalid Interpretation Code AO BB SS Antibody Screen Gel Negative ABSC (03/24/21 7:11 AM) Invalid Interpretation Code AO BB SS LABORATORYOrdered By: Olivia Huggins on 03-12-2021 ABO/Rh Interp Positive Invalid Interpretation Code AO BB SS Antibody Screen Gel Negative ABSC (03/12/21 8:27 AM) Invalid Interpretation Code AO BB SS Basophil, Absolute 0.00 103/mcL Invalid Interpretation Code 0.00 - 0.19 10^3/mcL AO Auto Heme SS Basophils/100 WBC (Bld) 1.1 % Invalid Interpretation Code 0.0 - 2.5 % AO Auto Heme SS Eosinophil, Absolute 0.10 103/mcL Invalid Interpretation Code 0.00 - 0.40 10^3/mcL AO Auto Heme SS Eosinophils/100 WBC (Bld) 3.0 % Invalid Interpretation Code 0.0 - 7.0 % AO Auto Heme SS Erythrocyte distribution width (RBC) [Ratio] 14.4 % Invalid Interpretation Code 11.5 - 14.5 % AO Auto Heme SS Hematocrit (Bld) [Volume fraction] 36.2 % Invalid Interpretation Code 37.0 - 47.0 % AO Auto Heme SS Hemoglobin (Bld) [Mass/Vol] 12.1 G/dL Invalid Interpretation Code 12.0 - 16.0 G/dL AO Auto Heme SS Lymphocyte, Absolute 1.30 103/mcL Invalid Interpretation Code 0.77 - 3.85 10^3/mcL AO Auto Heme SS Lymphocytes/100 WBC (Bld) 32.1 % Invalid Interpretation Code 10.0 - 50.0 % AO Auto Heme SS MCH (RBC) [Entitic mass] 31.2 pg Invalid Interpretation Code 27.0 - 31.2 pg AO Auto Heme SS MCHC (RBC) [Mass/Vol] 33.5 G/dL Invalid Interpretation Code 33.0 - 37.0 G/dL AO Auto Heme SS MCV (RBC) [Entitic vol] 93.4 fL Invalid Interpretation Code 80.0 - 94.0 fL AO Auto Heme SS Monocyte, Absolute 0.30 103/mcL Invalid Interpretation Code 0.15 - 1.00 10^3/mcL AO Auto Heme SS Monocytes/100 WBC (Bld) 7.2 % Invalid Interpretation Code 1.7 - 13.0 % AO Auto Heme SS Neutrophil, Absolute 2.40 103/mcL Invalid Interpretation Code 2.85 - 6.16 10^3/mcL AO Auto Heme SS Neutrophils/100 WBC (Bld) 56.6 % Invalid Interpretation Code 37.0 - 80.0 % AO Auto Heme SS Platelet mean volume (Bld) [Entitic vol] 8.5 fL Invalid Interpretation Code 7.4 - 10.4 fL AO Auto Heme SS Platelets (Bld) [#/Vol] 236 103/mcL Invalid Interpretation Code 130 - 400 10^3/mcL AO Auto Heme SS RBC (Bld) [#/Vol] 3.88 106/mcL Invalid Interpretation Code 4.20 - 5.40 10^6/mcL AO Auto Heme SS WBC (Bld) [#/Vol] 4.20 103/mcL Invalid Interpretation Code 4.60 - 10.80 10^3/mcL AO Auto Heme SS LABORATORYOrdered By: Corey Gill on 03-12-2021 Albumin BCP dye [Mass/Vol] 4.0 G/dL Invalid Interpretation Code 3.5 - 5.0 G/dL AO ADM SS Calcium [Mass/Vol] 9.0 mg/dL Invalid Interpretation Code 8.4 - 10.2 mg/dL AO ADM SS Chloride [Moles/Vol] 106 mmol/L Invalid Interpretation Code 98 - 107 mmol/L AO ADM SS CO2 [Moles/Vol] 27 mmol/L Invalid Interpretation Code 22 - 29 mmol/L AO ADM SS Creatinine [Mass/Vol] 0.76 mg/dL Invalid Interpretation Code 0.55 - 1.02 mg/dL AO ADM SS Electrolyte Balance 10.0 mEq/L Invalid Interpretation Code AO ADM SS Glucose [Mass/Vol] 97 mg/dL Invalid Interpretation Code 70 - 105 mg/dL AO ADM SS Potassium [Moles/Vol] 4.1 mmol/L Invalid Interpretation Code 3.5 - 5.1 mmol/L AO ADM SS Sodium [Moles/Vol] 143 mmol/L Invalid Interpretation Code 136 - 145 mmol/L AO ADM SS Urea nitrogen [Mass/Vol] 25 mg/dL Invalid Interpretation Code 7 - 18 mg/dL AO ADM SS Urea nitrogen/Creatinine [Mass ratio] 33 ratio Invalid Interpretation Code 7 - 27 ratio AO ADM SS LABORATORYOrdered By: SYSTEM SYSTEM on 03-12-2021 GFR 95 ml/min/1.73sqm Invalid Interpretation Code AO Chemistry S GFR Non- 78 ml/min/1.73sqm Invalid Interpretation Code AO Chemistry S LABORATORYOrdered By: Olivia Huggins on 02-12-2021 Basophil, Absolute 0.00 103/mcL Invalid Interpretation Code 0.00 - 0.19 10^3/mcL AO Auto Heme SS Basophils/100 WBC (Bld) 0.1 % Invalid Interpretation Code 0.0 - 2.5 % AO Auto Heme SS Eosinophil, Absolute 0.00 103/mcL Invalid Interpretation Code 0.00 - 0.40 10^3/mcL AO Auto Heme SS Eosinophils/100 WBC (Bld) 0.0 % Invalid Interpretation Code 0.0 - 7.0 % AO Auto Heme SS Erythrocyte distribution width (RBC) [Ratio] 14.4 % Invalid Interpretation Code 11.5 - 14.5 % AO Auto Heme SS Hematocrit (Bld) [Volume fraction] 36.0 % Invalid Interpretation Code 37.0 - 47.0 % AO Auto Heme SS Hemoglobin (Bld) [Mass/Vol] 12.0 G/dL Invalid Interpretation Code 12.0 - 16.0 G/dL AO Auto Heme SS Lymphocyte, Absolute 0.80 103/mcL Invalid Interpretation Code 0.77 - 3.85 10^3/mcL AO Auto Heme SS Lymphocytes/100 WBC (Bld) 6.2 % Invalid Interpretation Code 10.0 - 50.0 % AO Auto Heme SS MCH (RBC) [Entitic mass] 30.7 pg Invalid Interpretation Code 27.0 - 31.2 pg AO Auto Heme SS MCHC (RBC) [Mass/Vol] 33.3 G/dL Invalid Interpretation Code 33.0 - 37.0 G/dL AO Auto Heme SS MCV (RBC) [Entitic vol] 92.2 fL Invalid Interpretation Code 80.0 - 94.0 fL AO Auto Heme SS Monocyte, Absolute 0.70 103/mcL Invalid Interpretation Code 0.15 - 1.00 10^3/mcL AO Auto Heme SS Monocytes/100 WBC (Bld) 5.9 % Invalid Interpretation Code 1.7 - 13.0 % AO Auto Heme SS Neutrophil, Absolute 11.20 103/mcL Invalid Interpretation Code 2.85 - 6.16 10^3/mcL AO Auto Heme SS Neutrophils/100 WBC (Bld) 87.8 % Invalid Interpretation Code 37.0 - 80.0 % AO Auto Heme SS Platelet mean volume (Bld) [Entitic vol] 8.6 fL Invalid Interpretation Code 7.4 - 10.4 fL AO Auto Heme SS Platelets (Bld) [#/Vol] 243 103/mcL Invalid Interpretation Code 130 - 400 10^3/mcL AO Auto Heme SS RBC (Bld) [#/Vol] 3.91 106/mcL Invalid Interpretation Code 4.20 - 5.40 10^6/mcL AO Auto Heme SS WBC (Bld) [#/Vol] 12.70 103/mcL Invalid Interpretation Code 4.60 - 10.80 10^3/mcL AO Auto Heme SS LABORATORYOrdered By: Damon Dey on 02-12-2021 Calcium [Mass/Vol] 8.8 mg/dL Invalid Interpretation Code 8.4 - 10.2 mg/dL AO ADM SS Chloride [Moles/Vol] 105 mmol/L Invalid Interpretation Code 98 - 107 mmol/L AO ADM SS CO2 [Moles/Vol] 26 mmol/L Invalid Interpretation Code 22 - 29 mmol/L AO ADM SS Creatinine [Mass/Vol] 0.75 mg/dL Invalid Interpretation Code 0.55 - 1.02 mg/dL AO ADM SS Electrolyte Balance 13.0 mEq/L Invalid Interpretation Code AO ADM SS Glucose [Mass/Vol] 120 mg/dL Invalid Interpretation Code 70 - 105 mg/dL AO ADM SS Potassium [Moles/Vol] 3.9 mmol/L Invalid Interpretation Code 3.5 - 5.1 mmol/L AO ADM SS Sodium [Moles/Vol] 144 mmol/L Invalid Interpretation Code 136 - 145 mmol/L AO ADM SS Urea nitrogen [Mass/Vol] 11 mg/dL Invalid Interpretation Code 7 - 18 mg/dL AO ADM SS Urea nitrogen/Creatinine [Mass ratio] 15 ratio Invalid Interpretation Code 7 - 27 ratio AO ADM SS LABORATORYOrdered By: SYSTEM SYSTEM on 02-12-2021 GFR 97 ml/min/1.73sqm Invalid Interpretation Code AO Chemistry S GFR Non- 80 ml/min/1.73sqm Invalid Interpretation Code AO Chemistry S LABORATORYOrdered By: Ruth Rocha on 02-11-2021 Basophil, Absolute 0.00 103/mcL Invalid Interpretation Code 0.00 - 0.19 10^3/mcL AO Auto Heme SS Basophils/100 WBC (Bld) 0.2 % Invalid Interpretation Code 0.0 - 2.5 % AO Auto Heme SS Eosinophil, Absolute 0.00 103/mcL Invalid Interpretation Code 0.00 - 0.40 10^3/mcL AO Auto Heme SS Eosinophils/100 WBC (Bld) 0.1 % Invalid Interpretation Code 0.0 - 7.0 % AO Auto Heme SS Erythrocyte distribution width (RBC) [Ratio] 14.1 % Invalid Interpretation Code 11.5 - 14.5 % AO Auto Heme SS Hematocrit (Bld) [Volume fraction] 33.6 % Invalid Interpretation Code 37.0 - 47.0 % AO Auto Heme SS Hemoglobin (Bld) [Mass/Vol] 11.4 G/dL Invalid Interpretation Code 12.0 - 16.0 G/dL AO Auto Heme SS Lymphocyte, Absolute 0.30 103/mcL Invalid Interpretation Code 0.77 - 3.85 10^3/mcL AO Auto Heme SS Lymphocytes/100 WBC (Bld) 4.3 % Invalid Interpretation Code 10.0 - 50.0 % AO Auto Heme SS MCH (RBC) [Entitic mass] 31.2 pg Invalid Interpretation Code 27.0 - 31.2 pg AO Auto Heme SS MCHC (RBC) [Mass/Vol] 34.0 G/dL Invalid Interpretation Code 33.0 - 37.0 G/dL AO Auto Heme SS MCV (RBC) [Entitic vol] 91.7 fL Invalid Interpretation Code 80.0 - 94.0 fL AO Auto Heme SS Monocyte, Absolute 0.10 103/mcL Invalid Interpretation Code 0.15 - 1.00 10^3/mcL AO Auto Heme SS Monocytes/100 WBC (Bld) 1.2 % Invalid Interpretation Code 1.7 - 13.0 % AO Auto Heme SS Neutrophil, Absolute 7.20 103/mcL Invalid Interpretation Code 2.85 - 6.16 10^3/mcL AO Auto Heme SS Neutrophils/100 WBC (Bld) 94.2 % Invalid Interpretation Code 37.0 - 80.0 % AO Auto Heme SS Platelet mean volume (Bld) [Entitic vol] 8.3 fL Invalid Interpretation Code 7.4 - 10.4 fL AO Auto Heme SS Platelets (Bld) [#/Vol] 204 103/mcL Invalid Interpretation Code 130 - 400 10^3/mcL AO Auto Heme SS RBC (Bld) [#/Vol] 3.66 106/mcL Invalid Interpretation Code 4.20 - 5.40 10^6/mcL AO Auto Heme SS WBC (Bld) [#/Vol] 7.60 103/mcL Invalid Interpretation Code 4.60 - 10.80 10^3/mcL AO Auto Heme SS LABORATORYOrdered By: SYSTEM SYSTEM on 02-11-2021 GFR 106 ml/min/1.73sqm Invalid Interpretation Code AO Chemistry S GFR Non- 88 ml/min/1.73sqm Invalid Interpretation Code AO Chemistry S LABORATORYOrdered By: Damon Dey on 02-11-2021 Calcium [Mass/Vol] 8.4 mg/dL Invalid Interpretation Code 8.4 - 10.2 mg/dL AO ADM SS Chloride [Moles/Vol] 104 mmol/L Invalid Interpretation Code 98 - 107 mmol/L AO ADM SS CO2 [Moles/Vol] 22 mmol/L Invalid Interpretation Code 22 - 29 mmol/L AO ADM SS Creatinine [Mass/Vol] 0.69 mg/dL Invalid Interpretation Code 0.55 - 1.02 mg/dL AO ADM SS Electrolyte Balance 12.0 mEq/L Invalid Interpretation Code AO ADM SS Glucose [Mass/Vol] 189 mg/dL Invalid Interpretation Code 70 - 105 mg/dL AO ADM SS Potassium [Moles/Vol] 4.0 mmol/L Invalid Interpretation Code 3.5 - 5.1 mmol/L AO ADM SS Sodium [Moles/Vol] 138 mmol/L Invalid Interpretation Code 136 - 145 mmol/L AO ADM SS Urea nitrogen [Mass/Vol] 14 mg/dL Invalid Interpretation Code 7 - 18 mg/dL AO ADM SS Urea nitrogen/Creatinine [Mass ratio] 20 ratio Invalid Interpretation Code 7 - 27 ratio AO ADM SS LABORATORYOrdered By: Tsering Mccoy on 01-28-2021 Basophil, Absolute 0.10 103/mcL Invalid Interpretation Code 0.00 - 0.19 10^3/mcL AO Auto Heme SS Basophils/100 WBC (Bld) 0.8 % Invalid Interpretation Code 0.0 - 2.5 % AO Auto Heme SS Calcium [Mass/Vol] 9.1 mg/dL Invalid Interpretation Code 8.4 - 10.2 mg/dL AO ADM SS Chloride [Moles/Vol] 103 mmol/L Invalid Interpretation Code 98 - 107 mmol/L AO ADM SS CO2 [Moles/Vol] 27 mmol/L Invalid Interpretation Code 22 - 29 mmol/L AO ADM SS Creatinine [Mass/Vol] 0.81 mg/dL Invalid Interpretation Code 0.55 - 1.02 mg/dL AO ADM SS Electrolyte Balance 12.0 mEq/L Invalid Interpretation Code AO ADM SS Eosinophil, Absolute 0.10 103/mcL Invalid Interpretation Code 0.00 - 0.40 10^3/mcL AO Auto Heme SS Eosinophils/100 WBC (Bld) 1.6 % Invalid Interpretation Code 0.0 - 7.0 % AO Auto Heme SS Erythrocyte distribution width (RBC) [Ratio] 14.3 % Invalid Interpretation Code 11.5 - 14.5 % AO Auto Heme SS Glucose [Mass/Vol] 105 mg/dL Invalid Interpretation Code 70 - 105 mg/dL AO ADM SS Hematocrit (Bld) [Volume fraction] 40.5 % Invalid Interpretation Code 37.0 - 47.0 % AO Auto Heme SS Hemoglobin (Bld) [Mass/Vol] 13.8 G/dL Invalid Interpretation Code 12.0 - 16.0 G/dL AO Auto Heme SS Lymphocyte, Absolute 2.10 103/mcL Invalid Interpretation Code 0.77 - 3.85 10^3/mcL AO Auto Heme SS Lymphocytes/100 WBC (Bld) 31.7 % Invalid Interpretation Code 10.0 - 50.0 % AO Auto Heme SS MCH (RBC) [Entitic mass] 31.3 pg Invalid Interpretation Code 27.0 - 31.2 pg AO Auto Heme SS MCHC (RBC) [Mass/Vol] 34.1 G/dL Invalid Interpretation Code 33.0 - 37.0 G/dL AO Auto Heme SS MCV (RBC) [Entitic vol] 91.6 fL Invalid Interpretation Code 80.0 - 94.0 fL AO Auto Heme SS Monocyte, Absolute 0.50 103/mcL Invalid Interpretation Code 0.15 - 1.00 10^3/mcL AO Auto Heme SS Monocytes/100 WBC (Bld) 7.1 % Invalid Interpretation Code 1.7 - 13.0 % AO Auto Heme SS Neutrophil, Absolute 3.80 103/mcL Invalid Interpretation Code 2.85 - 6.16 10^3/mcL AO Auto Heme SS Neutrophils/100 WBC (Bld) 58.8 % Invalid Interpretation Code 37.0 - 80.0 % AO Auto Heme SS Platelet mean volume (Bld) [Entitic vol] 8.5 fL Invalid Interpretation Code 7.4 - 10.4 fL AO Auto Heme SS Platelets (Bld) [#/Vol] 246 103/mcL Invalid Interpretation Code 130 - 400 10^3/mcL AO Auto Heme SS Potassium [Moles/Vol] 4.2 mmol/L Invalid Interpretation Code 3.5 - 5.1 mmol/L AO ADM SS RBC (Bld) [#/Vol] 4.42 106/mcL Invalid Interpretation Code 4.20 - 5.40 10^6/mcL AO Auto Heme SS Sodium [Moles/Vol] 142 mmol/L Invalid Interpretation Code 136 - 145 mmol/L AO ADM SS Urea nitrogen [Mass/Vol] 15 mg/dL Invalid Interpretation Code 7 - 18 mg/dL AO ADM SS Urea nitrogen/Creatinine [Mass ratio] 19 ratio Invalid Interpretation Code 7 - 27 ratio AO ADM SS WBC (Bld) [#/Vol] 6.50 103/mcL Invalid Interpretation Code 4.60 - 10.80 10^3/mcL AO Auto Heme SS LABORATORYOrdered By: SYSTEM SYSTEM on 01-28-2021 GFR 88 ml/min/1.73sqm Invalid Interpretation Code AO Chemistry S GFR Non- 73 ml/min/1.73sqm Invalid Interpretation Code AO Chemistry S LABORATORYOrdered By: Vanessa Rojas on 12-23-2020 Appearance (Body fld) Turbid (12/23/20 11:05 AM) Invalid Interpretation Code AH Manual Heme SS Color (Body fld) Straw (12/23/20 11:05 AM) Invalid Interpretation Code AH Manual Heme SS WBC (Body fld) [#/Vol] 200 10*3/uL Invalid Interpretation Code 0 - 199 /mm3 AH Manual Heme SS Comment on above: Result Comment: Cell count is approximate due to debris and/or cell clumps seen. No Panel Informationon 12-23 GS No organisms seen. 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 This test has been authorized by FDA under an Emergency Use Authorization (EUA). This test has been validated in accordance with the FDA's Guidance Document Policy for Diagnostics Testing in Laboratories Certified to Perform High Complexity Testing under CLIA prior to Emergency use Authorization for Coronavirus Disease 2019 during the Public Health Emergency issued on May 05, 2019. [facility] [employer] [address] [place] [id number] Xander Perez III, M.D. 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 U Normal [facility] Comment on above: Performed By: [id number] #### [facility],[address] [place] [address] Clinical Summary: HMSPatient IDon 08-25-2017 OOP Invalid Interpretation Code [facility] Work Phone: Office Visit: Follow-up by ryan ramos : 5on 08-25-2017 NEGATED: Highlighted rowDocumentation of current medications (procedure) Done Invalid Interpretation Code [facility] Work Phone: Vital Signs Date Time Vital Sign Value Performing Clinician Facility 07-23-2024 11:09-0400 Body temperature 97.5 [degF] Dr. Kristen May DO Work Phone: [facility] 07-23-2024 11:09-0400 Diastolic blood pressure 77 mm[Hg] Dr. Kristen May DO Work Phone: [facility] 07-23-2024 11:09-0400 Heart rate 66 /min Dr. Kristen May DO Work Phone: [facility] 07-23-2024 11:09-0400 Respiratory rate 16 /min Dr. Kristen May DO Work Phone: [facility] 07-23-2024 11:09-0400 SaO2% (BldA) [Mass fraction] 98 % Dr. Kristen May DO Work Phone: [facility] 07-23-2024 11:09-0400 Systolic blood pressure 148 mm[Hg] Dr. Kristen May DO Work Phone: [facility] 07-23-2024 10:10-0400 Body height 160.[address] Kristen May DO Work Phone: [facility] 07-23-2024 10:10-0400 Body mass index (BMI) [Ratio] 50.8 kg/m2 Dr. Kristen May DO Work Phone: [facility] 07-23-2024 10:10-0400 Body weight [address] Kristen May DO Work Phone: [facility] 07-29-2023 11:54-0400 Body temperature 97.52 [degF] [facility] [employer] [facility] 07-29-2023 11:54-0400 Diastolic Blood Pressure Non-Invasive 56 mm[Hg] [facility] [employer] [employer]SULT[employer] [facility] 07-29-2023 11:54-0400 Heart rate 88 /min [facility] [employer] 07-29-2023 11:54-0400 Reason For Taking VItal Signs [facility] [employer] [facility] [facility] 07-29-2023 11:54-0400 Respiratory rate 20 /min [facility] [employer] [facility] 07-29-2023 11:54-0400 Systolic Blood Pressure Non-Invasive 141 mm[Hg] [facility] [employer] [facility] 07-29-2023 11:22-0400 Respiratory rate 20 /min [facility] [employer] [facility] 07-29-2023 07:07-0400 Body temperature 97.7 [degF] [facility] SUPPORT CONSULTANT-[employer] [facility] 07-29-2023 07:07-0400 Diastolic Blood Pressure Non-Invasive 57 mm[Hg] [facility] SUPPORT CONSULTANT[employer] [facility] 07-29-2023 07:07-0400 Heart rate 93 /min [facility] SUPPORT CONSULTANT[employer] [facility] 07-29-2023 07:07-0400 Reason For Taking VItal Signs [facility] SUPPORT CONSULTANT[employer] [facility] 07-29-2023 07:07-0400 Respiratory rate 20 /min [facility] SUPPORT CONSULTANT[employer] [facility] 07-29-2023 07:07-0400 Systolic Blood Pressure Non-Invasive 134 mm[Hg] [facility] SUPPORT CONSULTANT[employer] [facility] 07-29-2023 03:21-0400 Body temperature 98.6 [degF] [facility] SUPPORT CONSULTANT[employer] [facility] 07-29-2023 03:21-0400 Diastolic Blood Pressure Non-Invasive 65 mm[Hg] [facility] SUPPORT CONSULTANT-[employer] [facility] 07-29-2023 03:21-0400 Heart rate 92 /min [facility] SUPPORT CONSULTANT-[employer] [facility] 07-29-2023 03:21-0400 Reason For Taking VItal Signs [facility] SUPPORT CONSULTANT-[employer] [facility] 07-29-2023 03:21-0400 Systolic Blood Pressure Non-Invasive 127 mm[Hg] [facility] SUPPORT CONSULTANT-[employer] [facility] 07-28-2023 22:54-0400 Body height 160 cm [facility] SUPPORT CONSULTANT[employer] [facility] 07-28-2023 22:54-0400 Body weight 142.2 kg [facility] SUPPORT CONSULTANT[employer] [facility] 07-28-2023 22:54-0400 Body weight 55.55 kg/m2 [facility] SUPPORT CONSULTANT[employer] [facility] 07-28-2023 22:19-0400 Blood Pressure Cuff Size [facility] SUPPORT CONSULTANT[employer] [facility] 07-28-2023 22:19-0400 Blood Pressure Location [facility] [employer] CONSULTANT[employer] [facility] 07-28-2023 22:19-0400 Blood Pressure Method [facility] SUPPORT CONSULTANT[employer] [facility] 07-28-2023 22:19-0400 Heart rate 92 /min [facility] SUPPORT CONSULTANT[employer] [facility] 07-28-2023 21:51-0400 Blood Pressure Cuff Size [facility] SUPPORT CONSULTANT[employer] [facility] 07-28-2023 21:51-0400 Blood Pressure Location [facility] SUPPORT CONSULTANT[employer] [facility] 07-28-2023 21:51-0400 Blood Pressure Method [facility] SUPPORT CONSULTANT[employer] [facility] 07-28-2023 21:51-0400 Heart rate 89 /min [facility] SUPPORT CONSULTANT[employer] [facility] 07-28-2023 21:01-0400 Blood Pressure Cuff Size [facility] SUPPORT CONSULTANT[employer] [facility] 07-28-2023 21:01-0400 Blood Pressure Location [facility] [facility] [facility] 07-28-2023 21:01-0400 Blood Pressure Method [facility] [employer] [facility] 07-28-2023 21:01-0400 Heart rate 95 /min [facility] [employer] [facility] [facility] 07-28-2023 20:19-0400 Body height 160 cm [facility] [employer] [facility] [facility] 07-28-2023 20:19-0400 Body weight 140.9 kg [facility] [employer] [facility] [facility] 07-11-2023 09:11-0400 Body temperature 97 [degF] [facility] 07-11-2023 09:11-0400 Diastolic blood pressure 85 mm[Hg] [facility] 07-11-2023 09:11-0400 Heart rate 75 /min [facility] 07-11-2023 09:11-0400 Respiratory rate 16 /min [facility] 07-11-2023 09:11-0400 SaO2% (BldA) [Mass fraction] 100 % [facility] 07-11-2023 09:11-0400 Systolic blood pressure 166 mm[Hg] [facility] 07-11-2023 07:05-0400 Body height 160.02 cm [facility] 07-11-2023 07:05-0400 Body mass index (BMI) [Ratio] 56 kg/m2 [facility] 07-11-2023 07:05-0400 Body weight 143.33 kg [facility] 05-09-2023 09:25-0500 Body temperature 97 [degF] [facility] 05-09-2023 09:25-0500 Diastolic blood pressure 68 mm[Hg] [facility] 05-09-2023 09:25-0500 Heart rate 69 /min [facility] 05-09-2023 09:25-0500 Respiratory rate 16 /min [facility] 05-09-2023 09:25-0500 SaO2% (BldA) [Mass fraction] 97 % [facility] 05-09-2023 09:25-0500 Systolic blood pressure 135 mm[Hg] [facility] 05-09-2023 08:15-0500 Body height 160.02 cm [facility] 05-09-2023 08:15-0500 Body mass index (BMI) [Ratio] 56.6 kg/m2 [facility] 05-09-2023 08:15-0500 Body weight 144.96 kg [facility] 02-10-2023 19:35-0500 Blood Pressure Cuff Size SARBJIT REICHFIELD DO [facility] 02-10-2023 19:35-0500 Blood Pressure Location SARBJIT REICHPartschannel DO [facility] 02-10-2023 19:35-0500 Blood Pressure Method SARBJIT REICHPartschannel DO [facility] 02-10-2023 19:35-0500 Diastolic Blood Pressure Non-Invasive 88 mm[Hg] SARBJIT REICHFIELD DO [facility] 02-10-2023 19:35-0500 Systolic Blood Pressure Non-Invasive 157 mm[Hg] SARBJIT REICHFIELD DO [facility] 02-10-2023 18:32-0500 Body height 160 cm SARBJIT REICHFIELD DO [facility] 02-10-2023 18:32-0500 Body temperature 98.96 [degF] SARBJIT REICHFIELD DO [facility] 02-10-2023 18:32-0500 Body weight 136.4 kg SARBJIT REICHFIELD DO [facility] 02-10-2023 18:32-0500 Diastolic Blood Pressure Non-Invasive 113 mm[Hg] SARBJIT REICHFIELD DO [facility] 02-10-2023 18:32-0500 Heart rate 79 /min [facility] 02-10-2023 18:32-0500 Respiratory rate 20 /min [facility] 02-10-2023 18:32-0500 Systolic Blood Pressure Non-Invasive 207 mm[Hg] SARBJIT REICHFIELD DO [facility] 11-22-2022 11:57-0400 Body temperature 97.8 [degF] [facility] 11-22-2022 11:57-0400 Diastolic blood pressure 82 mm[Hg] [facility] 11-22-2022 11:57-0400 Heart rate 59 /min [facility] 11-22-2022 11:57-0400 Respiratory rate 16 /min [facility] 11-22-2022 11:57-0400 SaO2% (BldA) [Mass fraction] 98 % [facility] 11-22-2022 11:57-0400 Systolic blood pressure 128 mm[Hg] [facility] 11-22-2022 10:54-0400 Body height 160.02 cm [facility] 11-22-2022 10:54-0400 Body mass index (BMI) [Ratio] 52.6 kg/m2 [facility] 11-22-2022 10:54-0400 Body weight 134.7 kg [facility] 08-23-2022 09:25-0400 Body temperature 98.6 [degF] [facility] 08-23-2022 09:25-0400 Diastolic blood pressure 83 mm[Hg] [facility] 08-23-2022 09:25-0400 Heart rate 71 /min [facility] 08-23-2022 09:25-0400 Respiratory rate 16 /min [facility] 08-23-2022 09:25-0400 SaO2% (BldA) [Mass fraction] 100 % [facility] 08-23-2022 09:25-0400 Systolic blood pressure 139 mm[Hg] [facility] 08-23-2022 07:08-0400 Body height 160.02 cm [facility] 08-23-2022 07:08-0400 Body mass index (BMI) [Ratio] 51.3 kg/m2 [facility] 08-23-2022 07:08-0400 Body weight 131.5 kg [facility] 07-19-2022 11:00-0400 Body temperature 97.7 [degF] JOHANNE RODRIGUEZ APRN-KILN LOADER [facility] 07-19-2022 11:00-0400 Diastolic Blood Pressure Non-Invasive 66 1 JOHANNE DWAYNEART CALL CENTER SUPPORT CONSULTANT-KILN LOADER [facility] 07-19-2022 11:00-0400 Heart rate 70 /min JOHANNE RICEART CALL CENTER SUPPORT CONSULTANT-KILN LOADER [facility] 07-19-2022 11:00-0400 Systolic Blood Pressure Non-Invasive 130 1 JOHANNE RODRIGUEZ CALL CENTER SUPPORT CONSULTANT-KILN LOADER [facility] 07-19-2022 07:48-0400 Body temperature 97.52 [degF] JOHANNE RODRIGUEZ CALL CENTER SUPPORT CONSULTANT-KILN LOADER [facility] 07-19-2022 07:48-0400 Diastolic Blood Pressure Non-Invasive 81 1 JOHANNE RODRIGUEZ CALL CENTER SUPPORT CONSULTANT-KILN LOADER [facility] 07-19-2022 07:48-0400 Heart rate 64 /min JOHANNE RODRIGUEZ APRN-KILN LOADER [facility] 07-19-2022 07:48-0400 Reason For Taking VItal Signs JOHANNE RODRIGUEZ CALL CENTER SUPPORT CONSULTANT-KILN LOADER [facility] 07-19-2022 07:48-0400 Respiratory rate 20 /min JOHANNE RODRIGUEZ CALL CENTER SUPPORT CONSULTANT-KILN LOADER [facility] 07-19-2022 07:48-0400 Systolic Blood Pressure Non-Invasive 143 1 JOHANNE RODRIGUEZ CALL CENTER SUPPORT CONSULTANT-KILN LOADER [facility] 07-19-2022 03:13-0400 Body temperature 96.98 [degF] JOHANNE RODRIGUEZ CALL CENTER SUPPORT CONSULTANT-KILN LOADER [facility] 07-19-2022 03:13-0400 Diastolic Blood Pressure Non-Invasive 79 1 JOHANNE RODRIGUEZ CALL CENTER SUPPORT CONSULTANT-KILN LOADER [facility] 07-19-2022 03:13-0400 Heart rate 69 /min JOHANNE RODRIGUEZ CALL CENTER SUPPORT CONSULTANT-KILN LOADER [facility] 07-19-2022 03:13-0400 Systolic Blood Pressure Non-Invasive 136 1 JOHANNE RODRIGUEZ CALL CENTER SUPPORT CONSULTANT-KILN LOADER [facility] 07-18-2022 23:05-0400 Body temperature 97.16 [degF] JOHANNE RODRIGUEZ CALL CENTER SUPPORT CONSULTANT-KILN LOADER [facility] 07-18-2022 23:05-0400 Heart rate 65 /min JOHANNE RODRIGUEZ CALL CENTER SUPPORT CONSULTANT-KILN LOADER [facility] 07-18-2022 19:19-0400 Body temperature 97.52 [degF] JOHANNE GARCIAN CALL CENTER SUPPORT CONSULTANT-KILN LOADER [facility] 07-18-2022 16:26-0400 Heart rate 70 /min JOHANNE GARCIAMaya CALL CENTER SUPPORT CONSULTANT-KILN LOADER [facility] 07-18-2022 11:28-0400 Heart rate 70 /min JOHANNEBREANNA GARCIAN CALL CENTER SUPPORT CONSULTANT-KILN LOADER [facility] 07-18-2022 05:28-0400 Heart rate 60 /min JOHANNEBREANNA RICENEN CALL CENTER SUPPORT CONSULTANT-KILN LOADER [facility] 07-17-2022 23:50-0400 Heart rate 80 /min JOHANNEBREANNA RICENEN CALL CENTER SUPPORT CONSULTANT-KILN LOADER [facility] 07-17-2022 19:30-0400 Heart rate 69 /min JOHANNEBREANNA RICENEN CALL CENTER SUPPORT CONSULTANT-KILN LOADER [facility] 07-16-2022 18:33-0400 Body height 160 cm JOHANNEBREANNA GARCIAN CALL CENTER SUPPORT CONSULTANT-KILN LOADER [facility] 07-16-2022 18:33-0400 Body weight 129.5 kg JOHANNEBREANNA RICENEN CALL CENTER SUPPORT CONSULTANT-KILN LOADER [facility] 07-16-2022 18:33-0400 Body weight 50.59 kg/m2 JOHANNEBREANNA RICENEN CALL CENTER SUPPORT CONSULTANT-KILN LOADER [facility] 07-16-2022 18:27-0400 Blood Pressure Cuff Size JOHANNEBREANNA RICENEN CALL CENTER SUPPORT CONSULTANT-KILN LOADER [facility] 07-16-2022 18:27-0400 Blood Pressure Location JOHANNEBREANNA RICENEN CALL CENTER SUPPORT CONSULTANT-KILN LOADER [facility] 07-16-2022 18:27-0400 Blood Pressure Method JOHANNEBREANNA RICENEN CALL CENTER SUPPORT CONSULTANT-KILN LOADER [facility] 07-16-2022 15:05-0400 Body height 160 cm JOHANNEBREANNA RICENEN CALL CENTER SUPPORT CONSULTANT-KILN LOADER [facility] 07-16-2022 15:05-0400 Body weight 129.5 kg JOHANNE RODRIGUEZ CALL CENTER SUPPORT CONSULTANT-KILN LOADER [facility] 05-24-2022 12:06-0400 Body temperature 97.8 [degF] [facility] 05-24-2022 12:06-0400 Diastolic blood pressure 80 mm[Hg] [facility] 05-24-2022 12:06-0400 Heart rate 84 /min [facility] 05-24-2022 12:06-0400 Respiratory rate 16 /min [facility] 05-24-2022 12:06-0400 SaO2% (BldA) [Mass fraction] 98 % [facility] 05-24-2022 12:06-0400 Systolic blood pressure 145 mm[Hg] [facility] 05-24-2022 10:22-0400 Body height 160.02 cm [facility] 05-24-2022 10:22-0400 Body mass index (BMI) [Ratio] 50.9 kg/m2 [facility] 05-24-2022 10:22-0400 Body weight 130.5 kg [facility] 03-24-2021 13:00-0500 Diastolic Blood Pressure NBP [address] KEVON POTTER MD [facility] 03-24-2021 13:00-0500 Heart rate 95 /min DR KEVON POTTER MD [facility] 03-24-2021 13:00-0500 Systolic Blood Pressure NBP [address] KEVON POTTER MD [facility] 03-24-2021 11:36-0500 Diastolic Blood Pressure NBP [address] KEVON POTTER MD [facility] 03-24-2021 11:36-0500 Heart rate 87 /min DR KEVON POTTER MD [facility] 03-24-2021 11:36-0500 Respiratory rate 16 /min DR KEVON POTTER MD [facility] 03-24-2021 11:36-0500 Systolic Blood Pressure NBP [address] KEVON POTTER MD [facility] 03-24-2021 10:31-0500 Diastolic Blood Pressure NBP [address] KEVON POTTER MD [facility] 03-24-2021 10:31-0500 Heart rate 93 /min DR KEVON POTTER MD [facility] 03-24-2021 10:31-0500 Systolic Blood Pressure NBP [address] KEVON POTTER MD [facility] 03-24-2021 09:59-0500 Body temperature 96.62 [degF] DR KEVON POTTER MD [facility] 03-24-2021 07:00-0500 Body height [address] KEVON POTTER MD [facility] 03-24-2021 07:00-0500 Body temperature 98.24 [degF] DR KEVON POTTER MD [facility] 03-24-2021 07:00-0500 Body weight 114.[address] KEVON POTTER MD [facility] 03-24-2021 07:00-0500 Heart rate 99 /min DR KEVON POTTER MD [facility] 03-12-2021 08:12-0500 Body height [address] KEVON POTTER MD [facility] 03-12-2021 08:12-0500 Body weight 114.[address] KEVON POTTER MD [facility] 03-12-2021 08:12-0500 Body weight 44.77 kg/m2 DR KEVON POTTER MD [facility] 03-12-2021 08:12-0500 diastolic 84 mm[Hg] DR KEVON POTTER MD [facility] 03-12-2021 08:12-0500 Heart rate 74 /min DR KEVON POTTER MD [facility] 03-12-2021 08:12-0500 Respiratory rate 20 /min DR KEVON POTTER MD [facility] 03-12-2021 08:12-0500 systolic 128 mm[Hg] DR KEVON POTTER MD [facility] 02-12-2021 11:17-0500 Body temperature 97.34 [degF] DR KEVON POTTER MD [facility] 02-12-2021 11:17-0500 Diastolic blood pressure 64 mm[Hg] DR KEVON POTTER MD [facility] 02-12-2021 11:17-0500 Heart rate 79 /min DR KEVON POTTER MD [facility] 02-12-2021 11:17-0500 Mean blood pressure 84 mm[Hg] DR KEVON POTTER MD [facility] 02-12-2021 11:17-0500 Reason For Taking VItal Signs DR KEVON POTTER MD [facility] 02-12-2021 11:17-0500 Respiratory rate 18 /min DR KEVON POTTER MD [facility] 02-12-2021 11:17-0500 Systolic blood pressure 123 mm[Hg] DR KEVON POTTER MD [facility] 02-12-2021 06:57-0500 Body temperature 97.34 [degF] DR KEVON POTTER MD [facility] 02-12-2021 06:57-0500 Diastolic blood pressure 75 mm[Hg] DR KEVON POTTRE MD [facility] 02-12-2021 06:57-0500 Heart rate 74 /min DR KEVON POTTER MD [facility] 02-12-2021 06:57-0500 Reason For Taking VItal Signs DR KEVON POTTER MD [facility] 02-12-2021 06:57-0500 Respiratory rate 20 /min DR KEVON POTTER MD [facility] 02-12-2021 06:57-0500 Systolic blood pressure 120 mm[Hg] DR KEVON POTTER MD [facility] 02-12-2021 03:56-0500 Body temperature 98.06 [degF] DR KEVON POTTER MD [facility] 02-12-2021 03:56-0500 Diastolic Blood Pressure NBP [address] KEVON POTTER MD [facility] 02-12-2021 03:56-0500 Heart rate 62 /min DR KEVON POTTER MD [facility] 02-12-2021 03:56-0500 Reason For Taking VItal Signs DR KEVON POTTER MD [facility] 02-12-2021 03:56-0500 Respiratory rate 20 /min DR KEVON POTTER MD [facility] 02-12-2021 03:56-0500 Systolic Blood Pressure NBP [address] KEVON POTTER MD [facility] 02-11-2021 19:41-0500 Body height [address] KEVON POTTER MD [facility] 02-11-2021 19:41-0500 Body temperature 98.42 [degF] DR KEVON POTTER MD [facility] 02-11-2021 19:41-0500 Body weight 114.[address] KEVON POTTER MD [facility] 02-11-2021 19:41-0500 Body weight 44.73 kg/m2 DR KEVON POTTER MD [facility] 02-11-2021 19:41-0500 Diastolic Blood Pressure NBP [address] KEVON POTTER MD [facility] 02-11-2021 19:41-0500 Heart rate 84 /min DR KEVON POTTER MD [facility] 02-11-2021 19:41-0500 Systolic Blood Pressure NBP [address] KEVON POTTER MD [facility] 02-11-2021 19:12-0500 Diastolic Blood Pressure NBP [address] KEVON POTTER MD [facility] 02-11-2021 19:12-0500 Systolic Blood Pressure NBP [address] KEVON POTTER MD [facility] 02-11-2021 18:15-0500 Body temperature 97.16 [degF] DR KEVON POTTER MD [facility] 02-11-2021 12:15-0500 Body height [address] KEVON POTTER MD [facility] 02-11-2021 12:15-0500 Body temperature 98.24 [degF] DR KEVON POTTER MD [facility] 02-11-2021 12:15-0500 Body weight 114.[address] KEVON POTTER MD [facility] 02-11-2021 12:15-0500 diastolic 70 mm[Hg] DR KEVON POTTER MD [facility] 02-11-2021 12:15-0500 Heart rate 111 /min DR KEVON POTTER MD [facility] 02-11-2021 12:15-0500 systolic 132 mm[Hg] DR KEVON POTTER MD [facility] 12-23-2020 16:00-0400 Diastolic Blood Pressure NBP [address] KEVON POTTER MD [facility] 12-23-2020 16:00-0400 Heart rate 82 /min DR KEVON POTTER MD [facility] 12-23-2020 16:00-0400 Systolic Blood Pressure NBP [address] KEVON POTTER MD [facility] 12-23-2020 15:30-0400 Diastolic Blood Pressure NBP [address] KEVON POTTER MD [facility] 12-23-2020 15:30-0400 Heart rate 79 /min DR KEVON POTTER MD [facility] 12-23-2020 15:30-0400 Systolic Blood Pressure NBP [address] KEVON POTTER MD [facility] 12-23-2020 15:02-0400 Diastolic Blood Pressure NBP [address] KEVON POTTER MD [facility] 12-23-2020 15:02-0400 Heart rate 81 /min DR KEVON POTTER MD [facility] 12-23-2020 15:02-0400 Systolic Blood Pressure NBP [address] KEVON POTTER MD [facility] 12-23-2020 14:34-0400 Body temperature 97.16 [degF] DR KEVON POTTER MD [facility] 12-23-2020 14:34-0400 Respiratory rate 14 /min DR KEVON POTTER MD [facility] 12-23-2020 13:00-0400 Respiratory rate 16 /min DR KEVON POTTER MD [facility] 12-23-2020 12:15-0400 Respiratory rate 11 /min DR KEVON POTTER MD [facility] 12-23-2020 11:31-0400 Body temperature 96.08 [degF] DR KEVON POTTER MD [facility] 12-23-2020 09:40-0400 Diastolic blood pressure 82 mm[Hg] DR KEVON POTTER MD [facility] 12-23-2020 09:40-0400 Heart rate 80 /min DR KEVON POTTER MD [facility] 12-23-2020 09:40-0400 Systolic blood pressure 132 mm[Hg] DR KEVON POTTER MD [facility] 12-23-2020 09:09-0400 Body height [address] KEVON POTTER MD [facility] 12-23-2020 09:09-0400 Body temperature 96.98 [degF] DR KEVON POTTER MD [facility] 12-23-2020 09:09-0400 Body weight [address] KEVON POTTER MD [facility] 12-23-2020 09:09-0400 Diastolic blood pressure 98 mm[Hg] DR KEVON POTTER MD [facility] 12-23-2020 09:09-0400 Heart rate 96 /min DR KEVON POTTER MD [facility] 12-23-2020 09:09-0400 Systolic blood pressure 146 mm[Hg] DR KEVNO POTTER MD [facility] NEGATED: Highlighted [id number] 15:17-0400 BMI (Body Mass Index) 46.51 kg/m2 Kevon Stout LPN [facility] Work Phone: NEGATED: Highlighted [id number] 15:17-0400 BP Diastolic 84 mm[Hg] Kevon Stout [employer] [facility] Work Phone: NEGATED: Highlighted [id number] 15:17-0400 BP Diastolic 86 mm[Hg] Kevon Stout [employer] [facility] Work Phone: NEGATED: Highlighted [id number] 15:17-0400 BP Systolic 144 mm[Hg] Kevon Stout [employer]PER [employer]IP[employer] [facility] Work Phone: NEGATED: Highlighted [id number] 15:17-0400 Height 163 cm Kevon Stout [employer]IP[employer] [facility] Work Phone: NEGATED: Highlighted [id number] 15:17-0400 Height 162.56 cm Kevon Stout [employer] [facility] Work Phone: NEGATED: Highlighted [id number] 15:17-0400 Pulse (Heart Rate) 85 /min Kevon Stout ELLE [facility] Work Phone: NEGATED: Highlighted [id number] 15: Weight 123 kg Kevon Stout ELLE [facility] Work Phone: NEGATED: Highlighted [id number] 15: Weight 122.47 kg Kevon Stout [employer]OMAT[employer]IP[employer] [facility] Work Phone: Encounters Encounter Date Encounter Type Care Provider Facility Start: 10-08-2024 ambulatory Kristen May Facility :[facility] Start: 08-31-2024 End: 08-31-2024 ambulatory KRISTEN MAY DO [facility] [place] Start: 08-31-2024 End: 08-31-2024 Patient encounter procedure SARBJIT STELLA CALL CENTER SUPPORT CONSULTANT-KILN LOADER [facility] Start: 07-23-2024 End: 07-23-2024 Admission to same day surgery center Dr. Freddy Hardy MD -[facility] Start: 07-23-2024 End: 07-23-[address] Kristen May DO Work Phone: [facility] Work Phone: Start: 02-10-2024 End: 02-10-2024 ambulatory KRISTEN MAY DO [facility] [place] Start: 02-10-2024 End: 02-10-2024 Patient encounter procedure KRISTEN MAY DO [facility] Start: 01-23-2024 End: 01-23-2024 ambulatory Kristen May Facility:[facility] Start: 12-15-2023 End: 12-15-2023 ambulatory Troy Ting Facility:[facility] Start: 10-25-2023 End: 10-25-2023 ambulatory KRISTEN MAY DO Facility:[facility] Start: 10-25-2023 End: 10-25-2023 Patient encounter procedure KRISTEN MAY DO [facility] Start: 09-06-2023 End: 09-06-2023 ambulatory SARBJIT DOUGLAS CALL CENTER SUPPORT CONSULTANT-KILN LOADER Facility:[facility] Start: 08-25-2023 End: 08-25-2023 ambulatory NAVNEET PAYAN Facility:[facility] Start: 08-02-2023 End: 08-02-2023 ambulatory JOHANNE RICEART CALL CENTER SUPPORT CONSULTANT-KILN LOADER Facility:[facility] Start: 08-02-2023 End: 08-02-2023 Patient encounter procedure JOAHNNE RICEART CALL CENTER SUPPORT CONSULTANT-KILN LOADER [facility] Start: 07-28-2023 End: 07-29-2023 Emergency department patient visit KRISTEN MAY DO Facility:[facility] Start: 07-28-2023 End: 07-29-2023 Observation GUY MOCTEZUMA CALL CENTER SUPPORT CONSULTANT-KILN LOADER [facility] Start: 07-13-2023 End: 07-13-2023 ambulatory [facility] Work Phone: Start: 07-13-2023 End: 07-13-2023 Patient encounter procedure [facility], [facility] Work Phone: Start: 07-11-2023 End: 07-11-2023 Admission to same day surgery center [facility] Start: 07-11-2023 End: 07-11-2023 ambulatory [facility] Work Phone: Start: 05-09-2023 End: 05-09-2023 Admission to same day surgery [facility] Start: 05-09-2023 End: 05-09-2023 ambulatory [facility] Work Phone: Start: 02-14-2023 End: 02-14-2023 ambulatory ALONSO BROWNING MD Facility:[facility] Start: 02-12-2023 End: 02-12-2023 ambulatory KRISTEN MAY DO Facility:[facility] Start: 02-12-2023 End: 02-12-2023 Patient encounter procedure KRISTEN MAY DO [facility] Start: 02-10-2023 End: 02-10-2023 Emergency department patient visit SARBJIT JASON DO [facility] Start: 11-22-2022 End: 11-22-2022 Admission to same day surgery [facility] Start: 11-22-2022 End: 11-22-2022 ambulatory [facility] Work Phone: Start: 11-09-2022 End: 11-09-2022 ambulatory VICTORIA RANDALL CALL CENTER SUPPORT CONSULTANT-CNM Facility:[facility] Start: 11-09-2022 End: 11-09-2022 Patient encounter procedure VICTORIA Ledy TONIA CALL CENTER SUPPORT CONSULTANT-CNM [facility] Start: 08-23-2022 End: 08-23-2022 Admission to [facility] surgery [facility] Start: 08-23-2022 End: 08-23-2022 ambulatory [facility] Work Phone: Start: 08-21-2022 End: 08-21-2022 Patient encounter procedure KRISTEN MAY DO [facility] Start: 07-16-2022 End: 07-19-2022 Observation JOHANNE RODRIGUEZ CALL CENTER SUPPORT CONSULTANT-KILN LOADER [facility] Start: 07-14-2022 End: 07-18-2022 Outreach Lab EMILEE LEACH CALL CENTER SUPPORT CONSULTANT-KILN LOADER [facility] Start: 05-24-2022 End: 05-24-2022 Admission to [facility] day surgery [facility] Start: 05-24-2022 End: 05-24-2022 ambulatory [facility] Work Phone: Start: 03-20-2022 End: 03-20-2022 Patient encounter procedure KRISTEN MAY DO [facility] Start: 02-06-2022 End: 02-06-2022 Patient encounter procedure KRISTEN MAY DO [facility] Start: 07-17-2021 End: 07-17-2021 Patient encounter procedure [facility]EVIN [facility] SUPPORT CONSULTANT-CNM [facility] Start: 06-29-2021 End: 06-29-2021 Patient encounter procedure [facility] Start: 06-22-2021 End: 06-22-2021 Patient encounter procedure KRISTEN MAY DO [facility] Start: 03-24-2021 End: 03-24-[address] KEVON POTTER MD [facility] Start: 03-20-2021 End: 03-20-[address] KEVON POTTER MD [facility] Start: 03-12-2021 End: 03-12-[address] KEVON POTTER MD [facility] Start: 02-11-2021 End: 02-12-[address] KEVON POTTER MD [facility] Start: 01-28-2021 End: 01-28-2021 Patient encounter procedure NAYELI BLACKMON PA-C [facility] Start: 12-23-2020 End: 12-23-[address] KEVON POTTER MD [facility] Start: 03-27-2020 End: 03-27-2020 Patient encounter procedure RIZWANA GONZALEZ [facility] Start: 08-25-2017 End: 08-25-2017 Patient encounter procedure Sunil Brown PA-C Work Phone: [facility] Work Phone: Procedures Date Procedure Procedure Detail Performing Clinician Start: 07-23-2024 Local anesthetic sac ral epidural block Dr. Kristen May DO Work Phone: Start: 07-13-2023 Radionuclide three-p hase bone study Start: 07-11-2023 Fluoroscopic guidance Start: 07-11-2023 X-ray of lumbar spin e, two or three views Start: 07-11-2023 Destructive procedur e of nerve Start: 05-09-2023 Epidural anesthesia Start: 05-09-2023 Injection of spinal epidural space Start: 05-09-2023 X-ray of lumbar spin e, two or three views Start: 11-22-2022 Local anesthetic sac ral epidural block Start: 08-23-2022 Fluoroscopic guidance Start: 08-23-2022 X-ray of lumbosacral spine Start: 08-23-2022 Radio Frequency Abla tion (Right) Start: 05-24-2022 Epidural anesthesia Start: 05-24-2022 Injection of spinal epidural space Start: 05-24-2022 X-ray of lumbar spin e, two or three views Start: 06-29-2021 Screening mammography Start: 03-24-[address] KEVON POTTER MD Comment on above: ROBOTIC ASSISTED LEF T TOTAL KNEE Start: 02-11-[address] KEVON POTTER MD Comment on above: Right Start: 08-25-2017 End: 08-25-2017 Arthrocentesis aspir&/inj major jt/bursa w/o us Sunil Brown PA-C Work Phone: Start: 08-25-2017 End: 08-25-2017 Blood pressure outside of normal parameters - follow-up documented Sunil Kinneyan PA-C Work Phone: Start: 08-25-2017 End: 08-25-2017 BMI documented as above normal parameters - follow-up documented Sunil Kinneyan PA-C Work Phone: Start: 08-25-2017 End: 08-25-2017 Current medications documented Sunil Vasquez Mitan PA-C Work Phone: Start: 08-25-2017 End: 08-25-2017 Osteoarthritis assess Sunil Vasquez Mitan PA- C Work Phone: Start: 08-25-2017 End: 08-25-2017 Pain assessment documented as positive - follow-up documented Sunil Vasquez Mitan PA-C Work Phone: Start: 08-25-2017 End: 08-25-2017 Radiologic examination knee 3 views Sunil Vasquez Mitan PA-C Work Phone: Start: 08-25-2017 End: 08-25-2017 Tobacco non-user Sunil Vasquez Mitan PA-C Work Phone: Arthroscopy of knee DR YOON POTTER MD Comment on above: Left Colonoscopy RAY ESHENAUR PA -C Ligation of fallopian tube D R KEVON POTTER MD Lumbar (qualifier value) DR KEVON POTTER MD Comment on above: Bone spur Plan of Treatment Date Care Activity Detail Author Start: 07-23-2024 Fluoroscopy guided injection of cervical spinal nerve root [facility] Start: 07-23-2024 Injection using fluoroscopic guidance [facility] Start: 07-23-2024 Patient discharge [facility] Start: 07-11-2023 Anes dx/ther nerve block/injection prone pos ANESTH N BLOCK/INJ PRONE [facility] Start: 07-11-2023 Dstr nrolytc agnt parverteb fct addl lmbr/sacral DESTROY L/S FACET JNT [facility] Start: 07-11-2023 Dstr nrolytc agnt parverteb fct sngl lmbr/sacral DESTROY LUMB/SAC FACET T [facility] Start: 07-11-2023 Fluoroscopic guidance O.R. Fluoro for C-Arm [facility] Start: 07-11-2023 X-ray of lumbar spine, two or three views Lumbar Spine 2 or 3 Views [facility] Start: 07-11-2023 Patient discharge [facility] Start: 05-09-2023 Anes dx/ther nerve block/injection prone pos ANESTH N BLOCK/INJ PRONE [facility] Start: 05-09-2023 Njx anes&/strd w/img tfrml edrl lmbr/sac 1 lvl NJX AA&/STRD TFRM EPI L/S 1 [facility] Start: 05-09-2023 Njx anes&/strd w/img tfrml edrl lmbr/sac ea lv NJX AA&/STRD TFRM EPI L/S EA [facility] Start: 05-09-2023 Injection of spinal epidural space [facility] Start: 05-09-2023 X-ray of lumbar spine, two or three views Lumbar Spine 2 or 3 Views [facility] Start: 05-09-2023 Patient discharge [facility] Start: 11-22-2022 Injection of spinal epidural space [facility] Start: 11-22-2022 Injection using fluoroscopic guidance [facility] Start: 11-22-2022 Patient discharge [facility] Start: 08-23-2022 Anes dx/ther nerve block/injection prone pos ANESTH N BLOCK/INJ PRONE [facility] Start: 08-23-2022 Dstr nrolytc agnt parverteb fct addl lmbr/sacral DESTROY L/S FACET JNT [facility] Start: 08-23-2022 Dstr nrolytc agnt parverteb fct sngl lmbr/sacral DESTROY LUMB/SAC FACET T [facility] Start: 08-23-2022 Fluoroscopic guidance O.R. Fluoro for C-Arm [facility] Start: 08-23-2022 X-ray of lumbosacral spine L/S Spine Min 4 Views [facility] Start: 08-23-2022 Patient discharge [facility] Start: 05-24-2022 Anes dx/ther nerve block/injection prone pos ANESTH N BLOCK/INJ PRONE [facility] Start: 05-24-2022 Njx anes&/strd w/img tfrml edrl lmbr/sac 1 lvl NJX AA&/STRD TFRM EPI L/S 1 [facility] Start: 05-24-2022 Njx anes&/strd w/img tfrml edrl lmbr/sac ea lv NJX AA&/STRD TFRM EPI L/S EA [facility] Start: 05-24-2022 Injection of spinal epidural space [facility] Start: 05-24-2022 X-ray of lumbar spine, two or three views Lumbar Spine 2 or 3 Views [facility] Start: 05-24-2022 Patient discharge [facility] Start: 08-25-2017 End: 08-25-2017 Appointment Appointment [facility] Work Phone: Patient Education \[email or web address]\[email or web address]_ PtEducati on\[email or web address].pdf [facility] Work Phone: Patient referral [facility] Work Phone: Immunizations Immunization Date Immunization Notes Care Provider [facility] 02-10-2023 tetanus toxoid, reduced diphtheria toxoid, and acellular pertussis vaccine, adsorbed SARBJIT JASON DO [facility] 11-01-2018 influenza virus vaccine, unspecified formulation DR KEVON POTTER MD [facility] 03-07-2014 influenza virus vaccine, unspecified formulation DR KEVON POTTER MD [facility] 11-05-2013 influenza virus vaccine, unspecified formulation DR KEVON POTTER MD [facility] No information available. Kevon Stout LPN [facility] Work Phone: Payers Date Payer Category Payer Private Health Insurance [id number] 2023 Self-pay [id number] 2023 Unknown [id number] 2006 Unknown [id number] 1965 Unknown [id number] 2.16.8 40.1.878497.3.579.2. 1963 Unknown [id number] 2.16.8 40.1.089284.3.579.2. 1963 Unknown [id number] 2.16.8 40.1.662475.3.579.2. 1963 Unknown [id number] 2.16.8 40.1.988278.3.579.2. 1963 Unknown [id number] 2.16.8 40.1.417175.3.579.2. 1963 Unknown [id number] 2.16.8 40.1.576503.3.579.2. 1963 Unknown [id number] 2.16.8 40.1.143608.3.579.2. 1963 Unknown [id number] 2.16.8 40.1.959600.3.579.2. 1963 Unknown [id number] 2.16.8 40.1.553807.3.579.2. 1963 Unknown [id number] 2.16.8 40.1.338044.3.579.2.627 1963 Unknown [id number] 2.16. [id number] 1963 Unknown [id number] 2.16.8 [id number] 1963 Unknown [id number] 2.16.84 [id number] Unknown [id number] Unknown [id number] Unknown [id number] 2.16.8 [id number] Unknown [id number] 2.16.8 [id number] Unknown [id number] 2.16.8 [id number] Unknown [id number] 2.16.8 [id number] Social History Date Type Detail Facility Start: 01-08-2022 End: 07-04-2023 Assertion Unknown if ever smoked [facility] Work Phone: Start: 11-29-2018 End: 07-20-2024 Never smoked tobacco (finding) [facility] Start: 1965 Sex Assigned At Female [facility] Sexual Orientation [facility] ospital [facility] Sex Female (finding) [place] Rob mauricio NEGATED: Highlighted rowStart: 08-25-2017 End: 08-25-2017 Alcohol use Unknown if ever smoked [facility] Work Phone: NEGATED: Highlighted row Not [facility] Goals Date Patient Goal Desired Activity /State Functional Status Date Assessment Result Facility 07-29-2023 Functional Status Awake, Resting, Watching TV [facility] 07-29-2023 Functional Status [facility] 07-29-2023 Functional Status Single level home [facility] 07-29-2023 Functional Status Room check performed [facility] 07-29-2023 Functional Status [facility] 07-28-2023 Functional Status Sensory Deficits None [facility] 07-28-2023 Functional Status Independent Manuel [facility] 02-10-2023 [facility] Functional Status Standard Safet y ID band on, Allergy Band on, Call device within reach, Bed in low position, Wheels locked, Visitor at bedside [facility] 08-23-2022 Functional status Ambulates;Up ad sobia [facility] Work Phone: 07-19-2022 Functional Status Room check performed [facility] 07-19-2022 Functional Status Driving, 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, 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 management, Housework, Laundry, Meal preparation, Personal ADL, Shopping, Work [facility] 07-19-2022 Functional Status [facility] 07-19-2022 Functional Status Manuel [facility] 07-18-2022 Functional Status Manuel [facility] 07-18-2022 Functional Status Bed Bath Setup [facility] 07-18-2022 Functional Status Demonstrates C orrect Call Light Use Yes [facility] 07-17-2022 Functional Status [facility] 07-16-2022 Functional Status Manuel [facility] 07-16-2022 Functional Status Sensory Deficits None [facility] 07-16-2022 Functional Status Environmental Safety Implemented Adequate room lighting, Bed in low position, Call device within reach [facility] Mental Status Date Assessment Result Facility 07-23-2024 Cognitive function Voice/Name;Touch/Lucie christy [facility] Work Phone: 07-29-2023 Mental Status Oriented x 4 [facility] 07-28-2023 Mental Status [facility] 07-28-2023 Mental Status [facility] 07-11-2023 Cognitive function Level Of Cons ciousness Awake;Alert;Appropriate;Follow s Commands [facility] Work Phone: 07-11-2023 Cognitive function Voice/Name [facility] Work Phone: 05-09-2023 Cognitive function Voice/Name [facility] Work Phone: 02-10-2023 Mental Status Orientation Oriented x 4 [facility] 02-10-2023 Mental Status [facility] 11-22-2022 Cognitive function Voice/Name [facility] Work Phone: 08-23-2022 Cognitive function Voice/Name [facility] Work Phone: 07-19-2022 Mental Status Oriented x 4 [facility] 07-19-2022 Mental Status [facility] 07-18-2022 Mental Status [facility] 05-24-2022 Cognitive function Voice/Name [facility] Work Phone: Clinical Notes 12-23-2020 to 07-23-2024 Note Date & Type Note Facility 07-23-2024 Consult note [facility] 07-23-2024 Consult note [facility] 07-23-2024 Procedure note [facility] 10-25-2023 Note Exam Date Time Procedure Performing Provider Status 10/25/23 8:22 AM VL Venous US/Doppler One Leg (for DVT). Auth (Verified) [facility] 05-24-2024 Hospital Discharge instructions Patient Education 07/29/2023 13:37:53 Acute Kidney Injury, Adult Acute Kidney Injury, Adult Acute kidney injury is a sudden worsening of kidney function. The kidneys are organs that have several jobs. They filter the blood to remove waste products and extra fluid. They also maintain a healthy balance of minerals and hormones in the body, which helps control blood pressure and keep bones strong. With this condition, your kidneys do not do their jobs as well as they should. This condition ranges from mild to severe. Over time it may develop into long- lasting (chronic) kidney disease. Early detection and treatment may prevent acute kidney injury from developing into a chronic condition. What are the causes? Common causes of this condition include: A problem with blood flow to the kidneys. This may be caused by: ?Low blood pressure (hypotension) or shock. ?Blood loss. ?Heart and blood vessel (cardiovascular) disease. ?Severe patterson. ?Liver disease. Direct damage to the kidneys. This may be caused by: ?Certain medicines. ?A kidney infection. ?Poisoning. ?Being around or in contact with toxic substances. ?A surgical wound. ?A hard, direct hit to the kidney area. A sudden blockage of urine flow. This may be caused by: ?Cancer. ?Kidney stones. ?An enlarged prostate in males. What are the signs or symptoms? Symptoms of this condition may not be obvious until the condition becomes severe. Symptoms of this condition can include: Tiredness (lethargy), or difficulty staying awake. Nausea or vomiting. Swelling (edema) of the face, legs, ankles, or feet. Problems with urination, such as: ?Abdominal pain, or pain along the side of your stomach (flank). ?Decreased urine production. ?Decrease in the force of urine flow. Muscle twitches and cramps, especially in the legs. Confusion or trouble concentrating. Loss of appetite. Fever. How is this diagnosed? This condition may be diagnosed with tests, including: Blood tests. Urine tests. Imaging tests. A test in which a sample of tissue is removed from the kidneys to be examined under a microscope (kidney biopsy). How is this treated? Treatment for this condition depends on the cause and how severe the condition is. In mild cases, treatment may not be needed. The kidneys may heal on their own. In more severe cases, treatment will involve: Treating the cause of the kidney injury. This may involve changing any medicines you are taking or adjusting your dosage. Fluids. You may need specialized IV fluids to balance your body's needs. Having a catheter placed to drain urine and prevent blockages. Preventing problems from occurring. This may mean avoiding certain medicines or procedures that cancause further injury to the kidneys. In some cases treatment may also require: A procedure to remove toxic wastes from the body (dialysis or continuous renal replacement therapy - CRRT). Surgery. This may be done to repair a torn kidney, or to remove the blockage from the urinary system. Follow these instructions at home: Medicines Take kwnh-emw-mfqobsd and prescription medicines only as told by your health care provider. Do not take any new medicines without your health care provider's approval. Many medicines can worsen your kidney damage. Do not take any vitamin and mineral supplements without your health care provider's approval. Many nutritional supplements can worsen your kidney damage. Lifestyle If your health care provider prescribed changes to your diet, follow them. You may need to decreasethe amount of protein you eat. Achieve and maintain a healthy weight. If you need help with this, ask your health care provider. Start or continue an exercise plan. Try to exercise at least 30 minutes a day, 5 days a week. Do not use any tobacco products, such as cigarettes, chewing tobacco, and e- cigarettes. If you needhelp quitting, ask your health care provider. General instructions Keep track of your blood pressure. Report changes in your blood pressure as told by your health care provider. Stay up to date with immunizations. Ask your health care provider which immunizations you need. Keep all follow-up visits as told by your health care provider. This is important. Where to find more information [employer]: www.aakp.org National Kidney Foundation: www.kidney.org [employer]: www.akfinc.org Life [employer] Rehabilitation Program: ?www.lifeoptions.org ?www.kidneyschool.org Contact a health care provider if: Your symptoms get worse. You develop new symptoms. Get help right away if: You develop symptoms of worsening kidney disease, which include: ?Headaches. ?Abnormally dark or light skin. ?Easy bruising. ?Frequent hiccups. ?Chest pain. ?Shortness of breath. ?End of menstruation in women. ?Seizures. ?Confusion or altered mental status. ?Abdominal or back pain. ?Itchiness. You have a fever. Your body is producing less urine. You have pain or bleeding when you urinate. Summary Acute kidney injury is a sudden worsening of kidney function. Acute kidney injury can be caused by problems with blood flow to the kidneys, direct damage to the kidneys, and sudden blockage of urine flow. Symptoms of this condition may not be obvious until it becomes severe. Symptoms may include edema, lethargy, confusion, nausea or vomiting, and problems passing urine. This condition can usually be diagnosed with blood tests, urine tests, and imaging tests. Sometimesa kidney biopsy is done to diagnose this condition. Treatment for this condition often involves treating the underlying cause. It is treated with fluids, medicines, dialysis, diet changes, or surgery. This information is not intended to replace advice given to you by your health care provider. Make sure you discuss any questions you have with your health care provider. Document Released: 09/06/2011 Document Revised: 02/03/2018 Document Reviewed: 02/11/2017 [employer] Patient Education 2020 [employer]. 07/29/2023 13:37:26 Pulmonary Embolism Pulmonary Embolism A pulmonary embolism (PE) is a sudden blockage or decrease of blood flow in one or both lungs. Mostblockages come from a blood clot that forms in the vein of a lower leg, thigh, or arm (deep vein thrombosis, DVT) and travels to the lungs. A clot is blood that has thickened into a gel or solid. PE is a dangerous and life-threatening condition that needs to be treated right away. What are the causes? This condition is usually caused by a blood clot that forms in a vein and moves to the lungs. In rare cases, it may be caused by air, fat, part of a tumor, or other tissue that moves through the veins and into the lungs. What increases the risk? The following factors may make you more likely to develop this condition: Experiencing a traumatic injury, such as breaking a hip or leg. Having: ?A spinal cord injury. ?Orthopedic surgery, especially hip or knee replacement. ?Any major surgery. ?A stroke. ?DVT. ?Blood clots or blood clotting disease. ?Long-term (chronic) lung or heart disease. ?Cancer treated with chemotherapy. ?A central venous catheter. Taking medicines that contain estrogen. These include control pills and hormone replacement therapy. Being: ?. ?In the period of time after your baby is delivered (). ?Older than age 60. ?Overweight. ?A smoker, especially if you have other risks. What are the signs or symptoms? Symptoms of this condition usually start suddenly and include: Shortness of breath during activity or at rest. Coughing, coughing up blood, or coughing up blood-tinged mucus. Chest pain that is often worse with deep breaths. Rapid or irregular heartbeat. Feeling light-headed or dizzy. Fainting. Feeling anxious. Fever. Sweating. Pain and swelling in a leg. This is a symptom of DVT, which can lead to PE. How is this diagnosed? This condition may be diagnosed based on: Your medical history. A physical exam. Blood tests. CT pulmonary angiogram. This test checks blood flow in and around your lungs. Ventilation-perfusion scan, also called a lung VQ scan. This test measures air flow and blood flow to the lungs. An ultrasound of the legs. How is this treated? Treatment for this condition depends on many factors, such as the cause of your PE, your risk for bleeding or developing more clots, and other medical conditions you have. Treatment aims to remove, dissolve, or stop blood clots from forming or growing larger. Treatment may include: Medicines, such as: ?Blood thinning medicines (anticoagulants) to stop clots from forming. ?Medicines that dissolve clots (thrombolytics). Procedures, such as: ?Using a flexible tube to remove a blood clot (embolectomy) or to deliver medicine to destroy it (catheter-directed thrombolysis). ?Inserting a filter into a large vein that carries blood to the heart (inferior vena cava). This filter (vena cava filter) catches blood clots before they reach the lungs. ?Surgery to remove the clot (surgical embolectomy). This is rare. You may need a combination of immediate, long-term (up to 3 months after diagnosis), and extended (more than 3 months after diagnosis) treatments. Your treatment may continue for several months (maintenance therapy). You and your health care provider will work together to choose the treatment program that is best for you. Follow these instructions at home: Medicines Take zwpk-hyj-jenmhpu and prescription medicines only as told by your health care provider. If you are taking an anticoagulant medicine: ?Take the medicine every day at the same time each day. ?Understand what foods and drugs interact with your medicine. ?Understand the side effects of this medicine, including excessive bruising or bleeding. Ask your health care provider or pharmacist about other side effects. General instructions Wear a medical alert bracelet or carry a medical alert card that says you have had a PE and lists what medicines you take. Ask your health care provider when you may return to your normal activities. Avoid sitting or lyingfor a long time without moving. Maintain a healthy weight. Ask your health care provider what weight is healthy for you. Do not use any products that contain nicotine or tobacco, such as cigarettes, e- cigarettes, and chewing tobacco. If you need help quitting, ask your health care provider. Talk with your health care provider about any travel plans. It is important to make sure that you are still able to take your medicine while on trips. Keep all follow-up visits as told by your health care provider. This is important. Contact a health care provider if: You missed a dose of your blood thinner medicine. Get help right away if: You have: ?New or increased pain, swelling, warmth, or redness in an arm or leg. ?Numbness or tingling in an arm or leg. ?Shortness of breath during activity or at rest. ?A fever. ?Chest pain. ?A rapid or irregular heartbeat. ?A severe headache. ?Vision changes. ?A serious fall or accident, or you hit your head. ?Stomach (abdominal) pain. ?Blood in your vomit, stool, or urine. ?A cut that will not stop bleeding. You cough up blood. You feel light-headed or dizzy. You cannot move your arms or legs. You are confused or have memory loss. These symptoms may represent a serious problem that is an emergency. Do not wait to see if the symptoms will go away. Get medical help right away. Call your local emergency services (911 in the [place] Do not drive yourself to the hospital. Summary A pulmonary embolism (PE) is a sudden blockage or decrease of blood flow in one or both lungs. PE is a dangerous and life-threatening condition that needs to be treated right away. Treatments for this condition usually include medicines to thin your blood (anticoagulants) or medicines to break apart blood clots (thrombolytics). If you are given blood thinners, it is important to take the medicine every day at the same time each day. Understand what foods and drugs interact with any medicines that you are taking. If you have signs of PE or DVT, call your local emergency services (911 in the [place] This information is not intended to replace advice given to you by your health care provider. Make sure you discuss any questions you have with your health care provider. Document Released: 02/18/2001 Document Revised: 11/29/2018 Document Reviewed: 11/29/2018 [employer] Patient Education 2020 [employer]. Follow Up Care 07/28/2023 20:15:42 With:SARBJIT DOUGLAS Address: [address] [place] [address] [place] [address]- [phone] When:08/05/2023 10:30:00 Comments:This is your post-hospital appointment at the [place] office. Follow-up as scheduled. [facility] 05-24-2024 Evaluation + Plan noteExtracted from: Title:History and Physical Author:JOHANNE RODRIGUEZ Date:07/29/23 1. Pulmonary embolus 2. LIZETH (acute kidney injury) Pulmonary embolus patient was initiated on heparin by weight in the emergency department. Will switch this to apixaban 10 mg twice daily x 7 days and then 5 mg twice daily. Pasi score 79 putting patient at low risk of 30-day mortality. Doppler obtained showing left lower extremity DVT. This is likely as a result of her decreased mobility with stress fracture. Echocardiogram is done and not yet resulted. LIZETH creatinine 1.68 in the emergency department. She was given 1 L of normal saline with improvement in renal function to 1.36 this morning. She was given an additional 1 L normal saline bolus. She will be discharged home with lab work to reevaluate kidney function. DVT prophylaxis: Apixaban Code Status: Full code Plan of care discussed with patient. All questions answered. Patient verbalizes understanding is agreeable to plan of care. This dictation was performed using voice recognition software and may include grammatical and/or spelling errors. Future Appointments Appointment Date:08/05/2023 10:30:00 AM Scheduled Provider:SARBJIT DOUGLAS Location:[facility] Appointment Type:[facility] Follow-Up Appointment Date:09/12/2023 01:00:00 PM Scheduled Provider:KRISTEN MAY DO Location:[facility] Appointment Type:PC OV [facility] 05-24-2024 Note Discharge Instructions Thank you for allowing [facility] to assist you with your healthcare needs. The following is importantdischarge information regarding your hospital visit. Your Care Team [facility] Team Your Diagnosis LIZETH (acute kidney injury) Depression with anxiety Pulmonary embolus What to do next Instructions From Your Doctor You were admitted for pulmonary embolism (blood clot in your lungs). You are also found to have a blood clot In your left lower leg. This could be caused by fracture and decreased mobility and/or Megace. You indicated that you have stopped taking this medication around 07/20/2023. Would not recommend restarting. You are being discharged on a new medication for blood clots. Eliquis (apixaban) 10 mgtwice daily for 7 days and then 5 mg twice daily thereafter. There is always a risk for bleeding. If you should have any vomiting that looks like coffee grounds or stool that is black and tarry or maroon with clots, you will need to go to the emergency department. You had an acute kidney injury. You indicated that you have not been eating or drinking much. I would recommend stopping lisinopril/HCTZ. A prescription for lisinopril 10 mg has been sent to your pharmacy. Please plan to follow-up with your PCP for further recommendations. CTA chest showed Suspected low burden pulmonary embolism within bilateral lower lobe segmental arteries. No evidence of right heart strain. She does have a few scattered subzero 0.6 cm nodules. Depending on risk factors may obtain CT chest in 12 months. Scheduled Follow-Up Appointments Appointment Type When With Where Contact Information StatusPC Hospital Follow-Up 08/05/2023 10:30 AM EDT [facility] Conf[facility] OV 09/12/2023 01:00 PM EDT [facility] Confirmed Follow Up Appointments Follow Up with SARBJIT DOUGLAS When:08/05/2023 10:30 AM EDT Where:[address] [facility] [place] [address]- [phone] Additional Information: This is your post-hospital appointment at the [place] office. Follow-upas scheduled. The Following Activity and Diet Have Been Ordered for You Discharge Activity - Ordered -- Resume your pre-hospitalization activity, 07/29/23 13:00:00 EDT Discharge Diet - Ordered -- No changes were made to your diet during your hospital stay. Please resume your pre hospitalization diet on discharge., 07/29/23 13:00:00 EDT The Following Treatments Have Been Ordered for You Discharge Labs Discharge Outpatient Labwork - Ordered -- bmp, lizeth, follow-up within: 72 hours, 07/29/23 13:00:00 EDT Discharge Radiology No qualifying data available. Other Therapies No qualifying data available. Post Acute Orders No qualifying data available. Someone Will Contact You Regarding These Home Health Referrals No home referrals have been ordered for you. No one will call you. Allergies Avelox Rash fenofibrate Gum pain penicillin Rash sulfa Rash Medications Please ask your primary doctor or pharmacist before taking any other medication not listed, including over the counter drugs, herbal medications, vitamins and or supplements as they may interact withyour home medications. What How Much When Why Instructions Last Dose New apixaban (Eliquis Starter Pack for Treatment of DVT and PE 5 mg oral tablet) [10mg BID x 7days-then 5mg BID] by mouth Two (2) times a day Duration: 30 Days Pickup at [facility] New lisinopril (lisinopril 10 mg oral tablet) 1 tab(s) by mouth Every day Duration: 30 Days Pickup at [facility] Unchanged cholecalciferol (Vitamin D3 125 mcg (5000 [...] Three (3) times a day pain management 1 cap twice daily 2 caps at HS Unchanged hydrOXYzine (hydrOXYzine hydrochloride 50 mg oral tablet) 1 tab(s) by mouth Four (4) times a day as needed for as needed for anxiety Depression with anxiety Unchanged omega-3 polyunsaturated fatty acids (Fish Oil 1000 mg oral capsule) 1 cap by mouth Once a day Unchanged omeprazole (omeprazole 40 mg oral delayed release capsule) See instructions TAKE 1 CAPSULE BY MOUTH EVERY DAY Unchanged rosuvastatin (rosuvastatin 5 mg oral tablet) See instructions TAKE 1 TABLET BY MOUTH EVERY DAY Pharmacy Information Replaced By [facility] 074: [address] [place], [place] [id number] [phone] What How Much When Why Comments Stop Taking hydrochlorothiazide-lisinopril (hydrochlorothiazide-lisinopril 12.5 mg-10 mg oral tablet) 1 tab(s) by mouth Every day Essential hypertension Duration: 100 Days Stop Taking megestrol (megestrol 40 mg oral tablet) by mouth Four (4) times a day Stop Taking meloxicam (meloxicam 15 mg oral tablet) 1 tab(s) by mouth Once a day as needed for Pain Take with food/ milk Stop Taking topiramate (topiramate 25 mg oral capsule) 4 [...] medication providers or retail pharmacies. Education Materials Acute Kidney Injury, Adult Acute kidney injury is a sudden worsening of kidney function. The kidneys are organs that have several jobs. They filter the blood to remove waste products and extra fluid. They also maintain a healthy balance of minerals and hormones in the body, which helps control blood pressure and keep bones strong. With this condition, your kidneys do not do their jobs as well as they should. This condition ranges from mild to severe. Over time it may develop into long- lasting (chronic) kidney disease. Early detection and treatment may prevent acute kidney injury from developing into a chronic condition. What are the causes? Common causes of this condition include: A problem with blood flow to the kidneys. This may be caused by: ? Low blood pressure (hypotension) or shock. ? Blood loss. ? Heart and blood vessel (cardiovascular) disease. ? Severe patterson. ? Liver disease. Direct damage to the kidneys. This may be caused by: ? Certain medicines. ? A kidney infection. ? Poisoning. ? Being around or in contact with toxic substances. ? A surgical wound. ? A hard, direct hit to the kidney area. A sudden blockage of urine flow. This may be caused by: ? Cancer. ? Kidney stones. ? An enlarged prostate in males. What are the signs or symptoms? Symptoms of this condition may not be obvious until the condition becomes severe. Symptoms of this condition can include: Tiredness (lethargy), or difficulty staying awake. Nausea or vomiting. Swelling (edema) of the face, legs, ankles, or feet. Problems with urination, such as: ? Abdominal pain, or pain along the side of your stomach (flank). ? Decreased urine production. ? Decrease in the force of urine flow. Muscle twitches and cramps, especially in the legs. Confusion or trouble concentrating. Loss of appetite. Fever. How is this diagnosed? This condition may be diagnosed with tests, including: Blood tests. Urine tests. Imaging tests. A test in which a sample of tissue is removed from the kidneys to be examined under a microscope (kidney biopsy). How is this treated? Treatment for this condition depends on the cause and how severe the condition is. In mild cases, treatment may not be needed. The kidneys may heal on their own. In more severe cases, treatment will involve: Treating the cause of the kidney injury. This may involve changing any medicines you are taking or adjusting your dosage. Fluids. You may need specialized IV fluids to balance your body's needs. Having a catheter placed to drain urine and prevent blockages. Preventing problems from occurring. This may mean avoiding certain medicines or procedures that cancause further injury to the kidneys. In some cases treatment may also require: A procedure to remove toxic wastes from the body (dialysis or continuous renal replacement therapy - CRRT). Surgery. This may be done to repair a torn kidney, or to remove the blockage from the urinary system. Follow these instructions at home: Medicines Take [id number] and prescription medicines only as told by your health care provider. Do not take any new medicines without your health care provider's approval. Many medicines can worsen your kidney damage. Do not take any vitamin and mineral supplements without your health care provider's approval. Many nutritional supplements can worsen your kidney damage. Lifestyle If your health care provider prescribed changes to your diet, follow them. You may need to decreasethe amount of protein you eat. Achieve and maintain a healthy weight. If you need help with this, ask your health care provider. Start or continue an exercise plan. Try to exercise at least 30 minutes a day, 5 days a week. Do not use any tobacco products, such as cigarettes, chewing tobacco, and e- cigarettes. If you needhelp quitting, ask your health care provider. General instructions Keep track of your blood pressure. Report changes in your blood pressure as told by your health care provider. Stay up to date with immunizations. Ask your health care provider which immunizations you need. Keep all follow-up visits as told by your health care provider. This is important. Where to find more information [employer]: www.aakp.org National Kidney Foundation: www.kidney.org [employer]: www.akfinc.org Life Options Rehabilitation Program: ? www.lifeoptions.org ? www.kidneyschool.org Contact a health care provider if: Your symptoms get worse. You develop new symptoms. Get help right away if: You develop symptoms of worsening kidney disease, which include: ? Headaches. ? Abnormally dark or light skin. ? Easy bruising. ? Frequent hiccups. ? Chest pain. ? Shortness of breath. ? End of menstruation in women. ? Seizures. ? Confusion or altered mental status. ? Abdominal or back pain. ? Itchiness. You have a fever. Your body is producing less urine. You have pain or bleeding when you urinate. Summary Acute kidney injury is a sudden worsening of kidney function. Acute kidney injury can be caused by problems with blood flow to the kidneys, direct damage to the kidneys, and sudden blockage of urine flow. Symptoms of this condition may not be obvious until it becomes severe. Symptoms may include edema, lethargy, confusion, nausea or vomiting, and problems passing urine. This condition can usually be diagnosed with blood tests, urine tests, and imaging tests. Sometimesa kidney biopsy is done to diagnose this condition. Treatment for this condition often involves treating the underlying cause. It is treated with fluids, medicines, dialysis, diet changes, or surgery. This information is not intended to replace advice given to you by your health care provider. Make sure you discuss any questions you have with your health care provider. Document Released: 09/06/2011 Document Revised: 02/03/2018 Document Reviewed: 02/11/2017 [employer] Patient Education 2020 [employer]. Pulmonary Embolism A pulmonary embolism (PE) is a sudden blockage or decrease of blood flow in one or both lungs. Mostblockages come from a blood clot that forms in the vein of a lower leg, thigh, or arm (deep vein thrombosis, DVT) and travels to the lungs. A clot is blood that has thickened into a gel or solid. PE is a dangerous and life-threatening condition that needs to be treated right away. What are the causes? This condition is usually caused by a blood clot that forms in a vein and moves to the lungs. In rare cases, it may be caused by air, fat, part of a tumor, or other tissue that moves through the veins and into the lungs. What increases the risk? The following factors may make you more likely to develop this condition: Experiencing a traumatic injury, such as breaking a hip or leg. Having: ? A spinal cord injury. ? Orthopedic surgery, especially hip or knee replacement. ? Any major surgery. ? A stroke. ? DVT. ? Blood clots or blood clotting disease. ? Long-term (chronic) lung or heart disease. ? Cancer treated with chemotherapy. ? A central venous catheter. Taking medicines that contain estrogen. These include control pills and hormone replacement therapy. Being: ? . ? In the period of time after your baby is delivered (). ? Older than age 60. ? Overweight. ? A smoker, especially if you have other risks. What are the signs or symptoms? Symptoms of this condition usually start suddenly and include: Shortness of breath during activity or at rest. Coughing, coughing up blood, or coughing up blood-tinged mucus. Chest pain that is often worse with deep breaths. Rapid or irregular heartbeat. Feeling light-headed or dizzy. Fainting. Feeling anxious. Fever. Sweating. Pain and swelling in a leg. This is a symptom of DVT, which can lead to PE. How is this diagnosed? This condition may be diagnosed based on: Your medical history. A physical exam. Blood tests. CT pulmonary angiogram. This test checks blood flow in and around your lungs. Ventilation-perfusion scan, also called a lung VQ scan. This test measures air flow and blood flow to the lungs. An ultrasound of the legs. How is this treated? Treatment for this condition depends on many factors, such as the cause of your PE, your risk for bleeding or developing more clots, and other medical conditions you have. Treatment aims to remove, dissolve, or stop blood clots from forming or growing larger. Treatment may include: Medicines, such as: ? Blood thinning medicines (anticoagulants) to stop clots from forming. ? Medicines that dissolve clots (thrombolytics). Procedures, such as: ? Using a flexible tube to remove a blood clot (embolectomy) or to deliver medicine to destroy it (catheter-directed thrombolysis). ? Inserting a filter into a large vein that carries blood to the heart (inferior vena cava). This filter (vena cava filter) catches blood clots before they reach the lungs. ? Surgery to remove the clot (surgical embolectomy). This is rare. You may need a combination of immediate, long-term (up to 3 months after diagnosis), and extended (more than 3 months after diagnosis) treatments. Your treatment may continue for several months (maintenance therapy). You and your health care provider will work together to choose the treatment program that is best for you. Follow these instructions at home: Medicines Take bpcj-tvd-btiqioy and prescription medicines only as told by your health care provider. If you are taking an anticoagulant medicine: ? Take the medicine every day at the same time each day. ? Understand what foods and drugs interact with your medicine. ? Understand the side effects of this medicine, including excessive bruising or bleeding. Ask your health care provider or pharmacist about other side effects. General instructions Wear a medical alert bracelet or carry a medical alert card that says you have had a PE and lists what medicines you take. Ask your health care provider when you may return to your normal activities. Avoid sitting or lyingfor a long time without moving. Maintain a healthy weight. Ask your health care provider what weight is healthy for you. Do not use any products that contain nicotine or tobacco, such as cigarettes, e- cigarettes, and chewing tobacco. If you need help quitting, ask your health care provider. Talk with your health care provider about any travel plans. It is important to make sure that you are still able to take your medicine while on trips. Keep all follow-up visits as told by your health care provider. This is important. Contact a health care provider if: You missed a dose of your blood thinner medicine. Get help right away if: You have: ? New or increased pain, swelling, warmth, or redness in an arm or leg. ? Numbness or tingling in an arm or leg. ? Shortness of breath during activity or at rest. ? A fever. ? Chest pain. ? A rapid or irregular heartbeat. ? A severe headache. ? Vision changes. ? A serious fall or accident, or you hit your head. ? Stomach (abdominal) pain. ? Blood in your vomit, stool, or urine. ? A cut that will not stop bleeding. You cough up blood. You feel light-headed or dizzy. You cannot move your arms or legs. You are confused or have memory loss. These symptoms may represent a serious problem that is an emergency. Do not wait to see if the symptoms will go away. Get medical help right away. Call your local emergency services (911 in the [place] Do not drive yourself to the hospital. Summary A pulmonary embolism (PE) is a sudden blockage or decrease of blood flow in one or both lungs. PE is a dangerous and life-threatening condition that needs to be treated right away. Treatments for this condition usually include medicines to thin your blood (anticoagulants) or medicines to break apart blood clots (thrombolytics). If you are given blood thinners, it is important to take the medicine every day at the same time each day. Understand what foods and drugs interact with any medicines that you are taking. If you have signs of PE or DVT, call your local emergency services (911 in the [place] This information is not intended to replace advice given to you by your health care provider. Make sure you discuss any questions you have with your health care provider. Document Released: 02/18/2001 Document Revised: 11/29/2018 Document Reviewed: 11/29/2018 [employer] Patient Education 2020 [employer] Additional Information VACCINATE! IT SAVES LIVES! Members of the community who have not yet received the COVID-19 vaccine and would like to receive it can visit one of [facility] vaccine clinics. There are many vaccine clinic locations within the [facility]. For locations and available times, please visit https://gettheshot.coronavirus.[place].gov/. It is important to note that some COVID mobile vaccine clinics are held outdoors and may be canceled in rainy or stormy conditions. To learn more about pediatric vaccinations (ages 5-11), we invite you to visit the [facility] webpage. https://www.[facility].org/pages/3233-Hkbrd-Zodnpojpplx-Iceubravbf-Lmgzs-Nlg stions.htmlTo learn more about the COVID-19 vaccine, we invite you to visit the CDC website for a list of frequently asked questions.https://www.cdc.gov/coronavirus/2019-ncov/vaccines/faq.html [facility] Patient Portal Access Instructions: Stay connected with your healthcare team and access your personal medical information anytime with the [facility] Patient Portal. Please follow the directions below to create your [facility] account: 1.Access the email account you provided upon registration to the hospital/physician office.2.Look for an invitation email from [facility].3.Open the email and access the invitation link: AcceptInvitation to [facility].4.Fill in the required mcneal to create your account. To access your account, visit [email or web address]. Click the blue button labeled Access Patient Portal and then log in with the username and password that you created in the steps above. You will be able to view your test results, lab results, a summary of your visits, upcoming appointments and more. There is also a convenient messaging option where you can send secure messages to your p [employer]ider. In addition, you will have the ability to download any documents or summaries to your computer and/or send the information securely to a physician. Remember that your healthcare information is confidential, so carefully consider who you will allowto register on the [facility] Patient Portal for access to your information. You can also access the [facility] Patient Portal on the [facility]. Simply click on Patient Portal and then log into your account. If you would like to receive a full copy of your medical records, please contact the [facility] Medical Records Department by calling [phone], Tuesday through Tuesday between 8 a.m. and 4:30 p.m. HOW TO SAFELY DISPOSE OF PRESCRIPTION MEDICATIONS Please use one of the following methods to safely dispose of your unused medications. 1.Use a drug disposal kit: the drug disposal pouch allows you to safely discard your old and unuseddrugs. Ask your nurse to give you one when you are discharged.2.Visit a local take-back location: Many local pharmacies and police departments have programs that collect old and unwanted prescriptiondrugs. Call your local pharmacy or go to http://[employer]8F0Sh9b to find one close to you.3.Make use of household items: Use cat litter or old coffee grounds to dispose medications if other options arenot available. Mix your drugs with these household products, seal them in an airtight container andthrow it into the garbage. Call [facility]: [phone] to be sure your drugs can be [...] a CHART COPY. Signatures Patient Education Materials Acute Kidney Injury, Adult Pulmonary Embolism Medication Leaflets My discharge plan and instructions have been reviewed and explained to me and JORGE Stanton DORINDA L understand my current condition and have read and understand these discharge instructions. I have received a written copy of the plan/instructions. If I have questions, I am aware that I should contact my doctor. Patient/Bridge Expert Signature: Date/Time: Relationship to Patient: Witness Name/Signature: Date/Time: [facility]05-24-2024 Note Date of Service 07/29/2023 Chief Complaint C/o chest pressure, SOB - worse on exertion. States has been ongoing for 2-3 weeks, worse today. States PCP started her on vistaril last week. States took two doses today with no relief of sx. Reports dx stress fx to left foot 4 weeks ago. History of Present Illness 56-year-old female with past medical history significant for HTN, TOMMIE, HLD, ANTWAN, depression with anxiety, GERD. Patient presented to [facility] Emergency department on 07/28/2023 with a 2 to 3-week history of dyspnea on exertion that has become much worse. Patient was seen by PCP on 07/20/2023 and was initiated on Vistaril due to concern for anxiety. Patient states that this was ineffective. In the emergency department she was tachycardic at 110, tachypneic at 22, normotensive with adequate oxygenationon room air. No leukocytosis. D-dimer was elevated to 1472. She was mildly hyperkalemic at 5.2, creatinine 1.68 with a GFR of 31. X-ray chest was negative. CTA chest showed suboptimal bolus timing. Suspected low burden pulmonary embolism within bilateral lower lobe segmental arteries. No evidence of right heart strain. She does have a few scattered subzero 0.6 cm nodules. Depending on risk factors may obtain CT chest in 12 months. EKG showed normal sinus rhythm. Patient does have a stress fracture of her left foot and has been in a walking boot with decreased mobilization. She was initiated on heparin by weight and subsequently admitted. On exam today, pt denies any fever or chills. No headache or dizziness. Admits chest discomfort, nopalpitations.. No cough, sputum production. Some improvement in dyspnea. Denies N/V/D/C. No melena/hematochezia. No dysuria or hematuria. No new paresthesias. Review of Systems See HPI for specific ROS. All other systems reviewed and negative. Physical Exam Vitals and Measurements T: 36.4 C (Oral) TMIN: 36.1 C (Oral) TMAX: 37 C (Oral) HR: 88 (Monitored) RR: 20 BP: 141/56 SpO2: 96% HT: 160 cm WT: 142.2 kg BMI: 55.55 Weight Dosing Weight: 142.2 kg (07/28/23) Dosing Weight: 140.9 kg (07/28/23) GEN: Appears chronically ill EYES: No conjunctival erythema, drainage. EOMI EARS: Hearing grossly intact. NOSE: No nasal discharge. THROAT: Oral cavity and pharynx pink and moist. CHEST: Normal S1 and S2. Rhythm is regular. Clear to auscultation, without rales, rhonchi, wheezing. ABD: Positive bowel sounds x 4 quads. Soft, obese, nondistended, nontender. EXT: No significant deformity or joint abnormality. No edema. Peripheral pulses intact. NEURO: Sensation grossly intact SKIN: Skin color normal PSYCH: The mental examination revealed the patient was alert and oriented x 4 Lab Results 07/28 05:17 WBC: 8.3 Hgb: 12.1 Hct: 34.5 L Platelet: 225 Neutrophil %: 51.0 Glucose Level: 99 Sodium Level: 134 L Potassium Level: 4.2 BUN: 33 H Creatinine Lvl (s): 1.36 H 07/27 20:29 WBC: 10.2 Hgb: 13.4 Hct: 38.3 Platelet: 274 Neutrophil %: 55.3 Protime: 11.1 PT International Ratio: 1.0 Glucose Level: 111 H Sodium Level: 136 Potassium Level: 5.3 H BUN: 42 H Creatinine Lvl (s): 1.68 H Imaging Results and Diagnostics CT Angiography Chest w/ Contrast Result Date: July 28, 2023 Verified By: FRAN RAMÍREZ MD CLINICAL STATEMENT: IMPRESSION: Suboptimal bolus timing for evaluation of the pulmonary arteries. In thatcontext, thereis suspected low burden pulmonary embolism within bilaterallower lobe segmental arteries. No evidence of right heart strain. Few scattered sub 0.6 cm nodules. Depending on patient risk factors anoptional CT chest in 12 months can be obtained per Fleischner criteria ifclinically appropriate. Critical results were called by Dr. Adebayo Jenkins to BARBIE HEIDI on07/28/2023 at 22:00. I have personally reviewed the images of this examination and agree with theresident's findings and interpretation. XR Chest 1 View Result Date: July 28, 2023 Verified By: FRAN RAMÍREZ MD CLINICAL STATEMENT: IMPRESSION: No acute radiographic findings. Assessment/Plan 1. Pulmonary embolus 2. LIZETH (acute kidney injury) Pulmonary embolus patient was initiated on heparin by weight in the emergency department. Will switch this to apixaban 10 mg twice daily x 7 days and then 5 mg twice daily. Pasi score 79 putting patient at low risk of 30-day mortality. Doppler obtained showing left lower extremity DVT. This is likely as a result of her decreased mobility with stress fracture. Echocardiogram is done and not yet resulted. LIZETH creatinine 1.68 in the emergency department. She was given 1 L of normal saline with improvement in renal function to 1.36 this morning. She was given an additional 1 L normal saline bolus. She will be discharged home with lab work to reevaluate kidney function. DVT prophylaxis: Apixaban Code Status: Full code Plan of care discussed with patient. All questions answered. Patient verbalizes understanding is agreeable to plan of care. This dictation was performed using voice recognition software and may include grammatical and/or spelling errors. Problem List/Past Medical History Ongoing Breast cancer screening Chronic GERD DDD (degenerative disc disease), lumbar Depression with anxiety Essential hypertension Iron deficiency anemia Menopausal state Mixed hyperlipidemia Morbid obesity with BMI of 50.0-59.9, adult Myalgia Obstructive sleep apnea Paronychia of thumb, left Vaginal spotting Vitamin B12 deficiency Vitamin D deficiency Historical Cellulitis of leg Procedure/Surgical History Knee arthroplasty: 03/24/21 Arthroplasty of the knee: 02/11/21 Colonoscopy Arthroscopy of knee Tubal ligation Medications Home Medications (12) Active escitalopram 20 mg oral tablet See Instructions Fish Oil 1000 mg oral capsule 1,000 mg = 1 cap(s), Oral, qDay gabapentin 100 mg oral capsule 100 mg = 1 cap(s), Oral, TID hydrochlorothiazide-lisinopril 12.5 mg-10 mg oral tablet 1 tab(s), Oral, Daily hydrOXYzine hydrochloride 50 mg oral tablet 50 mg = 1 tab(s), PRN, Oral, QID megestrol 40 mg oral tablet , Oral, QID meloxicam 15 mg oral tablet 15 mg = 1 tab(s), PRN, Oral, qDay omeprazole 40 mg oral delayed release capsule See Instructions rosuvastatin 5 mg oral tablet See Instructions topiramate 25 mg oral capsule 100 mg = 4 cap(s), Oral, qDay Vitamin B12 1000 mcg oral tablet 1,000 mcg = 1 tab(s), Oral, Every other day Vitamin D3 125 mcg (5000 intl units) oral tablet 125 mcg = 1 tab(s), Oral, qDay Allergies Avelox Rash fenofibrate Gum pain penicillin Rash sulfa Rash Social History Alcohol Frequency: 1-2 times per year., 11/29/2018 Employment/School Status: Employed., 11/29/2018 Exercise Home/Environment Domestic Concerns: None. Living situation: Home/Independent. Primary Retinal Angiographer: Self. Lives In: Single level home. Current [...] History Depression: Mother. Diabetes: Father. Heart disease: Mother and Father. High blood pressure: Father. Thyroid disorder: Negative: Mother. Immunizations tetanus/diphth/pertuss (Tdap) adult/adol: 0.5 mL (02/10/23) Code Status Code Status - Ordered -- 07/28/23 22:10:00 EDT, Full Code, Constant Order Digitally Signed by JOHANNE RODRIGUEZ on 07/29/2023 12:25 PM [facility]05-24-2024 Note* Exam Date Time Procedure Performing Provider Status 07/29/23 10:11 AM Echocardiogram, Adult - CV Auth (Verified) [facility] 05-23-2024 Note ORIGINAL EXAMINATION: CTA OF THE CHEST 07/28/2023 9:42 pm TECHNIQUE: CTA of the chest was performed after the administration of intravenous contrast. Multiplanar reformatted images are provided for review. MIP images are provided for review. Automated exposure control, iterative reconstruction, and/or weight based adjustment of the mA/kV was utilized to reduce the radiation dose to as low as reasonably achievable. COMPARISON: None. HISTORY: ORDERING SYSTEM PROVIDED HISTORY: Reason for Exam: C/o chest pressure, SOB - worse on exertion. States has been ongoing for 2-3 weeks, worse today. Elevated D-dimer chest pain; suspect PE FINDINGS: Pulmonary Arteries: Pulmonary arteries are suboptimally opacified for evaluation. However, in that context there are likely filling defects within bilateral lower lobe segmental arteries (series 3, image 92 and image 122).. Main pulmonary artery is normal in caliber. No evidence of right heart strain. Mediastinum: No evidence of mediastinal lymphadenopathy. The heart and pericardium demonstrate no acute abnormality. There is no acute abnormality of the thoracic aorta. Aberrant right subclavian artery. Lungs/pleura: The lungs are without acute process. No focal consolidation or pulmonary edema. No evidence of pleural effusion or pneumothorax. There is a 0.5 cm nodule within the right lower lobe (series 4, image 27). Additional 3 mm nodule in the right middle lobe (series 4, image 27). Upper Abdomen: Tiny sliding hiatal hernia. Otherwise, limited images of the upper abdomen are unremarkable. Soft Tissues/Bones: No acute bone or soft tissue abnormality. IMPRESSION: Suboptimal bolus timing for evaluation of the pulmonary arteries. In that context, there is suspected low burden pulmonary embolism within bilateral lower lobe segmental arteries. No evidence of right heart strain. Few scattered sub 0.6 cm nodules. Depending on patient risk factors an optional CT chest in 12 months can be obtained per Fleischner criteria if clinically appropriate. Critical results were called by Dr. Adebayo Jenkins to BARBIE GORDON on 07/28/2023 at 22:00. I have personally reviewed the images of this examination and agree with the resident's findings and interpretation. Interpreted by: Fran Ramírez Preliminary Report By: Adebayo Jenkins Electronically signed By Fran Ramírez Dictated Date: 07/28/2023 9:55:48 PM Prelim Date: 07/28/2023 10:04:34 PM Sign Date: 07/28/2023 10:13:42 PM Ordering Provider: BARBIE [facility]05-23-2024 Note ORIGINAL EXAMINATION: ONE XRAY VIEW OF THE CHEST 07/28/2023 8:44 pm COMPARISON: Radiograph of the chest December 10, 2020 HISTORY: ORDERING SYSTEM PROVIDED HISTORY: Reason for Exam: C/o chest pressure, SOB - worse on exertion. States has been ongoing for 2-3 weeks, worse today. chest pain FINDINGS: Cardiomediastinal silhouette is normal in size. Costophrenic angles are sharp. No radiographic pneumothorax. No focal consolidation. Degenerative changes of the spine. IMPRESSION: No acute radiographic findings. Interpreted by: Fran Ramírez Preliminary Report By: Fran Ramírez Electronically signed By Fran Ramírez Dictated Date: 07/28/2023 8:49:42 PM Prelim Date: 07/28/2023 8:50:15 PM Sign Date: 07/28/2023 8:50:15 PM Ordering Provider: BARBIE [facility]05-23-2024 Note Sinus rhythm Compared to ECG at 02/14/2023 15:07:28 Electronic Signature: BARBIE GORDON DO 07/28/2023 20:30:[address] [place] [address] 05-06-[address] [facility] 05-09-[address] [facility]12-08-2023 Hospital Discharge instructions Patient Education 02/10/2023 22:10:40 Fracture, Finger, [...] injuries are often treated with a splint orcast, or by taping the injured finger to [...] sitting or lying down keep your arm abovethe level of your heart. You can do [...] top end. If a fiberglass cast or splintgets wet, you can dry it with a hair and makeup designer. You may use acetaminophen or ibuprofen to control pain, unless another pain medicine was prescribed. If you have chronic liver or kidney disease, talk with your healthcare provider before using thesemedicines. Also talk with your provider if you [...] or as directed by your healthcare provider [phone] [employer]. [address] [place] [address]. All rights reserved. This information is not intended as a substitute for professional medical care. Always follow yourhealthcare professional's instructions. Follow Up Care 02/10/2023 18:12:10 With:LORY HENLEY Address: [address] [place] [address] [place], [place] [id number]- When:2-4 days With:PHILIP RAMSEY DO, Orthopedic Address: [address] [place] [address], [address] [place] [phone] When:1-2 days [facility] 12-07-2023 Note Discharge Instructions Thank you for allowing [facility] to assist you with your healthcare needs. The following is importantdischarge information regarding your hospital visit. Diagnosis from [...] LORY HENLEY When Within 2-4 days Where: [address] [place] [address] [place] [address]- Follow Up with PHILIP RAMSEY DO, Orthopedic When Within 1-2 days Where: [facility], [address] [place] [address]- [phone] Allergies Avelox (Rash) fenofibrate (Gum pain) penicillin (Rash) sulfa (Rash) Immunizations This Visit Given Vaccine Datetetanus/diphth/pertuss (Tdap) adult/adol 02/10/2023 Medications Please ask your primary doctor or pharmacist before taking any other medication not listed, including over the counter drugs, herbal medications, vitamins and or supplements as they may interact withyour home medications. What How Much When Why [...] someone with a history of drug abuse oraddiction. MISUSE CAN CAUSE ADDICTION, OVERDOSE, OR . [...] where to locate a drug take-back disposal program.If there is no take-back program, flush the unused medicine down the toilet. What happens if I miss a dose? Since this medicine is used for pain, you are not likely to miss a dose. Skip any missed dose if itis almost time for your next dose. Do [...] health department. Make sure any person caring foryou knows where you keep naloxone and how to use it. What should I avoid while taking acetaminophen and oxycodone? Avoid driving or operating machinery until you know how this medicine will affect you. Dizziness ordrowsiness can cause falls, accidents, or severe injuries. [...] if you have slow breathing with long pauses,blue colored lips, or if you are hard to wake up. In rare cases, acetaminophen may cause a severe skin reaction that can be fatal. This could occur even if you have taken acetaminophen in the past and had no reaction. Stop taking this medicine and call your doctor right away if you have skin redness or a rash that spreads and causes blistering andpeeling. Call your doctor at once if you [...] may report side effects to FDA at 2-326-FBS-8593. What other drugs will affect acetaminophen and [...] affect acetaminophen and oxycodone, including prescription and ncwa-wpu-rbofnes medicines, vitamins, and herbal products. Not all [...] to ensure that the information provided by [employer]. ('[employer]') is accurate, up-to-date, and complete, but no guarantee is made to that effect. Drug information contained herein may be time sensitive. [employer]io information has been compiled for use by healthcare practitioners and consumers in the [place] and therefore [employer] does not warrant that uses outside of the [place] are appropriate, unless specifically indicated otherwise. [employer]'s drug information does not endorse drugs, diagnose patients or recommend therapy. [employer] drug information isan informational resource designed to assist licensed healthcare practitioners in caring for their p atients and/or to serve consumers viewing this service as a supplement to, and not a substitute for, the expertise, skill, knowledge and judgment of healthcare practitioners. The absence of a warningfor a given drug or drug combination in no way should be construed to indicate that the drug or drug combination is safe, effective or appropriate for any given patient. [facility] does not assume any responsibility for any aspect of healthcare administered with the aid of information [facility] provides. The information contained herein is not intended to cover all possible uses, directions, precautions, warnings, drug interactions, allergic reactions, or adverse effects. If you have questions about the drugs you are taking, check with your doctor, nurse or pharmacist. Copyright 6513-6846 [facility] [employer]. Version: 22.. Revision Date: 10/07/2022. cephalexin (sef [...] may report side effects to FDA at 6-166-KGW-2593. What other drugs will affect cephalexin? Tell your doctor about all your other medicines, especially: metformin; or probenecid. This list is not complete. Other drugs may affect cephalexin, including prescription and xnjc-chu-evommcm medicines, vitamins, and herbal products. Not all [...] to ensure that the information provided by [employer]. ('[employer]') is accurate, up-to-date, and complete, but no guarantee is made to that effect. Drug information contained herein may be time sensitive. [employer] information has been compiled for use by healthcare practitioners and consumers in the [place] and therefore [employer] does not warrant that uses outside of the [place] are appropriate, unless specifically indicated otherwise. [employer] drug information does not endorse drugs, diagnose patients or recommend therapy. [employer] drug information isan informational resource designed to assist licensed healthcare practitioners in caring for their p atients and/or to serve consumers viewing this service as a supplement to, and not a substitute for, the expertise, skill, knowledge and judgment of healthcare practitioners. The absence of a warningfor a given drug or drug combination in no way should be construed to indicate that the drug or drug combination is safe, effective or appropriate for any given patient. [employer] does not assume any responsibility for any aspect of healthcare administered with the aid of information [employer] provides. The information contained herein is not intended to cover all possible uses, directions, precautions, warnings, drug interactions, allergic reactions, or adverse effects. If you have questions about the drugs you are taking, check with your doctor, nurse or pharmacist. Copyright 3257-0309 [employer]. Version: 12.. Revision Date: 10/06/2022. Education Materials [...] injuries are often treated with a splint orcast, or by taping the injured finger to [...] sitting or lying down keep your arm abovethe level of your heart. You can do [...] top end. If a fiberglass cast or splintgets wet, you can dry it with a hair and makeup designer. You may use acetaminophen or ibuprofen to control pain, unless another pain medicine was prescribed. If you have chronic liver or kidney disease, talk with your healthcare provider before using thesemedicines. Also talk with your provider if you [...] or as directed by your healthcare provider [phone] [employer]. [address] [place] [address]. All rights reserved. This information is not intended as a substitute for professional medical care. Always follow yourhealthcare professional's instructions. Additional Information VACCINATE! IT SAVES LIVES! Members of the community who have not yet received the COVID-19 vaccine and would like to receive it can visit one of [facility] vaccine clinics. There are many vaccine clinic locations within the [facility]. For locations and available times, please visit www.gettheshot.coronavirus.[place].gov/. It is important to note that some COVID mobile vaccine clinics are held outdoors and may be canceled in rainy or stormy conditions. To learn more about pediatric vaccinations (ages 5-11), we invite you to visit the [facility] webpage. https://www.[facility].org/pages/7076-Ccxsj-Qpxetzijpzh-Rqxmoeydtz-Jhsbo-Qcr stions.htmlTo learn more about the COVID-19 vaccine, we invite you to visit the CDC website for a list of frequently asked questions. https://www.cdc.gov/coronavirus/2019-ncov/vaccines/faq.html [facility] Patient Portal Access Instructions: Stay connected with your healthcare team and access your personal medical information anytime with the [facility] Patient Portal. If you would like a full copy of your medical records please contact the [facility] Medical Records Department Tuesday through Omer between 8a.m. and 4:30p.m. Please follow the directions below to access the portal: 1.Access the email account you provided upon registration to the [facility].2.Look for an invitation email from [facility].3.Open the email and access the invitation link: Accept Invitation to [facility]4.Fill in the required mcneal to create your account. Sign into [email or web address] with your username and password that you [...] you will allow to register on the [facility] Patient Portal for access to your information. You can also access the [facility] Patient Portal on the [facility]. Simply click on Health Records under [employer] and then click on the [facility] logo. HOW TO SAFELY DISPOSE OF PRESCRIPTION MEDICATIONS Please use one of the following methods to safely dispose of your unused medications. 1.Use a drug disposal kit: the drug disposal pouch allows you to safely discard your old and unuseddrugs. Ask your nurse to give you one when you are discharged.2.Visit a local take-back location: Many local pharmacies and police departments have programs that collect old and unwanted prescriptiondrugs. Call your local pharmacy or go to http://bit.ly/0D3Pd4t to find one close to you.3.Make use of household items: Use cat litter or old coffee grounds to dispose medications if other options arenot available. Mix your drugs with these household products, seal them in an airtight container andthrow it into the garbage. Call [facility]: [phone] to be sure your drugs can be [...] drowsiness, such as benzodiazepines, also known as benzos,including diazepam and alprazolam, muscle relaxants or sleep aids. Never sell or share prescriptionopioids. This is illegal. Store opioids in a [...] aware that I should contact my doctor. Patient/Bridge Expert Signature: Date/Time: Relationship to Patient: Witness Name/Signature: Date/Time: [facility]12-07-2023 Note ORIGINAL EXAMINATION: 3 XRAY VIEWS OF [...] Sign Date: 02/10/2023 10:41:28 PM Ordering Provider: [facility]12-07-2023 Note ORIGINAL EXAMINATION: 3 XRAY VIEWS OF [...] Sign Date: 02/10/2023 7:19:19 PM Ordering Provider: [facility]09-05-2023 Note ORIGINAL EXAMINATION: TRANSVAGINAL PELVIC ULTRASOUND11/09/2022 2:13 [...] Sign Date: 11/09/2022 4:50:37 PM Ordering Provider: [facility]06-19-[address] [facility]05-15-2023 Hospital Discharge instructions Patient Education 07/19/2022 10:56:48 Cellulitis, Adult, Ontk-nk-Ghda Cellulitis, Adult Cellulitis is a skin infection. [...] Follow these instructions at home: Medicines Take gozh-xgy-glpvgmv and prescription medicines only as told by [...] 08/09/2008 Document Revised: 07/13/2018 Document Reviewed: 07/13/2018 [employer] Patient Education 2020 [employer]. Follow Up Care 07/16/2022 14:50:22 With:[facility] LEACH [facility] Address: [address] [place] [phone] When:07/21/2022 07:30:00 Comments:This appointment can serve as your post-hospital follow-up appointment. Follow-up as scheduled. [facility] 05-15-2023 Note Discharge Instructions Thank you for allowing [facility] to assist you with your healthcare needs. The following is importantdischarge information regarding your hospital visit. Your Care Team [facility] Your Diagnosis Cellulitis HTN (hypertension) Cellulitis What to do next Instructions From Your Doctor You are admitted for cellulitis to your right lower leg and right foot. You received IV antibioticswith improvement in cellulitis. You will be discharged home with a prescription for doxycycline 100mg twice daily x10 days. Please keep both area's clean and dry. Apply a nonstick dressing once daily. No antibiotic ointment. Please be sure to keep your appointment with Emilee Leach on 10/21/22.If you develop any fevers, chills, or worsening of cellulitis, please return to the ER. Scheduled Follow-Up Appointments Appointment Type When With Where Contact InformationPC Hospital Follow-Up 07/21/2022 07:30 AM EDT EMILEE LEACH [address] [id number] OV 08/11/2022 03:30 PM EDT KRISTEN MAY DO [facility] Follow Up Appointments Follow Up with EMILEE LEACH When 07/21/2022 07:30 AM EDT Why: This appointment can serve as your post-hospital follow-up appointment. Follow-up as scheduled. Where: [address] [place] [phone] The Following Activity and Diet Have Been [...] and or supplements as they may interact withyour home medications. What How Much When Why Instructions Last Dose Changed doxycycline (doxycycline hyclate 100 mg oral capsule) 1 cap by mouth Two (2) times a day Duration: 10 Days Pickup at [facility] 07/19/22 @804AM-IV DOSE Unchanged cyanocobalamin [...] MOUTH EVERY DAY 07/18/22 @927PM Pharmacy Information [facility]: [address] [place], [place] [phone] Please take this list to your next [...] Follow these instructions at home: Medicines Take tplz-kuf-kmwbwqg and prescription medicines only as told by [...] 08/09/2008 Document Revised: 07/13/2018 Document Reviewed: 07/13/2018 ElseMedivance Patient Education 2020 [employer] Additional Information VACCINATE! IT SAVES LIVES! Members of the community who have not yet received the COVID-19 vaccine and would like to receive it can visit one of [facility] vaccine clinics. There are many vaccine clinic locations within the [facility]. For locations and available times, please visit https://gettheshot.coronavirus.[place].gov/. It is important to note that some COVID mobile vaccine clinics are held outdoors and may be canceled in rainy or stormy conditions. To learn more about pediatric vaccinations (ages 5-11), we invite you to visit the [facility] webpage. https://www.[facility].org/pages/5245-Sttdw-Eutxlgitwvf-Ozcbezuyvc-Nsksm-Gaf stions.htmlTo learn more about the COVID-19 vaccine, we invite you to visit the CDC website for a list of frequently asked questions.https://www.cdc.gov/coronavirus/2019-ncov/vaccines/faq.html [facility] Patient Portal Access Instructions: Stay connected with your healthcare team and access your personal medical information anytime with the [facility] Patient Portal. Please follow the directions below to create your [employer] account: 1.Access the email account you provided upon registration to the hospital/physician office.2.Look for an invitation email from [facility].3.Open the email and access the invitation link: AcceptInvitation to [facility].4.Fill in the required mcneal to create your account. To access your account, visit [employer]. Click the blue button labeled Access Patient Portal and then log in with the username and password that you created in the steps above. You will be able to view your test results, lab results, a summary of your visits, upcoming appointments and more. There is also a convenient messaging option where you can send secure messages to your p [employer]. In addition, you will have the ability to download any documents or summaries to your computer and/or send the information securely to a physician. Remember that your healthcare information is confidential, so carefully consider who you will allowto register on the [facility] Patient Portal for access to your information. You can also access the [facility] Patient Portal on the [employer] noble. Simply click on Patient Portal and then log into your account. If you would like to receive a full copy of your medical records, please contact the [facility] Medical Records Department by calling [phone], Tuesday through Tuesday between 8 a.m. and 4:30 p.m. HOW TO SAFELY DISPOSE OF PRESCRIPTION MEDICATIONS Please use one of the following methods to safely dispose of your unused medications. 1.Use a drug disposal kit: the drug disposal pouch allows you to safely discard your old and unuseddrugs. Ask your nurse to give you one when you are discharged.2.Visit a local take-back location: Many local pharmacies and police departments have programs that collect old and unwanted prescriptiondrugs. Call your local pharmacy or go to http://bit.[employer]5U0Io7a to find one close to you.3.Make use of household items: Use cat litter or old coffee grounds to dispose medications if other options arenot available. Mix your drugs with these household products, seal them in an airtight container andthrow it into the garbage. Call [facility]: [phone] to be sure your drugs can be [...] COPY. Signatures Patient Education Materials Cellulitis, Adult, Ptln-kn-Egxs Medication Leaflets My discharge plan and instructions have been reviewed and explained to me and IJORGE DORINDA L understand my current condition and have read and understand these discharge instructions. I have received a written copy of the plan/instructions. If I have questions, I am aware that I should contact my doctor. Patient/Bridge Expert Signature: Date/Time: Relationship to Patient: Witness Name/Signature: Date/Time: [facility]05-14-2023 Note Date of Service 07/18/2022 Chief Complaint [...] tablet 15 mg 2 tab(s), Oral, qDay emnaf-3-mcya ethyl esters 1000 mg capsule 1,000 mg [...] by JOHANNE RODRIGUEZ on 07/18/2022 11:20 AM [facility]05-13-2023 Evaluation + Plan noteExtracted from: Title:History and Physical Author:JOHANNE RODRIGUEZ Date:07/17/22 1. Cellulitis 2. HTN (hypertension) Cellulitis right [...] Appointment Date:07/21/2022 07:30:00 AM Scheduled Provider:EMILEE LEACH Location:[facility] Appointment Type:[facility] Hospital Follow-Up Appointment Date:08/11/2022 03:30:00 PM Scheduled Provider:KRISTEN MAY DO Location:[facility] Appointment Type:[facility] 05-13-2023 Note Date of Service 07/17/2022 Chief Complaint Patient has been seen by family physician and on antibiotics for cellulitis. Patient continues to have pain and swelling and came to ER (advice from her family doctor) History of Present Illness 56-year-old female with past medical history significant for HTN, TOMMIE, HLD, ANTWAN, depression with anxiety, GERD. Patient presented to [facility] emergency department with worsening cellulitis that has [...] Domestic Concerns: None. Living situation: Home/Independent. Primary Retinal Angiographer: Self. Lives In: Single level home. Current [...] by JOHANNE RODRIGUEZ on 07/17/2022 12:16 PM [facility]05-12-2023 Note ORIGINAL EXAMINATION: THREE XRAY [...] 07/16/2022 4:30:40 PM Ordering Provider: JUAN CARLOS TRINH [facility]05-12-2023 Note ORIGINAL EXAMINATION: THREE XRAY [...] Sign Date: 07/16/2022 3:58:24 PM Ordering Provider: [facility]05-12-2023 Note ORIGINAL EXAMINATION: THREE XRAY VIEWS [...] Sign Date: 07/16/2022 4:30:40 PM Ordering Provider: [facility]05-12-2023 Note ORIGINAL EXAMINATION: THREE XRAY VIEWS OF [...] 07/16/2022 3:58:24 PM [facility]ing [facility] [facility]01-18-2022 Hospital Discharge instructions Patient Education 03/24/2021 10:27:15 Nausea and Vomiting, Adult, Hucj-xg-Phlh Nausea and Vomiting, Adult Nausea is feeling [...] fruit juice). ?Low-calorie sports drinks. Eat bland, adhd-bj-zcqdpq foods in small amounts as you are able, such as: ?Bananas. ?Applesauce. ?Rice. ?Low-fat (lean) meats. ?[place]. ?Crackers. Avoid drinking fluids that have a lot of sugar or caffeine in them. This includes energy drinks, sports drinks, and soda. Avoid alcohol. Avoid spicy or fatty foods. General instructions Take oshv-vja-czxgjsy and prescription medicines only as told by your doctor. Drink enough fluid to keep your pee (urine) pale yellow. Wash your hands often with soap and water. If you cannot use soap and water, use hand yarn mercerizer operator helper. Make sure that all people in your [...] too much water in your body. Take cyyk-spd-llzqdgu and prescription medicines only as told by [...] 08/09/2008 Document Revised: 06/15/2019 Document Reviewed: 08/01/2018 [employer] Patient Education 2020 [employer]. 03/24/2021 10:27:07 Monitored Anesthesia Care, Care After [...] before eating solid foods. General instructions Take tram-hmo-zbxrcda and prescription medicines only as told by [...] 06/13/2016 Document Revised: 05/22/2018 Document Reviewed: 06/13/2016 [employer] Patient Education 2020 [employer]. 03/24/2021 10:26:58 Total Knee Replacement, Care After, Betc-tx-Akkj Total Knee Replacement, Care After This sheet [...] Follow these instructions at home: Medicines Take qoxb-qxg-kvblkbq and prescription medicines only as told by [...] keep your pee (urine) pale yellow. ?Take kyqi-och-rsaqylb or prescription medicines. ?Eat foods that are [...] cannot use soap and water, use hand yarn mercerizer operator helper. ?Change your bandage as told by your [...] 05/15/2012 Document Revised: 07/02/2019 Document Reviewed: 10/05/2018 ElseMedivance Patient Education 2020 [employer]. Follow Up Care 02/25/2021 12:55:01 With:KEVON POTTER MD Address: [phone] When: Unknown Comments:Follow-up as scheduled [facility] 12-09-2021 Hospital Discharge instructions Patient Education 02/12/2021 07:17:32 5 - [facility] Post-op Instruction 10/2016 (21874) [facility] Post-operative Instructions PLEASE FOLLOW [facility] POST-OP INSTRUCTIONS GIVEN WATCH FOR SIGNS OF INFECTION: call the office ([phone]) if experencing any of the following: (Usually [...] on your follow up instructions. Form: 338A (62979) R: 07/11 Follow Up Care 01/16/2021 11:56:52 With:[facility] Address: [address] [place] [address] [phone] When:02/13/2021 10:30:00 Comments:This is your first physical therapy appointment. Follow-up as scheduled. With:NAYELI [facility] Address: [facility] [address] [place] [phone] Business (1) When:02/23/2021 13:45:00 Comments:This is your post-op appointment. Follow-up as scheduled. [facility] 10-19-2021 Hospital Discharge instructions Patient Education 12/23/2020 13:32:21 Spinal Anesthesia and Epidural Anesthesia, Care After, Nhpb-sl-Nkwb Spinal Anesthesia and Epidural Anesthesia, Care After [...] what activities are safe for you. Take xscw-mrv-inzbmvt and prescription medicines only as told by [...] 06/14/2016 Document Revised: 02/03/2018 Document Reviewed: 06/14/2016 Partschannel Patient Education 2020 [employer]. 12/23/2020 13:32:21 Regional Anesthesia Regional Anest[facility] Regional [...] including vitamins, herbs, eye drops, creams, and bynh-sjl-wivtcbm medicines. Any use of drugs, alcohol, or [...] provider tells you to take them. Taking uaqi-ssu-xvaluup medicines, vitamins, herbs, and supplements. General instructions [...] given a sedative during your procedure. Take sbgy-ifw-llkznld and prescription medicines only as told by [...] 06/14/2016 Document Revised: 04/09/2019 Document Reviewed: 04/09/2019 Partschannel Patient Education 2020 [employer]. 12/23/2020 13:32:21 Incision and Drainage, Care After [...] Follow these instructions at home: Medicines Take mcxp-nxy-qqizkaq and prescription medicines only as told by [...] and water are not available, use hand yarn mercerizer operator helper. Change your dressing and packing as told [...] 05/15/2012 Document Revised: 01/22/2019 Document Reviewed: 01/22/2019 [employer]annel Patient Education [facility] Follow Up Care 12/03/2020 07:32:26 With:KEVON POTTER MD Address: [phone] When: Unknown Comments:FOLLOW UP WITH rAY ON 01/05/21 AT 8:45 IN [facility] Consult note Author Lencho Gutierrez [facility] Note Date/Time July 23, 2024 11:31 am [facility] Medical Records Department [address] [place] [address] Pre-Anesthesia Evaluation 07/23/24 1006 MR#: [id number] Acct: [id number] Name: EZRA PATEL Rep #:[id number] : 1965 58 From: Lencho Gutierrez MD PCP: Dr. Kristen May, DO Status:REG SDC Y Race: C Location: [place] [address] ASA Classification* ASA Classification ASA Classification: 3 Assessment & Plan Anesthesia* Anesthesia Assessment Anesthesia Assessment: Discussed sedation and/or anesthesia options, risks, benefits, and alternatives with patient/parents/legal guardian/POA. Questions invited. The patient/parents/legal guardian/POA seems to understand and agrees to proceedwith anesthesia plan. Reviewed the physical assessment, medical history, allergy history and patient home medications list prior to surgery/procedure/anesthetic and documented any changes. Performed airway and anesthesia risk assessments. Anesthesia Type Anesthesia Type: MAC Anesthesia Focused Assessment* Airway Assessment Mouth opens: >3 cm Mallampati Score: II Focused Labs Anesthesia Preop lab: CBC WBC 5.3 K/mm3 (4.4-11.0) 06/10/16 07:05 06/10/16 RBC 4.34 M/mm3 (4.2-5.4) 06/10/16 07:05 06/10/16 Hgb 13.2 g/dl (12.0-15.0) 06/10/16 07:05 06/10/16 Hct 41.1 % (37-47) 06/10/16 07:05 06/10/16 Plt Count 183 K/mm3 (150-450) 06/10/16 07:05 06/10/16 CHEMISTRY Potassium 3.9 mmol/L (3.5-5.1) 05/08/12 09:15 05/08/12 Sodium 144 mmol/L (136-145) 05/08/12 09:15 05/08/12 BUN 17 mg/dL (7-18) 05/08/12 09:15 05/08/12 Creatinine 0.8 mg/dL (0.6-1.0) 05/08/12 09:15 05/08/12 Glucose 87 mg/dL (70-110) 05/08/12 09:15 05/08/12 TSH 1.23 uIU/mL (0.358-3.74) 08/24/18 07:05 COAG Pre-Assessment Diagnosis/Proposed Procedure Planned Operative Procedure(s): CAUDAL EPIDURAL STEROID INJECTION UNDER FLUOROSCOPY Anesthesia History Anesthesia History - tablet technician: Anesthesia History - tablet technician Hx Hospitalization No 07/20/24 12:42 Any Problems With Anesthesia No 07/20/24 12:42 Cholinesterase deficiency No 07/20/24 12:42 You/Your Family Experience No 07/20/24 12:42 fever (hyperthermia) with Relationship Recent Exposure to Contagious No 01/23/24 07:33 Disease Does patient have nerve No 07/20/24 12:42 stimulator Patient instructed to have device shut off --Does patient have Pacemaker or ICD? When Was Last Pacemaker Check QUESTION #4 FULL TEXT: You/Your Family Experience fever (hyperthermia) with Anesthesia Last Oral Intake Last Oral intake: Last Oral Intake NPO since Meds taken in AM with sips of water? Meds patient instructed to take am of surgery PONV PONV - tablet technician: PONV - tablet technician Female Yes 07/20/24 12:42 HX of Motion Sickness No 07/20/24 12:42 HX of N/V After Surgery No 07/20/24 12:42 Non-Smoker Yes 07/20/24 12:42 Duration of Surgery greater No 07/20/24 12:42 than 60 minutes Number of Risk Factors 2 07/20/24 12:42 PONV Score Moderate Risk 07/20/24 12:42 Height & Weight Height & Weight: Anesthesia: Height & Weight Height 5 ft 3 in 01/23/24 07:33 Respiratory Assessment Respiratory Assessment - tablet technician: Respiratory Tract Infection Hx - tablet technician Hx Respiratory Tract Infection No 07/20/24 12:42 STOP Sleep Apnea STOP Sleep Apnea - tablet technician: STOP Sleep Apnea - tablet technician Hx Hypertension Yes: CONTROLLED WITH MED 07/20/24 12:42 Hx Sleep Apnea Yes 07/20/24 12:42 CPAP Yes 07/20/24 12:42 BIPAP No 07/20/24 12:42 Do you snore loudly (louder than talking or can be heard Do you often feel tired/ fatigued/ sleepy during daytime? Has anyone observed you stop breathing during sleep? STOP Results Positive 07/20/24 12:42 QUESTION #5 FULL TEXT : Do you snore loudly (louder than talking or can be heard through closed doors)? Tobacco Use History Tobacco Use History - tablet technician: Tobacco Use History - tablet technician Tobacco Use Smoking Status Never smoker 07/20/24 12:42 Hx Tobacco Use No 07/20/24 12:42 Years Smoking Packs Smoked per Day Smoking Cessation Date was within the last 15 years Hx Smoking Cessation Date Hx Smoking Cessation Counseling Hematologic Medial History Hematologic Hx - tablet technician: Hematologic Medical Hx - news internship Hx of Blood Transfusion No 07/20/24 12:42 Hx of Transfusion in last 3 No 07/20/24 12:42 Months Date of Last Transfusion (if within last 3 months) Ever experience any problems No 07/20/24 12:42 with transfusion(s)? Specify any problems Hx of Preganancy in last 3 No 07/20/24 12:42 Months Nurse Filling Out Transfusion DSCHRIBER 07/20/24 12:42 & Questions: Date: 07/20/24 07/20/24 12:42 Time: 12:43 07/20/24 12:42 Patient unable to answer at this time (ie. confused, unrespo /Reproduction History /Reproductive History - tablet technician: /Reproductive Hx- tablet technician Hx Now No 07/20/24 12:42 Gestational Age (in weeks): EDC: Hx Hx Para Hx Section SAB No 07/20/24 12:42 Active Medications Active Medications: Current Medications Generic Name Dose Route Start Last Admin Trade Name Freq PRN Reason Stop Dose Admin Lactated Ringer's 1,000 mls @ 15 mls/hr 07/23/24 10:00 IV .Q48H TRINIDAD PFSH Medical History Pain Wears glasses Depression Arthritis Anemia High cholesterol Back pain Gastric reflux Non-smoker CPAP (continuous positive airway pressure) dependence Shortness of breath on exertion History of edema Hypertension Home Medications ?Medication ?Instructions ?Recorded ?Last Taken ?Type cyanocobalamin-liver extract tablet 1 tab PO DAILY 06/2607/10/23 History escitalopram oxalate 20 mg tablet 20 mg PO QHS 2 07/10/23 History (Lexapro) gabapentin 100 mg tablet 100 mg PO TID 01/08/2207/09 History meloxicam 15 mg tablet 15 mg PO DAILY 01/08/2207/28 History omega-3 fatty acids-vitamin E 1,000 cap PO DAILY 01/0807/10/23 History 1,000 mg capsule omeprazole 40 mg capsule,delayed 40 mg PO QHS 01/08/22 07/10/23 History release rosuvastatin 5 mg tablet (Crestor) 5 mg PO QHS 2 07/10/23 History lisinopril 10 mg tablet 10 mg PO DAILY 07/20/24 Unkn own History Allergy/AdvReac Type Severity Reaction Status Date / Time Penicillins Allergy Rash Verified 07/20/24 12:40 Sulfa (Sulfonamide Allergy Swelling Verified 07/20/24 12:40 Antibiotics) Surgical History History of lumbar laminectomy Hx of arthroscopic knee surgery Hx of tubal ligation Hx of total knee arthroplasty Social History Smoking Status: Never smoker Review of Systems (Anesthesia) ROS Narrative System reviewed and no additional complaints, except as documented. 07/23/24 1006 <Electronically signed by Lencho Gutierrez MD > Date _ Lencho Gutierrez MD Cosigner Signature: Date CC: ~ Signed [facility] Work Phone: Consult note Author Suma Crooks [facility] Note Date/Time July 23, 2024 11:04 am [facility] Medical Records Department [address] [place] [id number] Anesthesia Postop Eval I 07/23/24 1058 MR#: [id number] Acct: [id number] Name: EZRA PATEL Rep #:[id number] : 1965 58 From: Suma Crooks PCP: Dr. Kristen May, DO Status:REG SDC Y Race: C Location: [place] [address] Anesthesia: Postop Eval I Current Vital Signs Temperature: 97.4 F Pulse Rate: 70 Blood Pressure: 126/73 Respiratory Rate: 18 Pulse Ox: 97 Assessment Airway patent: Yes Spontaneous unlabored respirations: No nausea: No Vomiting: No Anesthesia Complication: No Fluid Hydration Crystalloid volume administer (ml): 100 Total IV fluid infused: 100 Progress Note Anesthesia document: Postop Eval 1 completed: Yes 07/23/24 1104 <Electronically signed by Suma Pedro a> Date _ Suma Cuevas Signature: Date CC: ~ Signed [facility] Work Phone: Evaluation + Plan note Future Appointments Appointment Date:06/17/2021 03:45:00 PM Scheduled Provider:KRISTEN MAY DO Location:[facility] Appointment Type:PC OV Diagnostic Tests Pending * Crystal Examination Body Fluid 12/23/20 * .CRYBF Path Review 12/23/20 [facility] Evaluation + Plan note Future Appointments Appointment Date:06/17/2021 03:45:00 PM Scheduled Provider:KRISTEN MAY DO Location:[facility] Appointment Type:PC OV [facility] Evaluation + Plan note Future Appointments Appointment Date:06/17/2021 03:45:00 PM Scheduled Provider:KRISTEN MAY DO Location:[facility] Appointment Type:PC OV Future Scheduled Tests Radiology* CT Knee w/o Contrast Left 03/12/21 [facility] evaluation + Plan note Future Appointments Appointment Date:12/30/2021 04:15:00 PM Scheduled Provider:KRISTEN MAY DO Location:[facility] Appointment Type:PC OV Follow Up Future Scheduled Tests Radiology* MA Mammo Screening Bilateral w/ Elan 06/17/21 [facility] Evaluation + Plan note Future Appointments Appointment Date:12/30/2021 04:15:00 PM Scheduled Provider:KRISTEN MAY DO Location:[facility] Appointment Type:PC OV Follow Up [facility] Evaluation + Plan note Future Appointments Appointment Date:08/11/2022 03:00:00 PM Scheduled Provider:KRISTEN MAY DO Location:[facility] Appointment Type:PC OV [facility] Evaluation + Plan note Future Appointments Appointment Date:07/21/2022 07:30:00 AM Scheduled Provider:EMILEE LEACH Location:[facility] Appointment Type:PC OV Appointment Date:08/11/2022 03:30:00 PM Scheduled Provider:KRISTEN MAY DO Location:[facility] Appointment Type:[facility] Evaluation + Plan note Future Appointments Appointment Date:02/09/2023 04:00:00 PM Scheduled Provider:KRISTEN MAY DO Location:[facility] Appointment Type:[facility] Tipbitaluation + Plan note Future Appointments Appointment Date:03/16/2023 11:30:00 AM Scheduled Provider:KRISTEN MAY DO Location:[facility] Appointment Type: OV Future Scheduled Tests Laboratory* Ferritin 02/09/23 * Iron Level 02/09/23 * Thyroid Stimulating Hormone 02/09/23 * Vitamin B12 Level 02/09/23 * Complete Blood Count 02/09/23 * Lipid Profile 02/09/23 * Vitamin D Level 02/09/23 * Complete Metabolic Panel 02/09/23 [facility] Tipbitaluation + Plan note Future Appointments Appointment Date:03/16/2023 11:30:00 AM Scheduled Provider:KRISTEN MAY DO Location:[facility] Appointment Type:[facility] Evaluation + Plan note Future Appointments Appointment Date:08/05/2023 10:30:00 AM Scheduled Provider:SARBJIT DOUGLAS Location:[facility] Appointment Type:[facility] Hospital Follow-Up Appointment Date:09/12/2023 01:00:00 PM Scheduled Provider:KRISTEN MAY DO Location:[facility] Appointment Type:[facility] Evaluation + Plan note Future Appointments Appointment Date:11/01/2023 11:00:00 AM Scheduled Provider:KRISTEN MAY DO Location:[facility] Appointment Type:PC OV Future Scheduled Tests Laboratory* Basic Metabolic Panel 10/03/23 Radiology* CT Low Dose Lung Cancer Screening (LDCT) 08/04/24 [facility] Evaluation + Plan note Future Appointments Appointment Date:05/01/2024 11:00:00 AM Scheduled Provider:KRISTEN MAY DO Location:[facility] Appointment Type:PC OV Follow Up Future Scheduled Tests Radiology* CT Low Dose Lung Cancer Screening (LDCT) 08/04/24 [facility] Evaluation + Plan note Future Appointments Appointment Date:10/29/2024 11:00:00 AM Scheduled Provider:SARBJIT DOUGLAS Location:[facility] Appointment Type:PC OV [facility] Evaluation noteNo assessment information available [facility] Work Phone: Hospital course Narrative No data available for this section [facility] Hospital Discharge instructions No data available for this section [facility] Progress note No data available for this section [facility] Reason for referral (narrative)No reason for referral [facility] Work Phone: Summary note* JESUSITA Smith: PERFORM Event Display: Patient Summary Documents Authored Date: [id number] [facility] Instructions Instruction Description Start Date Please follow-up with Primar y Care Physician or Social Media Director for treatment or adjustment of medication regarding elevated blood pressure.Patient advised to follow-up with Primary Care Physician for BMI management. Advance Directives No Advanced Directives Records Found Advance Directive Response Recorded Date/ Time Living Will No January 08 12:32pm Power of Roller Maker No January 08, 2022 12:32pm Advance Directive Response Recorded Date/ Time Living Will No January 08 11:32am Power of Roller Maker No January 08, 2022 11:32am Advance Directive Response Recorded Date/ Time Living Will No July 04, 2023 9:30am Power of Roller Maker No July 03 9:30am Advance Directive Response Recorded Date/ Time Do you have a Healthcare Power of Roller Maker? No July 20, 2024 12:42pm Assessments There may be information available, but [...] this section No Family History Records Found No data available for this section No data available for this section No Family History Records FoundNo Family History Records Found Summary Purpose Chief Complaint and Reason for Visit Chief Complaint SCREENING Chief Complaint S92.325A Additional Source Comments INFORMATION SOURCE (unrecogn ized section and content) DATE CREATED AUTHOR 04/10/2020 [facility] DATE CREATED AUTHOR AUTHOR'S ORGANIZ ATION 10/28/2023 [facility] ([place]) DATE CREATED AUTHOR AUTHOR'S ORGANIZ ATION 09/05/2024 [facility] DATE CREATED AUTHOR AUTHOR'S ORGANIZ ATION 10/07/2024 [facility] Care Team (unrecognized sect ion and content) Team Status: Active Member Role Status Dates Dr. Kristen May DO Family Provider Active Dr. Kristen May DO Primary Care Provider Active Team Status: Inactive Member Role Status Dates Dr. Kristen May DO Primary Care Provider Active Dr. Freddy Hardy MD Attending Provider, Referring Provider Active Team Status: Inactive Member Role Status Dates Dr. Kristen May DO Primary Care Provider Active Dr. Matty Vee DPM Attending Provider, Referring Provider Active Team Status: Active Member Role Status Dates Dr. Kristen May DO Primary Care Provider Active Team Status: Inactive Member Role Status Dates Dr. Kristen May DO Primary Care Provider Active Start: July 23, 2024 End: July 23, 2024 Dr. Freddy Hardy MD Attending Provider Active Start: July 23, 2024 End: July 23, 2024 Dr. Freddy Hardy MD Referring Provider Active Start: July 23, 2024 End: July 23, 2024 Goals (unrecognized section and content) Goals may be documented in a n alternate section Care Team (unrecognized sect ion and content) Care Team Personnel Name: KRISTEN MAY DO Position: P4 Physician - Primary Care Member Role: Primary Care Physician Address: Address: [address] [place] [address] Care Team Related Persons Name: BULMARO PATEL Care Team Personnel Name: KRISTEN MAY DO Position: P4 Physician - Primary Care Member Role: Primary Care Physician Address: Address: [address] [place] [address] Care Team Related Persons Name: BULMARO PATEL [...] BE BASED ON THE PRIMARY CLINICAL RECORDS. [facility] [employer] [facility]. provides no warranty or guarantee of the accuracy or completeness of information in this document.
--- NOTE | 2024-10-08 08:03 | PCM.PRE.AN2 ---
ASA Classification* ASA Classification ASA Classification: 3 Assessment & Plan Anesthesia* Anesthesia Assessment Anesthesia Assessment: Discussed sedation and/or anesthesia options, risks, benefits, and alternatives with patient/parents/legal guardian/POA. Questions invited. The patient/parents/legal guardian/POA seems to understand and agrees to proceed with anesthesia plan. Reviewed the physical assessment, medical history, allergy history and patient home medications list prior to surgery/procedure/anesthetic and documented any changes. Performed airway and anesthesia risk assessments. Anesthesia Type Anesthesia Type: MAC Anesthesia Focused Assessment* Airway Assessment Mouth opens: >3 cm Mallampati Score: II Labs Anesthesia Preop lab: CBC WBC 5.3 K/mm3 (4.4-11.0) 06/10/16 07:05 06/10/16 RBC 4.34 M/mm3 (4.2-5.4) 06/10/16 07:05 06/10/16 Hgb 13.2 g/dl (12.0-15.0) 06/10/16 07:05 06/10/16 Hct 41.1 % (37-47) 06/10/16 07:05 06/10/16 Plt Count 183 K/mm3 (150-450) 06/10/16 07:05 06/10/16 CHEMISTRY Potassium 3.9 mmol/L (3.5-5.1) 05/08/12 09:15 05/08/12 Sodium 144 mmol/L (136-145) 05/08/12 09:15 05/08/12 BUN 17 mg/dL (7-18) 05/08/12 09:15 05/08/12 Creatinine 0.8 mg/dL (0.6-1.0) 05/08/12 09:15 05/08/12 Glucose 87 mg/dL (70-110) 05/08/12 09:15 05/08/12 TSH 1.23 uIU/mL (0.358-3.74) 08/24/18 07:05 08/24/18 COAG Pre-Assessment Diagnosis/Proposed Procedure Planned Operative Procedure(s): RIGHT LUMBAR TRANFORMINAL EPIDURAL STEROIDS INJECTION L3, L4, L5 UNDER FLUOROSCOPY Anesthesia History Anesthesia History - geospatial scientist: Anesthesia History - geospatial scientist Hx Hospitalization No 10/01/24 12:21 Any Problems With Anesthesia No 10/01/24 12:21 Cholinesterase deficiency No 10/01/24 12:21 You/Your Family Experience No 10/01/24 12:21 fever (hyperthermia) with Relationship Recent Exposure to Contagious No 07/23/24 10:10 Disease Does patient have nerve No 10/01/24 12:21 stimulator Patient instructed to have device shut off --Does patient have Pacemaker or ICD? When Was Last Pacemaker Check QUESTION #4 FULL TEXT: You/Your Family Experience fever (hyperthermia) with Anesthesia Last Oral Intake Last Oral intake: Last Oral Intake NPO since Meds taken in AM with sips of water? Meds patient instructed to take am of surgery PONV PONV - geospatial scientist: PONV - geospatial scientist Female Yes 10/01/24 12:21 HX of Motion Sickness No 10/01/24 12:21 HX of N/V After Surgery No 10/01/24 12:21 Non-Smoker No 10/01/24 12:21 Duration of Surgery greater No 10/01/24 12:21 than 60 minutes Number of Risk Factors 1 10/01/24 12:21 PONV Score Low Risk 10/01/24 12:21 Height & Weight Height & Weight: Anesthesia: Height & Weight Height 5 ft 3 in 07/23/24 10:10 Respiratory Assessment Respiratory Assessment - geospatial scientist: Respiratory Tract Infection Hx - geospatial scientist Hx Respiratory Tract Infection No 10/01/24 12:21 STOP Sleep Apnea STOP Sleep Apnea - geospatial scientist: STOP Sleep Apnea - geospatial scientist Hx Hypertension Yes: CONTROLLED WITH MED 10/01/24 12:21 Hx Sleep Apnea Yes 10/01/24 12:21 CPAP Yes 10/01/24 12:21 BIPAP No 10/01/24 12:21 Do you snore loudly (louder than talking or can be heard Do you often feel tired/ fatigued/ sleepy during daytime? Has anyone observed you stop breathing during sleep? STOP Results Positive 10/01/24 12:21 QUESTION #5 FULL TEXT : Do you snore loudly (louder than talking or can be heard through closed doors)? Tobacco Use History Tobacco Use History - geospatial scientist: Tobacco Use History - geospatial scientist Tobacco Use Smoking Status Never smoker 10/01/24 12:21 Hx Tobacco Use No 10/01/24 12:21 Years Smoking Packs Smoked per Day Smoking Cessation Date was within the last 15 years Hx Smoking Cessation Date Hx Smoking Cessation Counseling Hematologic Medial History Hematologic Hx - geospatial scientist: Hematologic Medical Hx - senior product development scientist Hx of Blood Transfusion No 10/01/24 12:21 Hx of Transfusion in last 3 No 10/01/24 12:21 Months Date of Last Transfusion (if within last 3 months) Ever experience any problems No 10/01/24 12:21 with transfusion(s)? Specify any problems Hx of Preganancy in last 3 No 10/01/24 12:21 Months Nurse Filling Out Transfusion [email or web address] 10/01/24 12:21 & Questions: Date: 10/01/24 10/01/24 12:21 Time: 12:22 10/01/24 12:21 Patient unable to answer at this time (ie. confused, unrespo /Reproduction History /Reproductive History - geospatial scientist: /Reproductive Hx- geospatial scientist Hx Now Gestational Age (in weeks): EDC: Hx Hx Para Hx Section SAB No 10/01/24 12:21 Active Medications Active Medications: Current Medications Generic Name Dose Route Start Last Admin Trade Name Freq PRN Reason Stop Dose Admin Lactated Ringer's 1,000 mls @ 15 mls/hr 10/08/24 08:00 IV .Q48H TRINIDAD PFSH Medical History Pain Wears glasses Depression Arthritis Anemia High cholesterol Back pain Gastric reflux Non-smoker CPAP (continuous positive airway pressure) dependence Shortness of breath on exertion History of edema Hypertension Home Medications ?Medication ?Instructions ?Recorded ?Last Taken ?Type escitalopram oxalate 20 mg tablet 20 mg PO QHS 01/08/22 07/10/23 History (Lexapro) gabapentin 100 mg tablet 100 mg PO TID 01/08/22 07/10/23 History meloxicam 15 mg tablet 15 mg PO DAILY 01/08/22 07/10/23 History omega-3 fatty acids-vitamin E 1,000 cap PO DAILY 01/08/22 07/10/23 History 1,000 mg capsule omeprazole 40 mg capsule,delayed 40 mg PO QHS 01/08/22 07/10/23 History release rosuvastatin 5 mg tablet (Crestor) 5 mg PO QHS 01/08/22 07/10/23 History lisinopril 10 mg tablet 10 mg PO DAILY 07/20/24 Unknown History Allergy/AdvReac Type Severity Reaction Status Date / Time Penicillins Allergy Rash Verified 10/01/24 12:19 Sulfa (Sulfonamide Allergy Swelling Verified 10/01/24 12:19 Antibiotics) Surgical History History of lumbar laminectomy Hx of arthroscopic knee surgery Hx of tubal ligation Hx of total knee arthroplasty Social History Smoking Status: Never smoker Review of Systems (Anesthesia) ROS Narrative System reviewed and no additional complaints, except as documented.
[2024-10-08] MEDS: Lactated Ringers 1,000 ML 15 ML IV (08:22)
--- NOTE | 2024-10-08 09:00 | RAD_ITS ---
PROCEDURE: Intraoperative fluoroscopic services provided for right L3-L4 and L4-L5 epidural steroid injection. 10/08/2024 REASON FOR EXAM: LUMBAR EPIDURAL STEROID INJECT RT L3 L4 L5 TECHNIQUE: Intraoperative fluoroscopic services provided for right L3-L4 and L4-L5 epidural steroid injection. Radiation dose: 8.1 seconds of fluoroscopy. 6.97 mGy. 2 images were submitted. COMPARISON: None FINDINGS: Intraoperative fluoroscopic services provided for right L3-L4 and L4-L5 epidural steroid injections. RAD/Lumbar Spine 2 or 3 Views IMPRESSION: Intraoperative fluoroscopic services provided for right L3-L4 and L4-L5 epidura l steroid injections. Reading Location: [facility]
[2024-10-08] MEDS: Lidocaine 1% (5 ml sdv) 5 ML Vial (09:05)
--- NOTE | 2024-10-08 09:14 | OP.PCM_ITS ---
Operative Report (Standard) Operative Information Date of Procedure: 10/08/24 Pre-Operative Diagnosis: Lumbosacral radiculopathy, lumbosacral spinal stenosis, lumbosacral degenerative disc disease Post-Operative Diagnosis: Lumbosacral radiculopathy, lumbosacral spinal stenosis, lumbosacral degenerative disc disease Surgery/Procedure Performed: Right sided lumbar transforaminal epidural steroid injection L3-4, L4-5 under fluoroscopic guidance technical program manager: No Type of Anesthesia: Local MAC RN Documented Start/Stop Times: Operation Date: 10/08/24 09:10 Case Time Into Pre-Op 10/08/24 07:53 Out of Pre-Op 10/08/24 08:49 Anesthesia Start 10/08/24 08:58 Into Room 10/08/24 08:58 Procedure Start 10/08/24 09:04 Procedure End 10/08/24 09:09 Anesthesia End 10/08/24 09:12 Out of Room 10/08/24 09:12 Procedure Start Time: 09:15 Procedure Stop Time: 09:15 Select all DRAINS/GRAFTS/IMPLANTS that apply: None Estimated Blood Loss: 1 Specimen collected: No Description of surgery: PREOPERATIVE DIAGNOSES: 1. Lumbosacral radiculopathy. 2. Lumbosacral degenerative disk disease. 3. Lumbosacral spinal stenosis. POSTOPERATIVE DIAGNOSES: 1. Lumbosacral radiculopathy. 2. Lumbosacral degenerative disk disease. 3. Lumbosacral spinal stenosis. PROCEDURE PERFORMED: Right-sided lumbar transforaminal epidural steroid injection, L3-4 and L4-5. ANESTHESIA: MAC. BLOOD LOSS: Minimal. COMPLICATIONS: None. DESCRIPTION OF PROCEDURE: History and physical of today was reviewed. Risks and benefits of the procedure were explained. The patient understood and agreed to proceed. Informed consent was obtained. IV inserted per routine protocol. The patient was taken to the operating room and placed in the prone position with a pillow positioned underneath the abdomen. The right side of his lower back was prepped and draped in a sterile fashion using iodine x3. Under fluoro scopy guidance on oblique view, the L3 through L5 vertebral bodies were visualized. The skin and subcutaneous tissue was anesthetized with approximately 5 mL of 1% lidocaine using a 25-gauge regular needle. Under direct visualization with fluoroscopy at approximately 35-degree angle, starting on the right L3, ending on the right L4, using a 22-gauge 5-inch spinal needle, the needle was advanced via the skin. The tip of the needle was maneuvered and directed towards the inferior and medial gutter of the transverse process at the superiormost aspect of the neural foramen. Once the tip of the needle was at the vicinity of the foramen, after negative aspiration for blood or CSF, a total of 1 mL of contrast was injected in divided doses between both levels to confirm correct placement of the needle as well as medial spread. The confirmation was obtained on AP as well as lateral view. After repeated negative aspiration and confirmation on AP as well as lateral view, a total of 6 mL of preservative-free 0.25% Marcaine with 80 mg of Depo-Medrol was injected in divided doses between both levels. The needles were then removed intact. The patient experienced no sign or symptoms of intrathecal or intravascular injection. The patient experienced no paresthesia. The procedure was completed without any apparent difficulty or any complications. The patient appeared to tolerate it well. ASSESSMENT AND PLAN: This is a 59-year-old female with lumbosacral radiculopathy, lumbosacral degenerative disk disease, and lumbosacral spinal stenosis, status post right-sided lumbar transforaminal epidural steroid injection at L3-4 and L4-5. The patient will continue with their current medications. The patient will follow up in approximately 2 weeks for reevaluation. Surgical Findings: 0 Complications Complications: No Admit VTE Documentation VTE Present on Admission: No VTE Mechan Device Prophylaxis: None VTE Pharm Prophylaxis ordered?: No
--- NOTE | 2024-10-08 12:54 | PCM.POST.ANE ---
Anesthesia: Postop Eval I Current Vital Signs Temperature: 96.9 F Pulse Rate: 68 Blood Pressure: 145/88 Respiratory Rate: 18 Pulse Ox: 97 Oxygen Delivery Method: Room Air Assessment Airway patent: Yes Spontaneous unlabored respirations: Yes Mental status: Awake nausea: No Vomiting: No Anesthesia Complication: No Fluid Hydration Crystalloid volume administer (ml): 200 Total IV fluid infused: 200 Progress Note Anesthesia document: Postop Eval 1 completed: Yes
--- NOTE | 2024-10-08 13:42 | POSTOPAN2_ITS ---
Anesthesia Postop Eval I Sum Postop Eval Completion status Anesthesia document: Postop Eval 1 completed: Yes Anesthesia Postop Eval I Summary Anesthesia Postop Eval I Summary: Anesthesia Postop Eval I: Assessment Summary Airway patent Yes 10/08/24 12:55 FIRING PIN [email or web address] Spontaneous unlabored Yes 10/08/24 12:55 FIRING PIN [email or web address] respirations Mental status Awake 10/08/24 12:55 FIRING PIN [email or web address] nausea No 10/08/24 12:55 FIRING PIN [email or web address] Vomiting No 10/08/24 12:55 FIRING PIN [email or web address] Anesthesia Postop Eval I: Fluid Summary Crystalloid volume administer 200 10/08/24 12:55 FIRING PIN [email or web address] (ml) Colloids volume administered ( ml) Blood Product volume administered (ml) Total IV fluid infused 200 10/08/24 12:55 FIRING PIN [email or web address] Anesthesia Postop Eval I: Summary Notes Anesthesia Complication No 10/08/24 12:55 FIRING PIN [email or web address] Anesthesia Complication Comment: Post-operative progress note Anesthesia: Postop Eval II Evaluation Mental status: Awake Pain Level: 0 nausea: No Vomiting: No
--- NOTE | 2024-10-08 13:42 | PCM.POSTANE2 ---
Anesthesia Postop Eval I Sum Postop Eval Completion status Anesthesia document: Postop Eval 1 completed: Yes Anesthesia Postop Eval I Summary Anesthesia Postop Eval I Summary: Anesthesia Postop Eval I: Assessment Summary Airway patent Yes 10/08/24 12:55 FAMILY SERVICES [email or web address] Spontaneous unlabored Yes 10/08/24 12:55 FAMILY SERVICES [email or web address] respirations Mental status Awake 10/08/24 12:55 FAMILY SERVICES [email or web address] nausea No 10/08/24 12:55 FAMILY SERVICES [email or web address] Vomiting No 10/08/24 12:55 FAMILY [email or web address] Anesthesia Postop Eval I: Fluid Summary Crystalloid volume administer 200 10/08/24 12:55 FAMILY SERVICES [email or web address] (ml) Colloids volume administered ( ml) Blood Product volume administered (ml) Total IV fluid infused 200 10/08/24 12:55 FAMILY [email or web address] Anesthesia Postop Eval I: Summary Notes Anesthesia Complication No 10/08/24 12:55 FAMILY SERVICES [email or web address] Anesthesia Complication Comment: Post-operative progress note Anesthesia: Postop Eval II Evaluation Mental status: Awake Pain Level: 0 nausea: No Vomiting: No
== END 2024-10-08 09:56 | disposition home or self-care (01) ==
LOC: SDC 07:44 → AC 07:47
PROVIDERS: PCP Nurse Practitioner Family; Referring Provider Nurse Practitioner Family; Visit Provider Anesthesiology Pain Medicine
PROC: 3E0S3BZ Introduction of Anesthetic Agent into Epidural Space, Percutaneous Approach (ICD-10-PCS; CPT 64484; principal; 2024-10-08 09:05)
DX: M51.17 Intervertebral disc disorders with radiculopathy, lumbosacral region (principal); M48.07 Spinal stenosis, lumbosacral region; I10 Essential (primary) hypertension; F32.A Depression, unspecified; K21.9 Gastro-esophageal reflux disease without esophagitis; E78.00 Pure hypercholesterolemia, unspecified; G47.30 Sleep apnea, unspecified; Z79.899 Other long term (current) drug therapy; Z98.890 Other specified postprocedural states
CPT/HCPCS: 64484; 01992; 64483; 72100

== ENCOUNTER 2024-12-10 07:25 | Day surgery (SDC) | payer BC, SELFPAY ==
[2024-12-10] VITALS (7 sets, daily range): BP systolic 110–168; BP diastolic 76–98; PULSE 73–79; RESP 16–20; TEMP 36.1–36.5; O2SAT 96–97; BMI 53.1
[2024-12-10] MEDS: Lactated Ringers 1,000 ML 15 ML IV (07:54)
--- NOTE | 2024-12-10 08:19 | PCM.PRE.AN2 ---
ASA Classification* ASA Classification ASA Classification: 3 Assessment & Plan Anesthesia* Anesthesia Assessment Anesthesia Assessment: Discussed sedation and/or anesthesia options, risks, benefits, and alternatives with patient/parents/legal guardian/POA. Questions invited. The patient/parents/legal guardian/POA seems to understand and agrees to proceed with anesthesia plan. Reviewed the physical assessment, medical history, allergy history and patient home medications list prior to surgery/procedure/anesthetic and documented any changes. Performed airway and anesthesia risk assessments. Anesthesia Type Anesthesia Type: MAC History Source History Obtained from:: Patient and Chart Anesthesia Focused Assessment* Temperature: 96.9 F Pulse Rate: 77 Blood Pressure: 151/84 Respiratory Rate: 16 Pulse Ox: 96 Oxygen Delivery Method: Room Air Airway Assessment Mouth opens: >3 cm Mallampati Score: IV Teeth Condition: Intact Neck Range of motion (ROM): Limited ROM (Somewhat Decreased) Labs Anesthesia Preop lab: CBC WBC, (4.4-11.0) 5.3 K/mm3 06/10/16, 07:05 RBC, (4.2-5.4) 4.34 M/mm3 06/10/16, 07:05 Hgb, (12.0-15.0) 13.2 g/dl 06/10/16, 07:05 Hct, (37-47) 41.1 % 06/10/16, 07:05 Plt Count, (150-450) 183 K/mm3 06/10/16, 07:05 CHEMISTRY Potassium, (3.5-5.1) 3.9 mmol/L 05/08/12, 09:15 Sodium, (136-145) 144 mmol/L 05/08/12, 09:15 BUN, (7-18) 17 mg/dL 05/08/12, 09:15 Creatinine, (0.6-1.0) 0.8 mg/dL 05/08/12, 09:15 Glucose, (70-110) 87 mg/dL 05/08/12, 09:15 TSH, (0.358-3.74) 1.23 uIU/mL 08/24/18, 07:05 COAG Pre-Assessment Diagnosis/Proposed Procedure Planned Operative Procedure(s): (R) Radio Frequency Ablation, LUMBAR MEDIAL BRANCH BLOCK L4 L5 S1 UNDER FLUOROSCOPY Anesthesia History Anesthesia History - senior strategy analyst: Anesthesia History - senior strategy analyst Hx Hospitalization No 12/07/24 15:38 Any Problems With Anesthesia No 12/07/24 15:38 Cholinesterase deficiency No 12/07/24 15:38 You/Your Family Experience No 12/07/24 15:38 fever (hyperthermia) with Relationship Recent Exposure to Contagious No 12/10/24 07:44 Disease Does patient have nerve No 12/07/24 15:38 stimulator Patient instructed to have device shut off --Does patient have Pacemaker No 12/10/24 07:44 or ICD? When Was Last Pacemaker Check QUESTION #4 FULL TEXT: You/Your Family Experience fever (hyperthermia) with Anesthesia Last Oral Intake Last Oral intake: Last Oral Intake NPO since 23:00 12/10/24 07:44 Meds taken in AM with sips of No 12/10/24 07:44 water? Meds patient instructed to take am of surgery PONV PONV - senior strategy analyst: PONV - senior strategy analyst Female Yes 12/07/24 15:38 HX of Motion Sickness No 12/07/24 15:38 HX of N/V After Surgery No 12/07/24 15:38 Non-Smoker Yes 12/07/24 15:38 Duration of Surgery greater No 12/07/24 15:38 than 60 minutes Number of Risk Factors 2 12/07/24 15:38 PONV Score Moderate Risk 12/07/24 15:38 Height & Weight Height & Weight: Anesthesia: Height & Weight Height 5 ft 3 in 12/10/24 07:44 Weight: 136 kg 12/10/24 07:44 Body Mass Index (BMI) 53.1 12/10/24 07:44 Respiratory Assessment Respiratory Assessment - senior strategy analyst: Respiratory Tract Infection Hx - senior strategy analyst Hx Respiratory Tract Infection No 12/07/24 15:38 STOP Sleep Apnea STOP Sleep Apnea - senior strategy analyst: STOP Sleep Apnea - senior strategy analyst Hx Hypertension Yes: CONTROLLED WITH MED 12/07/24 15:38 Hx Sleep Apnea Yes 12/07/24 15:38 CPAP Yes 12/07/24 15:38 BIPAP No 12/07/24 15:38 Do you snore loudly (louder than talking or can be heard Do you often feel tired/ fatigued/ sleepy during daytime? Has anyone observed you stop breathing during sleep? STOP Results Positive 12/07/24 15:38 QUESTION #5 FULL TEXT : Do you snore loudly (louder than talking or can be heard through closed doors)? Tobacco Use History Tobacco Use History - senior strategy analyst: Tobacco Use History - senior strategy analyst Tobacco Use Smoking Status Never smoker 12/07/24 15:38 Hx Tobacco Use No 12/07/24 15:38 Years Smoking Packs Smoked per Day Smoking Cessation Date was within the last 15 years Hx Smoking Cessation Date Hx Smoking Cessation Counseling Hematologic Medial History Hematologic Hx - senior strategy analyst: Hematologic Medical Hx - box hinge and lock attacher Hx of Blood Transfusion No 12/07/24 15:38 Hx of Transfusion in last 3 No 12/07/24 15:38 Months Date of Last Transfusion (if within last 3 months) Ever experience any problems No 12/07/24 15:38 with transfusion(s)? Specify any problems Hx of Preganancy in last 3 N/A 12/07/24 15:38 Months Nurse Filling Out Transfusion NBUCHER 12/07/24 15:38 & Questions: Date: 12/07/24 12/07/24 15:38 Time: 15:39 12/07/24 15:38 Patient unable to answer at this time (ie. confused, unrespo /Reproduction History /Reproductive History - senior strategy analyst: /Reproductive Hx- senior strategy analyst Hx Now No 12/07/24 15:38 Gestational Age (in weeks): EDC: Hx Hx Para Hx Section SAB No 12/07/24 15:38 Active Medications Active Medications: Current Medications Generic Name Dose Route Start Last Admin Trade Name Freq PRN Reason Stop Dose Admin Lactated Ringer's 1,000 mls @ 15 mls/hr 12/10/24 07:45 12/10/24 07:54 IV 15 mls/hr .Q48H TRINIDAD Administration PFSH Medical History Pain Wears glasses Depression Arthritis Anemia High cholesterol Back pain Gastric reflux Non-smoker CPAP (continuous positive airway pressure) dependence Shortness of breath on exertion History of edema Hypertension Home Medications ?Medication ?Instructions ?Recorded ?Last Taken ?Type escitalopram oxalate 20 mg tablet 20 mg PO QHS 01/08/22 07/10/23 History (Lexapro) gabapentin 100 mg tablet 100 mg PO TID 01/08/22 07/10/23 History meloxicam 15 mg tablet 15 mg PO DAILY 01/08/22 07/10/23 History omega-3 fatty acids-vitamin E 1,000 cap PO DAILY 01/08/22 07/10/23 History 1,000 mg capsule omeprazole 40 mg capsule,delayed 40 mg PO QHS 01/08/22 07/10/23 History release rosuvastatin 5 mg tablet (Crestor) 5 mg PO QHS 01/08/22 07/10/23 History lisinopril 10 mg tablet 10 mg PO DAILY 07/20/24 Unknown History bupropion HCl 150 mg 24 hr tablet, 150 mg PO DAILY 12/07/24 Unknown History extended release (Wellbutrin XL) loratadine 10 mg tablet 10 mg PO DAILY PRN allergy symptoms 12/07/24 Unknown History (Allerclear) Allergy/AdvReac Type Severity Reaction Status Date / Time Penicillins Allergy Rash Verified 12/10/24 07:42 Sulfa (Sulfonamide Allergy Swelling Verified 12/10/24 07:42 Antibiotics) Surgical History History of lumbar laminectomy Hx of arthroscopic knee surgery Hx of tubal ligation Hx of total knee arthroplasty Social History Smoking Status: Never smoker Review of Systems (Anesthesia) ROS Narrative System reviewed and no additional complaints, except as documented.
--- NOTE | 2024-12-10 08:40 | RAD_ITS ---
PROCEDURE: LUMBAR SPINE 2 OR 3 VIEWS 12/10/2024 REASON FOR EXAM: RADIOFREQUENCY ABLATION L4 L5 S1 TECHNIQUE: Procedure Code: RADSPLL Modality: DX Procedure: LUMBAR SPINE 2 OR 3 VIEWS FINDINGS: Intraoperative fluoroscopy was performed. 20.0 seconds of fluoroscopic time. 12.94 mGy. 6 images. See procedure report for full details. RAD/Lumbar Spine 2 or 3 Views IMPRESSION: As above. Reading Location: [id number]
[2024-12-10] MEDS: Lidocaine 1% (30 ml sdv) 30 ML Vial (08:41)
--- NOTE | 2024-12-10 09:02 | PCM.POST.ANE ---
Anesthesia: Postop Eval I Current Vital Signs Temperature: 97.7 F Pulse Rate: 78 Blood Pressure: 110/78 Respiratory Rate: 20 Pulse Ox: 96 Assessment Airway patent: Yes Spontaneous unlabored respirations: Yes nausea: No Vomiting: No Anesthesia Complication: No Fluid Hydration Crystalloid volume administer (ml): 200 Total IV fluid infused: 200 Progress Note Anesthesia document: Postop Eval 1 completed: Yes
--- NOTE | 2024-12-10 09:33 | PCM.OPRPT ---
Operative Report (Standard) Operative Information Date of Procedure: 12/10/24 Pre-Operative Diagnosis: Lumbosacral spondylosis, lumbosacral degenerative disc disease, lumbar facet arthropathy Post-Operative Diagnosis: Lumbosacral spondylosis, lumbosacral degenerative disc disease, lumbar facet arthropathy Surgery/Procedure Performed: Right sided lumbar radiofrequency ablation of the medial branch at L4, L5, S1 under fluoroscopic guidance real estate development manager: No Type of Anesthesia: Local MAC RN Documented Start/Stop Times: Operation Date: 12/10/24 09:00 Case Time Into Pre-Op 12/10/24 07:31 Anesthesia Start 12/10/24 08:34 Into Room 12/10/24 08:34 Procedure Start 12/10/24 08:39 Procedure End 12/10/24 08:56 Anesthesia End 12/10/24 08:58 Out of Room 12/10/24 08:58 Into Recovery 12/10/24 09:02 Into Phase II Recovery 12/10/24 09:16 Out of Recovery 12/10/24 09:16 Procedure Start Time: 09:33 Procedure Stop Time: 09:34 Select all DRAINS/GRAFTS/IMPLANTS that apply: None Estimated Blood Loss: 1 Specimen collected: No Description of surgery: ANESTHESIA: MAC. BLOOD LOSS: Minimal. COMPLICATIONS: None. DESCRIPTION OF PROCEDURE: History and physical of today was reviewed. Risks and benefits of the procedure were explained. The patient understood and agreed to proceed. Informed consent was obtained. IV inserted per routine protocol. The patient was taken to the operating room and placed in the prone position with a pillow positioned underneath the abdomen. The right side of her lower back was prepped and draped in a sterile fashion using iodine x3. Under fluoroscopy guidance in an oblique view, the L3 through S1 vertebral bodies were visualized. The skin and subcutaneous tissue was anesthetized with approximately 10 mL of 1% lidocaine using a 25-gauge regular needle. Under direct visualization on fluoroscopy at approximately 25-degree angle, starting on the right L3, ending on the right S1, passing through the L4 and L5, using a 20-gauge 15-cm with a 10-mm curved active-tip radiofrequency ablation needle, the needle was passed through the skin. The tip of the needle was maneuvered and directed towards the superior medial gutter of the transverse process at the vicinity of the medial branch. Once the tip of the needle was in contact with the bone, the needle was pulled approximately 2 mm off the bone. The stylette of each needle was then removed. After negative aspiration of blood or CSF and confirmation on AP, oblique as well as lateral view, the radiofrequency ablation probe was then inserted at each level. Impedance was then recorded at L3 to be 212 ohm, at L4 to be 231 ohm, at L5 to be 223 ohm, and at S1 to be 237 ohm. Motor evoked potential was then initiated to 2 Hz and 1.5 volt without any motor response at each corresponding level. The probe was then removed intact and a total of 6 mL of preservative-free 1% lidocaine was injected in divided doses between those four levels after negative aspiration of blood or CSF. The radiofrequency ablation probe was then reinserted. After confirmation on AP, oblique as well as lateral view, radiofrequency ablation was then initiated to 80 degree Celsius for 90 second at each level. Once concluded, the probe was then removed intact. A total of 6 mL of preservative-free 0.25% Marcaine with 40 mg of Depo-Medrol was injected in divided doses between those four levels. The needles were then removed intact. The patient experienced no sign or symptoms of intrathecal or intravascular injection. The patient experienced no paresthesia. The procedure was completed without any apparent difficulty or any complications. The patient appeared to tolerate it well. Sensory as well as motor exam was unchanged from prior to the procedure. ASSESSMENT AND PLAN: This is a 59-year-old female with lumbosacral radiculopathy, lumbosacral degenerative disc disease, lumbar facet arthropathy, status post right sided lumbar radiofrequency ablation of the medial branch at L4-S1 under fluoroscopic guidance, patient will continue her current medications, patient will follow-up in approximately 2 weeks for reevaluation. Surgical Findings: 0 Complications Complications: No Admit VTE Documentation VTE Present on Admission: No VTE Mechan Device Prophylaxis: None VTE Pharm Prophylaxis ordered?: No
--- NOTE | 2024-12-10 12:00 | POSTOPAN2_ITS ---
Anesthesia Postop Eval I Sum Postop Eval Completion status Anesthesia document: Postop Eval 1 completed: Yes Anesthesia Postop Eval I Summary Anesthesia Postop Eval I Summary: Anesthesia Postop Eval I: Assessment Summary Airway patent Yes 12/10/24 09:02 ELECTRICAL INSTALLATION INSPECTOR.CSIR Spontaneous unlabored Yes 12/10/24 09:02 ELECTRICAL INSTALLATION INSPECTOR.CSIR respirations Mental status nausea No 12/10/24 09:02 ELECTRICAL INSTALLATION INSPECTOR.CSIR Vomiting No 12/10/24 09:02 ELECTRICAL INSTALLATION INSPECTOR.CSIR Anesthesia Postop Eval I: Fluid Summary Crystalloid volume administer 200 12/10/24 09:02 ELECTRICAL INSTALLATION INSPECTOR.CSIR (ml) Colloids volume administered ( ml) Blood Product volume administered (ml) Total IV fluid infused 200 12/10/24 09:02 ELECTRICAL INSTALLATION INSPECTOR.CSIR Anesthesia Postop Eval I: Summary Notes Anesthesia Complication No 12/10/24 09:02 ELECTRICAL INSTALLATION INSPECTOR.CSIR Anesthesia Complication Comment: Post-operative progress note Anesthesia: Postop Eval II Evaluation Mental status: Awake and Calm Pain Level: 1 nausea: No Vomiting: No Complications Anesthesia Complication: No
--- NOTE | 2024-12-10 12:00 | PCM.POSTANE2 ---
Anesthesia Postop Eval I Sum Postop Eval Completion status Anesthesia document: Postop Eval 1 completed: Yes Anesthesia Postop Eval I Summary Anesthesia Postop Eval I Summary: Anesthesia Postop Eval I: Assessment Summary Airway patent Yes 12/10/24 09:02 PARANORMAL INVESTIGATOR.CSIR Spontaneous unlabored Yes 12/10/24 09:02 PARANORMAL INVESTIGATOR.CSIR respirations Mental status nausea No 12/10/24 09:02 PARANORMAL INVESTIGATOR.CSIR Vomiting No 12/10/24 09:02 PARANORMAL INVESTIGATOR.CSIR Anesthesia Postop Eval I: Fluid Summary Crystalloid volume administer 200 12/10/24 09:02 PARANORMAL INVESTIGATOR.CSIR (ml) Colloids volume administered ( ml) Blood Product volume administered (ml) Total IV fluid infused 200 12/10/24 09:02 PARANORMAL INVESTIGATOR.CSIR Anesthesia Postop Eval I: Summary Notes Anesthesia Complication No 12/10/24 09:02 PARANORMAL INVESTIGATOR.CSIR Anesthesia Complication Comment: Post-operative progress note Anesthesia: Postop Eval II Evaluation Mental status: Awake and Calm Pain Level: 1 nausea: No Vomiting: No Complications Anesthesia Complication: No
== END 2024-12-10 09:46 | disposition home or self-care (01) ==
LOC: SDC 07:27 → AC 07:29
PROVIDERS: PCP Nurse Practitioner Family; Referring Provider Anesthesiology Pain Medicine; Visit Provider Anesthesiology Pain Medicine
PROC: (CPT 64635; principal; 2024-12-10 08:55)
DX: M47.817 Spondylosis without myelopathy or radiculopathy, lumbosacral region (principal); M51.379 Other intervertebral disc degeneration, lumbosacral region without mention of lumbar back pain or lower extremity pain; M46.96 Unspecified inflammatory spondylopathy, lumbar region; I10 Essential (primary) hypertension; F32.A Depression, unspecified; K21.9 Gastro-esophageal reflux disease without esophagitis; E78.00 Pure hypercholesterolemia, unspecified; Z79.899 Other long term (current) drug therapy
CPT/HCPCS: 64635; 64636; 72100; 76000; J2405

== ENCOUNTER → 2025-01-28 | Outpatient (CLI) | payer BC, SELFPAY ==
--- NOTE | 2025-01-28 16:42 | US_ITS ---
PROCEDURE: EXT NON VASC LIMITED/SOFT TISS 01/28/2025 REASON FOR EXAM: Left hand palpable mass. TECHNIQUE: Procedure Code: [id number] Modality: US Procedure: EXT NON VASC LIMITED/SOFT TISS Grayscale evaluation with color Doppler assessment of the left hand was performed. COMPARISON: None available. FINDINGS: At the area of interest at the left palmar hand, there is an ovoid hypoechoic lesion measuring 1.1 x 1.0 x 0.3 cm demonstrating posterior acoustic enhancement. There is no associated vascularity. US/Ext Non Vasc Limited/Soft Tiss IMPRESSION: 1.1 x 1.0 x 0.3 cm cystic lesion at the area of interest in the palm of the lef t hand. Findings favor a ganglion cyst. Reading Location: [id number]
== END | disposition home or self-care (01) ==
LOC: US 16:38
PROVIDERS: PCP Nurse Practitioner Family; Referring Provider Orthopaedic Surgery Sports Medicine; Visit Provider Orthopaedic Surgery Sports Medicine
DX: M67.442 Ganglion, left hand (principal)
CPT/HCPCS: 76882